=== PATIENT | male | born 1950 | race Caucasian/White ===

== ENCOUNTER → 2019-03-30 08:29 | Outpatient (POV) | payer OTHER, SELFPAY ==
[2019-03-30 08:39] VITALS: BP 145/84; PULSE 87; RESP 18; O2SAT 98
--- NOTE | 2019-03-30 08:57 | HMH.PMCON ---
Assessment and Plan (1) Degenerative disc disease Current visit: Yes Status: Chronic Qualifiers: Spinal region: lumbosacral Qualified Code(s): M51.37 - Other intervertebral disc degeneration, lumbosacral region Category: Medical (2) Back pain Current visit: Yes Status: Chronic Qualifiers: Back pain location: low back pain Chronicity: chronic Back pain laterality: midline Sciatica presence: without sciatica Qualified Code(s): M54.5 - Low back pain; G89.29 - Other chronic pain Category: Medical Code(s): M54.9 - Dorsalgia, unspecified - Assessment and plan all Dx Assessment and Plan for all problems:: We will schedule him for an L5-S1 lumbar epidural steroid injection I believe it would be beneficial given his symptomology and abnormal MRI. I will follow-up with the patient after his injection reassess his symptoms at that time. He is currently not on any anticoagulation therapy. Dr. Massey has reviewed this note and agrees with this plan of care. This note was dictated using voice recognition software and may contain errors or omissions HPI - Data of Consult Consult date: 03/30/19 Requesting Physician: Laila Agrawal APRN Primary Care Provider: Justin Marcum MD - Consult Narrative Reason for consult: Back pain, coccyx pain History of present illness: Mr. Granados is a 68 year old male patient is a pleasant 68-year-old white male who presents today for consultation in regards to low back pain. Patient states sitting for long periods of time increases pain while standing decreases his pain. He denies any numbness and tingling or radiation of pain. Patient was seen by a neurosurgeon several years ago and was deemed not a surgical candidate. He has had injections in the past with good relief. Patient currently on anti-inflammatories and continuing a home stretching program. He rates his pain a 3 out of 10. He is interested in pursuing more epidural injections. CC: Laila Agrawal APRN [facility] History I have reviewed the patient's past medical history: Yes Medical History: Reports:: Hypertension Other Surgeries: Yes: Appendectomy Amputation: No Fractures: No - *Social History Smoking Status: Never smoker Alcohol Intake: current Alcohol Intake Frequency:: a few times a week *Occupational Status:: other Housing: house *Travel in the last 8 weeks: None - Psychiatric History Expresses thoughts of harming self/others: None Suicide Plan Description: No Plan Family Hx:: Unable to obtain Review of Systems - Review of Systems ROS General: no recent weight change, no fever, no sleep disturbances Respiratory: no cough, no shortness of air, no recurring pulmonary infections Cardiovascular/Peripheral Vascular: No chest pain, No palpitations, no edema, no shortness of breath. Gastrointestinal: no incontinence, normal bowel movements reported Genitourinary: no incontinence Musculoskeletal: Back pain Psychiatric: normal mood/ affect Neurological: [denies weakness in extremities], [denies balance issues] Meds Allergies Allergy/AdvReac Type Severity Reaction Status Date / Time No Known Allergies Allergy Unverified 11/05/17 14:23 Objective Vital signs: Pulse Resp BP Pulse Ox 87 18 145/84 H 98 03/30/19 08:39 03/30/19 08:39 03/30/19 08:39 03/30/19 08:39 Narrative: Physical Exam General: Alert and oriented x3, no acute distress, pleasant and cooperative, [on room air] Lungs: Resps E/U, Symmetrical chest expansion, Eyes: PERRL Musculoskeletal: Flexion and extension of lumbar spine somewhat guarded secondary to pain, deep tendon reflexes normal, strength in upper and lower extremities [5/5], slightly antalgic gait noted Neurological: speech clear, disease and insect control boss equal, no gross sensory deficits Opioid Risk Tool - Opioid Risk Tool-Male Family hx alcohol abuse: N Family hx illegal drugs: N Family hx rx drug abuse: N Person
--- NOTE | 2019-03-30 09:00 | P.CONS_ITS ---
Assessment and Plan (1) Degenerative disc disease Current visit: Yes Status: Chronic Qualifiers: Spinal region: lumbosacral Qualified Code(s): M51.37 - Other intervertebral disc degeneration, lumbosacral region Category: Medical (2) Back pain Current visit: Yes Status: Chronic Qualifiers: Back pain location: low back pain Chronicity: chronic Back pain laterality: midline Sciatica presence: without sciatica Qualified Code(s): M54.5 - Low back pain; G89.29 - Other chronic pain Category: Medical Code(s): M54.9 - Dorsalgia, unspecified - Assessment and plan all Dx Assessment and Plan for all problems:: We will schedule him for an L5-S1 lumbar epidural steroid injection I believe it would be beneficial given his symptomology and abnormal MRI. I will follow-up with the patient after his injection reassess his symptoms at that time. He is currently not on any anticoagulation therapy. Dr. Massey has reviewed this note and agrees with this plan of care. This note was dictated using voice recognition software and may contain errors or omissions HPI - Data of Consult Consult date: 03/30/19 Requesting Physician: Laila Agrawal APRN Primary Care Provider: Justin Marcum MD - Consult Narrative Reason for consult: Back pain, coccyx pain History of present illness: Mr. Granados is a 68 year old male patient is a pleasant 68-year-old white male who presents today for consultation in regards to low back pain. Patient states sitting for long periods of time increases pain while standing decreases his pain. He denies any numbness and tingling or radiation of pain. Patient was seen by a neurosurgeon several years ago and was deemed not a surgical candidate. He has had injections in the past with good relief. Patient currently on anti-inflammatories and continuing a home stretching program. He rates his pain a 3 out of 10. He is interested in pursuing more epidural injections. CC: Laila Agrawal APRN [facility] History I have reviewed the patient's past medical history: Yes Medical History: Reports:: Hypertension Other Surgeries: Yes: Appendectomy Amputation: No Fractures: No - *Social History Smoking Status: Never smoker Alcohol Intake: current Alcohol Intake Frequency:: a few times a week *Occupational Status:: other Housing: house *Travel in the last 8 weeks: None - Psychiatric History Expresses thoughts of harming self/others: None Suicide Plan Description: No Plan Family Hx:: Unable to obtain Review of Systems - Review of Systems ROS General: no recent weight change, no fever, no sleep disturbances Respiratory: no cough, no shortness of air, no recurring pulmonary infections Cardiovascular/Peripheral Vascular: No chest pain, No palpitations, no edema, no shortness of breath. Gastrointestinal: no incontinence, normal bowel movements reported Genitourinary: no incontinence Musculoskeletal: Back pain Psychiatric: normal mood/ affect Neurological: [denies weakness in extremities], [denies balance issues] Meds Allergies Allergy/AdvReac Type Severity Reaction Status Date / Time No Known Allergies Allergy Unverified 11/05/17 14:23 Objective Vital signs: Pulse Resp BP Pulse Ox 87 18 145/84 H 98 03/30/19 08:39 03/30/19 08:39 03/30/19 08:39 03/30/19 08:39 Narrative:
== END ==
PROVIDERS: PCP Family Medicine; Visit Provider Clinical Nurse Specialist Family Health
DX: M51.37 Other intervertebral disc degeneration, lumbosacral region (principal); G89.29 Other chronic pain
CPT/HCPCS: 99202

== ENCOUNTER 2019-04-10 09:15 | Day surgery (SDC) | payer OTHER, SELFPAY ==
[2019-04-10 09:24] VITALS: BP 156/73; PULSE 78; RESP 18; O2SAT 92; BMI 40.4
[2019-04-10 09:56] VITALS: BP 155/89; PULSE 82; RESP 20
[2019-04-10 09:58] VITALS: BP 144/82; PULSE 80; RESP 20
--- NOTE | 2019-04-10 10:08 | HMH.PMPROC ---
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 He is failed all conservative treatment and he is not a surgical candidate. He has had epidural steroid injections in the past which have helped him tremendously. His pain is starting to return in his back and down his legs. We will do repeat lumbar pleural steroid injection today. Procedure Details:: Lumbar epidural steroid injection under fluoroscopy Informed consent was obtained and the risk and benefits of the procedure was explained to the patient. The patient was taken to the procedure room. The patient was placed prone on the procedure table. The patient was prepped and draped in sterile fashion. C-arm fluoroscopy was used to view the lumbar spine. Skin and subcutaneous tissues were anesthetized using lidocaine. I placed an 18-gauge epidural needle and advanced into the L4-L5 interspace using fluoroscopic guidance and [id number] to air. After confirmation of needle placement in the epidural space with dye I injected 2 mL of lidocaine 1.5% with Depo-Medrol 80 mg. Patient tolerated the procedure well with no complications. Plan and Disposition:: We will follow-up with him in 2 weeks. Will reevaluate symptoms at that time.
[2019-04-10 10:15] VITALS: BP 148/79; PULSE 70; RESP 18; O2SAT 94
== END 2019-04-10 10:15 | disposition home or self-care (01) ==
LOC: SC.PAINP 09:17
PROVIDERS: PCP Family Medicine; Visit Provider Anesthesiology
DX: M51.16 Intervertebral disc disorders with radiculopathy, lumbar region (principal)
CPT/HCPCS: 62323; J1040; Q9966

== ENCOUNTER → 2019-05-11 14:52 | Outpatient (POV) | payer OTHER, SELFPAY ==
[2019-05-11 15:02] VITALS: BP 145/81; PULSE 71; RESP 18; O2SAT 99; BMI 54.8
--- NOTE | 2019-05-11 15:46 | HMH.PAINSOAP ---
[facility] Pain Management SOAP Note Subjective:: Patient is a pleasant 68-year-old white male who follows up today after his L5-S1 lumbar epidural steroid injection. Patient overall doing well. Patient does have some SI joint pain today. Rating his pain a 5 out of 10. He is interested in potential injections to help alleviate this. ROS General: no recent weight change, no fever, no sleep disturbances Respiratory: no cough, no shortness of air, no recurring pulmonary infections Cardiovascular/Peripheral Vascular: No chest pain, No palpitations, no edema, no shortness of breath. Gastrointestinal: no incontinence, normal bowel movements reported Genitourinary: no incontinence Musculoskeletal: Back pain, SI joint pain Psychiatric: normal mood/ affect Neurological: [denies weakness in extremities], [denies balance issues] Objective:: Physical Exam General: Alert and oriented x3, no acute distress, pleasant and cooperative, [on room air] Lungs: Resps E/U, Symmetrical chest expansion, Eyes: PERRL Musculoskeletal: Flexion and extension of lumbar spine somewhat guarded secondary to pain, deep tendon reflexes normal, strength in upper and lower extremities [5/5], positive Swati test, positive SI joint compression test, positive Juanito's test bilaterally Neurological: speech clear, college or university business manager equal, no gross sensory deficits Assessment:: Sacroiliitis, degenerative disc disease lumbar spine Plan:: We will schedule the patient for bilateral SI joint injections. Patient otherwise doing well. Patient is not on any anticoagulation therapies continue his home stretching program. He is on anti-complain Dr. Massey has reviewed this note and agrees with this plan of care. This note was dictated using voice recognition software and may contain errors or omissions
--- NOTE | 2019-05-11 15:50 | P.CONS_ITS ---
[facility] Pain Management SOAP Note Subjective:: Patient is a pleasant 68-year-old white male who follows up today after his L5- S1 lumbar epidural steroid injection. Patient overall doing well. Patient does have some SI joint pain today. Rating his pain a 5 out of 10. He is interested in potential injections to help alleviate this. ROS General: no recent weight change, no fever, no sleep disturbances Respiratory: no cough, no shortness of air, no recurring pulmonary infections Cardiovascular/Peripheral Vascular: No chest pain, No palpitations, no edema, no shortness of breath. Gastrointestinal: no incontinence, normal bowel movements reported Genitourinary: no incontinence Musculoskeletal: Back pain, SI joint pain Psychiatric: normal mood/ affect Neurological: [denies weakness in extremities], [denies balance issues] Objective:: Physical Exam General: Alert and oriented x3, no acute distress, pleasant and cooperative, [on room air] Lungs: Resps E/U, Symmetrical chest expansion, Eyes: PERRL Musculoskeletal: Flexion and extension of lumbar spine somewhat guarded secondary to pain, deep tendon reflexes normal, strength in upper and lower extremities [5/5], positive Swati test, positive SI joint compression test, positive Juanito's test bilaterally Neurological: speech clear, body maker machine setter equal, no gross sensory deficits Assessment:: Sacroiliitis, degenerative disc disease lumbar spine Plan:: We will schedule the patient for bilateral SI joint injections. Patient otherwise doing well. Patient is not on any anticoagulation therapies continue his home stretching program. He is on anti-complain Dr. Massey has reviewed this note and agrees with this plan of care. This note was dictated using voice recognition software and may contain errors or omissions
== END ==
PROVIDERS: PCP Family Medicine; Visit Provider Clinical Nurse Specialist Family Health
DX: M46.1 Sacroiliitis, not elsewhere classified (principal); M51.36 Other intervertebral disc degeneration, lumbar region
CPT/HCPCS: 99212

== ENCOUNTER → 2019-06-29 14:57 | Outpatient (POV) | payer OTHER, SELFPAY ==
[2019-06-29 15:07] VITALS: BP 132/70; PULSE 78; RESP 18; O2SAT 98; BMI 39.7
--- NOTE | 2019-06-29 15:27 | HMH.PAINSOAP ---
[facility] Pain Management SOAP Note Subjective:: Patient is a pleasant 68-year-old white male who presents today for follow-up after SI joint injections. Patient found that this was not as beneficial as his L5-S1 epidural steroid injection. He rates his pain a 3 out of 10. He is quite a bit of pain in his low back radiating into his right leg. Patient's not currently not on any NSAIDs. Patient and I discussed adding an NSAID and also repeating his L5-S1 injection. He did get good relief after this. Patient still having some relief from it. Patient not on any anticoagulation therapy. He is continuing a home stretching program. He is continuing to work. ROS General: no recent weight change, no fever, no sleep disturbances Respiratory: no cough, no shortness of air, no recurring pulmonary infections Cardiovascular/Peripheral Vascular: No chest pain, No palpitations, no edema, no shortness of breath. Gastrointestinal: no incontinence, normal bowel movements reported Genitourinary: no incontinence Musculoskeletal: Back pain, right leg pain Psychiatric: normal mood/ affect Neurological: [denies weakness in extremities], [denies balance issues] Objective:: Physical Exam General: Alert and oriented x3, no acute distress, pleasant and cooperative, [on room air] Lungs: Resps E/U, Symmetrical chest expansion, Eyes: PERRL Musculoskeletal: Flexion and extension of lumbar spine somewhat guarded secondary to pain, deep tendon reflexes normal, strength in upper and lower extremities [5/5], slightly antalgic gait noted Neurological: speech clear, bulwark carpenter equal, no gross sensory deficits Assessment:: Degenerative disc disease lumbar spine with lumbar radiculopathy Plan:: We will schedule an L5-S1 epidural injection given the efficacy in the past. He is not on any anticoagulation therapy. He is continuing home stretching program we will also start him on diclofenac 75 mg 1 p.o. twice daily. Patient instructed to call the office if he has any issues prior to his next appointment. Dr. Massey has reviewed this note and agrees with this plan of care. This note was dictated using voice recognition software and may contain errors or omissions Pain Management Hx Components *Have you ever received a pneumonia vaccine?: Yes *Have you received a flu vaccine this season?: Yes - *Social History *Occupational Status:: other *Travel in the last 8 weeks: None
--- NOTE | 2019-06-29 15:30 | P.CONS_ITS ---
[facility] Pain Management SOAP Note Subjective:: Patient is a pleasant 68-year-old white male who presents today for follow-up after SI joint injections. Patient found that this was not as beneficial as his L5-S1 epidural steroid injection. He rates his pain a 3 out of 10. He is quite a bit of pain in his low back radiating into his right leg. Patient's not currently not on any NSAIDs. Patient and I discussed adding an NSAID and also repeating his L5-S1 injection. He did get good relief after this. Patient still having some relief from it. Patient not on any anticoagulation therapy. He is continuing a home stretching program. He is continuing to work. ROS General: no recent weight change, no fever, no sleep disturbances Respiratory: no cough, no shortness of air, no recurring pulmonary infections Cardiovascular/Peripheral Vascular: No chest pain, No palpitations, no edema, no shortness of breath. Gastrointestinal: no incontinence, normal bowel movements reported Genitourinary: no incontinence Musculoskeletal: Back pain, right leg pain Psychiatric: normal mood/ affect Neurological: [denies weakness in extremities], [denies balance issues] Objective:: Physical Exam General: Alert and oriented x3, no acute distress, pleasant and cooperative, [on room air] Lungs: Resps E/U, Symmetrical chest expansion, Eyes: PERRL Musculoskeletal: Flexion and extension of lumbar spine somewhat guarded secondary to pain, deep tendon reflexes normal, strength in upper and lower extremities [5/5], slightly antalgic gait noted Neurological: speech clear, director of outreach equal, no gross sensory deficits Assessment:: Degenerative disc disease lumbar spine with lumbar radiculopathy Plan:: We will schedule an L5-S1 epidural injection given the efficacy in the past. He is not on any anticoagulation therapy. He is continuing home stretching progra m we will also start him on diclofenac 75 mg 1 p.o. twice daily. Patient instructed to call the office if he has any issues prior to his next appointment. Dr. Massey has reviewed this note and agrees with this plan of care. This note was dictated using voice recognition software and may contain errors or omissions Pain Management Hx Components *Have you ever received a pneumonia vaccine?: Yes *Have you received a flu vaccine this season?: Yes - *Social History *Occupational Status:: other *Travel in the last 8 weeks: None
== END ==
PROVIDERS: PCP Family Medicine; Visit Provider Clinical Nurse Specialist Family Health
DX: M51.16 Intervertebral disc disorders with radiculopathy, lumbar region (principal)
CPT/HCPCS: 99212

== ENCOUNTER → 2019-11-12 08:43 | Outpatient (POV) | payer OTHER, SELFPAY ==
[2019-11-12 08:55] VITALS: BP 148/68; PULSE 84; RESP 18; O2SAT 99; BMI 41.1
--- NOTE | 2019-11-12 09:04 | HMH.PAINSOAP ---
[facility] Pain Management SOAP Note Subjective:: Is a pleasant 69-year-old white male who presents today for follow-up. Treated for low back pain with coccydynia. He recently underwent a lumbar epidural steroid injection at L5-S1. Patient says that he got approximately 60% relief with the second injection. He does say he got more relief from the first injection. He would like to undergo more epidural steroid injection to see if he gets relief. He is continue with anti-inflammatories and a home stretching program. Review of Systems General: No recent weight changes, no fever, no sleep disturbances Respiratory: No cough, no shortness of air, no recurring pulmonary infections Cardiovascular/peripheral vascular: No chest pain, no palpitations, no edema, no shortness of breath Gastrointestinal: No new onset incontinence, normal bowel movements reported Genitourinary: No new onset incontinence Musculoskeletal: Low back pain Psychiatric: Normal mood/affect Neurological: [Denies weakness in extremities], [denies balance issues] Objective:: Physical exam General: Alert and oriented x3, no acute distress, pleasant and cooperative, [on room air] Lungs: Respirations even and unlabored, symmetrical chest expansion Eyes: PERRL Musculoskeletal: Flexion and extension of bar spine somewhat guarded secondary to pain, deep tendon reflexes normal, strength in upper and lower extremities [5/5], [abnormal gait noted] Neurological: Speech clear, president financial institution equal, no gross sensory deficit Assessment:: Generative disc disease lumbar spine with lumbar radiculopathy symptoms coccydynia Plan:: We will plan for a another lumbar epidural steroid injection at L5-S1. Not on any anticoagulation therapy. He will continue with the inflammatories and a home stretching program. See him back following his injection to reassess his symptoms. He has been instructed to contact the clinic he has any concerns before his next appointment. Dr. Massey has reviewed this note and agrees with this plan of care. This note was dictated using voice recognition software and make contain errors or omissions. [facility] History I have reviewed the patient's past medical history: Yes Medical History: Reports:: Hypertension Denies:: Cancer, Diabetes Mellitus Type 1, Diabetes Mellitus Type 2, MRSA, Seizures *Have you ever received a pneumonia vaccine?: Yes *Have you received a flu vaccine this season?: Yes Other Medical History: Denies: Blood Transfusion Reaction Other Surgeries: Yes: Appendectomy Amputation: No Fractures: No - *Social History Smoking Status: Former smoker Alcohol Intake: current Alcohol Intake Frequency:: a few times a week *Occupational Status:: other Housing: house Household Members: spouse *Travel in the last 8 weeks: None Family Hx:: Unable to obtain
== END ==
PROVIDERS: PCP Family Medicine; Visit Provider Clinical Nurse Specialist Family Health
DX: M51.16 Intervertebral disc disorders with radiculopathy, lumbar region (principal); M53.3 Sacrococcygeal disorders, not elsewhere classified
CPT/HCPCS: 99212

== ENCOUNTER → 2020-09-19 10:29 | Outpatient (CLI) | payer OTHER, SELFPAY ==
[2020-09-19 11:54] LABS: Coronavirus 19 IgG Antibody Negative (Negative); Coronavirus 19 IgM Antibody Negative (Negative)
== END ==
PROVIDERS: Visit Provider Surgery
DX: Z01.818 Encounter for other preprocedural examination (principal); Z12.11 Encounter for screening for malignant neoplasm of colon
CPT/HCPCS: 36415; 86328

== ENCOUNTER 2020-09-20 09:19 | Day surgery (SDC) | payer OTHER, SELFPAY ==
[2020-09-14 12:36] VITALS: BMI 37.0
[2020-09-20 09:36] VITALS: BP 150/76; PULSE 87; RESP 18; TEMP 36.1; O2SAT 97
[2020-09-20 09:46] LABS: POC Glucose,Bedside 87 (70-110)
--- NOTE | 2020-09-20 10:13 | HMH.ANESCL ---
[facility] Anesthesia Checklist - Patient Identification Patient Identification: Arm Band, Verbal (Name & ) - Structural Data Planned Operative Procedure/s: colon Consent for Planned Operative Procedure(s) Verified: Yes Verified Documents: History and Physical - NPO Status Verified Time NPO: 00:00 - Chart Verification Results Verified: CBC, BMP - Additional verifications Patient : No Anesthesia Reactions: No Hx Blood Transfusions: No Blood Transfusion Reaction: No Cephalosporin Allergy: No Previous Colonoscopy: Yes - Cardiovascular Assessment Heart Sounds: S1 & S2 Pulse Strength: Baseline Pulse Rhythm: Regular Peripheral Edema: No - Airway Assessment C-Spine Mobility Assessed: Yes TMJ Mobility Assessed: Yes Dentition: Good Dentition - Neurological Assessment Level of Consciousness: Awake, Alert, Appropriate Hx Seizures: No Numbness or tingling in extremities: No - Anesthesia Plan Anesthesia Risk discussed: Yes Anesthesia Plan: Verified ASA Class: II Anesthesia Type: [facility] History I have reviewed the patient's past medical history: Yes Medical History: Reports:: Diabetes Mellitus Type 1, Diabetes Mellitus Type 2, Hyperlipidemia, Hypertension Denies:: Cancer, Internal Pacemaker, MRSA, Seizures *Have you ever received a pneumonia vaccine?: Yes *Have you received a flu vaccine this season?: Yes Other Medical History: Denies: Blood Transfusion Reaction Anesthesia experience/problems:: none Laterality Cases: Bilateral: Tonsillectomy Other Surgeries: Yes: Appendectomy. No: Pacemaker Amputation: No Fractures: No - *Social History Last grade of school completed: GED Smoking Status: Former smoker Alcohol Intake: current Alcohol Intake Frequency:: a few times a month Substance Use Type: other *Occupational Status:: employed Housing: house Household Members: spouse *Travel in the last 8 weeks: None Family Hx:: Unable to obtain
[2020-09-20 10:15] VITALS: O2SAT 97
[2020-09-20 11:30] VITALS: BP 89/50; PULSE 49; RESP 18; TEMP 36.3; O2SAT 92
--- NOTE | 2020-09-20 11:31 | HMH.SCOPE ---
- Procedure: Date: 09/20/20 Patient Date of :: 1950 Procedure Performed:: Total colonoscopy with multiple polypectomy Indications:: Patient is a 70-year-old male referred by Dr. Marcum for colonoscopy. He has a family history of colon cancer in his mother diagnosed at approximately age 70. Patient states that he has had several colonoscopies in the past. He underwent initial colonoscopy [address] Iverson and had polyp removed. He had colonoscopy by Dr. Martinez in 2008. I performed colonoscopy on him October 2016. He had several polyps removed. Two of these were tubular adenomas and two were sessile serrated adenomas. The largest of these was a sessile serrated adenoma in the proximal descending colon which was removed with hot snare. I recommended a 3-year follow-up colonoscopy. He admits he is late for his recommended followup colonoscopy. Performing Provider:: Kt Simons MD Referring Provider:: Justin Marcum MD Sedation:: MAC sedation Procedure:: Patient was taken to endoscopy procedure room. He was positioned in a lateral decubitus position. Adequate intravenous sedation was achieved with anesthesia titration of propofol. Variable stiffness Olympus colonoscope was inserted via the anus. It was advanced to the cecum with some minor difficulty due to some floppiness and redundancy of the sigmoid colon. Ileocecal valve and appendiceal orifice were identified. Colonic preparation was adequate although there was particulate liquid stool throughout the colon which was suctioned free. Several polyps were encountered and removed. Please see findings below for details. Retroflexion within the rectum revealed no evidence of any pathologic internal hemorrhoids. Colonoscope was withdrawn. Findings:: Ascending colon polyp x2 1 removed with biopsy forceps and 1 removed with cold cutting snare Proximal transverse colon polyp Descending colon polyp x2 removed with biopsy Diminutive sigmoid polyp removed with cold cutting snare Rectosigmoid polyp x3, diminutive, removed with biopsy Rectal polyp x3, diminutive, removed with biopsy He had a total of approximately 12 polyps. Most of these appeared hyperplastic except for more proximal polyps in the ascending and proximal transverse colon. Recommendations:: Repeat colonoscopy 2 or 3 years pending the pathology Complications:: None immediately apparent Estimated blood obtained (mL): 3
[2020-09-20 11:40] VITALS: BP 91/46; PULSE 51; RESP 18; O2SAT 93
[2020-09-20 11:50] VITALS: BP 101/54; PULSE 52; RESP 18; O2SAT 95
[2020-09-20 12:00] VITALS: BP 106/53; PULSE 53; RESP 18; O2SAT 95
== END 2020-09-20 12:00 | disposition home or self-care (01) ==
LOC: OUTP 09:21
PROVIDERS: PCP Family Medicine; Visit Provider Surgery
PROC: 0DJD8ZZ Inspection of Lower Intestinal Tract, Via Natural or Artificial Opening Endoscopic (ICD-10-PCS; CPT 45380; principal; 2020-09-20 10:30)
DX: Z12.11 Encounter for screening for malignant neoplasm of colon (principal); K62.1 Rectal polyp; Z80.0 Family history of malignant neoplasm of digestive organs; K63.5 Polyp of colon; Z86.010 Personal history of colon polyps; E10.9 Type 1 diabetes mellitus without complications; I10 Essential (primary) hypertension; E78.5 Hyperlipidemia, unspecified; Z90.49 Acquired absence of other specified parts of digestive tract; Z79.84 Long term (current) use of oral hypoglycemic drugs; Z79.899 Other long term (current) drug therapy
CPT/HCPCS: 45380; 45385; 82962

== ENCOUNTER → 2020-12-16 14:26 | Outpatient (CLI) | payer OTHER, SELFPAY ==
--- NOTE | 2020-12-16 14:45 | US_ITS ---
APPROVED REPORT Exam Type: Lower Extremity Segmental Pressures Staple Laster: Janey Jules RVT Indications Claudication: Bilaterally History of Smoking CLAUDICATION Risk Factors Hypertension Diabetes Pressures/Indices Right Indices Left Indices Brachial 143.00 mmHg Brachial 148.00 mmHg Low Thigh 147.00 mmHg 0.99 Low Thigh 158.00 mmHg 1.07 Calf 160.00 mmHg 1.08 Calf 159.00 mmHg 1.07 Ankle(PT) 148.00 mmHg 1.00 Ankle(PT) 170.00 mmHg 1.15 Ankle(DP) 177.00 mmHg 1.20 Ankle(DP) 165.00 mmHg 1.11 Digit 126.00 mmHg 0.85 Digit 147.00 mmHg 0.99 Findings RT FERNANDO:1.20 LT FERNANDO:1.15 RT TBI:0.85 LT TBI:0.99 NORMAL PULSES BILATERAL NORMAL WAVEFORMS BILATERAL Conclusion RT FERNANDO:1.20 LT FERNANDO:1.15 RT TBI:0.85 LT TBI:0.99 NORMAL PULSES BILATERAL NORMAL WAVEFORMS BILATERAL Normal appearing resting noninvasive lower extremity arterial study. Electronically signed by : Mat Cordova MD 12/16/2020 16:45:46
== END ==
PROVIDERS: PCP Family Medicine; Visit Provider Family Medicine
DX: I70.213 Atherosclerosis of native arteries of extremities with intermittent claudication, bilateral legs (principal)
CPT/HCPCS: 93923

== ENCOUNTER → 2020-12-29 13:52 | Outpatient (CLI) | payer OTHER, SELFPAY ==
--- NOTE | 2020-12-29 13:56 | MR_ITS ---
PROCEDURE: MR LUMBAR SPINE WO CON CLINICAL INDICATION: MIDLINE LOW BACK PAIN WITH RIGHT SIDED SCIATICA Midline low back pain. Right leg pain numbness and tingling COMPARISON: MR DIRECTOR SEMICONDUCTOR/O MRI-L-SPINE W/O from 09/28/2015 TECHNIQUE: Standard multiplanar multiecho sequences are performed without contrast. 3-D MIP and myelographic images are also rendered and reviewed FINDINGS: There is normal alignment. The spinal cord ends at the T12-L1 level. T12-L1: Mild degenerative disc disease with minimal bulging disc. L1-L2: Mild degenerative disc disease with minimal central disc protrusion and minimal bulging disc. L2-L3: Mild degenerative disc disease with minimal bulging disc along with facet and ligamentum hypertrophy. L3-L4: Facet and ligamentum hypertrophy with bilateral lateral recess and foraminal narrowing. The facet and ligamentum hypertrophy appears somewhat more prominent. L4-5: There is degenerative disc disease with bulging disc and moderate to severe facet and ligamentum hypertrophy. There is a right paracentral extruded herniated disc extruded inferiorly. The herniated disc along with the facet and ligamentum hypertrophy results in severe canal stenosis with severe bilateral lateral recess narrowing which is greater on the right due to the disc extrusion. The disc herniation has enlarged since the previous exam in the canal stenosis is worse on today's study. L5-S1: Degenerative disc disease with bulging disc with facet and ligamentum hypertrophy with severe bilateral foraminal narrowing which has progressed since the previous exam. IMPRESSION: 1. Multilevel lumbar spondylosis with bulging disc, facet and ligamentum hypertrophy along with lateral recess and foraminal narrowing. Please see above for detailed description at each level. 2. At L4-5, there is degenerative disc disease with bulging disc and moderate to severe facet and ligamentum hypertrophy. There is a right paracentral extruded herniated disc extruded inferiorly. The herniated disc along with the facet and ligamentum hypertrophy results in severe canal stenosis with severe bilateral lateral recess narrowing which is greater on the right due to the disc extrusion. The disc herniation has enlarged since the previous exam in the canal stenosis is worse on today's study. There is severe nerve root impingement centrally and on the right from the disc herniation. Dictated by: Mat Cordova MD 12/30/2020 11:07 Mat Cordova MD in [place] 12/30/2020 11:07
== END ==
PROVIDERS: PCP Family Medicine; Visit Provider Family Medicine
DX: M54.41 Lumbago with sciatica, right side (principal); M51.36 Other intervertebral disc degeneration, lumbar region; M51.26 Other intervertebral disc displacement, lumbar region
CPT/HCPCS: 72148; 76376

== ENCOUNTER → 2021-08-11 12:17 | Outpatient (CLI) | payer OTHER, SELFPAY ==
--- NOTE | 2021-08-11 12:38 | ECG_ITS ---
APPROVED REPORT Exam: Resting ECG HR:59 bpm ECG Measurements Heart Rate 59 AXES SC 188 P 54 QRSd 90 QRS -74 QT 402 T 17 QTc 397 Conclusion Sinus bradycardia Left axis deviation Low voltage QRS Inferior infarct, age undetermined Late r wave progression Abnormal ECG Electronically signed by : Bernardo Hammond MD 08/11/2021 17:33:43
[2021-08-11 12:49] LABS: Basophils # 0.1 K/mm3 (0-0.2); Basophils % 1.1 % (0.1-2.0); Eosinophils # 0.2 K/mm3 (0.0-0.4); Hematocrit 48.8 % (42.0-52.0); Hemoglobin 16.4 g/dL (14.1-18.0); Lymphocytes % 23.8 % (10-50); Mean Corpuscular HGB Conc 33.6 g/dL (31.8-35.4); Mean Corpuscular Volume 95.4 fl (80-94); Mean Platelet Volume 6.7 fl (7.4-10.4); Monocytes # 0.6 K/mm3 (0.1-1.0); Monocytes % 6.7 % (1.7-9.3); Neutrophils # 5.4 K/mm3 (1.8-7.8); Neutrophils % 65.5 % (37.0-80.0); Platelet Count 264 K/mm3 (142-424); Red Blood Count 5.11 M/mm3 (4.60-6.20); Red Cell Distribution Width 12.8 % (11.5-17.5); White Blood Count 8.3 K/mm3 (4.8-10.8)
[2021-08-11 13:43] LABS: Albumin Level 4.4 g/dl (3.5-5.0); Chloride 101 mmol/L (98-107); Potassium 4.2 mmoL/L (3.5-5.1); Sodium 139 mmol/L (136-145)
[2021-08-11 13:45] LABS: Blood Urea Nitrogen 19 mg/dl (9-20); Estimated Glomerular Filt Rate 84 ml/min (>60); GFR (African American) 102 ML/MIN (>60)
[2021-08-11 13:46] LABS: Anion Gap 13.2 mEq/L (5-15); Calcium 9.5 mg/dl (8.4-10.2); Carbon Dioxide 29 mmol/L (22.0-30.0); Glucose 89 mg/dl (74-100); Phosphorous 3.5 mg/dl (2.5-4.5)
== END ==
PROVIDERS: Visit Provider Neurological Surgery
DX: Z01.818 Encounter for other preprocedural examination (principal)
CPT/HCPCS: 36415; 80069; 85025; 93005

== ENCOUNTER → 2021-08-26 10:29 | Outpatient (CLI) | payer OTHER, SELFPAY | DX: Z01.818 Encounter for other preprocedural examination (principal) ==

== ENCOUNTER 2023-01-01 08:39 | Day surgery (SDC) | payer BC, SELFPAY ==
[2022-12-27 13:56] VITALS: BMI 39.0
--- NOTE | 2023-01-01 08:47 | P.PN_ITS ---
[facility] Disclaimer: The information contained in this section may have been updated after the patient was seen, as this information can be updated by other users. Medical History Allergies Diabetes HTN (hypertension) Surgical History History of appendectomy History of lumbar discectomy History of myringotomy History of tonsillectomy Family History Other Colon cancer Family history of cardiomyopathy Social History Smoking Status: Former smoker alcohol intake: never substance use type: other current occupational status: employed Travel in the last 8 weeks: None household members: spouse housing: house caffeine: No [facility] Anesthesia Checklist Patient Identification Patient Identification: Arm Band and Verbal (Name & ) Structural Data Admitted From: Home Planned Operative Procedure/s: Colonoscopy Consent for Planned Operative Procedure(s) Verified: Yes NPO Status Verified Time NPO: 00:00 Additional verifications Anesthesia Reactions: No Hx Blood Transfusions: No Blood Transfusion Reaction: No Airway Assessment C-Spine Mobility Assessed: Yes TMJ Mobility Assessed: Yes Dentition: Good Dentition Neurological Assessment Level of Consciousness: Awake Hx Seizures: No Numbness or tingling in extremities: No Anesthesia Plan Anesthesia Risk discussed: Yes Anesthesia Plan: Verified ASA Class: III Anesthesia Type: MAC
[2023-01-01 08:55] VITALS: BP 152/76; PULSE 79; RESP 18; TEMP 36.8; O2SAT 96
--- NOTE | 2023-01-01 09:07 | HMH.SCOPE ---
Procedure: Date: 01/01/23 Patient Date of :: 1950 Procedure Performed:: Colonoscopy Indications:: History of polyps Note: Multiple complex polyps noted on multiple occasions. Most recent colonoscopy September 2020. Performing Provider:: Javi Farris MD Referring Provider:: Dr. Marcum Sedation:: Monitored anesthesia care Procedure:: After informed consent was obtained the patient was taken to the endoscopy suite. Sedation ensued after the patient was transferred to the left lateral decubitus position. Pulse, blood pressure, and oxygen saturation were monitored throughout the procedure. Digital rectal exam revealed no significant abnormality. The colonoscope was placed in position. The entire colon was evaluated. The colonoscope was carefully removed and the patient was transferred to recovery in stable condition. Please see findings and specimens below for detail. Findings:: Bowel preparation relatively poor Scattered diverticulosis Hemorrhoidal cushions Lobulated complex polyp at 35 cm Specimens:: Lobulated complex polyp at 35 cm (cold snare) Recommendations:: Timing of repeat colonoscopy is pending pathology but likely be between 2-3 years with extended bowel preparation. Complications:: No immediate Estimated blood obtained (mL): 1
[2023-01-01 09:09] VITALS: O2SAT 96
[2023-01-01 09:10] LABS: POC Glucose,Bedside 103 (70-110)
[2023-01-01 09:48] VITALS: BP 104/53; PULSE 72; RESP 14; TEMP 36.8; O2SAT 91
[2023-01-01 09:58] VITALS: BP 110/61; PULSE 73; RESP 15; O2SAT 93
[2023-01-01 10:08] VITALS: BP 117/67; PULSE 73; RESP 16; O2SAT 92
[2023-01-01 10:28] VITALS: BP 117/72; PULSE 71; RESP 16; O2SAT 98
== END 2023-01-01 10:30 | disposition home or self-care (01) ==
PROVIDERS: PCP Family Medicine; Visit Provider Surgery
PROC: 0DJD8ZZ Inspection of Lower Intestinal Tract, Via Natural or Artificial Opening Endoscopic (ICD-10-PCS; CPT 45385; principal; 2023-01-01 09:30)
DX: Z12.11 Encounter for screening for malignant neoplasm of colon (principal); Z86.010 Personal history of colon polyps; K57.30 Diverticulosis of large intestine without perforation or abscess without bleeding; D12.5 Benign neoplasm of sigmoid colon; Z79.899 Other long term (current) drug therapy; E11.9 Type 2 diabetes mellitus without complications
CPT/HCPCS: 45385; 82962; 88305; J2704

== ENCOUNTER → 2023-07-01 13:59 | Outpatient (CLI) | payer BC, SELFPAY ==
--- NOTE | 2023-07-01 14:06 | XR_ITS ---
FINAL REPORT CLINICAL HISTORY: EXERBATION COMPARISON: None FINDINGS: Cardiomegaly is noted. No acute pulmonary abnormalities identified. There is no pneumothorax. The bony thorax is intact. IMPRESSION: No acute cardiopulmonary process. Cardiomegaly. Reviewed, Interpreted and Dictated by Kt Smith III, MD Transcribed by Nora Giron Authenticated and [facility]
== END ==
PROVIDERS: PCP Family Medicine; Visit Provider Family Medicine
DX: J45.21 Mild intermittent asthma with (acute) exacerbation (principal)
CPT/HCPCS: 71046

== ENCOUNTER → 2023-09-05 07:49 | Outpatient (CLI) | payer BC, SELFPAY | PROVIDERS: PCP Family Medicine; Visit Provider Family Medicine | DX: R05.3 Chronic cough (principal) | CPT/HCPCS: 94060 ==

== ENCOUNTER → 2023-09-23 10:25 | Outpatient (CLI) | payer BC, SELFPAY ==
[2023-09-23 10:30] LABS: Adenovirus,PCR Not Detected (NotDetected); Coronavirus 229E Not Detected (NotDetected); Coronavirus NL63 Not Detected (NotDetected); Coronavirus OC43 Not Detected (NotDetected); Coronovirus HKU1,PCR Not Detected (NotDetected); Human Metapneumovirus Not Detected (NotDetected); Influenza A, PCR Not Detected (NotDetected); Influenza AH1, 2009 Not Detected (NotDetected); Influenza AH1, PCR Not Detected (NotDetected); Influenza AH3,PCR Not Detected (NotDetected); Influenza B, PCR Not Detected (NotDetected); Parainfluenza 1, PCR Not Detected (NotDetected); Parainfluenza 2, PCR Not Detected (NotDetected); Parainfluenza 3, PCR Not Detected (NotDetected); Parainfluenza 4, PCR Not Detected (NotDetected); Respiratory Syncytial Virus Not Detected (NotDetected); Rhinovirus/Enterovirus Not Detected (NotDetected)
[2023-09-23 14:42] LABS: Coronavirus 19, PCR Detected (NotDetected)
== END ==
PROVIDERS: PCP Family Medicine; Visit Provider Family Medicine
DX: U07.1 COVID-19 (principal)
CPT/HCPCS: 87632; 87635

== ENCOUNTER → 2023-10-21 14:40 | Outpatient (CLI) | payer BC, SELFPAY ==
--- NOTE | 2023-10-21 14:43 | XR_ITS ---
FINAL REPORT CLINICAL HISTORY: Right foot pain COMPARISON: None FINDINGS: RIGHT FOOT: Three views of the right foot were obtained. There is no acute fracture or dislocation. There is mild degenerative change. Small calcaneal spurs are noted. There is no soft tissue abnormality. IMPRESSION: Mild degenerative change without acute bony abnormality. Reviewed, Interpreted and Dictated by Kt Smith III, MD Transcribed by Mariana Ovalles Authenticated and [facility]
--- NOTE | 2023-10-21 14:43 | XR_ITS ---
FINAL REPORT CLINICAL HISTORY: Left Foot Pain hammer toe COMPARISON: None FINDINGS: Three views of the left foot were obtained. There is no acute fracture or dislocation. There is mild degenerative change. Calcaneal spurs are noted. There is no soft tissue abnormality. IMPRESSION: Mild degenerative change without acute bony abnormality. Reviewed, Interpreted and Dictated by Kt Smith III, MD Transcribed by Mariana Ovalles Authenticated and [facility]
== END ==
PROVIDERS: PCP Family Medicine; Visit Provider Podiatrist
DX: M79.672 Pain in left foot (principal); M79.671 Pain in right foot; L57.0 Actinic keratosis
CPT/HCPCS: 73630; 87070; 87205; 87220

== ENCOUNTER → 2023-11-01 13:28 | Outpatient (CLI) | payer BC, SELFPAY ==
--- NOTE | 2023-11-01 13:36 | US_ITS ---
FINAL REPORT CLINICAL HISTORY: Decreased Pulses, previous FERNANDO 11/2020 (RT fernando=1.2, LT fernando=1.15), previous smoker, HTN, DM, bilateral claudication, obesity. COMPARISON: None FINDINGS: ANKLE-BRACHIAL PRESSURE INDICES Pressure indices are as follows: RIGHT LOWER EXTREMITY: Ankle-brachial pressure index: 1.1 Comments: Normal LEFT LOWER EXTREMITY: Ankle-brachial pressure index: 1.1 Comments: Normal IMPRESSION: No evidence of significant obstructive peripheral vascular disease of the lower extremities Reviewed, Interpreted and Dictated by Jensen Miller MD Transcribed by Mariana Ovalles Authenticated and [facility]
== END ==
PROVIDERS: PCP Family Medicine; Visit Provider Podiatrist
DX: R09.89 Other specified symptoms and signs involving the circulatory and respiratory systems (principal)
CPT/HCPCS: 93923

== ENCOUNTER 2024-08-05 15:56 | Outpatient (CLI) | payer BC, SELFPAY ==
--- NOTE | 2024-08-05 15:59 | XR_ITS ---
FINAL REPORT CLINICAL HISTORY: Foot Pain COMPARISON: None FINDINGS: LEFT FOOT Three views of the left foot demonstrate no acute fracture or dislocation. There is a small plantar spur. The visualized joint spaces are normally aligned. The soft tissues are unremarkable. IMPRESSION: No acute bony abnormality. Small plantar spur. Reviewed, Interpreted and Dictated by Jensen Miller MD Transcribed by Mariana Ovalles Authenticated and . [facility]
== END 2024-08-05 23:59 | disposition home or self-care (01) ==
LOC: RAD 15:57
PROVIDERS: PCP Family Medicine; Visit Provider Nurse Practitioner
DX: M79.672 Pain in left foot (principal)
CPT/HCPCS: 73630

== ENCOUNTER 2025-03-05 07:59 | Emergency (ER) | payer OTHER, MEDICARE, SELFPAY ==
[2025-03-05] VITALS (7 sets, daily range): BP systolic 102–152; BP diastolic 57–76; PULSE 83–127; RESP 20; TEMP 36.8; O2SAT 90–98; BMI 32.5
[2025-03-05 08:12] LABS: Coronavirus 19, PCR Not Detected (NotDetected); Influenza A, PCR Not Detected (NotDetected); Influenza B, PCR Not Detected (NotDetected)
--- OUTSIDE RECORDS SUMMARY | 2025-03-05 08:28 | XMS_ITS ---
Author Organization Unknown [facility] Start Date Provider Encounter for Check-up [phone] [facility]
--- NOTE | 2025-03-05 08:29 | XR_ITS ---
FINAL REPORT CLINICAL HISTORY: fever, nausea COMPARISON: 07/01/2023 FINDINGS: SINGLE VIEW CHEST The heart is normal in size. The mediastinum is unremarkable. There is atelectasis at the right base. There is no pneumothorax. IMPRESSION: Right base atelectasis. Reviewed, Interpreted and Dictated by Jensen Miller MD Transcribed by Gloria Mendoza Authenticated and . [facility]
--- NOTE | 2025-03-05 08:32 | HMH.EDGENADL ---
Discharge Plan Disposition Patient Disposition: Home, Self-Care Prescriptions Prescriptions: New atorvastatin 40 mg tablet 40 mg PO DAILY Qty: 30 0RF No Action Xhance 93 mcg/actuation aerosol breath activated 1 spray INTRANASAL BID Rx Instructions: into each nostril potassium chloride 10 mEq capsule, extended release 10 meq PO DAILY irbesartan-hydrochlorothiazide 300-12.5 mg tablet PO azelastine 137 mcg (0.1 %) aerosol,spray intranasal multivitamin Tablet 1 tab PO DAILY timolol maleate 0.5 % drops 1 drp ophthalmic (eye) BID Align (B.infantis) 4 mg capsule 4 mg PO DAILY diclofenac sodium 1 % gel topical PRN nystatin-triamcinolone 100,000-0.1 unit/g-% cream 1 applic topical BID 30 Days Qty: 60 2RF Rx Instructions: Apply to redness dry skin up to twice daily urea 47 % cream 1 applic topical BID 30 Days Qty: 142 0RF Rx Instructions: Apply up to twice daily to dry skin and thick calluses metformin 500 mg tablet 500 mg PO BID amlodipine 5 MG tablet 5 mg PO DAILY montelukast 10 MG tablet 10 mg PO DAILY Referrals Follow up/Referrals: Justin Marcum MD [Primary Care Provider] - See instructions Activity Restrictions/Add. Instructions Additional Instructions/Restrictions: Atorvastatin daily. Also be sure to take daily 81 mg aspirin. Follow-up with cardiology on Saturday, 03/08 at 1 PM and tell them that you were seen in the emergency department, Dr. De Jesus recommended you come to clinic on Saturday for evaluation for heart catheterization. Call your family doctor to establish care for this visit to the emergency department and schedule follow-up within 48 hours to ensure improvement. If you have any worsening of your condition or any other concerning signs or symptoms, return to the emergency department or your primary care doctor for further evaluation. Clinical Impressions Clinical Impression: Non-ST elevation MO (NSTEMI), Cystitis, Fever Print Language Print Language: Grenadian Discharge ED Provider: Arthur Ramires General Adult HPI General Chief complaint: Fever Stated complaint: Fever flu like symptoms Time Seen by Provider: 03/05/25 08:14 Mode of Arrival: Family Vehicle Source of Information: Patient, Spouse and Medical Record Description of Symptoms (Recalled from ER Triage Doc. by RN): Pt c/o fever 102, chills, dry heaving, cough, dysuria, and trouble voiding. States his urinary troubles began over the weekend. He noticed burning with urination and dysuria. He also had a TDAP on 03/02/25. Pt states Wed 03/03 he began to feel feverish, chills, and poor appetite and trouble voiding. He saw Dr Marcum yesterday 03/04 and was dx with a UTI and started on Cefuroxmine 500mg BID. Pt has had 2 doses and this morning had a fever of 102. He took Tylenol 1000mg at 0630. Pt is currently afebrile and diaphoretic. Denies any abd pain. History of Present Illness HPI narrative: Please note that above description of symptoms, in this electronic medical record under categorization of recalled from ER triage doctor by RN are reflective of an initial nursing assessment, however, is not reflective of my full history and physical exam that was personally taken and clarified. Consequentially, this preceding description of symptoms, which may include the patient's categorized chief complaint in the EMR, do not reflect my personal clinical impression, and the ultimate description of history of present illness and patient stated complaints should be deferred to this section of the note. Unless stated otherwise or congruent with this section of the note, additional signs, symptoms, or incongruence should be interpreted as inaccurate with my clinical impression. Related Data Home Medications ?Medication ?Instructions ?Recorded ?Confirmed amlodipine 5 mg tablet 5 mg PO DAILY High blood pressure 03/30/19 11/04/24 montelukast 10 mg tablet 10 mg PO DAILY Allergy symptoms 03/30/19 11/04/24 fluticasone propionate 93 1 spray intranasal BID allergies 08/29/20 11/04/24 mcg/actuation breath activated aerosol (Xhance) potassium chloride 10 mEq 10 meq PO DAILY supplemt 08/29/20 11/04/24 capsule,extended release Bifidobacterium infantis 4 mg 4 mg PO DAILY 10/21/23 11/04/24 capsule (Align (B.infantis)) azelastine 137 mcg (0.1 %) nasal intranasal 10/21/23 11/04/24 spray diclofenac sodium 1 % topical gel topical PRN 10/21/23 11/04/24 irbesartan 300 tab PO 10/21/23 11/04/24 mg-hydrochlorothiazide 12.5 mg tablet multivitamin 1 tab PO DAILY 10/21/23 11/04/24 timolol maleate 0.5 % eye drops 1 drp ophthalmic (eye) BID 10/21/23 11/04/24 metformin 500 mg tablet 500 mg PO BID 08/05/24 11/04/24 Previous Rx's ?Medication ?Instructions ?Recorded nystatin-triamcinolone 100,000 1 applic topical BID 30 days #60 10/21/23 unit/g-0.1 % topical cream grams urea 47 % topical cream 1 applic topical BID 30 days #142 10/21/23 grams atorvastatin 40 mg tablet 40 mg PO DAILY #30 tabs 03/05/25 Allergies Allergy/AdvReac Type Severity Reaction Status Date / Time latex Allergy Rash Verified 11/04/24 15:32 [facility] Disclaimer: The information contained in this section may have been updated after the patient was seen, as this information can be updated by other users. 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 Diabetes mellitus type 2, controlled Skin cancer, basal cell Rheumatic fever History of colon polyps Diabetes Allergies HTN (hypertension) Surgical History History of lumbar discectomy History of myringotomy History of appendectomy History of tonsillectomy Family History Other Colon cancer Family history of cardiomyopathy Social History Smoking Status: Former smoker alcohol intake: never substance use type: other current occupational status: employed Travel in the last 8 weeks: None household members: spouse housing: house caffeine: No Have you lived/traveled outside [place] in past 30 days?: No Contact w/someone who lives/traveled outside US past 30 days?: No Exposure to someone with infectious disease in past 14 days?: No Do you have a fever (greater than 100.4 F or 38 C)?: Yes Have you tested positive for COVID-19: No Exposed to someone with COVID-19 in past 14 days?: No Do you have a sore throat?: No Do you have a cough?: No Do you have any weakness?: No Do you have any diarrhea?: No Are you experiencing any unusual bleeding?: No Do you have any muscle aches/pain?: No Do you have any abdominal pain?: No Are you experiencing loss of taste or smell?: No Other Medical History Have you received the Flu Vaccine for this season: Yes Have you received the Pneumonia Vaccine: Yes ROS Obtained: Yes All systems reviewed & no additional complaints except as documented Physical Exam General General appearance: alert, in no apparent distress and other (Diaphoretic) Head Head exam: atraumatic and normocephalic Eye Eye exam: Present normal appearance, PERRL and EOMI Neck Neck exam: Present normal inspection, full ROM and trachea midline Respiratory Respiratory exam: Present normal lung sounds bilaterally; Absent respiratory distress, wheezes, stridor, accessory muscle use or prolonged expiratory phase Cardiovascular Cardiovascular exam: Present normal rhythm, tachycardia and other (Pulses equal symmetric in upper and lower extremities) Abdominal Exam Abdominal exam: Present soft; Absent distention, tenderness, guarding, rebound, rigidity or pulsatile mass Extremities Exam Extremities exam: Absent edema Neurological Exam Neurological exam: Present alert, oriented X3 and CN II-XII intact; Absent motor sensory deficit Skin Skin exam: Present warm and dry; Absent diaphoresis or erythema Medical Decision Making Medical Records Medical records reviewed: Yes I reviewed the patient's medical records. Screening: Per USPSTF and CDC recommendations, given the prevalence of disease in our region, it is our hospital?s policy to screen for HIV and viral Hepatitis for all patients aged 18 and over and those with ongoing risk factors. Kings Inquiry Pt receiving controlled substance: No Kings was queried for this patient: No Vital Signs: 03/05/25 08:02 03/05/25 08:33 03/05/25 09:00 Temperature 98.2 F Temperature Source Oral Pulse Rate 109 H 104 H Pulse Rate [Right] 127 H Respiratory Rate 20 Blood Pressure 152/69 H 138/69 Blood Pressure [Right Arm] 148/76 H Blood Pressure Mean 96 92 Blood Pressure Mean [Right Arm] 100 Blood Pressure Source [Right Arm] Automatic Cuff 02 Sat by Pulse Oximetry 98 94 L 90 L Oxygen Delivery Method Room Air 03/05/25 10:00 03/05/25 10:30 03/05/25 11:00 Temperature Temperature Source Pulse Rate 89 91 H 87 Pulse Rate [Right] Respiratory Rate Blood Pressure 112/57 L 115/59 L 102/59 L Blood Pressure [Right Arm] Blood Pressure Mean 80 75 71 Blood Pressure Mean [Right Arm] Blood Pressure Source [Right Arm] 02 Sat by Pulse Oximetry 91 L 93 L 94 L Oxygen Delivery Method 03/05/25 12:31 Temperature Temperature Source Oral Pulse Rate Pulse Rate [Right] Respiratory Rate Blood Pressure Blood Pressure [Right Arm] Blood Pressure Mean Blood Pressure Mean [Right Arm] Blood Pressure Source [Right Arm] 02 Sat by Pulse Oximetry Oxygen Delivery Method Lab Data Lab Results 03/05/25 08:08: SARS-CoV-2 (PCR) Not detected, Influenza A Untype (PCR) Not detected, Influenza Type B (PCR) Not detected 03/05/25 08:29: VBG pH 7.45 H, VBG pCO2 37.8, VBG pO2 55.3 H, VBG HCO3 25.5, VBG Total CO2 26.7, VBG O2 Saturation 90.8 H, VBG Base Excess 1.5, VBG Lactic Acid 2.2 H 03/05/25 08:30: WBC 9.2, RBC 4.89, Hgb 15.0, Hct 43.2, MCV 88.3, MCH 30.7, MCHC 34.7, RDW 12.3, Plt Count 162, MPV 8.2, Neut % (Auto) 92.2 H, Lymph % (Auto) 4.5 L, [place] % (Auto) 2.3, Eos % (Auto) 0.1, Baso % (Auto) 0.4, Neut # (Auto) 8.5 H, Lymph # (Auto) 0.4 L, [place] # (Auto) 0.2, Eos # (Auto) 0.0, Baso # (Auto) 0.0, Total Counted 100, Neutrophils % (Manual) 88 H, Lymphocytes % (Manual) 10, Monocytes % (Manual) 1 L, Eosinophils % (Manual) 1, Platelet Estimate Normal, RBC Morphology Normal, Sodium 137, Potassium 3.8, Chloride 100, Carbon Dioxide 26, Anion Gap 14.8, BUN 17, Creatinine 0.80, Estimated Creat Clear 103, Estimated GFR 95, Est GFR ( Amer) 115, Glucose 155 H, Calcium 9.1, Total Bilirubin 1.1, AST 29, ALT 34, Alkaline Phosphatase 109, Troponin I 0.04 H, Total Protein 7.3, Albumin 4.1, Globulin 3.2, Albumin/Globulin Ratio 1.3, HCV Ab REZA w/Rflx PCR Qn Negative, HIV Ag/Ab Combo Qual Negative 03/05/25 09:35: Urine Color Yellow, Urine Appearance Sl cloudy, Urine pH 7.0, Ur Specific [place] 1.010, Urine Protein 1+ A, Urine Glucose (UA) Negative, Urine Ketones Negative, Urine Blood Negative, Urine Nitrate Negative, Urine Bilirubin Negative, Urine Urobilinogen 1.0, Ur Leukocyte Esterase 1+ A, Urine RBC None, Urine WBC 20-50, Ur Squamous Epith Cells Occasional, Urine Bacteria 1+, Urine Mucus Trace 03/05/25 11:07: Troponin I 0.05 H 03/05/25 08:30 03/05/25 08:30 Orders (Tests/Meds): ED MEDICATIONS Discontinued Medications Generic Name Dose Route Start Last Admin Trade Name Freq PRN Reason Stop Dose Admin Aspirin 324 mg 03/05/25 12:33 03/05/25 12:44 Aspirin 81mg Chewable Tablet PO 03/05/25 12:34 324 mg ONCE ONE Administration Atorvastatin Calcium 40 mg 03/05/25 12:34 03/05/25 12:45 Atorvastatin 40mg Tablet PO 03/05/25 12:35 40 mg ONCE ONE Administration Lactated Ringer's 1,000 mls @ 999 mls/hr 03/05/25 08:27 03/05/25 09:01 Lactated Ringer's 1000 Ml Bag IV 03/05/25 09:27 999 mls/hr .Q1H1M ONE Administration Ceftriaxone Sodium 1 gm/ 50 mls @ 100 mls/hr 03/05/25 12:42 03/05/25 13:18 Sodium Chloride IV 03/05/25 13:11 100 mls/hr ONCE ONE Administration Ketorolac Tromethamine 15 mg 03/05/25 09:03 03/05/25 09:03 Ketorolac 30mg/Ml Vial IV 03/05/25 09:04 15 mg ONCE ONE Administration Ketorolac Tromethamine 15 mg 03/05/25 09:04 03/05/25 09:19 Ketorolac 30mg/Ml Vial IV 03/05/25 09:05 Not Given ONCE ONE Ondansetron HCl 4 mg 03/05/25 08:27 03/05/25 09:01 Ondansetron 4mg/2ml Vial IV 03/05/25 08:28 4 mg ONCE ONE Administration ORDERS Category Date Time Status CT abdomen pelvis wo con Stat Cat Scan 03/05/25 10:27 Completed CXR --portable [XR chest portable] Stat Exams 03/05/25 08:29 Completed CBC w/Auto Diff [Complete Blood Count Auto Diff] Stat Lab 03/05/25 08:30 Completed CMP [Comprehensive Metabolic Panel] Stat Lab 03/05/25 08:30 Completed HIV Combo Stat Lab 03/05/25 08:30 Completed Hepatitis C Ab Qual. W/ RFX Stat Lab 03/05/25 08:30 Completed Lactic Acid Follow Up (RFLX 1) Stat Lab 03/05/25 12:46 Ordered Rapid PCR Covid and Flu A/B Stat Lab 03/05/25 08:08 Completed Trop I [Troponin I] Stat Lab 03/05/25 08:30 Completed Troponin I Q3H Lab 03/05/25 11:07 Completed Troponin I Q3H Lab 03/05/25 14:30 Ordered UA [Urinalysis and Microscopic] Stat Lab 03/05/25 09:35 Completed Blood Culture Stat Micro 03/05/25 08:54 Received Urine Culture Stat Micro 03/05/25 09:35 Received VBG [Venous Blood Gas] Stat RT 03/05/25 08:29 Completed Medical Decision Narrative: This is a 74-year-old male history of hypertension, hyperlipidemia, diabetes presenting with multiple complaints. He states that he started having dysuria about 5 days prior to this visit. Worsened until about 2 days prior to this visit and he went to his family doctor. Family doctor sent urinalysis, patient went home with cephalosporin and has been taking it since. He states that yesterday, 03/04 he started having fevers and chills and 1 episode of nausea without vomiting. No chest pain, shortness of breath, cough, diarrhea, abdominal pain, rash, or any other symptoms. Came in for further evaluation today because had another fever. He did take Tylenol prior to arrival and states that it seemed like it helped. Appetite has been moderately decreased. Notes that he did have Tdap vaccination 3 days prior to this, unknown if this is related. History was obtained via conversation with patient and significant other. On arrival, patient hemodynamically stable, alert, oriented x4, appropriate, GCS 15, moving all extremities spontaneously, pupils equal and reactive to light. Full physical exam performed and significant for well-appearing male who is in no acute distress. He speaking in full sentences, pleasant. He is diaphoretic, but states that he is breaking a fever. Afebrile here for us at 98.2 ?F. Patient's lungs are clear anterior and posterior bilaterally. His cardiac exam without murmurs gallops or rubs. No evidence of lower extremity edema. Abdomen is soft, nontender, nondistended. Patient skin is pink, good capillary refill. Differential includes COVID, flu, pneumonia, urinary tract infection, sepsis, pericarditis, myocarditis, ACS, MO, among other. Patient placed on continuous cardiac monitoring and continuous pulse ox with initial blood pressure 148/76, heart rate 127, saturation 98% on room air. Independent interpretation of EKG shows sinus tachycardia 108 bpm with [place] interval 158, QRS 97, QTc 386. Leftward axis and no acute ischemic change. Patient was given fluids and Zofran for symptomatic management and correction of underlying abnormalities. Workup independently interpreted and significant for nonactionable CBC or chemistry normal kidney function. Patient's LFTs normal, VBG with mild alkalosis, but overall nonactionable. pH 7.45/CO2 37/bicarb 25. On independent interpretation of imaging, no acute cardiopulmonary space disease on chest x-ray. Patient's urinalysis with blood. Initial troponin elevated 0.04. Reevaluation, patient feeling much better after Toradol and Zofran. He states that he has had some right flank pain that woke him up from sleep last night, 03/04. This is why CT was added. Patient was placed in observation beginning at 9 a.m. in order to find evolving MO with delta troponin and determine need for admission versus home-going. The patient was provided fluids, CT, delta troponins, cardiac monitoring while awaiting results. Independent interpretation of results demonstrated delta troponin 0.01 up to 0.05. On reevaluation, patient still feeling very well, no acute complaints. I called the stonework tracer and had interactive discussion, he recommended starting patient on atorvastatin 40 mg as well as loading with aspirin here and baby aspirin for home-going until follow-up on Saturday, 03/08. I feel is appropriate. I called patient's primary care provider as well to discuss the case and both comfortable and he also states that patient has appropriate for home-going and outpatient follow-up. At this time this time, I feel patient is appropriate for discharge. Patient given Lipitor and full dose aspirin. Total observation time 4 hours. Given patient presentation, workup, history, this most likely represents NSTEMI, type II in the setting of tachycardia.. Close return precautions discussed. Because patient at baseline without signs or symptoms of clinical decompensation, deemed appropriate for discharge. Results were relayed to patient who voiced understanding and were agreeable to outpatient management and follow up. I discussed my clinical impression with patient and answered all questions. At this time, the evidence for any other entities in the differential is insufficient to warrant any further testing or ED observation. This was explained as well. Advisory was given that persistent or worsening symptoms require further evaluation. I confirmed the understanding of this discussion. Security Expert disclaimer Much of this encounter note is an electronic marketing intern spoken language to printed text. Electronic marketing intern of the spoken language may permit errors. Although I have reviewed the note, some errors may still exist. Critical Care Critical Care Time Critical Care Time: Yes (cardiac) Attestation: On 03/05/25, the high probability of a clinically significant, sudden or life threatening deterioration of the following system(s) required my full and direct attention, intervention and personal management. The time I documented below is in addition to time spent performing reported procedures but includes the following listed in this critical care notation. Total Time Total Critical Care Time: 35
--- NOTE | 2025-03-05 08:36 | ECG_ITS ---
APPROVED REPORT Exam: Resting ECG HR:108 bpm ECG Measurements Heart Rate 108 AXES IL 158 P 63 QRSd 97 QRS -70 QT 322 T 31 QTc 386 Conclusion SINUS TACHYCARDIA LOW QRS VOLTAGE IN PRECORDIAL LEADS [QRS DEFLECTION < 1.0 mV IN CHEST LEADS] LEFT ANTERIOR FASCICULAR BLOCK [QRS AXIS <= -45, QR IN I, RS IN II] POSSIBLE ANTERIOR MYOCARDIAL INFARCTION , PROBABLY OLD [30 ms Q WAVE IN V3/V4, OR R < 0.2 mV IN V4] ABNORMAL ECG Electronically signed by : AURORA ROSALES, 03/09/2025 22:27:13
[2025-03-05 08:44] LABS: Basophils % 0.4 % (0.1-2.0); Eosinophils % 0.1 % (0.1-12.0); Hematocrit 43.2 % (42.0-52.0); Lymphocytes # 0.4 K/mm3 (0.7-4.5); Lymphocytes % 4.5 % (10-50); Mean Corpuscular HGB Conc 34.7 g/dL (31.8-35.4); Mean Corpuscular Hemoglobin 30.7 pg (27.0-31.2); Mean Corpuscular Volume 88.3 fl (80-94); Mean Platelet Volume 8.2 fl (7.4-10.4); Monocytes # 0.2 K/mm3 (0.1-1.0); Monocytes % 2.3 % (1.7-9.3); Neutrophils # 8.5 K/mm3 (1.8-7.8); Neutrophils % 92.2 % (37.0-80.0); Nucleated Red Blood Cells # 0 10^3/uL; Nucleated Red Blood Cells % 0 %; Platelet Count 162 K/mm3 (142-424); Red Blood Count 4.89 M/mm3 (4.60-6.20); Red Cell Distribution Width 12.3 % (11.5-17.5); Red Cell Distribution Width-SD 39.8 fL; White Blood Count 9.2 K/mm3 (4.8-10.8)
[2025-03-05 08:44] LABS: VBG Base Excess 1.5 mmol/L (-2.4-2.3); VBG HCO3 25.5 mmol/L (23-30); VBG Oxygen Saturation 90.8 % (50-70); VBG PCO2 37.8 mmol/L (35-51); VBG PH 7.45 mmol/L (7.31-7.41); VBG PO2 55.3 mmol/L (28-40); VBG Total CO2 26.7 mmol/L (23-27)
[2025-03-05 08:46] LABS: Lactate Venous 2.2 mmol/L (0.4-2.0)
[2025-03-05 08:48] LABS: MANUAL DIFFERENTIAL MANUAL DIFFERENTIAL (MANUAL DIFF)
[2025-03-05 08:51] LABS: Chloride 100 mmol/L (98-107)
[2025-03-05 08:52] LABS: Albumin Level 4.1 g/dl (3.5-5.0); Potassium 3.8 mmoL/L (3.5-5.1); Sodium 137 mmol/L (136-145)
[2025-03-05 08:54] LABS: Blood Urea Nitrogen 17 mg/dl (9-20); Creatinine Clearance Estimated 103 mL/min (50-200); Estimated Glomerular Filt Rate 95 ml/min (>60); GFR (African American) 115 ML/MIN (>60)
[2025-03-05 08:55] LABS: Alanine Aminotransferase 34 U/L (12-78); Albumin/Globulin Ratio 1.3 (1.1-1.8); Alkaline Phosphatase 109 U/L (38-126); Anion Gap 14.8 mEq/L (5-15); Aspartate Amino Transferase 29 U/L (17-59); Bilirubin,Total 1.1 mg/dl (0.2-1.3); Calcium 9.1 mg/dl (8.4-10.2); Carbon Dioxide 26 mmol/L (22.0-30.0); Globulin 3.2 g/dL (1.3-3.2); Glucose 155 mg/dl (74-100); Total Protein,Serum 7.3 g/dl (6.3-8.2)
[2025-03-05] MEDS: LACTATED RINGERS 1000ML 1,000 ML 999 ML IV (09:01)
[2025-03-05] MEDS: ONDANSETRON 4MG/2ML VIAL 4 MG IV (09:01)
[2025-03-05] MEDS: KETOROLAC 30MG/ML VIAL 15 MG IV (09:03)
[2025-03-05 09:06] LABS: Troponin I 0.04 ng/ml (0.00-0.034)
[2025-03-05 09:26] LABS: Eosinophils % 1 % (0-3); Lymphocytes % 10 % (10-50); Monocytes % 1 % (2-9); Neutrophils % 88 % (42-76); Platelet Estimate Normal; RBC Morphology Normal; Total Cells Counted 100
[2025-03-05 09:38] LABS: Microscopic, Urine URINE MICROSCOPIC (MICROSCOPIC)
[2025-03-05 09:39] LABS: Appearance,Urine SL CLOUDY (Clear); Bilirubin,Urine Negative (Negative); Blood, Urine Negative (Negative); Color,Urine YELLOW (Yellow); Glucose,Urine (UA) Negative (Negative); Ketones,Urine Negative (Negative); Leukocyte Esterase,Urine 1+ (Negative); Nitrate,Urine Negative (Negative); Protein,Urine 1+ (Negative)
[2025-03-05 09:58] LABS: Bacteria,Urine 1+ /lpf; Mucus,Urine Trace /lpf; Squamous Epithelial Cell,Urine Occasional #/hpf (0-5); WBC,Urine 20-50 #/hpf (0-3)
[2025-03-05 10:05] LABS: HIV Combo NEGATIVE (Negative)
[2025-03-05 10:14] LABS: Hepatitis C Ab Qual. W/ RFX NEGATIVE (Negative)
--- NOTE | 2025-03-05 10:27 | CT_ITS ---
FINAL REPORT TECHNIQUE: Axial images through the abdomen and pelvis were performed without contrast. This study was performed with techniques to keep radiation doses as low as reasonably achievable, (ALARA). Individualized dose reduction techniques using automated exposure control or adjustment of mA and/or kV according to the patient's size were employed. CLINICAL HISTORY: R flank pain and hematuria FINDINGS: Abdomen: There is chronic scarring in the lung bases. The lungs are otherwise clear. There is moderate fatty infiltration of the liver. The gallbladder is present. The spleen, pancreas, and adrenal glands are unremarkable. There is no renal stone or hydronephrosis. Pelvis: The urinary bladder is incompletely distended. There is urinary bladder wall thickening. There is abnormal stranding surrounding the bladder. Findings are consistent with acute cystitis. The appendix is not visualized. There is no pelvic mass. There is no free fluid. IMPRESSION: No renal stone or hydronephrosis. Urinary bladder wall thickening with surrounding stranding it is likely related to acute cystitis. Reviewed, Interpreted and Dictated by Jensen Miller MD Transcribed by Prachi Stokes Authenticated and [facility]
[2025-03-05 11:38] LABS: Troponin I 0.05 ng/ml (0.00-0.034)
--- NOTE | 2025-03-05 12:30 | PC.NURSE ---
Dr Ramires is s/w Dr De Jesus
[2025-03-05] MEDS: ASPIRIN 81MG CHEWABLE TABLET 324 MG PO (12:44)
[2025-03-05] MEDS: ATORVASTATIN 40MG TABLET 40 MG PO (12:45)
[2025-03-05 12:46] LABS: Reflex Lactic Add Lactic Reflex
--- NOTE | 2025-03-05 12:48 | PC.NURSE ---
Patient dropped one of his aspirin on the floor. That pill was discarded and a new one was pulled from the omni.
[2025-03-05] MEDS: CEFTRIAXONE 1 GM 1 GM in 0.9 % SODIUM CHLORIDE 50 ML IV (13:18)
--- NOTE | 2025-03-05 13:23 | PC.NURSE ---
Dr Ramires at bedside
--- NOTE | 2025-03-05 23:08 | PC.NURSE ---
positive blood culture results called from MD sol aware and recommended to call patient. This RN made contact with patient and advised pateint to return to the ED for treatment. patient stated he would return to ED promptly
== END 2025-03-05 13:38 | disposition home or self-care (01) ==
PROVIDERS: Emergency Provider Emergency Medicine; PCP Family Medicine
DX: I21.4 Non-ST elevation (NSTEMI) myocardial infarction (principal); N30.00 Acute cystitis without hematuria; R50.9 Fever, unspecified; I10 Essential (primary) hypertension
CPT/HCPCS: 71045; 74176; 80053; 81001; 82803; 84484; 85007; 85025; 85027; 86803; 87040; 87077; 87086; 87088; 87186; 87389; 87636; 93005; 96361; 96365; 96375; 99291; J0696; J1885; J2405; J7120

== ENCOUNTER 2025-03-06 00:19 | Observation (INO) | payer OTHER, MEDICARE, SELFPAY ==
[2025-03-06] VITALS (7 sets, daily range): BP systolic 120–181; BP diastolic 53–76; PULSE 78–115; RESP 16–22; TEMP 36.5–36.8; O2SAT 94; BMI 39.0; BMI 39.5
[2025-03-06 00:50] LABS: Basophils # 0.1 K/mm3 (0-0.2); Basophils % 0.5 % (0.1-2.0); Eosinophils # 0.1 Kmm3 (0.0-0.4); Eosinophils % 0.9 % (0.1-12.0); Hematocrit 45.8 % (42.0-52.0); Hemoglobin 15.5 g/dL (14.1-18.0); Lymphocytes # 0.7 K/mm3 (0.7-4.5); Lymphocytes % 6.5 % (10-50); Mean Corpuscular HGB Conc 33.8 g/dL (31.8-35.4); Mean Corpuscular Hemoglobin 30.5 pg (27.0-31.2); Mean Corpuscular Volume 90.2 fl (80-94); Mean Platelet Volume 8.8 fl (7.4-10.4); Monocytes # 0.6 K/mm3 (0.1-1.0); Neutrophils # 9.1 K/mm3 (1.8-7.8); Neutrophils % 85.8 % (37.0-80.0); Nucleated Red Blood Cells # 0 10^3/uL; Nucleated Red Blood Cells % 0 %; Platelet Count 159 K/mm3 (142-424); Red Blood Count 5.08 M/mm3 (4.60-6.20); Red Cell Distribution Width 12.4 % (11.5-17.5); Red Cell Distribution Width-SD 41.1 fL; White Blood Count 10.6 K/mm3 (4.8-10.8)
[2025-03-06 00:52] LABS: VBG HCO3 27.4 mmol/L (23-30); VBG PCO2 49.2 mmol/L (35-51); VBG PH 7.36 mmol/L (7.31-7.41); VBG PO2 30.7 mmol/L (28-40); VBG Total CO2 28.9 mmol/L (23-27)
[2025-03-06] MEDS: PIPERACILLIN/TAZO 4.5 GM in 0.9 % SODIUM CHLORIDE 100 ML IV ×4 (00:55→20:35)
[2025-03-06] MEDS: LACTATED RINGERS 1000ML 2,400 ML 999 ML IV (00:55)
--- OUTSIDE RECORDS SUMMARY | 2025-03-06 00:55 | XMS_ITS | Data Portability ---
Author Organization [facility] [place] [facility] Address [address] [place] [address] Assessment Encounter Date Assessment Date Assessment LastModified by Organization Details LastModified Time 04/09/2023 04/09/2023 follow up in 6 months Not available 04/09/2023 14:38:27 10/29/2023 10/29/2023 follow up in 6 months Not available 10/29/2023 10:08:08 05/06/2024 05/06/2024 follow up in 4 months [email or web address] Not available 05/06/2024 16:01:08 08/27/2024 08/27/2024 f/u 4 months ; skin check [email or web address] Not available 08/27/2024 15:30:10 Plan of Treatment Reminders Order Date Submit Date Provider Last Modified By Organization Details Last Modified Time Details Appointments DERMATOLO GY VISIT 2024 03:30P Shanon CAMACHO DO Not available Not available Not available Lab surgical pathology study - ED&C today x 2 2023 024 [facility], [address] [place] [address], [phone], 05/11/2024 09:12:23 surgical pathology study 2022 023 [facility], [address] [place] [address], [phone], 10/30/2023 13:00:32 Referral None recorded. Procedures None recorded. Surgeries None recorded. Imaging None recorded. Medication Orders Dupixent 200 mg/1.14 mL subcutane ous pen injector 2023 024 [facility], [facility] ([place]), [address], [facility] [[email or web address] [address], [place], [address], 09/01/2024 11:42:19 valacyclo vir 1 gram tablet 2022 023 [email or web address] [facility] [id number], [address] [place] [address], [address], 10/29/2023 15:32:11 clobetaso l 0.05 % topical ointment 2022 023 [facility], [address] [place] [address], [facility] [[email or web address]] [address], [address], 08/27/2024 15:16:13 clobetaso l 0.05 % topical ointment 2022 023 [email or web address] [facility] [id number], [address] [place] [address], [address], 08/27/2024 15:04:10 Patient TargetsNo targets recorded. Patient Instructions Encounter Date Encounter Id Patient Instructions Last Modified By Organization Details Last Modified Time 04/09/2023 [id number] If any lesions change, or if any other new or symptomatic lesions occur, patient understands to return to the clinic for further evaluation Discussed sun precautions; SPF 30+ [email or web address] Not available 04/09/2023 14:38:27 10/29/2023 [id number] If any lesions change, or if any other new or symptomatic lesions occur, patient understands to return to the clinic for further evaluation Discussed sun precautions; SPF 30+ Not available 10/29/2023 10:40:23 11/12/2023 [id number] If any lesions change, or if any other new or symptomatic lesions occur, patient understands to return to the clinic for further evaluation Discussed sun precautions; SPF 30+ [email or web address] Not available 11/12/2023 07:14:32 05/06/2024 [id number] If any lesions change, or if any other new or symptomatic lesions occur, patient understands to return to the clinic for further evaluation Discussed sun precautions; SPF 30+ [email or web address] Not available 05/05/2024 17:12:35 08/27/2024 [id number] If any lesions change, or if any other new or symptomatic lesions occur, patient understands to return to the clinic for further evaluation Discussed sun precautions; SPF 30+ [email or web address] Not available 08/26/2024 16:51:10 Reason for Referral None Reported. Results Created Date Observation Date Name Description Value Unit Range Abnormal Flag Note LastModifiedBy Organization Detail LastModifiedTime 10/29/20 23 10/29/2023 SURGI SURAJ surgical SEE BELOW abnormal Depar tment of Patho logy Surgi suraj Patho logy Repor t NAME: JOVANI GAGAN CYRIL PARIKH PATH. :SC-[id number] Copy to: Diagn osis: A) Right upper back: Basal cell carci noma, super ficia l type; incom plete ly excis ed. B) Midli ne upper back: Basal cell carci noma, super ficia l type; incom plete ly excis ed. C) Mid back: Liche noid kerat osis. No malig alyssa ident ified . Note: Multi ple addit ional step level secti ons have been exami luis miguel. D) Lower back: Basal cell carci noma, super ficia l type; incom plete ly excis ed. SOURC E OF SPECI MEN: SKIN BIOPS Y, RIGHT UPPER BACK SKIN BIOPS Y, MID LINE UPPER BACK SKIN BIOPS Y, MID BACK SKIN BIOPS Y, LOWER BACK CLINI SURAJ INFOR MATIO N: D48.5 R/O BCC Gross Descr iptio n: A) Recei shanta in forma maria isabel label ed with the patie nt's name and desig nated rig t upper back is a shave biops y of skin (0.6 x 0.5 x 0.1 cm). The epide rmal surfa ce is white and unrem arkab le. The gracie n is inked blue. The speci men is bisec april and entir cristobal submi tted in one casse tte label ed A1. B) Recei shanta in forma maria isabel label ed with the patie nt's name and desig nated midl ine upper back is a shave biops y of skin (0.7 x 0.5 x 0.1 cm). The epide rmal surfa ce is white and unrem arkab le. The gracie n is inked blue. The speci men is bisec april and entir cristobal submi tted in one casse tte label ed B1. C) Recei shanta in forma maria isabel label ed with the patie nt's name and desig nated mid back is a shave biops y of skin (0.5 x 0.4 x 0.1 cm). The epide rmal surfa ce is white and unrem arkab le. The gracie n is inked blue. The speci men is bisec april and entir cristobal submi tted in one casse tte label ed C1. D) Recei shanta in forma maria isabel label ed with the patie nt's name and desig nated lowe r back is a shave biops y of skin (0.7 x 0.6 x 0.1 cm). The epide rmal surfa ce is white . The gracie n is inked blue. The speci men is bisec april. Also submi tted in the same conta iner is a shave biops y of skin measu ring 0.4 x 0.4 x 0.1 cm the gracie n is inked red and bisec april. Both speci mens are entir cristobal submi tted in one casse tte label ed D1. LP 10/29 08:28 PM Micro scopi c Descr iptio n: A micro scopi c exami natio n has been perfo rmed and the resul t(s) are as noted above . ELIUD MENEZES M.D. Melia [email or web address] Out Date: 10/30 13:00 Page 1 of 1 Not Available [facility] [address] [place] [address], [place], [address], 10/30/2023 13:00:32 05/06/20 24 05/06/2024 SURGI SURAJ surgical SEE BELOW abnormal Depar tment of Patho logy Surgi suraj Patho logy Repor t NAME: CYRIL BASSETT JR PATH. :SC-2 [id number] Copy to: Diagn osis: A) Right anter ior shoul darleen: Basal cell carci noma, super ficia l type; incom plete ly excis ed. B) Left lower lambert: Basal cell carci noma, nodul ar type; incom plete ly excis ed. SOURC E OF SPECI MEN: SKIN BIOPS Y, RIGHT ANTER IOR SHOUL DARLEEN SKIN BIOPS Y, LEFT LOWER LAMBERT CLINI SURAJ INFOR MATIO N: D48.5 R/O BCC ED&C today x 2 Gross Descr iptio n: A) Recei shanta in forma maria isabel label ed with the patie nt's name and desig nated righ t anter ior shoul darleen is a shave biops y of skin (0.7 x 0.5 x 0.1 cm). The epide rmal surfa ce is white -stevens and sligh tly varie gated . The gracie n is inked blue. The speci men is trise cted and entir cristobal submi tted in one casse tte label ed A1. B) Recei shanta in forma maria isabel label ed with the patie nt's name and desig nated left lower lambert is a shave biops y of skin (0.9 x 0.6 x 0.1 cm). The epide rmal surfa ce is white -stevens, bipin y and sligh tly varie gated . The gracie n is inked blue. The speci men is trise cted and entir cristobal submi tted in one casse tte label ed B1. MT 05/07 09:31 AM Micro scopi c Descr iptio n: A micro scopi c exami natio n has been perfo rmed and the resul t(s) are as noted above . ELIUD MENEZES M.D. Melia d Out Date: 05/11 09:12 Page 1 of 1 Not Available [facility] [address] [place] [address], [place], [address], 05/11/2024 09:12:23 Result Notes None recorded. 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 Please review this document and add these problems to the patient's chart manually as needed. Problem Notes None recorded. Procedures Surgical History Date Name Laterality Status Provider Name and Address Organization Details Recorded Time 08/27/20 24 Destruction Premalignant Lesion(s) completed [facility], [place] 08/27/2024 15:26:06 05/06/20 24 Destruction [place] Lesion; trunk, arm, leg [facility] 16:26:15 05/06/20 24 Destruction Premalignant Lesion(s) completed [facility] 05/06/2024 16:24:00 11/12/20 23 Destruction MN Lesion; trunk, arm, leg completed ALESSANDRO CAMACHO DO [address] [place], [address], [facility] 11/12/2023 12:04:25 10/29/20 23 Biopsy Skin Lesion; Tangential completed [facility] [place] 10/29/2023 15:25:32 04/09/20 23 Destruction BN Lesions completed [facility] 04/09/2023 15:06:44 10/09/20 22 Destruction MN Lesion; face, ear, eyelid, nose, lip completed ALESSANDRO CAMACHO DO [address] [place], [address], [facility] 10/09/2022 17:40:34 10/01/20 22 Biopsy Skin Lesion; Tangential completed ALESSANDRO CAMACHO, DO [address] [place], [address], [facility] 10/01/2022 13:07:26 10/01/20 22 Destruction Premalignant Lesion(s) completed [facility] 10/01/2022 09:51:03 10/01/20 22 Destruction BN Lesions completed [facility] 10/01/2022 09:51:16 03/27/20 22 Biopsy Skin Lesion; Tangential completed [facility] 03/27/2022 15:21:23 03/27/20 22 Destruction Premalignant Lesion(s) completed [facility] 03/27/2022 15:22:22 05/25/20 21 Destruction Premalignant Lesion(s) completed [facility] 05/25/2021 08:35:15 05/25/20 21 Destruction BN Lesions completed ALESSANDRO CAMACHO, DO [address] [place], [address], [facility] 05/25/2021 17:04:04 11/04/20 20 Destruction MN Lesion; trunk, arm, leg completed ALESSANDRO CAMACHO, DO [address] [place], [address], [facility] 11/04/2020 13:56:23 11/01/20 20 Biopsy Skin Lesion; Tangential completed [facility] 11/01/2020 14:14:05 11/01/20 20 Destruction Premalignant Lesion(s) completed [facility] 11/01/2020 14:17:04 11/01/20 20 Destruction BN Lesions completed [facility] 11/01/2020 14:23:30 04/19/20 20 Destruction Premalignant Lesion(s) completed Zelda Jimenez [facility] 04/19/2020 15:39:32 04/19/20 20 Destruction BN Lesions completed Zelda Jimenez [facility] 04/19/2020 15:41:16 11/03/20 19 Destruction Premalignant Lesion(s) completed [facility] 11/03/2019 15:14:27 05/12/20 19 Destruction Premalignant Lesion(s) completed [facility] 05/12/2019 15:55:50 11/21/19 19 Destruction MN Lesion; trunk, arm, leg completed ALESSANDRO CAMACHO DO [address] [place], [address], [facility] 11/21/2018 09:13:11 11/13/20 18 Biopsy Skin Lesion; Tangential completed [facility] 11/13/2018 15:52:59 11/13/20 18 Destruction Premalignant Lesion(s) completed [facility] 11/13/2018 15:56:29 11/13/20 18 Destruction BN Lesions completed [facility] 11/13/2018 15:53:52 06/09/20 18 Suture/Staple removal completed [facility] 06/09/2018 15:59:29 05/30/20 18 Wound Repair; Intermediate completed ALESSANDRO CAMACHO DO [address] [place], [address], [facility] 05/30/2018 12:30:36 05/30/20 18 Excision BN lesion; trunk, arms or legs completed [facility] 05/30/2018 08:04:58 05/08/20 18 Biopsy Skin Lesion; Tangential completed [facility] 05/08/2018 14:25:16 11/07/20 17 Destruction Premalignant Lesion(s) completed MECHE COTE, CORDUROY BRUSHER OPERATOR [address] [place], [address], [facility] 11/07/2017 09:41:15 11/07/20 17 Destruction BN Lesions completed MECHE COTE, CORDUROY BRUSHER OPERATOR [address] [place], [address], [facility] 11/07/2017 09:47:24 07/04/20 17 Biopsy Skin completed MECHE COTE, CORDUROY BRUSHER OPERATOR [address] [place], [address], [facility] 07/04/2017 15:31:44 12/05/19 17 Destruction Premalignant Lesion(s) completed MECHE COTE, CORDUROY BRUSHER OPERATOR [address] [place], [address], [facility] 12/05/2016 15:29:26 12/05/19 17 Destruction BN Lesions completed MECHE COTE, CORDUROY BRUSHER OPERATOR [address] [place], [address], [facility] 12/05/2016 15:30:31 Imaging Results None recorded. Procedure Notes None recorded. Medical Equipment None Reported. Allergies No known drug allergies Medications Name Sig Start Date Stop Date Status Note LastModified by Organization Details LastModified Time Prescript ion - Prior Authoriza tion Request active Not Available Not Available Not Available metformin 500 mg tablet Take 1 tablet twice a day by oral route. active Not Available Not Available No t Available azelastin e 0.05 % eye drops INSTILL 1 DROP INTO AFFECTED EYE(S) BY OPHTHALM IC ROUTE 2 TIMES PER DAY active Not Available Not Available No t Available enalapril maleate 10 mg tablet Daily active Frequenc y: daily;Me dication Descript ion: enalapri l; Dosage:1 ; Route:or al; refills: 0 Not Available Not Available Not Available triamtere ne 50 mg-hydroc hlorothia zide 25 mg capsule Daily active Frequenc y: daily;Me dication Descript ion: triamter josep-hydr ochlorot hiazide; Dosage:1 ; Route:or al; refills: 0 Not Available Not Available Not Available benzonata te 200 mg capsule Three times a day 11/13 completed Instruct ions: prn;Freq uency: tid;Medi cation Descript ion: benzonat ate; Route:or al; refills: 0; Quantity :3 capsule Not Available Not Available Not Available valacyclo vir 1 gram tablet Take 1 tablet 3 times a day for 7 days at first sign of shingles . 2022 active Not Available Not Available Not Avai lable betametha sone, augmented 0.05 % topical cream APPLY A THIN LAYER TO THE AFFECTED AREA OF ECZEMA ON THE FINGERS, DAILY AT NIGHTAS NEEDED 11/01 completed Not Available Not Available Not Available pimecroli mus 1 % topical cream active Not Available Not Available Not Available Zyrtec 10 mg tablet One to two times a day active Frequenc y: qd-bid;M edicatio n Descript ion: cetirizi ne; Dosage:1 ; Route:or al; refills: 0; Quantity :30 Not Available Not Available Not Available amlodipin e 5 mg tablet Take 1 tablet every day by oral route. active Not Available Not Available No t Available Protopic 0.1 % topical ointment apply to the hands nightly 04/09 completed Not Available Not Available Not Available irbesarta n 300 mg-hydroc hlorothia zide 12.5 mg tablet Take 1 tablet every day by oral route. active Not Available Not Available No t Available methscopo jose david 2.5 mg tablet active Instruct ions: prn;Medi cation Descript ion: methscop olamine; Route:or al; refills: 0 Not Available Not Available Not Available monteluka st 10 mg tablet Take 1 tablet every day by oral route. active Not Available Not Available No t Available aspirin 81 mg tablet Daily 05/30 completed Duration : 30 days;López quency: daily;Me dication Descript ion: aspirin; Dosage:1 ; Route:or al; refills: 0; Quantity :30 tablet Not Available Not Available Not Available clobetaso l 0.05 % topical ointment Apply a thin layer to the affected areas on the fingerti ps, every other night to every 3 rd night, as needed. 08/27 completed Not Available Not Available Not Available Imitrex 25 mg tablet As Directed active Duration : 1 day;Freq uency: as direct.; Alt Frequenc y: prn;Medi cation Descript ion: sumatrip stevens; Dosage:1 ; Route:or al; refills: 0; Quantity :9 tablet Not Available Not Available Not Available clobetaso l Every night at bedtime 11/03 completed Instruct ions: Apply to the affected area of eczema on the hands/fi ngers once daily at night for 2 week, you can occlude if needed. Then 2-3 times a week thereaft er, if needed.; Frequenc y: qhs;Alt Frequenc y: as direct.; Medicati on Descript ion: clobetas ol topical; Dosage:1 ; Route:to pical; refills: 2; Quantity :60 ointment Not Available Not Available Not Available Xyzal 5 mg tablet Take 1 tablet every day by oral route. active Not Available Not Available No t Available Dymista 137 mcg-50 mcg/spray nasal spray Two times a day active Instruct ions: in each nostril; Frequenc y: bid;Medi cation Descript ion: azelasti ne-fluti casone nasal; Dosage:1 -2 sprays; Route:na suzanne; refills: 0 Not Available Not Available Not Available Dupixent 200 mg/1.14 mL subcutane ous syringe active Not Available Not Available Not Available Dupixent 300 mg/2 mL subcutane ous pen injector Inject 1 pen every 2 weeks 2023 active Not Available Not Available Not Avai lable Dupixent 200 mg/1.14 mL subcutane ous pen injector inject two pens on day one, then one pen every two weeks 09/01 completed Not Available Not Available Not Available Opzelura 1.5 % topical cream active Not Available Not Available Not Available Vitals None Recorded Social History Question Answer Notes LastModified by Organizat ion Details LastModified Time Tobacco Smoking Status Former Smoker MECHE BARRERA ROCAEL, CORDUROY BRUSHER OPERATOR [address] [place], [address], [facility] 07/04/2017 14:59:49 What Was The Date Of Your Most Recent Tobacco Screening? 07/04/2017 Information n ot available 01/05/2020 Sex: Male Functional Status None recorded. Mental Status None recorded. Family History Nothing Reported. Medical History Condition Response Basal Cell Carcinoma Y Past Encounters Encounter ID Performer Location Encounter Start Date Encounter Closed Date Diagnosis/Indication Diagnosis SNOMED-CT Code Diagnosis ICD10 Code Diagnosis Note [id number] ALESSANDRO CAMACHO DO [facility] [address] [place] [address] 12/05/2016 14:43:53 12/05/2016 16:07:36 History of malignant basal cell neoplasm of skin 297260603 Z85.828 R upper chest, L mid back, R shoulder - scarsno recurrence Solar lentiginosis 53331 2006 L81.4 Benign Reassuranc e If any lesions change, or if any other new or symptomati c lesions occur, patient understand s to return to the clinic for further evaluation Discussed sun precaution s; SPF 30+ Senile hyperkeratosis 39 5115195 L82.1 Benign Reassuranc ex1 face, x1 back - treated with LN at patients request Multiple b enign melanocytic nevi 402620342 D22.9 Benign Reassuranc e Senile angioma 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 78.1 Benign Reassuranc e Skin tag 539657242 L91.8 Benign Reassuranc e Actinic keratosis 964327 [address] x1 left forearmwou nd care instructio n provided [id number] ALESSANDRO CAMACHO DO [facility] [address] [place] [address] 07/04/2017 14:35:47 07/05/2017 09:41:15 History of malignant basal cell neoplasm of skin 637821327 Z85.828 R upper chest, L mid back, R shoulder - scarsno recurrence Solar lentiginosis 00572 2006 L81.4 Benign Reassuranc e Senile hyperkeratosis 39 8750519 L82.1 Benign Reassuranc e Multiple b enign melanocytic nevi 609560395 D22.9 Benign Reassuranc e Senile angioma 8704201 I 78.1 Benign Reassuranc e Skin tag 362683202 L91.8 Benign Reassuranc e Dermatofibroma 745932282 D23.9 Benign Reassuranc e Epidermoid cyst of skin 908095908 L72.0 Benign Reassuranc eleft upper backnot bothersome to patientwil l monitor for changes Neoplasm o f uncertain behavior of skin 47962610 D48.5 left mid chest and right medial chestshave biopsy x2r/o bccf/u pending results Milial cyst 963812981 L7 2.0 I&D with 11 blade and comedone extractorx 1 right oral commisure f/u prn [id number] ALESSANDRO CAMACHO DO [facility] [address] [place] [address] 11/07/2017 08:46:12 11/08/2017 13:48:04 Solar lentiginosis 511868271 L81.4 Benign Reassuranc e Senile hyperkeratosis 39 2531682 L82.1 Benign Reassuranc e Senile angioma 7927048 I 78.1 Benign Reassuranc e On examina tion - skin tags 668757979 L91.8 Benign Reassuranc eEducation then treated with LN; x3 right neckper patient request Multiple b enign melanocytic nevi 906479780 D22.9 Benign Reassuranc e Actinic keratosis 931455 007 L57.0 Education then treated with LN;x1 right sideburn, x1 left jawline, x1 left dorsal handpatien t tolerated wellwound care instructio n provided Epidermoid cyst 19564146 6 L72.0 Benign Reassuranc e I&D with 11 blade and comedone extractor per patient requestx1 mid foreheadwo und care instructio n provided Inflamed s eborrheic keratosis 617951658 L82.0 x1 right upper chest, x1 left cheek, x1 left foreheadx1 right lateral neck Education then treated with LN; per patient request wound care instructio n provided f/u prn [id number] ALESSANDRO CAMACHO, DO [facility] [address] [place] [address] 05/08/2018 13:56:51 05/09/2018 09:06:49 Solar lentiginosis 555134120 L81.4 Benign Reassuranc e Senile hyperkeratosis 39 9145743 L82.1 Benign Reassuranc e asymptomat ic, but doesnt like they stick out and can see under shirt Treated with LN per patients request back x5 pt tolerated well advised pt what to expect with freezing Senile angioma 3337774 I 78.1 Benign Reassuranc e Multiple b enign melanocytic nevi 871185249 D22.9 Benign Reassuranc e Neoplasm o f uncertain behavior of skin 23584688 D48.5 A.) R medial cheek shave biopsy sent for path r/o BCC Wound care discussed with patient. Leave the bandage on for 24 hrs. Clean the area daily with warm soapy water, and apply polysporin ointment and a bandaid once daily until healed. Call the office if any increase in redness, drainage, or pain. B.) R forearm shave biopsy sent for path r/o neoplasm Wound care discussed with patient. Leave the bandage on for 24 hrs. Clean the area daily with warm soapy water, and apply polysporin ointment and a bandaid once daily until healed. Call the office if any increase in redness, drainage, or pain. Epidermoid cyst 55395737 6 L72.0 Benign Reassuranc eback - advised pt he could have this excised , pt will think about it and let us know if he wants to schedule it or notschedul ed 05/30 @ 751 [id number] ALESSANDRO CAMACHO DO [facility] [place] [address] [place] [address] 05/30/2018 07:25:21 05/30/2018 14:08:18 Epidermoid cyst of skin of back 291093537 L72.0 Discussed diagnosis of epidermoid cyst recommend treatment with excision r/a/b of procedure discussed with patient informed consent signed see procedure note f/u 2 weeks for wound check / suture removal Skin sensa tion disturbance 98684583 R20.9 cyst [id number] ALESSANDRO CAMACHO DO [facility] [place] [address] [place] [address] 06/09/2018 15:40:16 06/10/2018 09:06:25 Removal of suture 33198728 Z48.02 L upper back sutures removed with ease no signs of infection healing well good cosmesis f/u as scheduled [id number] DO ZOFIA SNIDER [facility] [place] [address] [place] [address] 11/13/2018 15:22:54 11/14/2018 08:16:14 Solar lentiginosis 545996554 L81.4 Benign Reassuranc e If any lesions change, or if any other new or symptomati c lesions occur, patient understand s to return to the clinic for further evaluation Discussed sun precaution s; SPF 30+; hats Senile hyperkeratosis 39 6532786 L82.1 Benign Reassuranc e Senile angioma 0032051 I 78.1 Benign Reassuranc e Multiple b enign melanocytic nevi 683963424 D22.9 Benign Reassuranc e Actinic keratosis 007 L57.0 Education, then cryo destructio n with liquid nitrogen (LN) x 4 Neoplasm o f uncertain behavior of skin 53427138 D48.5 A.) Left mid chest shave biopsy sent for path r/o BCC Wound care discussed with patient. Leave the bandage on for 24 hrs. Clean the area daily with warm soapy water, and apply polysporin ointment and a bandaid once daily until healed. Call the office if any increase in redness, drainage, or pain. Inflamed s eborrheic keratosis 842145729 L82.0 chin, upper chest x 5 Education then treated with LN; per patient requestwou nd care instructio n providedf/ u prn Skin sensa tion disturbance 06131511 R20.9 ISK History of malignant basal cell neoplasm of skin 184647128 Z85.828 R upper chest, L mid back, R shoulder - scarsno recurrence [id number] ALESSANDRO CAMACHO DO [facility] [address] [place] [address] 11/21/2018 08:20:50 11/21/2018 09:22:45 Basal cell carcinoma of truncal skin 901693620 C44.519 Discussed diagnosis of BCC recommend treatment with ED&C r/a/b of procedure discussed with patient informed consent signed see procedure note f/u as scheduled Wound care discussed with patient. Leave the bandage on for 24 hrs. Clean the area daily with warm soapy water, and apply polysporin ointment and a bandaid once daily until healed. Call the office if any increase in redness, drainage, or pain. 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 Benign Reassuranc e Multiple b enign melanocytic nevi 407480196 D22.9 Benign Reassuranc e Actinic keratosis 007 L57.0 Education, then cryo destructio n with liquid nitrogen (LN) x 4 History of malignant basal cell neoplasm of skin 212756616 Z85.828 R upper chest, L mid back, R shoulder - scarsno recurrence Fingertip eczema 3658938 08 L30.9 start betamethas one cream as directed call if not helpful in 2 weeks [id number] ALESSANDRO CAMACHO DO [facility] [address] [place] [address] 11/03/2019 14:25:51 11/04/2019 08:01:43 Solar lentiginosis 410368437 L81.4 Benign Reassuranc e Discussed sun precaution s; SPF 30+ Senile angioma 4640029 I 78.1 Benign Reassuranc e History of malignant basal cell neoplasm of skin 099129400 Z85.828 R upper chest, L mid back, R shoulder - scarsno recurrence Fingertip eczema 1862883 08 L30.9 start Eucrisa each morning, samples given start clobetasol ointment each night recommend gluing fissures to promote healing- dermabond or superglue if continues to be bothersome , could consider systemic tx call in 2 weeks if not significan tly improved Raised terry orrheic keratosis 8152208528 53911 L82.1 Benign Appearance Education, then cryodestru ction with liquid nitrogen (LN) x 8 on his back at pt request Actinic keratosis 007 L57.0 Education, then cryo destructio n with liquid nitrogen (LN) left sideburn x1, left preauricul ar cheek x1, Dermatofibroma 130275692 D23.9 Benign Reassuranc e right knee [id number] ALESSANDRO CAMACHO DO [facility] [address] [place] [address] 04/19/2020 14:35:27 04/19/2020 15:53:10 Solar lentiginosis 928235634 L81.4 Benign Reassuranc e Discussed sun precaution s; SPF 30+ Raised terry orrheic keratosis 6582893716 43050 L82.1 Benign Appearance Senile angioma 0954056 I 78.1 Benign Reassuranc e History of malignant basal cell neoplasm of skin 899635231 Z85.828 R upper chest, L mid back, R shoulder - scarsno recurrence Fingertip eczema 7251767 08 L30.9 controlled stable not flaring Actinic keratosis 007 L57.0 Education, then cryo destructio n with liquid nitrogen (LN) R jawline x2, R cheek x1, L preauricul ar cheek x1, L neck x1 Dermatofibroma 333320584 D23.9 Benign Reassuranc e right knee Inflamed s eborrheic keratosis 038706755 L82.0 Education, then cryo destructio n with liquid nitrogen (LN) L upper back x1, R chest x1 Skin tag 096826159 L91.8 Scissored off x1 at pt request pt tolerated well Skin sensa tion disturbance 36792508 R20.9 ISK, skin tag [id number] ALESSANDRO CAMACHO, DO [facility] [address] [place] [address] 11/01/2020 13:51:04 11/01/2020 14:25:00 Solar lentiginosis 928261036 L81.4 Benign Reassuranc e Discussed sun precaution s; SPF 30+ Raised terry orrheic keratosis 8437108512 63054 L82.1 Benign Appearance Senile angioma 1175917 I 78.1 Benign Reassuranc e History of malignant basal cell neoplasm of skin 041356807 Z85.828 R upper chest, L mid back, R shoulder - scarsno recurrence Fingertip eczema 5731152 08 L30.9 mild flaring betamethas one cream is not as helpful pt would like to try clobetasol , had used in past discussed if flares more, could also do Kenalog IM or even dupixent oysterman Actinic keratosis 007 L57.0 Education, then cryo destructio n with liquid nitrogen (LN) x 3 Dermatofibroma 624008013 D23.9 Benign Reassuranc e right knee Inflamed s eborrheic keratosis 333328355 L82.0 Education, then cryo destructio n with liquid nitrogen (LN) x 1 Skin sensa tion disturbance 43318162 R20.9 ISK Neoplasm o f uncertain behavior of skin 66305110 D48.5 right lower back r/o atypia left shoulder r/o BCC left lower chest r/o BCC shave biopsy see procedure note wound care instructio ns provided patient consents for procedure and photo monitoring Plantar wa rt of left foot [id number] 9993939 B07.0 left ball of the foot discussed treatment options pare and cryo x3 freeze thaw cycles treat any residual with OTC Compound W or return for further LN Pain of skin 360487871 R 52 plantar wart [id number] ALESSANDRO CAMACHO DO [facility] [address] [place] [address] 11/04/2020 11:05:24 11/04/2020 12:19:09 Basal cell carcinoma of truncal skin 615657729 C44.519 L lower chest Discussed diagnosis BCC recommend treatment with ED&C r/a/b of procedure discussed with patient informed consent signed see procedure note f/u -6 months for FSE Wound care discussed with patient. Leave the bandage on for 24 hrs. Clean the area daily with warm soapy water, and apply polysporin ointment and a bandaid once daily until healed. Call the office if any increase in redness, drainage, or pain. Basal cell carcinoma of upper extremity 445977576 C44.619 L shoulder Discussed diagnosis BCC recommend treatment with ED&C r/a/b of procedure discussed with patient informed consent signed see procedure note f/u -6 months for FSE Wound care discussed with patient. Leave the bandage on for 24 hrs. Clean the area daily with warm soapy water, and apply polysporin ointment and a bandaid once daily until healed. Call the office if any increase in redness, drainage, or pain. [id number] ALESSANDRO CAMACHO DO [facility] [address] [place] [address] 05/25/2021 07:32:56 05/25/2021 09:02:02 Solar lentiginosis 668371692 L81.4 Benign Reassuranc e Raised terry orrheic keratosis 0178710894 02227 L82.1 Benign Reassuranc e Senile angioma 7387490 I 78.1 Benign Reassuranc e History of malignant basal cell neoplasm of skin 107416465 Z85.828 R upper chest, L mid back, R shoulder - scarsno recurrence Fingertip eczema 5862997 08 L30.9 stablecont inue clobetasol ointment as needed for flare ups Actinic keratosis 007 L57.0 Education then treated with LN; L vertex scalp x1, R cheek x1pt tolerated welladvise d pt what to expect with freezing Dermatofibroma 968545672 D23.9 Benign Reassuranc e Plantar wa rt of left foot 9637872498 4300535 B07.0 left ball of the footresidu alcontinue OTC Compound W Inflamed s eborrheic keratosis 493975683 L82.[address] per patients request: R upper chest x1, L upper back x1pt tolerated welladvise d pt what to expect with freezing Skin sensa tion disturbance 64251124 R20.9 ISK [id number] DO [facility] [address] [place] [address] 03/27/2022 14:52:09 03/27/2022 15:43:41 Solar lentiginosis 912838775 L81.4 Benign Reassuranc e Raised terry orrheic keratosis 2171608838 89774 L82.1 Benign Reassuranc e Senile angioma 7677846 I 78.1 Benign Reassuranc e History of malignant basal cell neoplasm of skin 812138280 Z85.828 R upper chest, L mid back, R shoulder - scarsno recurrence Fingertip eczema 1653779 08 L30.9 stablechro nicclear today continue clobetasol ointment as needed for flare ups Actinic keratosis 007 L57.0 Education then treated with LN; right helix x1, right lower forehead x1, right hand x1pt tolerated welladvise d pt what to expect with freezing Dermatofibroma 251054905 D23.9 Benign Reassuranc e Neoplasm o f uncertain behavior of skin 73166263 D48.5 left lateral mid backr/o bcc left chest r/o BCC left lambert r/o BCC shave biopsy see procedure note wound care instructio ns provided patient consents for procedure and photo monitoring [id number] ALESSANDRO CAMACHO DO [facility] [address] [place] [address] 10/01/2022 09:15:48 10/01/2022 10:24:54 Solar lentiginosis 242617598 L81.4 Benign Reassuranc e Raised terry orrheic keratosis 0149986400 80720 L82.1 Benign Reassuranc e Senile angioma 2710630 I 78.1 Benign Reassuranc e History of malignant basal cell neoplasm of skin 342684276 Z85.828 R upper chest, L mid back, R shoulder - scarsno recurrence Fingertip eczema 8043857 08 L30.9 palms and fingersmod erate flare todayd/c clobetasol ointment - pt doesnt feel like its as effective start protopic ointment as directedIf this is not helpful could consider opzelura or dupixentf/ u in 6m Actinic keratosis 700519 007 L57.0 Education then treated with LN; R forehead x1 , L forehead x1 , mid upper back x1, R lower cheek x1pt tolerated welladvise d pt what to expect with freezing Dermatofibroma 392061977 D23.9 Benign Reassuranc e Neoplasm o f uncertain behavior of skin 29109676 D48.5 R cheekshave biopsysent for pathr/o SCCWound care discussed with patient. Leave the bandage on for 24 hrs. Clean the area daily with warm soapy water, and apply polysporin ointment and a bandaid once daily until healed. Call the office if any increase in redness, drainage, or pain. 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 Leave the bandage on for 24 hrs. Clean the area daily with warm soapy water, and apply polysporin ointment and a bandaid once daily until healed. Call the office if any increase in redness, drainage, or pain. Herpes zoster 3821113 B0 2.9 left midline abdomen extending around to backwill have him start valtrex 1 gm tid, 7 days- as directedca ll if not resolved [id number] ALESSANDRO CAMACHO DO [facility] [address] [place] [address] 04/09/2023 14:35:13 04/09/2023 15:15:20 History of malignant basal cell neoplasm of skin 511671657 Z85.828 R upper chest, L mid back, R shoulder - scarsno recurrence Solar lentiginosis 40314 2006 L81.4 Benign Reassuranc e Raised terry orrheic keratosis 9580562169 30129 L82.1 Benign Reassuranc eLN x2 right forehead per pt request Senile angioma 9602254 I 78.1 Benign Reassuranc e Multiple b enign melanocytic nevi 442443988 D22.9 Benign Reassuranc e Fingertip eczema 5997105 08 L30.9 palms todayminim al continue clobetasol ointment nightly for up to 2 weeks, for flare ups f/u in 6m Dermatofibroma 586475938 D23.9 Benign Reassuranc e History of squamous cell carcinoma of skin 282190175 Z85.828 right cheek - no recurrence Inflamed s eborrheic keratosis 500521590 L82.[address] per patients request: right cheek x2, left upper back x1, left upper chest x2, right upper chest x1pt tolerated welladvise d pt what to expect with freezing Skin tenderness 57081508 0 R20.8 ISks, itch, scratched/ traumatize d today Porokeratosis 384262398 Q82.8 monitormea sured [id number] ALESSANDRO CAMACHO DO [facility] [address] [place] [address] 10/29/2023 14:13:37 10/29/2023 15:43:51 History of malignant basal cell neoplasm of skin 364380614 Z85.828 R upper chest, L mid back, R shoulder - scarsno recurrence Solar lentiginosis 67951 2006 L81.4 Benign Reassuranc erecommend ed sun protective clothing and a mineral based sunscreen 30 SPF or higher lotion OTC daily Senile angioma 8886107 I 78.1 Benign Reassuranc e Multiple b enign melanocytic nevi 087756137 D22.9 Benign Reassuranc e Fingertip eczema 1868789 08 L30.9 palms today- mildfinger tips skin splitting- exacerbati on, probably due to cold weather continue clobetasol ointment as directedI gave him samples of Eucrisa to use dailypt requested refill todayIf continues to be an issue, consider dupixent f/u in 6m Porokeratosis 549317561 Q82.8 monitormea suredno change Dermatofibroma 580108110 D23.9 Benign Reassuranc e History of squamous cell carcinoma of skin 883536963 Z85.828 right cheek - no recurrence Neoplasm o f uncertain behavior of skin 00691861 D48.5 a) right upper backr/o bcc shave biopsy performed sent for path see procedure note wound care instructio ns provided patient consents for procedure and photo monitoring b)midline upper backr/o bcc shave biopsy performed sent for path see procedure note wound care instructio ns provided patient consents for procedure and photo monitoring c) mid backr/o bcc shave biopsy performed sent for path see procedure note wound care instructio ns provided patient consents for procedure and photo monitoring d) lower backr/o bcc shave biopsy performed sent for path see procedure note wound care instructio ns provided patient consents for procedure and photo monitoring Wound care discussed with patient. Leave the bandage on for 24 hrs. Clean the area daily with warm soapy water, and apply polysporin ointment and a bandaid once daily until healed. Call the office if any increase in redness, drainage, or pain. Herpes zoster 0437119 B0 2.9 reviewed patient photosL facecould have been zoster?If recurs again, could try Valtrex again.sent rx to take only if flares up again. [id number] ALESSANDRO CAMACHO DO [facility] [address] [place] [address] 11/12/2023 07:41:12 11/12/2023 08:26:24 Basal cell carcinoma of back 141508492 C44.519 1) bcc on right upper back2) bcc on midline upper back3) bcc on lower backDiscus sed diagnosisr ecommend treatment with ED&Cr/a/b of procedure discussed with patientinf ormed consent signedsee procedure notef/u 4-6 months for FSEWound care discussed with patient. Leave the bandage on for 24 hrs. Clean the area daily with warm soapy water, and apply polysporin ointment and a bandaid once daily until healed. Call the office if any increase in redness, drainage, or pain. [id number] DO [facility] [address] [place] [address] 05/06/2024 14:40:03 05/06/2024 16:25:22 History of malignant basal cell neoplasm of skin 475100972 Z85.828 R upper chest, L mid back, R shoulder, right upper back, midline upper back, lower back -no recurrence History of squamous cell carcinoma of skin 385812754 Z85.828 right cheek - no recurrence Solar lentiginosis 51474 2006 L81.4 Benign Reassuranc erecommend ed sun protective clothing and a mineral based sunscreen 30 SPF or higher lotion OTC daily Senile angioma 1591013 I 78.1 Benign Reassuranc e Multiple b enign melanocytic nevi 556244484 D22.9 Benign Reassuranc e Fingertip eczema 9252731 08 L30.9 chronicsom e exacerbati on todayeucri sa was note helpfulclo betasol helps some, but sullivan not clearbetam ethasone cream in past, helped a littleprot opic in past, not very helpful I gave him samples of Opzelura to use twice a dayWill send a script if it works for the patientIf continues to be an issue, consider dupixent Patient has tried and failed Clobetasol , Triamcinol one, Eucrisa f/u in 6m Porokeratosis 015846793 Q82.8 monitormea suredno change Actinic keratosis 032268 007 L57.0 Education then treated with LN; right forehead x 2, left jawline x 1, left forehead x 1pt tolerated welladvise d pt what to expect with freezing Neoplasm o f uncertain behavior of skin 73715529 D48.5 a. right anterior shoulderr/ o BCCb. left lower shinr/o BCC shave biopsy performed x 2ED&C performed today x2 sent for path see procedure note wound care instructio ns provided patient consents for procedure and photo monitoring Basal cell carcinoma of upper extremity 409641777 C44619 R anterior shoulder Discussed diagnosis BCCshave biopsyreco mmend treatment with ED&Cno further treatment should be needed r/a/b of procedure discussed with patient informed consent signed see procedure note f/u -4 months for FSE Wound care discussed with patient. Leave the bandage on for 24 hrs. Clean the area daily with warm soapy water, and apply polysporin ointment and a bandaid once daily until healed. Call the office if any increase in redness, drainage, or pain. Basal cell carcinoma of lower extremity 941204948 C44.028 Discussed diagnosis BCCL shinclinic al BCCshave biopsyreco mmend treatment with ED&Cno further treatment should be needed r/a/b of procedure discussed with patient informed consent signed see procedure note f/u -4 months for FSE [id number] ALESSANDRO CAMACHO DO [facility] [address] [place] [address] 08/27/2024 14:37:12 08/27/2024 15:48:19 History of malignant basal cell neoplasm of skin 488881198 Z85.828 R upper chest, L mid back, R shoulder, right upper back, midline upper back, lower back -no recurrence History of squamous cell carcinoma of skin 306100875 Z85.828 right cheek - no recurrence Solar lentiginosis 61719 2006 L81.4 Benign Reassuranc erecommend ed sun protective clothing and a mineral based sunscreen 30 SPF or higher lotion OTC daily Senile angioma 8819109 I 78.1 Benign Reassuranc e Multiple b enign melanocytic nevi 941349974 D22.9 Benign Reassuranc e Fingertip eczema 5534539 08 L30.9 chronicexa cerbation topicals have not been very helpfulpal ms, fingers, handsaffec ting patient dialy livingPati ent has tried and failed Clobetasol , Triamcinol one, Eucrisa, opzelura, betamethas oneprovide d patient with samples of vtama for now to try (off label) discussed trying dupixent injectionw ill need PAwill send in script for dupixent 200mg sub pen injectorse nt to [facility] for PAinject two pens on day one, then one pen every two weekspatie nt would like to self injectpati ent was educated on pen injections Porokeratosis 324828653 Q82.8 monitormea suredrevie wed - no change Actinic keratosis 910284 007 L57.0 Education then treated with LN; right postauricu lar X1, right anterior scalp X1pt tolerated welladvise d pt what to expect with freezing Health Concerns Section Related Observation LastModified by Organization Detai ls LastModified Time None Recorded Concern Status LastModified by Organization Details LastModified Time None Recorded Advance Directives Directive None Recorded Payers Encounter Date Sequence Insurance Name Policy Number Policy Marques Covered Member ID Marques Member ID Guarantor Name 04/09/2023 1 [place] [id number] Q Arun Granados [id number] Raun Granados 10/29/2023 1 [place] [id number] Q Arun Granados [id number] Arun Granados 11/12/2023 1 [place] [id number] Q Arun Granados [id number] Arun Granados 05/06/2024 1 [place] [id number] Q Arun Granados [id number] 07 [id number] Arun Granados 08/27/2024 1 [place] [id number] Q Arun Granados [id number] Arun Granados Notes Date Note Type Note Provider Name and Address Organization Details Recorded Time 04/09/2023 text/html Established Patient Presents for a 6m full skin exam. lesion on right cheek and forehead check spots/moles over body using clobetasol ointment for fingertip eczema h/o BCC, SCC Denies any other new or changing lesions. Feels well today. Denies family history of malignant melanoma. ALESSANDRO CAMACHO DO [address] [place], [address], [facility] 04/09/2023 17:15:18 10/29/2023 text/html Established Patient Presents for a 6m full skin exam. pt has multiple lesions of concern today. patent has pictures on phone. check spots/moles over body using clobetasol ointment for fingertip eczema h/o BCC, SCC Had rash on face, tender and broke out in sores, L face, healed, then happened again weeks later. nothing present today. Denies any other new or changing lesions. Feels well today. Denies family history of malignant melanoma. ALESSANDRO CAMACHO DO [address] [place], [address], [facility] 10/29/2023 17:33:49 11/12/2023 text/html Established Patient Patient presents today for an ed&c of a bcc on right upper back, midline upper back, and lower back no new, changing, bleeding, or symptomatic lesions to report ALESSANDRO CAMACHO DO [address] [place], [address], [facility] 11/12/2023 12:04:49 05/06/2024 text/html Established Patient Waist up check Presents for a 6m full skin exam. Patient states that he has a lesion on his left cheek and forehead that he would like to have evaluated today. Patient states that the clobetasol hasn't really kept the eczema from coming back, although he is still using the medication. check spots/moles over body using clobetasol ointment for fingertip eczema h/o BCC, SCC Denies any other new or changing lesions. Feels well today. Denies family history of malignant melanoma. ALESSANDRO CAMACHO DO [address] [place], [address], [facility] 05/11/2024 19:36:36 08/27/2024 text/html Established Patient Waist up check Presents for a 6m full skin exam. place on forehead, +1 month check spots/moles over body h/o BCC, SCC Denies any other new or changing lesions. Feels well today. Denies family history of malignant melanoma. ALESSANDRO CAMACHO, [address] [place], [address], [facility] 08/27/2024 17:14:20
[2025-03-06 00:57] LABS: Alanine Aminotransferase 34 U/L (12-78); Albumin Level 4.3 g/dl (3.5-5.0); Albumin/Globulin Ratio 1.2 (1.1-1.8); Alkaline Phosphatase 104 U/L (38-126); Anion Gap 12.7 mEq/L (5-15); Aspartate Amino Transferase 34 U/L (17-59); Blood Urea Nitrogen 25 mg/dl (9-20); Calcium 9.3 mg/dl (8.4-10.2); Carbon Dioxide 30 mmol/L (22.0-30.0); Chloride 96 mmol/L (98-107); Creatinine Clearance Estimated 120 mL/min (50-200); Estimated Glomerular Filt Rate 83 ml/min (>60); GFR (African American) 100 ML/MIN (>60); Globulin 3.5 g/dL (1.3-3.2); Glucose 157 mg/dl (74-100); Potassium 3.7 mmoL/L (3.5-5.1); Sodium 135 mmol/L (136-145); Total Protein,Serum 7.8 g/dl (6.3-8.2)
[2025-03-06 00:59] LABS: Lactic Acid 1.4 mmol/L (0.7-2.1)
--- NOTE | 2025-03-06 01:12 | ED_ITS ---
Discharge Plan Disposition Patient Disposition: Admitted Condition: Fair Chief Complaint: Recheck/Abnormal Lab/Rx Clinical Impressions Clinical Impression: Bacteremia, Bacteremia due to Escherichia coli, Sepsis Discharge ED Provider: Kenny Swanson Adult HPI General Chief complaint: Recheck/Abnormal Lab/Rx Stated complaint: test results Time Seen by Provider: 03/06/25 00:22 Mode of Arrival: Ambulatory Source of Information: Patient Description of Symptoms (Recalled from ER Triage Doc. by RN): pt was called back to the ER following blood culture results. pt reports he is still feeling generally unwell, he is expierencing fevers, increased heart, and dysuria. History of Present Illness HPI narrative: 74-year-old male with history of diabetes, sleep apnea, degenerative disc disease presents to the ER after positive blood culture results. Patient reports he was seen by his PCP and started on medication for UTI. Review of records demonstrates he is on cefuroxime. He was then seen in the ER earlier on 03/05/25 with persistent symptoms of fevers, chills, generally feeling unwell. No significant changes were made to his management at that time. Blood cultures were ordered and resulted. We had been called by lab regarding these blood cultures which are positive for E. coli and gram-negative rods. Patient had been called back by charge nurse and immediately came back to the ER for further management. He states he still feels poorly. He states a few hours ago he had a temperature of 102.4 and took Tylenol. He is afebrile on arrival. He states he still has discomfort with urination. CT abdomen pelvis from earlier today reviewed did not demonstrate acute intra-abdominal pathology besides evidence of cystitis. Related Data Home Medications ?Medication ?Instructions ?Recorded ?Confirmed amlodipine 5 mg tablet 5 mg PO DAILY High blood pressure 03/30/19 11/04/24 montelukast 10 mg tablet 10 mg PO DAILY Allergy symptoms 03/30/19 11/04/24 fluticasone propionate 93 1 spray intranasal BID allergies 08/29/20 11/04/24 mcg/actuation breath activated aerosol (Xhance) potassium chloride 10 mEq 10 meq PO DAILY supplemt 08/29/20 11/04/24 capsule,extended release Bifidobacterium infantis 4 mg 4 mg PO DAILY 10/21/23 11/04/24 capsule (Align (B.infantis)) azelastine 137 mcg (0.1 %) nasal intranasal 10/21/23 11/04/24 spray diclofenac sodium 1 % topical gel topical PRN 10/21/23 11/04/24 irbesartan 300 tab PO 10/21/23 11/04/24 mg-hydrochlorothiazide 12.5 mg tablet multivitamin 1 tab PO DAILY 10/21/23 11/04/24 timolol maleate 0.5 % eye drops 1 drp ophthalmic (eye) BID 10/21/23 11/04/24 metformin 500 mg tablet 500 mg PO BID 08/05/24 11/04/24 Previous Rx's ?Medication ?Instructions ?Recorded nystatin-triamcinolone 100,000 1 applic topical BID 30 days #60 10/21/23 unit/g-0.1 % topical cream grams urea 47 % topical cream 1 applic topical BID 30 days #142 10/21/23 grams atorvastatin 40 mg tablet 40 mg PO DAILY #30 tabs 03/05/25 Allergies Allergy/AdvReac Type Severity Reaction Status Date / Time latex Allergy Rash Verified 11/04/24 15:32 [facility] Disclaimer: The information contained in this section may have been updated after the patient was seen, as this information can be updated by other users. 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 Diabetes mellitus type 2, controlled Skin cancer, basal cell Rheumatic fever History of colon polyps Diabetes Allergies HTN (hypertension) Surgical History History of lumbar discectomy History of myringotomy History of appendectomy History of tonsillectomy Family History Other Colon cancer Family history of cardiomyopathy Social History Smoking Status: Never smoker alcohol intake: never substance use type: other current occupational status: employed Travel in the last 8 weeks: None household members: spouse housing: house caffeine: No Have you lived/traveled outside US in past 30 days?: No Contact w/someone who lives/traveled outside US past 30 days?: No Exposure to someone with infectious disease in past 14 days?: No Do you have a fever (greater than 100.4 F or 38 C)?: No Have you tested positive for COVID-19: No Exposed to someone with COVID-19 in past 14 days?: No Do you have a sore throat?: No Do you have a cough?: No Do you have any weakness?: No Do you have any diarrhea?: No Are you experiencing any unusual bleeding?: No Do you have any muscle aches/pain?: No Do you have any abdominal pain?: No Are you experiencing loss of taste or smell?: No Other Medical History Have you received the Flu Vaccine for this season: Yes Have you received the Pneumonia Vaccine: Yes ROS Obtained: Yes Systems reviewed as appropriate & no additional complaints except as documented Per HPI Physical Exam General General appearance: alert and in no apparent distress Comment: Ill-appearing but nontoxic Head Head exam: atraumatic and normocephalic Eye Eye exam: Present PERRL and EOMI ENT ENT exam: Present mucous membranes moist Neck Neck exam: Present normal inspection and full ROM Chest Chest inspection: Present symmetric chest wall rise Respiratory Respiratory exam: Absent respiratory distress or stridor Cardiovascular Cardiovascular exam: Present regular rate and normal rhythm Abdominal Exam Abdominal exam: Present soft; Absent distention, tenderness, guarding or rebound Extremities Exam Extremities exam: Present full ROM; Absent edema Back Exam Back exam: Absent CVA tenderness (R) or CVA tenderness (L) Neurological Exam Neurological exam: Present alert and oriented X3; Absent motor sensory deficit Psychiatric Psychiatric exam: Present normal affect and normal mood Skin Skin exam: Present warm and dry Medical Decision Making Medical Records Medical records reviewed: Yes I reviewed the patient's medical records. Screening: Per USPSTF and CDC recommendations, given the prevalence of disease in our region, it is our hospital?s policy to screen for HIV and viral Hepatitis for all patients aged 18 and over and those with ongoing risk factors. MR Comment: No leukocytosis earlier today, micro with gram-negative rods, E. coli in anaerobic bottle. See HPI for additional details [facility] Inquiry Pt receiving controlled substance: No Vital Signs: 03/06/25 00:30 03/06/25 00:43 Temperature 98.1 F Temperature Source Oral Pulse Rate 114 H Pulse Rate [Right] 115 H Respiratory Rate 22 Blood Pressure 181/76 H Blood Pressure [Right Arm] 181/76 H Blood Pressure Mean [Right Arm] 111 02 Sat by Pulse Oximetry 94 L 94 L Oxygen Delivery Method Room Air Lab Data Lab Results 03/06/25 00:39: WBC 10.6, RBC 5.08, Hgb 15.5, Hct 45.8, MCV 90.2, MCH 30.5, MCHC 33.8, RDW 12.4, Plt Count 159, MPV 8.8, Neut % (Auto) 85.8 H, Lymph % (Auto) 6.5 L, [place] % (Auto) 6.0, Eos % (Auto) 0.9, Baso % (Auto) 0.5, Neut # (Auto) 9.1 H, Lymph # (Auto) 0.7, [place] # (Auto) 0.6, Eos # (Auto) 0.1, Baso # (Auto) 0.1, S odium 135 L, Potassium 3.7, Chloride 96 L, Carbon Dioxide 30, Anion Gap 12.7, B UN 25 H D, Creatinine 0.90, Estimated Creat Clear 120, Estimated GFR 83, Est GFR ( Amer) 100, Glucose 157 H, Lactate 1.4, Calcium 9.3, Total Bilirubin 1.0, AST 34, ALT 34, Alkaline Phosphatase 104, Total Protein 7.8, Albumin 4.3, G lobulin 3.5 H, Albumin/Globulin Ratio 1.2, Procalcitonin 7.94 H 03/06/25 00:43: VBG pH 7.36, VBG pCO2 49.2, VBG pO2 30.7, VBG HCO3 27.4, VBG Total CO2 28.9 H, VBG O2 Saturation 62.0, VBG Base Excess 2.0, VBG Lactic Acid 2.0 03/06/25 00:39 03/06/25 00:39 Orders (Tests/Meds): ED MEDICATIONS Generic Name Dose Route Start Last Admin Trade Name Freq PRN Reason Stop Dose Admin Acetaminophen 650 mg 03/06/25 01:50 Acetaminophen 325mg Tab PO 04/05/25 01:31 ONCE PRN Fever > 100.4 Lactated Ringer's 2,400 mls @ 999 mls/hr 03/06/25 00:27 03/06/25 00:55 Lactated Ringer's 1000 Ml Bag IV 03/06/25 02:51 999 mls/hr .Q2H25M ONE Administration Ondansetron HCl 4 mg 04/19/25 01:50 Ondansetron 4mg/2ml Vial IV 04/05/25 01:31 ONCE PRN Nausea Discontinued Medications Generic Name Dose Route Start Last Admin Trade Name Toni PRN Reason Stop Dose Admin Acetaminophen 650 mg 03/06/25 01:32 Acetaminophen 325mg Tab PO 04/05/25 01:31 ONCE PRN Fever > 100.4 Piperacillin Sod/Tazobactam 100 mls @ 200 mls/hr 03/06/25 00:23 03/06/25 00:55 Sod 4.5 gm/ Sodium Chloride IV 03/06/25 00:52 200 mls/hr ONCE ONE Administration Ondansetron HCl 4 mg 03/06/25 01:32 Ondansetron 4mg/2ml Vial IV 04/05/25 01:31 ONCE PRN Nausea ORDERS Category Date Time Status CBC w/Auto Diff [Complete Blood Count Auto Diff] Stat Lab 03/06/25 00:39 Completed CMP [Comprehensive Metabolic Panel] Stat Lab 03/06/25 00:39 Completed Lactic Acid Stat Lab 03/06/25 00:39 Completed Procalcitonin Stat Lab 03/06/25 00:39 Completed Blood Culture Stat Micro 03/06/25 00:48 Received VBG [Venous Blood Gas] Stat RT 03/06/25 00:43 Completed Medical Decision Narrative: In summary, this 74-year-old male with comorbidities described in the HPI which may not be at goal therapy presents to the emergency department today after being called back to the ER for positive blood cultures. On initial evaluation patient is tachycardic but otherwise hemodynamically stable, currently afebrile, ill-appearing but nontoxic and not in extremis, aside from tachycardia physical exam is otherwise reassuring at this time. Differential diagnosis includes but is not limited to bacteremia, lactic acidosis, patient meets sepsis criteria with documented fever prior to arrival, tachycardia, and known infectious source.. Patient already had CT abdomen pelvis earlier today and I do not believe additional imaging is warranted at this time. Basic labs, lactic, repeat blood cultures have been ordered. Urine cultures are pending from earlier today. I discussed this case with lab and they report we will not have sensitivities for at least 72 hours. Given this, I administered IV Zosyn for broader spectrum coverage since it is unclear what bacterial sensitivities the patient may or may not have. Patient is receiving IV fluid bolus. He is overweight, I am administering 30 mL/kg at a weight of 80 kg which is between his ideal and adjusted body weight since he does have evidence of prerenal azotemia and meets sepsis criteria with tachycardia. He does have increasing WBC but does not have leukocytosis, WBC 10.6. Neutrophil predominance consistent with bacterial infection. VBG with normal pH, normal VBG lactic, new prerenal azotemia compared to prior, lactic on chemistry 1.4. Procalcitonin elevated at 7.94 consistent with significant systemic infection. After initial labs, I discussed this case with Dr. Marcum. He agrees the patient requires admission and requested that the patient have a dose of Tylenol and Zofran available to him if needed for fever or nausea. I have ordered these. He also requested a diabetic diet which has been ordered for the patient. He agrees with the IV fluid bolus but does not think he needs continued IV fluids after the bolus. I believe this is reasonable. Patient was admitted under Dr. Marcum. Critical Care Critical Care Time Critical Care Time: Yes Attestation: On 03/06/25, the high probability of a clinically significant, sudden or life threatening deterioration of the following system(s) required my full and direct attention, intervention and personal management. The time I documented below is in addition to time spent performing reported procedures but includes the following listed in this critical care notation. Total Time Total Critical Care Time: 35
[2025-03-06 01:13] LABS: Procalcitonin 7.94 ng/mL (0.0-2.0)
--- NOTE | 2025-03-06 01:48 | PC.NURSE ---
Report called to Latasha for transfer to the floor.
[2025-03-06] MEDS: ACETAMINOPHEN 325MG TAB 650 MG PO (02:19)
[2025-03-06 05:31] LABS: POC Glucose,Bedside 138 (70-110)
[2025-03-06 05:31] LABS: POC Glucose,Bedside 160 (70-110)
--- NOTE | 2025-03-06 06:01 | PC.NURSE ---
Pt has rested well since admission. Pt did c/o of a mild QUINN and was treated per MAR. Pt has had no other acute changes to note this shift
--- NOTE | 2025-03-06 08:20 | PC.NURSE ---
Student nurseTarsha will be providing care under my supervision.
--- NOTE | 2025-03-06 08:21 | EXP.HP ---
History of Present Illness *Admission Date: 03/06/25 *Reason for visit:: UTI *History of present illness: Mr. Granados is a 74 year old patient of [facility], who was seen in the office 2 days ago with a 5 day history of dysuria. He was diagnosed with a UTI and prescribed Ceftin for treatment. Yesterday morning he began to feel more ill. He had a fever, his heart was racing and he felt weak. He cam to the ER at [facility] for evaluation. He was given IV fluids, Tylenol and a dose of Rocephin and discharge home. Last night his blood cultures were reported as abnormal and the ER called patient to retuen to [facility] to arrange admission for further treatment of bacteremia. [facility] Disclaimer: The information contained in this section may have been updated after the patient was seen, as this information can be updated by other users. Medical History (Updated 03/06/25 @ 08:38 by Justin Marcum MD) Morbid obesity with body mass index (BMI) of 40.0 to 49.9 Allergic rhinitis Lumbar herniated disc Migraine headache Sleep apnea Arthritis of coccyx Arthritis of right knee Diabetes mellitus type 2, controlled Skin cancer, basal cell Rheumatic fever History of colon polyps HTN (hypertension) Surgical History (Updated 03/06/25 @ 08:36 by Justin Marcum MD) History of colonoscopy History of lumbar discectomy History of myringotomy History of appendectomy History of tonsillectomy Family History Other Colon cancer Family history of cardiomyopathy Social History (Updated 03/06/25 @ 02:46 by Gwen Espinoza RN) Smoking Status: Never smoker alcohol intake: never substance use type: other current occupational status: employed Travel in the last 8 weeks: None household members: spouse housing: house caffeine: No Have you lived/traveled outside US in past 30 days?: No Contact w/someone who lives/traveled outside US past 30 days?: No Exposure to someone with infectious disease in past 14 days?: No Do you have a fever (greater than 100.4 F or 38 C)?: No Have you tested positive for COVID-19: No Exposed to someone with COVID-19 in past 14 days?: No Do you have a sore throat?: No Do you have a cough?: No Do you have any weakness?: No Do you have any diarrhea?: No Are you experiencing any unusual bleeding?: No Do you have any muscle aches/pain?: No Do you have any abdominal pain?: No Are you experiencing loss of taste or smell?: No Other Medical History Have you received the Flu Vaccine for this season: No Have you received the Pneumonia Vaccine: No Review of Systems Constitutional Constitutional: Reports chills and Reports fever(s) ENT Ears, Nose, Mouth, and Throat: Denies dizziness *Cardiovascular Cardiovascular: Denies chest pain and Denies dyspnea *Respiratory Respiratory: Denies cough and Denies dyspnea *Gastrointestinal Gastrointestinal: Denies change in stool character *Genitourinary Genitourinary: Reports as per HPI, Reports difficulty urinating and Reports dysuria *Musculoskeletal Musculoskeletal: Denies arthralgias *Neurologic Neurologic: Denies dizziness Meds Home Medications and Allergies Home Medications ?Medication ?Instructions ?Recorded ?Confirmed ?Type amlodipine 5 mg tablet 5 mg PO DAILY High blood pressure 03/30/19 03/06/25 History potassium chloride 10 mEq 10 meq PO DAILY supplemt 08/29/20 03/06/25 History capsule,extended release diclofenac sodium 1 % topical gel 1 ea topical NEEDED PRN right 10/21/23 03/06/25 History nee pain irbesartan 300 1 tab PO DAILY 10/21/23 03/06/25 History mg-hydrochlorothiazide 12.5 mg tablet multivitamin 1 tab PO DAILY 10/21/23 03/06/25 History timolol maleate 0.5 % eye drops 1 drp ophthalmic (eye) BID 10/21/23 03/06/25 History metformin 500 mg tablet 500 mg PO BID 08/05/24 03/06/25 History atorvastatin 40 mg tablet 40 mg PO DAILY #30 tabs 03/05/25 03/06/25 Rx New Prescriptions to Start Prescriptions: Allergies Allergy/AdvReac Type Severity Reaction Status Date / Time latex Allergy Rash Verified 11/04/24 15:32 Exam Data for Last 24 hours Vital signs and Labs for Last 24 Hours: Temp Pulse Resp BP Pulse Ox O2 Del Method 98.2 F 89 17 120/63 94 L Room Air 03/06/25 04:00 03/06/25 04:00 03/06/25 04:00 03/06/25 04:00 03/06/25 04:00 03/06/25 06:56 Laboratory Results - last 24 hr 03/06/25 00:39: WBC 10.6, RBC 5.08, Hgb 15.5, Hct 45.8, MCV 90.2, MCH 30.5, MCHC 33.8, RDW 12.4, Plt Count 159, MPV 8.8, Neut % (Auto) 85.8 H, Lymph % (Auto) 6.5 L, [place] % (Auto) 6.0, Eos % (Auto) 0.9, Baso % (Auto) 0.5, Neut # (Auto) 9.1 H, Lymph # (Auto) 0.7, [place] # (Auto) 0.6, Eos # (Auto) 0.1, Baso # (Auto) 0.1, Sodium 135 L, Potassium 3.7, Chloride 96 L, Carbon Dioxide 30, Anion Gap 12.7, BUN 25 H D, Creatinine 0.90, Estimated Creat Clear 120, Estimated GFR 83, Est GFR ( Amer) 100, Glucose 157 H, Lactate 1.4, Calcium 9.3, Total Bilirubin 1.0, AST 34, ALT 34, Alkaline Phosphatase 104, Total Protein 7.8, Albumin 4.3, Globulin 3.5 H, Albumin/Globulin Ratio 1.2, Procalcitonin 7.94 H 03/06/25 00:43: VBG pH 7.36, VBG pCO2 49.2, VBG pO2 30.7, VBG HCO3 27.4, VBG Total CO2 28.9 H, VBG O2 Saturation 62.0, VBG Base Excess 2.0, VBG Lactic Acid 2.0 03/06/25 02:25: POC Glucose 160 H 03/06/25 04:49: POC Glucose 138 H I & O for Last 24 hours: Intake & Output 03/03/25 03/04/25 03/05/25 03/06/25 23:59 23:59 23:59 23:59 Output Total 0 / 0 Balance 0 / 0 Weight 282 lb 11.2 oz Microbiology Reports for the Last 24 Hours: Blood and Urine cultures have growth of gram negative rods/E. coli Constitutional Constitutional: no acute distress *Routine HEENT Exam Head: Present normocephalic Eye: Present EOMI and PERRL ENT: Present mucous membranes moist *Routine Neck Exam Neck: Present supple; Absent lymphadenopathy *Routine Respiratory Exam Respiratory: Present CTA bilaterally *Routine Cardiovascular Exam Cardiovascular: Present RRR *Routine Abdominal Exam Abdominal: Present soft and normoactive bowel sounds; Absent tenderness *Routine Rectal Exam Rectal:: deferred *Routine Genitalia Exam Genitalia:: deferred *Routine Extremities Exam Extremities: Absent cyanosis, clubbing or edema *Routine Skin Exam Skin: Present warm; Absent rash *Routine Neurological Exam Neurological: Present alert and oriented X3 Assessment and Plan *Assessment and plan (1) Sepsis: Status: Acute Category: Medical Code(s): A41.9 - Sepsis, unspecified organism (2) Bacteremia due to Escherichia coli: Status: Acute Category: Medical Code(s): R78.81 - Bacteremia; B96.20 - Unspecified Escherichia coli [E. coli] as the cause of diseases classified elsewhere (3) Fever: Status: Acute Category: Medical Code(s): R50.9 - Fever, unspecified (4) Elevated troponin: Status: Acute Category: Medical Code(s): R79.89 - Other specified abnormal findings of blood chemistry (5) Sleep apnea: Status: Acute Category: Medical Code(s): G47.30 - Sleep apnea, unspecified (6) Diabetes mellitus type 2, controlled: Status: Acute Category: Medical Code(s): E11.9 - Type 2 diabetes mellitus without complications (7) UTI (urinary tract infection): Status: Acute Category: Medical Code(s): N39.0 - Urinary tract infection, site not specified (8) Non morbid obesity: Status: Acute Category: Medical Code(s): E66.9 - Obesity, unspecified Plan Patient admitted to [facility] for further evaluation and management. Plan to continue Zosyn, await culture results, will have cardiology see patient on Saturday.
[2025-03-06] MEDS: AMLODIPINE 5MG TABLET 5 MG PO (09:54)
[2025-03-06] MEDS: FAMOTIDINE 20MG TABLET 20 MG PO ×2 (09:54→20:35)
[2025-03-06] MEDS: ENOXAPARIN 40MG/0.4ML SYRINGE 40 MG SUBCUT (09:56)
[2025-03-06] MEDS: TIMOLOL 0.5% OPTH SOLN 5ML OP ×2 (09:56→20:35)
[2025-03-06] MEDS: METFORMIN 500MG TABLET 500 MG PO (16:49)
[2025-03-06] MEDS: BISACODYL 5MG TABLET 5 MG PO (18:41)
[2025-03-06] MEDS: ATORVASTATIN 40MG TABLET 40 MG PO (20:35)
[2025-03-07] VITALS: BP 118/50; PULSE 73; RESP 18; TEMP 37.1; O2SAT 96
[2025-03-07] MEDS: PIPERACILLIN/TAZO 4.5 GM in 0.9 % SODIUM CHLORIDE 100 ML IV (03:50)
[2025-03-07 04:00] VITALS: BP 113/62; PULSE 76; RESP 16; TEMP 36.9; O2SAT 95; BMI 39.5
[2025-03-07] MEDS: METFORMIN 500MG TABLET 500 MG PO ×2 (06:32→16:41)
[2025-03-07 08:00] VITALS: BP 141/62; PULSE 94; RESP 20; TEMP 36.8; O2SAT 95
[2025-03-07 08:09] LABS: Basophils # 0.1 K/mm3 (0-0.2); Basophils % 0.6 % (0.1-2.0); Eosinophils # 0.3 Kmm3 (0.0-0.4); Hematocrit 38.9 % (42.0-52.0); Lymphocytes # 1.3 K/mm3 (0.7-4.5); Lymphocytes % 15.7 % (10-50); Mean Corpuscular HGB Conc 33.4 g/dL (31.8-35.4); Mean Corpuscular Hemoglobin 30.2 pg (27.0-31.2); Mean Corpuscular Volume 90.3 fl (80-94); Mean Platelet Volume 8.9 fl (7.4-10.4); Monocytes # 1.2 K/mm3 (0.1-1.0); Monocytes % 13.7 % (1.7-9.3); Neutrophils # 5.6 K/mm3 (1.8-7.8); Neutrophils % 66.5 % (37.0-80.0); Nucleated Red Blood Cells # 0 10^3/uL; Nucleated Red Blood Cells % 0 %; Platelet Count 161 K/mm3 (142-424); Red Blood Count 4.31 M/mm3 (4.60-6.20); Red Cell Distribution Width 12.1 % (11.5-17.5); White Blood Count 8.4 K/mm3 (4.8-10.8)
[2025-03-07 08:23] LABS: Chloride 104 mmol/L (98-107); Sodium 139 mmol/L (136-145)
[2025-03-07 08:24] LABS: Potassium 3.7 mmoL/L (3.5-5.1)
[2025-03-07 08:26] LABS: Alanine Aminotransferase 28 U/L (12-78); Alkaline Phosphatase 80 U/L (38-126); Anion Gap 10.7 mEq/L (5-15); Aspartate Amino Transferase 31 U/L (17-59); Bilirubin,Total 0.5 mg/dl (0.2-1.3); Blood Urea Nitrogen 13 mg/dl (9-20); Carbon Dioxide 28 mmol/L (22.0-30.0); Creatinine Clearance Estimated 121 mL/min (50-200); Estimated Glomerular Filt Rate 95 ml/min (>60); GFR (African American) 115 ML/MIN (>60); Total Protein,Serum 6.3 g/dl (6.3-8.2)
[2025-03-07 08:27] LABS: Calcium 8.6 mg/dl (8.4-10.2); Glucose 130 mg/dl (74-100)
--- NOTE | 2025-03-07 08:50 | EXP.ACUTE.PN ---
Subjective *Date: 03/07/25 *Time: 08:50 Interval history: Patient feels some better today, has a slight headache, still has some dysuria. Medical Exam Vital signs and Labs for Last 24 Hours: Vital Signs Temp Pulse Resp BP Pulse Ox O2 Del Method 03/07/25 08:00 98.2 F 94 H 20 141/62 H 95 Room Air 03/07/25 07:00 Room Air 03/07/25 04:36 CPAP 03/07/25 04:00 98.5 F 76 16 113/62 95 CPAP 03/07/25 03:00 CPAP 03/07/25 00:59 CPAP 03/07/25 00:00 98.8 F 73 18 118/50 L 96 Room Air 03/06/25 23:00 CPAP 03/06/25 21:00 Room Air 03/06/25 20:00 Room Air 03/06/25 20:00 98.1 F 78 16 124/57 L 94 L Room Air 03/06/25 18:39 Room Air 03/06/25 17:00 Room Air 03/06/25 16:00 98.1 F 82 16 122/65 94 L Room Air 03/06/25 15:00 Room Air 03/06/25 13:00 Room Air 03/06/25 10:58 Room Air 03/06/25 09:00 Room Air Intake and Output 03/06/25 03/07/25 03/07/25 23:59 07:59 15:59 Intake Total 2019 340 / 340 Output Total 0 / 0 0 / 0 Balance 2019 340 / 340 Intake: Intake, Oral Amount 560 / 1720 240 / 240 Intake, Total IV Amount 200 / 300 100 / 100 Piperacillin/Tazo 4.5 gm In 0.9 200 / 300 100 / 100 % Sodium Chloride 100 ml @ 200 mls/hr IV Q6H [facility] Rx#:[id number] Output: Output, Urine Amount 0 / 0 0 / 0 Other: Number of Voids 1 Number of Unmeasured Voids 1 1 Number of Bowel Movements 1 Weight 282 lb 9.6 oz Patient Weight 03/07/25 23:59 Weight 282 lb 9.6 oz Laboratory Results - last 24 hr 03/07/25 07:25: WBC 8.4, RBC 4.31 L, Hgb 13.0 L, Hct 38.9 L, MCV 90.3, MCH 30.2, MCHC 33.4, RDW 12.1, Plt Count 161, MPV 8.9, Neut % (Auto) 66.5, Lymph % (Auto) 15.7, [place] % (Auto) 13.7 H, Eos % (Auto) 3.0, Baso % (Auto) 0.6, Neut # (Auto) 5.6, Lymph # (Auto) 1.3, [place] # (Auto) 1.2 H, Eos # (Auto) 0.3, Baso # (Auto) 0.1, Sodium 139, Potassium 3.7, Chloride 104, Carbon Dioxide 28, Anion Gap 10.7, BUN 13 D, Creatinine 0.80, Estimated Creat Clear 121, Estimated GFR 95, Est GFR ( Amer) 115, Glucose 130 H, Calcium 8.6, Total Bilirubin 0.5, AST 31, ALT 28, Alkaline Phosphatase 80, Total Protein 6.3, Albumin 3.4 L D I & O for Labs for Last 24 Hours: Intake & Output 03/04/25 03/05/25 03/06/25 03/07/25 23:59 23:59 23:59 23:59 Intake Total 1679 340 / 340 Output Total 0 / 0 0 / 0 Balance 1679 340 / 340 Weight 282 lb 11.2 oz 282 lb 9.6 oz Microbiology Reports for the Last 24 Hours: Microbiology 03/06/25 00:48 Blood Blood Culture - Preliminary NO GROWTH AFTER 24 HOURS 03/06/25 00:39 Blood Blood Culture - Preliminary NO GROWTH AFTER 24 HOURS Constitutional: Present no acute distress Respiratory: Present normal respiratory effort Cardiac: Present Reg Rate and Rhythm GI: Present normal bowel sounds; Absent tenderness Extremities: Present normal inspection and full ROM Skin: Present intact; Absent erythema Neuro: Present Grossly Intact and moves all extremities Assessment and Plan *Assessment and plan (1) Sepsis: Status: Acute Category: Medical Code(s): A41.9 - Sepsis, unspecified organism (2) Bacteremia due to Escherichia coli: Status: Acute Category: Medical Code(s): R78.81 - Bacteremia; B96.20 - Unspecified Escherichia coli [E. coli] as the cause of diseases classified elsewhere (3) Fever: Status: Acute Category: Medical Code(s): R50.9 - Fever, unspecified (4) Elevated troponin: Status: Acute Category: Medical Code(s): R79.89 - Other specified abnormal findings of blood chemistry (5) Sleep apnea: Status: Acute Category: Medical Code(s): G47.30 - Sleep apnea, unspecified (6) Diabetes mellitus type 2, controlled: Status: Acute Category: Medical Code(s): E11.9 - Type 2 diabetes mellitus without complications (7) UTI (urinary tract infection): Status: Acute Category: Medical Code(s): N39.0 - Urinary tract infection, site not specified (8) Non morbid obesity: Status: Acute Category: Medical Code(s): E66.9 - Obesity, unspecified Plan Plan to deescalate antibiotics today to Rocephin monotherapy, add pyridium, stop FSBS.
[2025-03-07 09:00] LABS: Albumin Level 3.4 g/dl (3.5-5.0); Albumin/Globulin Ratio 1.2 (1.1-1.8); Globulin 2.9 g/dL (1.3-3.2)
[2025-03-07] MEDS: AMLODIPINE 5MG TABLET 5 MG PO (09:31)
[2025-03-07] MEDS: FAMOTIDINE 20MG TABLET 20 MG PO ×2 (09:32→20:59)
[2025-03-07] MEDS: CEFTRIAXONE 1 GM 1 GM in 0.9 % SODIUM CHLORIDE 50 ML IV (09:32)
[2025-03-07] MEDS: PHENAZOPYRIDINE 200MG TABLET 200 MG PO ×3 (09:36→20:59)
[2025-03-07] MEDS: ENOXAPARIN 40MG/0.4ML SYRINGE 40 MG SUBCUT (09:37)
[2025-03-07] MEDS: TIMOLOL 0.5% OPTH SOLN 5ML OP ×2 (09:45→21:00)
[2025-03-07 12:00] VITALS: BP 120/60; PULSE 78; RESP 18; TEMP 36.5; O2SAT 96
[2025-03-07 16:00] VITALS: BP 128/53; PULSE 74; RESP 18; TEMP 36.9; O2SAT 95
--- NOTE | 2025-03-07 17:29 | PC.NURSE ---
aox4, no o2 requirement. ambulates in room independently. tolerating diet well.
[2025-03-07 20:00] VITALS: BP 121/64; PULSE 104; RESP 16; TEMP 36.7; O2SAT 94
[2025-03-07] MEDS: ATORVASTATIN 40MG TABLET 40 MG PO (20:59)
[2025-03-08] VITALS: BP 133/80; PULSE 85; RESP 16; TEMP 36.7; O2SAT 97
[2025-03-08 04:00] VITALS: BP 129/69; PULSE 72; RESP 16; TEMP 36.4; O2SAT 95; BMI 39.2
--- NOTE | 2025-03-08 06:35 | PC.NURSE ---
Pt has rested well this shift, and has tolerated his CPAP well this shift. Pt did c/o burning when he urinates and has been treated per scheduled meds.
--- NOTE | 2025-03-08 07:00 | CA_ITS ---
APPROVED REPORT EXAM: Comprehensive 2D, Doppler, and color-flow Echocardiogram [employer] Dispatcher: Janey Jules RVT Ht: 5 ft 10 in Wt: 282lbs BSA: 2.42 BP: 120/63 mmHg Indications: elevated troponin, bacteremia, HTN, DM, fever, MARTHA 2D Dimensions LA Volume 48.50 mL LA Volume Index 20.04 mL/m2 (M/F) 16-34 M-Mode Dimensions RVDd 3.28 cm (0.9-2.6) LA Diam 4.34 cm (1.9-4.0) LVDd 5.43 cm (3.5-5.7) LVDs 3.04 cm (3.5-5.7) IVSd 1.26 cm (0.6-1.1) PWd 0.89 cm (0.6-1.1) EF (Teich) 74.70% FS 44.00% EDV (Teich) 143.10 mL TAPSE 2.73 (<1.7) ESV (Teich) 36.20 mL LV Diastology E Decel Time 173 (160-240 msec) E/A Ratio 1.2 Aortic Valve EDGARD Index 1.76 cm2/m2 AoV Peak Ulysses. 129.0 (50-130 cm/s) AO Peak GR. 6.70 mmHg AO Mean GR. 3.60 (<5 mmHg) AO VTI 22.7 (18-25 cm) EDGARD (VTI) 4.34 (2.5-4.5 cm2) Mitral Valve MV E Max Ulysses. 108.0 (40-130 cm/s) MV A Velocity 88.0 (40-130 cm/s) E/A Ratio 1.24 MV PHT 51.0 ms Pulmonary Valve PV Peak Velocity 94.0 (50-150 cm/s) Tricuspid Valve TR P. Velocity 352.00 cm/s RAP Estimate 10.00 mmHg RVSP 59.60 mmHg Left Ventricle The left ventricle is normal size. The left ventricular systolic function is normal. The left ventricular ejection fraction is within the normal range. There is increased LV wall thickness. There is normal LV segmental wall motion. Diastolic function is indeterminate. LVEF is 55%. Right Ventricle Right ventricle is mildly dilated. The right ventricular systolic function is normal. Atria Left atrium is mildly dilated. The right atrium size is normal. Color Doppler is indeterminate for evaluation of interatrial shunt. Aortic Valve The aortic valve is mildly thickened. There is no aortic valvular stenosis. No aortic regurgitation is present. Mitral Valve The mitral valve is normal in structure. No evidence of mitral valve stenosis. Trace mitral regurgitation. Tricuspid Valve Tricuspid valve is grossly normal in structure and function. Trace tricuspid regurgitation. There is insufficient TR jet to estimate RVSP. Pulmonic Valve The pulmonary valve leaflets are not well-visualized. Trace pulmonic regurgitation. Great Vessels The aortic root is normal in size. IVC is normal in size and collapses >50% with inspiration. Pericardium There is no pericardial effusion. Other Information Study Quality: Technically Difficult Conclusion Technically difficult study due to poor acoustic windows. Normal biventricular systolic function. Mild RV dilation. Mild LA dilation. No significant valvular stenosis or regurgitation. No clear or obvious evidence of mobile echodensities or vegetations on this TTE Electronically signed by : Cindy Gauthier MD 03/08/2025 12:15:40
--- NOTE | 2025-03-08 07:32 | P.PN_ITS ---
Subjective *Date: 03/08/25 *Time: 08:48 Interval history: Patient has had dysuria since started on females on phenazopyridine. He voided many times after taking the pill last evening. He voided 3 additional times during the night. His bowels have been moving. He is eating without problems. He reports drinking numerous fluids yesterday. He ambulates without difficulty. He denies chest pain and shortness of breath. He has been told his heart rate is up and down. Exam Data for Last 24 hours Vital signs and Labs for Last 24 Hours: Temp Pulse Resp BP Pulse Ox O2 Del Method 97.5 F L 72 16 129/69 95 Room Air 03/08/25 04:00 03/08/25 04:00 03/08/25 04:00 03/08/25 04:00 03/08/25 04:00 03/08/25 06:37 Laboratory Results - last 24 hr 03/07/25 07:25: WBC 8.4, RBC 4.31 L, Hgb 13.0 L, Hct 38.9 L, MCV 90.3, MCH 30.2, MCHC 33.4, RDW 12.1, Plt Count 161, MPV 8.9, Neut % (Auto) 66.5, Lymph % (Auto) 15.7, [place] % (Auto) 13.7 H, Eos % (Auto) 3.0, Baso % (Auto) 0.6, Neut # (Auto) 5.6, Lymph # (Auto) 1.3, [place] # (Auto) 1.2 H, Eos # (Auto) 0.3, Baso # (Auto) 0.1, Sodium 139, Potassium 3.7, Chloride 104, Carbon Dioxide 28, Anion Gap 10.7, BUN 13 D, Creatinine 0.80, Estimated Creat Clear 121, Estimated GFR 95, Est GFR ( Amer) 115, Glucose 130 H, Calcium 8.6, Total Bilirubin 0.5, AST 31, ALT 28, Alkaline Phosphatase 80, Total Protein 6.3, Albumin 3.4 L D, Globulin 2.9, Albumin/Globulin Ratio 1.2 I & O for Last 24 hours: Intake & Output 03/05/25 03/06/25 03/07/25 03/08/25 11:59 11:59 11:59 11:59 Intake Total 400 / 400 1979 1060 / 1060 Output Total 0 / 0 0 / 0 0 / 0 Balance 400 / 400 1979 1060 / 1060 Weight 282 lb 11.2 oz 282 lb 9.6 oz 280 lb 6.142 oz Microbiology Reports for the Last 24 Hours: Microbiology 03/06/25 00:48 Blood Blood Culture - Preliminary NO GROWTH AFTER 48 HOURS 03/06/25 00:39 Blood Blood Culture - Preliminary NO GROWTH AFTER 48 HOURS Constitutional Constitutional: no acute distress Comments: Sitting in chair at bedside eating his breakfast. Appears comfortable. *Routine Respiratory Exam Respiratory: Present CTA bilaterally (Anteriorly and posteriorly) *Routine Cardiovascular Exam Cardiovascular: Present RRR (70s ) *Routine Abdominal Exam Abdominal: Present soft and normoactive bowel sounds; Absent tenderness or distended *Routine Extremities Exam Extremities: Absent edema *Routine Neurological Exam Neurological: Present alert and oriented X3 Assessment and Plan *Assessment and plan (1) Sepsis: Status: Acute Category: Medical Code(s): A41.9 - Sepsis, unspecified organism (2) Bacteremia due to Escherichia coli: Status: Acute Category: Medical Code(s): R78.81 - Bacteremia; B96.20 - Unspecified Escherichia coli [E. coli] as the cause of diseases classified elsewhere (3) Fever: Status: Acute Category: Medical Code(s): R50.9 - Fever, unspecified (4) Elevated troponin: Status: Acute Category: Medical Code(s): R79.89 - Other specified abnormal findings of blood chemistry (5) Sleep apnea: Status: Acute Category: Medical Code(s): G47.30 - Sleep apnea, unspecified (6) Diabetes mellitus type 2, controlled: Status: Acute Category: Medical Code(s): E11.9 - Type 2 diabetes mellitus without complications (7) UTI (urinary tract infection): Status: Acute Category: Medical Code(s): N39.0 - Urinary tract infection, site not specified (8) Non morbid obesity: Status: Acute Category: Medical Code(s): E66.9 - Obesity, unspecified (9) Dysuria: Status: Acute Category: Medical Code(s): R30.0 - Dysuria Plan Will discontinue Pyridium. Water encouraged. Patient to be seen by cardiology today. Patient remains on Rocephin for sepsis and UTI Dr. Marcum entry - Saw patient, Echo is pending, will ask cardiology to see patient if indicated by Echo results.
--- NOTE | 2025-03-08 07:44 | EXP.PN ---
Subjective *Date: 03/08/25 *Time: 07:44 Interval history: Patient did not sleep very well last night. She denies any pain. She is breathing without difficulty. She denies chest pain. She is eating well. is present. He states he has been unable to assist with her transfers on an ongoing basis. He has developed a back problem due 2 assisting activities. She was at [facility] 3 weeks after her surgery. She states she was able to perform transfers. This went well at home initially after discharge on 03/04/2025 but progressively became more difficult and her has been unable to assist her. She had bowel and bladder control. She has a pure wick in place at present Exam Data for Last 24 hours Vital signs and Labs for Last 24 Hours: Temp Pulse Resp BP Pulse Ox O2 Del Method 97.5 F L 72 16 129/69 95 Room Air 03/08/25 04:00 03/08/25 04:00 03/08/25 04:00 03/08/25 04:00 03/08/25 04:00 03/08/25 06:37 Laboratory Results - last 24 hr 03/07/25 07:25: WBC 8.4, RBC 4.31 L, Hgb 13.0 L, Hct 38.9 L, MCV 90.3, MCH 30.2, MCHC 33.4, RDW 12.1, Plt Count 161, MPV 8.9, Neut % (Auto) 66.5, Lymph % (Auto) 15.7, [place] % (Auto) 13.7 H, Eos % (Auto) 3.0, Baso % (Auto) 0.6, Neut # (Auto) 5.6, Lymph # (Auto) 1.3, [place] # (Auto) 1.2 H, Eos # (Auto) 0.3, Baso # (Auto) 0.1, Sodium 139, Potassium 3.7, Chloride 104, Carbon Dioxide 28, Anion Gap 10.7, BUN 13 D, Creatinine 0.80, Estimated Creat Clear 121, Estimated GFR 95, Est GFR ( Amer) 115, Glucose 130 H, Calcium 8.6, Total Bilirubin 0.5, AST 31, ALT 28, Alkaline Phosphatase 80, Total Protein 6.3, Albumin 3.4 L D, Globulin 2.9, Albumin/Globulin Ratio 1.2 I & O for Last 24 hours: Intake & Output 04/18/25 04/19/25 04/20/25 04/21/25 11:59 11:59 11:59 11:59 Intake Total 400 / 400 1979 1060 / 1060 Output Total 0 / 0 0 / 0 0 / 0 Balance 400 / 400 1979 1060 / 1060 Weight 282 lb 11.2 oz 282 lb 9.6 oz 280 lb 6.142 oz Microbiology Reports for the Last 24 Hours: Microbiology 03/06/25 00:48 Blood Blood Culture - Preliminary NO GROWTH AFTER 48 HOURS 03/06/25 00:39 Blood Blood Culture - Preliminary NO GROWTH AFTER 48 HOURS Constitutional Constitutional: no acute distress Comments: Sitting up in the bed eating her breakfast. Tremor of the right hand noted. She appears comfortable. *Routine Respiratory Exam Respiratory: Present CTA bilaterally *Routine Cardiovascular Exam Cardiovascular: Present RRR *Routine Abdominal Exam Abdominal: Present soft, normoactive bowel sounds and obese; Absent tenderness *Routine Extremities Exam Extremities: Absent edema Comments: Right leg with wraps and boot on. Left leg without edema. Good pedal pulses. Skin is intact on the foot. *Routine Neurological Exam Neurological: Present alert and oriented X3
[2025-03-08 08:00] VITALS: BP 152/73; PULSE 85; RESP 16; TEMP 36.3; O2SAT 96
[2025-03-08] MEDS: CEFTRIAXONE 1 GM 1 GM in 0.9 % SODIUM CHLORIDE 50 ML IV (08:38)
[2025-03-08] MEDS: AMLODIPINE 5MG TABLET 5 MG PO (08:38)
[2025-03-08] MEDS: FAMOTIDINE 20MG TABLET 20 MG PO (08:38)
[2025-03-08] MEDS: ENOXAPARIN 40MG/0.4ML SYRINGE 40 MG SUBCUT (08:38)
[2025-03-08] MEDS: TIMOLOL 0.5% OPTH SOLN 5ML OP (08:39)
[2025-03-08] MEDS: METFORMIN 500MG TABLET 500 MG PO (08:43)
[2025-03-08] MEDS: OXYBUTYNIN 5MG TAB 2.5 MG PO ×2 (09:34→12:02)
--- NOTE | 2025-03-08 10:00 | SW/DCPLANNER ---
Addendum entered by Molly Chatman RN 03/08/25 11:05: [facility] health unable to accept due to insurance. Spoke with [facility] and they will have nurse teach patient/. Dressing changes/labs will need to be completed here. Will send an order to infusion and speak with patient. Original Note: Christina spoke with patient about once medically stable and ready for discharge if he is interested in home health services and patient stated that he is and that he has no preference. Sent patient's info to [facility] and also sent his info to [facility] for his antibiotic. [facility] stated that they can not take patients insurance. Will fax patients info to [facility]. Kaylee Landa
--- NOTE | 2025-03-09 10:42 | SW/DCPLANNER ---
Spoke with patient on the phone. Patient stated that he is feeling great and had a good night. Patient stated that he is aware of his upcoming appointments. Patient stated that his is going in a few to cigar packer and picker his new medicine. Patient stated that he has no concerns or questions at this time. Kaylee Landa
--- NOTE | 2025-03-11 16:08 | EXP.DC.SUM ---
General Admission date:: 03/06/25 Discharge date: 03/08/25 HPI HPI HPI: Mr. Granados is a 74 year old patient of [facility], who was seen in the office 2 days ago with a 5 day history of dysuria. He was diagnosed with a UTI and prescribed Ceftin for treatment. Yesterday morning he began to feel more ill. He had a fever, his heart was racing and he felt weak. He cam to the ER at [facility] for evaluation. He was given IV fluids, Tylenol and a dose of Rocephin and discharge home. Last night his blood cultures were reported as abnormal and the ER called patient to retuen to [facility] to arrange admission for further treatment of bacteremia. Hospital Course Hospital Course Hospital Course: The patient was admitted for further evaluation and treatment. He was continued on Zosyn while awaiting cultures. He continued with some dysuria. By 03/07/2025, his antibiotics were de-escalated to Rocephin monotherapy. Pyridium was added as well. He did begin feeling better and was stable to be discharged home on continued antibiotics. His urine culture was positive for E. coli but his blood cultures were negative. Exam Data for Last 24 hours Vital signs and Labs for Last 24 Hours: Temp Pulse Resp BP Pulse Ox O2 Del Method 97.4 F L 85 16 152/73 H 96 Room Air 03/08/25 08:00 03/08/25 08:00 03/08/25 08:00 03/08/25 08:00 03/08/25 08:00 03/08/25 13:00 Microbiology Reports for the Last 24 Hours: Microbiology 03/06/25 00:48 Blood Blood Culture - Final NO GROWTH AFTER 5 DAYS 03/06/25 00:39 Blood Blood Culture - Final NO GROWTH AFTER 5 DAYS Narrative: Constitutional Constitutional: no acute distress *Routine HEENT Exam Head: Present normocephalic Eye: Present EOMI and PERRL ENT: Present mucous membranes moist *Routine Neck Exam Neck: Present supple; Absent lymphadenopathy *Routine Respiratory Exam Respiratory: Present CTA bilaterally *Routine Cardiovascular Exam Cardiovascular: Present RRR *Routine Abdominal Exam Abdominal: Present soft and normoactive bowel sounds; Absent tenderness *Routine Rectal Exam Rectal:: deferred *Routine Genitalia Exam Genitalia:: deferred *Routine Extremities Exam Extremities: Absent cyanosis, clubbing or edema *Routine Skin Exam Skin: Present warm; Absent rash *Routine Neurological Exam Neurological: Present alert and oriented X3 DS: Diagnosis Discharge Diagnosis (1) Sepsis: Status: Acute Code(s): A41.9 - Sepsis, unspecified organism (2) Bacteremia due to Escherichia coli: Status: Acute Code(s): R78.81 - Bacteremia; B96.20 - Unspecified Escherichia coli [E. coli] as the cause of diseases classified elsewhere (3) Fever: Status: Acute Code(s): R50.9 - Fever, unspecified (4) Elevated troponin: Status: Acute Code(s): R79.89 - Other specified abnormal findings of blood chemistry (5) Sleep apnea: Status: Acute Code(s): G47.30 - Sleep apnea, unspecified (6) Diabetes mellitus type 2, controlled: Status: Acute Code(s): E11.9 - Type 2 diabetes mellitus without complications (7) UTI (urinary tract infection): Status: Acute Code(s): N39.0 - Urinary tract infection, site not specified (8) Non morbid obesity: Status: Acute Code(s): E66.9 - Obesity, unspecified (9) Dysuria: Status: Acute Code(s): R30.0 - Dysuria Meds Home Medications and Allergies Home Medications ?Medication ?Instructions ?Recorded ?Confirmed ?Type amlodipine 5 mg tablet 5 mg PO DAILY High blood pressure 03/30/19 03/06/25 History potassium chloride 10 mEq 10 meq PO DAILY supplemt 08/29/20 03/06/25 History capsule,extended release diclofenac sodium 1 % topical gel 1 ea topical NEEDED PRN right 10/21/23 03/06/25 History nee pain irbesartan 300 1 tab PO DAILY 10/21/23 03/06/25 History mg-hydrochlorothiazide 12.5 mg tablet multivitamin 1 tab PO DAILY 10/21/23 03/06/25 History timolol maleate 0.5 % eye drops 1 drp ophthalmic (eye) BID 10/21/23 03/06/25 History atorvastatin 40 mg tablet 40 mg PO DAILY #30 tabs 03/05/25 03/06/25 Rx dupilumab 300 mg/2 mL subcutaneous 300 mg SQ WEEKLY 03/06/25 03/06/25 History pen injector (Dupixent) metformin 500 mg tablet,extended 500 mg PO BID 03/06/25 03/06/25 History release 24 hr ceftriaxone 1 gram intravenous 1 g IV Q24H #10 ea 03/08/25 Rx solution oxybutynin chloride 5 mg tablet 5 mg PO BID #30 tabs 03/08/25 Rx New Prescriptions to Start Prescriptions: ceftriaxone Justin Marcum oxybutynin chloride Justin Marcum Allergies Allergy/AdvReac Type Severity Reaction Status Date / Time latex Allergy Rash Verified 11/04/24 15:32 Discharge Plan Disposition Patient Disposition: Home, Self-Care Condition: Fair Discharge Order Discharge Orders: Discharge Order (Routine); Ordered 03/08/25 Ordered By: Justin Marcum Follow up Plan Follow up with: Justin Marcum MD [Primary Care Provider] - 03/19/25 Prescriptions/Medication Reconciliation: New ceftriaxone 1 gram Recon Soln 1 g IV Q24H Qty: 10 0RF oxybutynin chloride 5 mg tablet 5 mg PO BID Qty: 30 0RF Continued potassium chloride 10 mEq capsule, extended release 10 meq PO DAILY irbesartan-hydrochlorothiazide 300-12.5 mg tablet 1 tab PO DAILY multivitamin Tablet 1 tab PO DAILY timolol maleate 0.5 % drops 1 drp ophthalmic (eye) BID diclofenac sodium 1 % gel 1 ea topical NEEDED PRN (Reason: right nee pain) amlodipine 5 MG tablet 5 mg PO DAILY atorvastatin 40 mg tablet 40 mg PO DAILY Qty: 30 0RF metformin 500 mg tablet extended release 24 hr 500 mg PO BID Dupixent Pen 300 mg/2 mL pen injector 300 mg SQ WEEKLY Discontinued cefuroxime axetil 500 mg tablet 500 mg PO BID Patient Comments: TAKE 1 TABLET BY MOUTH EVERY TWELVE HOURS FOR 7 DAYS Problem Reconciliation Problems Reviewed?: Yes Patient Discharge Instructions ACTIVITY: Limited activity DIET: continue same diet Additional Instructions: Mid line dressing changes at [facility] Patient Instructions: Urinary Tract Infection, DI for Urinary Tract Infection (UTI) Print Language: Turkmen Providers Primary Care Provider: Justin Marcum Admit Provider: Justin Marcum Attending Provider: Justin Marcum
== END 2025-03-08 14:42 | disposition home or self-care (01) | DRG 690 ==
LOC: ER 00:54 → 2ND 01:46
PROVIDERS: Admitting Provider Family Medicine; Emergency Provider Emergency Medicine; PCP Family Medicine; Visit Provider Family Medicine
DX: N39.0 Urinary tract infection, site not specified (principal); R50.9 Fever, unspecified; R00.0 Tachycardia, unspecified; R30.0 Dysuria; E66.9 Obesity, unspecified; B96.20 Unspecified Escherichia coli [E. coli] as the cause of diseases classified elsewhere; E11.9 Type 2 diabetes mellitus without complications; Z68.39 Body mass index [BMI] 39.0-39.9, adult; Z80.0 Family history of malignant neoplasm of digestive organs; Z82.49 Family history of ischemic heart disease and other diseases of the circulatory system; Z85.828 Personal history of other malignant neoplasm of skin; Z79.84 Long term (current) use of oral hypoglycemic drugs; Z79.899 Other long term (current) drug therapy; Z91.040 Latex allergy status
CPT/HCPCS: 36410; 36415; 80053; 82803; 82962; 83605; 84145; 85025; 87040; 93306; 99291; G0378; J0696; J1650; J2543; J7120

== ENCOUNTER 2025-03-15 10:50 | Outpatient (CLI) | payer OTHER, MEDICARE, SELFPAY | END 2025-03-15 11:19 | disposition home or self-care (01) | LOC: INF 10:51 | PROVIDERS: PCP Family Medicine; Visit Provider Family Medicine | DX: C44.90 Unspecified malignant neoplasm of skin, unspecified (principal) | CPT/HCPCS: 96523 ==

== ENCOUNTER 2025-03-19 11:47 | Outpatient (CLI) | payer OTHER, MEDICARE, SELFPAY ==
--- OUTSIDE RECORDS SUMMARY | 2025-03-19 11:50 | XMS_ITS | Data Portability ---
Author Organization [facility] Address [address] [place] [address] Assessment Encounter Date Assessment Date Assessment LastModified by Organization Details LastModified Time 10/29/2023 10/29/2023 follow up in 6 months [email or web address] Not available 10/29/2023 10:08:08 05/06/2024 05/06/2024 follow up in 4 months [email or web address] Not available 05/06/2024 16:01:08 08/27/2024 08/27/2024 f/u 4 months ; skin check [email or web address] Not available 08/27/2024 15:30:10 03/18/2025 03/18/2025 f/u 4 months ; skin check [email or web address] Not available 03/17/2025 16:26:32 Plan of Treatment Reminders Order Date Submit Date Provider Last Modified By Organization Details Last Modified Time Details Appointments D[facility] G[facility] VISIT 2024 03:15P Shanon CAMACHO DO Not available Not available Not available Lab surgical pathology study - A. right anterior scalp r/o BCCB. left mid lambert r/o BCC 2024 025 [email or web address] [facility], [address] [place] [address], [phone], 03/18/2025 12:26:13 surgical pathology study - ED&C today x 2 2023 024 DAVION [facility], [address] [place] [address], [phone], 05/11/2024 09:12:23 surgical pathology study 2022 023 [facility], [address] [place] [address], [id number], 10/30/2023 13:00:32 Referral None recorded. Procedures None recorded. Surgeries None recorded. Imaging None recorded. Medication Orders Dupixent 300 mg/2 mL subcutane ous pen injector 2024 025 [place] [address] [email or web address], [facility] ([place]), [address] [place] [address], [facility] [address], [place], [id number], 03/18/2025 13:43:03 Dupixent 200 mg/1.14 mL subcutane ous pen injector 2023 024 [place] [facility], [facility] ([place]), [address], [facility] [address], [place], [address], 09/01/2024 11:42:19 valacyclo vir 1 gram tablet [address] [facility] [id number], [address] [place], [address], 10/29/2023 15:32:11 clobetaso l 0.05 % topical ointment 2022 023 [place] [facility], [address] [place] [address] [address], [place], [id number], 08/27/2024 15:16:13 Patient TargetsNo targets recorded. Patient Instructions Encounter Date Encounter Id Patient Instructions Last Modified By Organization Details Last Modified Time 10/29/2023 [id number] If any lesions change, or if any other new or symptomatic lesions occur, patient understands to return to the clinic for further evaluation Discussed sun precautions; SPF 30+ Not available 10/29/2023 10:40:23 11/12/2023 [id number] If any lesions change, or if any other new or symptomatic lesions occur, patient understands to return to the clinic for further evaluation Discussed sun precautions; SPF 30+ [email or web address] Not available 11/12/2023 07:14:32 05/06/2024 [id number] If any lesions change, or if any other new or symptomatic lesions occur, patient understands to return to the clinic for further evaluation Discussed sun precautions; SPF 30+ [email or web address] Not available 05/05/2024 17:12:35 08/27/2024 [id number] If any lesions change, or if any other new or symptomatic lesions occur, patient understands to return to the clinic for further evaluation Discussed sun precautions; SPF 30+ [email or web address] Not available 08/26/2024 16:51:10 03/18/2025 [id number] If any lesions change, or if any other new or symptomatic lesions occur, patient understands to return to the clinic for further evaluation Discussed sun precautions; SPF 30+ Not available 03/17/2025 16:26:32 Reason for Referral None Reported. Results Created Date Observation Date Name Description Value Unit Range Abnormal Flag Note LastModifiedBy Organization Detail LastModifiedTime 10/29/20 23 10/29/2023 SURGI SURAJ surgical SEE BELOW abnormal Depar tment of Patho logy Surgi suraj Patho logy Repor t NAME: CYRIL BASSETT JR PATH. :SC-[id number] Copy to: Diagn osis: A) Right [...] nt's name and desig nated righ t upper back is a shave biops y of skin (0.6 x 0.5 x 0.1 cm). The epide rmal surfa ce is white and unrem arkab le. The gracie n is inked blue. The speci men is bisec april and entir cristobal submi tted in one casse tte label ed A1. B) Recei shanta in [facility] ed with the patie nt's name and [...] label ed B1. C) Recei shanta in [facility] ed with the patie nt's name and desig nated mid back is a shave biops y of skin (0.5 x 0.4 x 0.1 cm). The epide rmal surfa ce is white and unrem arkab le. The gracie n is inked blue. The speci men is bisec april and entir cristobal submi tted in one casse tte label ed C1. D) Recei shanta in [facility] ed with the patie nt's name and [...] ELIUD MENEZES M.D. Melia d Out Date: 10/30 13:00 Page 1 of 1 Not Available [facility] [address] [place] [address], [place], [address], 10/30/2023 13:00:32 05/06/20 24 05/06/2024 SURGI SURAJ surgical SEE BELOW abnormal Depar tment of Patho logy Surgi suraj Patho logy Repor t NAME: CYRIL BASSETT JR Nam PATH. :SC-[id number] Copy to: Diagn osis: A) Right anter [...] noted above . ELIUD MENEZES M.D. Melia to Out Date: 05/11 09:12 Page 1 of 1 Not Available [facility] [address] [place], [address], 05/11/2024 09:12:23 Result Notes None recorded. Problems Name Problem SNOMED Code Status Onset Date Resolution Date Notes Provider Name and Address Organization Details Recorded Time Actinic keratosis Active 2014 From Automated Load;Provi darleen: Tricia, Alessandro;S tatus: Active Not Available [facility] 09:17:13 Senile hyperkera tosis 764319239 Active 2014 From Automated Load;Provi darleen: Tricia, Alessandro;S tatus: Active Not Available [facility] 09:17:13 Lentigo Active 2014 From Automated Load;Provi darleen: Tricia, Alessandro;S tatus: Active Not Available [facility] 09:17:13 Notes:Some problems listed i n Document: #[id number] could not be added to this patient's chart. Please review this document and add these problems to the patient's chart manually as needed. Problem Notes None recorded. Procedures Surgical History Date Name Laterality Status Provider Name and Address Organization Details Recorded Time 03/18/20 25 Biopsy Skin Lesion; Tangential [facility] 03/18/2025 12:29:23 03/18/20 25 Destruction Premalignant Lesion(s) completed [facility] 03/18/2025 12:29:44 08/27/20 24 Destruction Premalignant Lesion(s) completed Anyi Hobson [facility] 08/27/2024 15:26:06 05/06/20 24 Destruction MN Lesion; trunk, arm, leg [facility] 16:26:15 05/06/20 24 Destruction Premalignant Lesion(s) completed [facility] 05/06/2024 16:24:00 11/12/20 23 Destruction MN Lesion; trunk, arm, leg completed ALESSANDRO CAMACHO, DO [address] [place], [address], [facility] 11/12/2023 12:04:25 10/29/20 23 Biopsy Skin Lesion; Tangential completed [facility] 10/29/2023 15:25:32 04/09/20 23 Destruction BN Lesions completed [facility] 04/09/2023 15:06:44 10/09/20 22 Destruction MN Lesion; face, ear, eyelid, nose, lip completed ALESSANDRO CAMACHO, DO [address] [place], [address], [facility] 10/09/2022 17:40:34 10/01/20 22 Biopsy Skin Lesion; Tangential completed ALESSANDRO CAMACHO, DO [address] [place], [address], [facility] 10/01/2022 13:07:26 10/01/20 22 Destruction Premalignant Lesion(s) [facility] 09:51:03 10/01/20 22 Destruction BN Lesions [facility]2022 09:51:16 03/27/20 22 Biopsy Skin Lesion; Tangential completed [facility] 03/27/2022 15:21:23 03/27/20 22 Destruction Premalignant Lesion(s) completed [facility] 03/27/2022 15:22:22 05/25/20 21 Destruction Premalignant Lesion(s) completed [facility] 05/25/2021 08:35:15 05/25/20 21 Destruction BN Lesions completed ALESSANDRO CAMACHO, DO [address] [place], [address], [facility] 05/25/2021 17:04:04 11/04/20 20 Destruction MN Lesion; trunk, arm, leg completed ALSESANDRO CAMACHO, DO [address] [place], [address], [facility] 11/04/2020 13:56:23 11/01/20 20 Biopsy Skin Lesion; Tangential completed [facility] 11/01/2020 14:14:05 11/01/20 20 Destruction Premalignant Lesion(s) completed [facility] 11/01/2020 14:17:04 11/01/20 20 Destruction BN Lesions completed [facility] 11/01/2020 14:23:30 04/19/20 20 Destruction Premalignant Lesion(s) completed [facility] 04/19/2020 15:39:32 04/19/20 20 Destruction BN Lesions completed [facility] 04/19/2020 15:41:16 11/03/20 19 Destruction Premalignant Lesion(s) completed [facility] 11/03/2019 15:14:27 05/12/20 19 Destruction Premalignant Lesion(s) completed [facility] 05/12/2019 15:55:50 11/21/19 19 Destruction MN Lesion; trunk, arm, leg completed ALESSANDRO CAMACHO DO [address] [place], [address], [facility] 11/21/2018 09:13:11 11/13/20 18 Biopsy Skin Lesion; Tangential completed [facility] 11/13/2018 15:52:59 11/13/20 18 Destruction Premalignant Lesion(s) completed [facility] 11/13/2018 15:56:29 11/13/20 18 Destruction BN Lesions completed [facility] 11/13/2018 15:53:52 06/09/20 18 Suture/Staple removal completed Juanita Gilbert [facility] 06/09/2018 15:59:29 05/30/20 18 Wound Repair; Intermediate completed ALESSANDRO CAMACHO DO [address] [place], [address], [facility] 05/30/2018 12:30:36 05/30/20 18 Excision BN lesion; trunk, arms or legs completed [facility] 05/30/2018 08:04:58 05/08/20 18 Biopsy Skin Lesion; Tangential completed Juanita Gilbert [facility] 05/08/2018 14:25:16 11/07/20 17 Destruction Premalignant Lesion(s) completed MECHE HOLLY COTE, REPLACER [address] [place], [address], [facility] 11/07/2017 09:41:15 11/07/20 17 Destruction BN Lesions completed MECHE HOLLY COTE, REPLACER [address] [place], [address], [facility] 11/07/2017 09:47:24 07/04/20 17 Biopsy Skin completed MECHE HOLLY COTE, REPLACER [address] [place], [address], [facility] 07/04/2017 15:31:44 12/05/19 17 Destruction Premalignant Lesion(s) completed MECHE COTE, REPLACER [address] [place], [address], [facility] 12/05/2016 15:29:26 12/05/19 17 Destruction BN Lesions completed MECHE HOLLY COTE, REPLACER [address] [place], [address], [facility] 12/05/2016 15:30:31 Imaging Results None recorded. Procedure [...] injector Inject 1 pen every 2 weeks 2024 active Not Available Not Available Not Avai [...] Time Tobacco Smoking Status Former Smoker MECHE COTE, REPLACER [address] [facility] [place], [address], [facility] 07/04/2017 14:59:49 What Was The Date Of Your Most Recent Tobacco Screening? 07/04/2017 Information n ot available 01/05/2020 Sex: Male Functional Status None recorded. Mental Status None recorded. Family History Nothing Reported. Medical History Condition Response Basal Cell Carcinoma Y Past Encounters Encounter ID Performer Location Encounter Start Date Encounter Closed Date Diagnosis/Indication Diagnosis SNOMED-CT Code Diagnosis ICD10 Code Diagnosis Note [id number] ALESSANDRO CAMACHO DO [facility] [address] [place] [address] 12/05/2016 14:43:53 12/05/2016 16:07:36 History of malignant basal cell neoplasm of skin 105407625 Z85.828 R upper chest, L mid back, R shoulder - scarsno recurrence Solar lentiginosis 378432006 L81.4 Benign Reassuranc e If any lesions change, or if any other new or symptomati c lesions occur, patient understand s to return to the clinic for further evaluation Discussed sun precaution s; SPF 30+ Senile hyperkeratosis 39 1877076 L82.1 Benign Reassuranc ex1 face, x1 back - treated with LN at patients request Multiple b enign melanocytic nevi 017510464 D22.9 Benign Reassuranc e Senile angioma 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 78.1 Benign Reassuranc e Skin tag 911204529 L91.8 Benign Reassuranc e Actinic keratosis 253950 [address] x1 left forearmwou nd care instructio n provided [id number] ALESSANDRO CAMACHO DO [facility] [address] [place] [address] 07/04/2017 14:35:47 07/05/2017 09:41:15 History of malignant basal cell neoplasm of skin 211650536 Z85.828 R upper chest, L mid back, R shoulder - scarsno recurrence Solar lentiginosis 08435 2006 L81.4 Benign Reassuranc e Senile hyperkeratosis 39 3239231 L82.1 Benign Reassuranc e Multiple b enign melanocytic nevi 229962666 D22.9 Benign Reassuranc e Senile angioma 8224034 I 78.1 Benign Reassuranc e Skin tag 012581483 L91.8 Benign Reassuranc e Dermatofibroma 482968055 D23.9 Benign Reassuranc e Epidermoid cyst of skin 165598245 L72.0 Benign Reassuranc eleft upper backnot bothersome to patientwil l monitor for changes Neoplasm o f uncertain behavior of skin 98419089 D48.5 left mid chest and right medial chestshave biopsy x2r/o bccf/u pending results Milial cyst 481907732 L7 2.0 I&D with 11 blade and comedone extractorx 1 right oral commisure f/u prn [id number] ALESSANDRO CAMACHO DO [facility] [address] [place] [address] 11/07/2017 08:46:12 11/08/2017 13:48:04 Solar lentiginosis 548441283 L81.4 Benign Reassuranc e Senile hyperkeratosis 39 7245241 L82.1 Benign Reassuranc e Senile angioma 6530754 I 78.1 Benign Reassuranc e On examina tion - skin tags 034160981 L91.8 Benign Reassuranc eEducation then treated with LN; x3 right neckper patient request Multiple b enign melanocytic nevi 997204517 D22.9 Benign Reassuranc e Actinic keratosis 675473 007 L57.0 Education then treated with LN;x1 right sideburn, x1 left jawline, x1 left dorsal handpatien t tolerated wellwound care instructio n provided Epidermoid cyst 20596694 6 L72.0 Benign Reassuranc e I&D with 11 blade and comedone extractor per patient requestx1 mid foreheadwo und care instructio n provided Inflamed s eborrheic keratosis 389770181 L82.0 x1 right upper chest, x1 left cheek, x1 left foreheadx1 right lateral neck Education then treated with LN; per patient request wound care instructio n provided f/u prn [id number] ALESSANDRO CAMACHO DO [facility] [address] [place] [address] 05/08/2018 13:56:51 05/09/2018 09:06:49 Solar lentiginosis 282743103 L81.4 Benign Reassuranc e Senile hyperkeratosis 39 8245021 L82.1 Benign Reassuranc e asymptomat ic, but doesnt like they stick out and can see under shirt Treated with LN per patients request back x5 pt tolerated well advised pt what to expect with freezing Senile angioma 8185589 I 78.1 Benign Reassuranc e Multiple b enign melanocytic nevi 879400287 D22.9 Benign Reassuranc e Neoplasm o f uncertain behavior of skin 51587912 D48.5 A.) R medial cheek shave biopsy [...] in redness, drainage, or pain. Epidermoid cyst 61520238 6 L72.0 Benign Reassuranc eback - advised pt he could have this excised , pt will think about it and let us know if he wants to schedule it or notcaromont healthedul 05/30 @ 367 [id number] DO [facility] [address] [place] [address] 05/30/2018 07:25:21 05/30/2018 14:08:18 Epidermoid cyst of skin of back 566187236 L72.0 Discussed diagnosis of epidermoid cyst recommend treatment with excision r/a/b of procedure discussed with patient informed consent signed see procedure note f/u 2 weeks for wound check / suture removal Skin sensa tion disturbance 63272808 R20.9 cyst [id number] ALESSANDRO CAMACHO DO [facility] [address] [place] [address] 06/09/2018 15:40:16 06/10/2018 09:06:25 Removal of suture 21703943 Z48.02 L upper back sutures removed with ease no signs of infection healing well good cosmesis f/u as scheduled [id number] ALESSANDRO CAMACHO DO [facility] [address] [place] [address] 11/13/2018 15:22:54 11/14/2018 08:16:14 Solar lentiginosis 086700623 L81.4 Benign Reassuranc e If any lesions change, or if any other new or symptomati c lesions occur, patient understand s to return to the clinic for further evaluation Discussed sun precaution s; SPF 30+; hats Senile hyperkeratosis 39 5225695 L82.1 Benign Reassuranc e Senile angioma 9717996 I 78.1 Benign Reassuranc e Multiple b enign melanocytic nevi 265509895 D22.9 Benign Reassuranc e Actinic keratosis 585331 007 L57.0 Education, then cryo destructio n with liquid nitrogen (LN) x 4 Neoplasm o f uncertain behavior of skin 84182440 D48.5 A.) Left mid chest shave biopsy sent for path r/o BCC Wound care discussed with patient. Leave the bandage on for 24 hrs. Clean the area daily with warm soapy water, and apply polysporin ointment and a bandaid once daily until healed. Call the office if any increase in redness, drainage, or pain. Inflamed s eborrheic keratosis 110457072 L82.0 chin, upper chest x 5 Education then treated with LN; per patient requestwou nd care instructio n providedf/ u prn Skin sensa tion disturbance 18071579 R20.9 ISK History of malignant basal cell neoplasm of skin 087006833 Z85.828 R upper chest, L mid back, R shoulder - scarsno recurrence [id number] ALESSANDRO CAMACHO DO [facility] [address] [place] [address] 11/21/2018 08:20:50 11/21/2018 09:22:45 Basal cell carcinoma of truncal skin 302798369 C44.519 Discussed diagnosis of BCC recommend treatment [...] any increase in redness, drainage, or pain. [id number] DO ZOFIA [facility] [place] [address] [place] [address] 05/12/2019 15:09:48 05/13/2019 09:09:17 Solar lentiginosis 777606818 L81.4 Benign Reassuranc e Discussed sun precaution s; SPF 30+; hats Senile hyperkeratosis 39 4787794 L82[address] to lesion left chest at pt request Senile angioma 7546127 I 78.1 Benign Reassuranc e Multiple b enign melanocytic nevi 427371445 D22.9 Benign Reassuranc e Actinic keratosis 776168 007 L57.0 Education, then cryo destructio n with liquid nitrogen (LN) x 4 History of malignant basal cell neoplasm of skin 189995005 Z85.828 R upper chest, L mid back, R shoulder - scarsno recurrence Fingertip eczema 1721847 08 L30.9 start betamethas one cream as directed call if not helpful in 2 weeks [id number] DO ZOFIA SN[facility] [place] [address] [place] [address] 11/03/2019 14:25:51 11/04/2019 08:01:43 Solar lentiginosis 325488271 L81.4 Benign Reassuranc e Discussed sun precaution s; SPF 30+ Senile angioma 6268554 I 78.1 Benign Reassuranc e History of malignant basal cell neoplasm of skin 323475274 Z85.828 R upper chest, L mid back, R shoulder - scarsno recurrence Fingertip eczema 0464343 08 L30.9 start Eucrisa each morning, samples given start clobetasol ointment each night recommend gluing fissures to promote healing- dermabond or superglue if continues to be bothersome , could consider systemic tx call in 2 weeks if not significan tly improved Raised terry orrheic keratosis 4381604076 47830 L82.1 Benign Appearance Education, then cryodestru ction with liquid nitrogen (LN) x 8 on his back at pt request Actinic keratosis 007 L57.0 Education, then cryo destructio n with liquid nitrogen (LN) left sideburn x1, left preauricul ar cheek x1, Dermatofibroma 860560863 D23.9 Benign Reassuranc e right knee [id number] ALESSANDRO CAMACHO DO [facility] [address] [place] [address] 04/19/2020 14:35:27 04/19/2020 15:53:10 Solar lentiginosis 754415251 L81.4 Benign Reassuranc e Discussed sun precaution s; SPF 30+ Raised terry orrheic keratosis 3577430437 06448 L82.1 Benign Appearance Senile angioma 5621689 I 78.1 Benign Reassuranc e History of malignant basal cell neoplasm of skin 905430383 Z85.828 R upper chest, L mid back, R shoulder - scarsno recurrence Fingertip eczema 5427539 08 L30.9 controlled stable not flaring Actinic keratosis 007 L57.0 Education, then cryo destructio n with liquid nitrogen (LN) R jawline x2, R cheek x1, L preauricul ar cheek x1, L neck x1 Dermatofibroma 261495914 D23.9 Benign Reassuranc e right knee Inflamed s eborrheic keratosis 465822383 L82.0 Education, then cryo destructio n with liquid nitrogen (LN) L upper back x1, R chest x1 Skin tag 912453165 L91.8 Scissored off x1 at pt request pt tolerated well Skin sensa tion disturbance 72758306 R20.9 ISK, skin tag [id number] ALESSANDRO CAMACHO DO [facility] [address] [place] [address] 11/01/2020 13:51:04 11/01/2020 14:25:00 Solar lentiginosis 560769759 L81.4 Benign Reassuranc e Discussed sun precaution s; SPF 30+ Raised terry orrheic keratosis 2484216204 70759 L82.1 Benign Appearance Senile angioma 0411281 I 78.1 Benign Reassuranc e History of malignant basal cell neoplasm of skin 496093922 Z85.828 R upper chest, L mid back, R shoulder - scarsno recurrence Fingertip eczema 1563473 08 L30.9 mild flaring betamethas one cream is not as helpful pt would like to try clobetasol , had used in past discussed if flares more, could also do Kenalog IM or even dupixent snf Actinic keratosis 754268 007 L57.0 Education, then cryo destructio n with liquid nitrogen (LN) x 3 Dermatofibroma 852467193 D23.9 Benign Reassuranc e right knee Inflamed s eborrheic keratosis 744008026 L82.0 Education, then cryo destructio n with liquid nitrogen (LN) x 1 Skin sensa tion disturbance 38437397 R20.9 ISK Neoplasm o f uncertain behavior of skin 26358374 D48.5 right lower back r/o atypia left shoulder r/o BCC left lower chest r/o BCC shave biopsy see procedure note wound care instructio ns provided patient consents for procedure and photo monitoring Plantar wa rt of left foot [id number] 9298784 B07.0 left ball of the foot discussed treatment options pare and cryo x3 freeze thaw cycles treat any residual with OTC Compound W or return for further LN Pain of skin 850207906 R 52 plantar wart [id number] ALESSANDRO CAMACHO, [facility] [address] [place] [address] 11/04/2020 11:05:24 11/04/2020 12:19:09 Basal cell carcinoma of truncal skin 937432219 C44.519 L lower chest Discussed diagnosis BCC [...] pain. Basal cell carcinoma of upper extremity 467407198 C44.619 L shoulder Discussed diagnosis BCC recommend [...] any increase in redness, drainage, or pain. [id number] DO ZOFIA SN[facility] [place] [address] [place] [address] 05/25/2021 07:32:56 05/25/2021 09:02:02 Solar lentiginosis 494755986 L81.4 Benign Reassuranc e Raised terry orrheic keratosis 1250452922 38529 L82.1 Benign Reassuranc e Senile angioma 4055091 I 78.1 Benign Reassuranc e History of malignant basal cell neoplasm of skin 349485818 Z85.828 R upper chest, L mid back, R shoulder - scarsno recurrence Fingertip eczema 0517171 08 L30.9 stablecont inue clobetasol ointment as needed for flare ups Actinic keratosis 574114 007 L57.0 Education then treated with LN; L vertex scalp x1, R cheek x1pt tolerated welladvise d pt what to expect with freezing Dermatofibroma 717560670 D23.9 Benign Reassuranc e Plantar wa rt of left foot 1472317472 1951542 B07.0 left ball of the footresidu alcontinue OTC Compound W Inflamed s eborrheic keratosis 711321467 L82.[address] per patients request: R upper chest x1, L upper back x1pt tolerated welladvise d pt what to expect with freezing Skin sensa tion disturbance 94166917 R20.9 ISK [id number] DO ZOFIA SN[facility] [place] [address] [place] [address] 03/27/2022 14:52:09 03/27/2022 15:43:41 Solar lentiginosis 225166439 L81.4 Benign Reassuranc e Raised terry orrheic keratosis 3473294089 [address] L82.1 Benign Reassuranc e Senile angioma 9017370 I 78.1 Benign Reassuranc e History of malignant basal cell neoplasm of skin 708070215 Z85.828 R upper chest, L mid back, R shoulder - scarsno recurrence Fingertip eczema 1571374 08 L30.9 stablechro nicclear today continue clobetasol ointment as needed for flare ups Actinic keratosis 007 L57.0 Education then treated with LN; right helix x1, right lower forehead x1, right hand x1pt tolerated welladvise d pt what to expect with freezing Dermatofibroma 412983797 D23.9 Benign Reassuranc e Neoplasm o f uncertain behavior of skin 65733198 D48.5 left lateral mid backr/o bcc left chest r/o BCC left lambert r/o BCC shave biopsy see procedure note wound care instructio ns provided patient consents for procedure and photo monitoring [id number] ALESSANDRO CAMACHO, DO [facility] [address] [place] [address] 10/01/2022 09:15:48 10/01/2022 10:24:54 Solar lentiginosis 321729261 L81.4 Benign Reassuranc e Raised terry orrheic keratosis 6266619038 44213 L82.1 Benign Reassuranc e Senile angioma 9433270 I 78.1 Benign Reassuranc e History of malignant basal cell neoplasm of skin 646309646 Z85.828 R upper chest, L mid back, R shoulder - scarsno recurrence Fingertip eczema 2356432 08 L30.9 palms and fingersmod erate flare todayd/c clobetasol ointment - pt doesnt feel like its as effective start protopic ointment as directedIf this is not helpful could consider opzelura or dupixentf/ u in 6m Actinic keratosis 007 L57.0 Education then treated with LN; R forehead x1 , L forehead x1 , mid upper back x1, R lower cheek x1pt tolerated welladvise d pt what to expect with freezing Dermatofibroma 633613857 D23.9 Benign Reassuranc e Neoplasm o f uncertain behavior of skin 04236515 D48.5 R cheekshave biopsysent for pathr/o SCCWound care discussed with patient. Leave the bandage on for 24 hrs. Clean the area daily with warm soapy water, and apply polysporin ointment and a bandaid once daily until healed. Call the office if any increase in redness, drainage, or pain. 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 Herpes zoster 3728019 B0 2.9 left midline abdomen extending around to backwill have him start valtrex 1 gm tid, 7 days- as directedca ll if not resolved [id number] DO [facility] [address] [place] [address] 04/09/2023 14:35:13 04/09/2023 15:15:20 History of malignant basal cell neoplasm of skin 709401199 Z85.828 R upper chest, L mid back, R shoulder - scarsno recurrence Solar lentiginosis 00270 2006 L81.4 Benign Reassuranc e Raised terry orrheic keratosis 9553972640 17463 L82.1 Benign Reassuranc eLN x2 right forehead per pt request Senile angioma 3892378 I 78.1 Benign Reassuranc e Multiple b enign melanocytic nevi 803785258 D22.9 Benign Reassuranc e Fingertip eczema 5216217 08 L30.9 palms todayminim al continue clobetasol ointment nightly for up to 2 weeks, for flare ups f/u in 6m Dermatofibroma 536772436 D23.9 Benign Reassuranc e History of squamous cell carcinoma of skin 924472742 Z85.828 right cheek - no recurrence Inflamed s eborrheic keratosis 165792400 L82.[address] per patients request: right cheek x2, left upper back x1, left upper chest x2, right upper chest x1pt tolerated welladvise d pt what to expect with freezing Tenderness of skin 20920 9000 R20.8 ISks, itch, scratched/ traumatize d today Porokeratosis 228892636 Q82.8 monitormea sured [id number] ALESSANDRO CAMACHO, DO [facility] [address] [place] [address] 10/29/2023 14:13:37 10/29/2023 15:43:51 History of malignant basal cell neoplasm of skin 131448700 Z85.828 R upper chest, L mid back, R shoulder - scarsno recurrence Solar lentiginosis 91318 2006 L81.4 Benign Reassuranc erecommend ed sun protective clothing and a mineral based sunscreen 30 SPF or higher lotion OTC daily Senile angioma 6061854 I 78.1 Benign Reassuranc e Multiple b enign melanocytic nevi 979326926 D22.9 Benign Reassuranc e Fingertip eczema 2513130 08 L30.9 palms today- mildfinger tips skin splitting- exacerbati on, probably due to cold weather continue clobetasol ointment as directedI gave him samples of Eucrisa to use dailypt requested refill todayIf continues to be an issue, consider dupixent f/u in 6m Porokeratosis 699367508 Q82.8 monitormea suredno change Dermatofibroma 079692829 D23.9 Benign Reassuranc e History of squamous cell carcinoma of skin 342581343 Z85.828 right cheek - no recurrence Neoplasm o f uncertain behavior of skin 56497129 D48.5 a) right upper backr/o bcc shave [...] in redness, drainage, or pain. Herpes zoster 1500728 B0 2.9 reviewed patient photosL facecould have been zoster?If recurs again, could try Valtrex again.sent rx to take only if flares up again. [id number] DO [facility] [address] [place] [address] 11/12/2023 07:41:12 11/12/2023 08:26:24 Basal cell carcinoma of back 854322897 C44.519 1) bcc on right upper back2) [...] any increase in redness, drainage, or pain. [id number] DO [facility] [address] [place] [address] 05/06/2024 14:40:03 05/06/2024 16:25:22 History of malignant basal cell neoplasm of skin 397758689 Z85.828 R upper chest, L mid back, R shoulder, right upper back, midline upper back, lower back -no recurrence History of squamous cell carcinoma of skin 892688260 Z85.828 right cheek - no recurrence Solar lentiginosis 77876 2006 L81.4 Benign Reassuranc erecommend ed sun protective clothing and a mineral based sunscreen 30 SPF or higher lotion OTC daily Senile angioma 5319302 I 78.1 Benign Reassuranc e Multiple b enign melanocytic nevi 105894346 D22.9 Benign Reassuranc e Fingertip eczema 8009829 08 L30.9 chronicsom e exacerbati on todayeucri [...] Triamcinol one, Eucrisa f/u in 6m Porokeratosis 948141116 Q82.8 monitormea suredno change Actinic keratosis 594237 007 L57.0 Education then treated with LN; right forehead x 2, left jawline x 1, left forehead x 1pt tolerated welladvise d pt what to expect with freezing Neoplasm o f uncertain behavior of skin 86448444 D48.5 a. right anterior shoulderr/ o BCCb. left lower shinr/o BCC shave biopsy performed x 2ED&C performed today x2 sent for path see procedure note wound care instructio ns provided patient consents for procedure and photo monitoring Basal cell carcinoma of upper extremity 963360710 C44.619 R anterior shoulder Discussed diagnosis BCCshave biopsyreco [...] pain. Basal cell carcinoma of lower extremity 616913362 C42.045 Discussed diagnosis BCCL shinclinic al BCCshave biopsyreco mmend treatment with ED&Cno further treatment should be needed r/a/b of procedure discussed with patient informed consent signed see procedure note f/u -4 months for FSE [id number] ALESSANDRO CAMACHO DO [facility] [address] [place] [address] 08/27/2024 14:37:12 08/27/2024 15:48:19 History of malignant basal cell neoplasm of skin 820011009 Z85.828 R upper chest, L mid back, R shoulder, right upper back, midline upper back, lower back -no recurrence History of squamous cell carcinoma of skin 189099851 Z85.828 right cheek - no recurrence Solar lentiginosis 09861 2006 L81.4 Benign Reassuranc erecommend ed sun protective clothing and a mineral based sunscreen 30 SPF or higher lotion OTC daily Senile angioma 8465437 I 78.1 Benign Reassuranc e Multiple b enign melanocytic nevi 099800123 D22.9 Benign Reassuranc e Fingertip eczema 4754665 08 L30.9 chronicexa cerbation topicals have not been very helpfulpal ms, fingers, handsaffec ting patient dialy [facility] ent has tried and failed Clobetasol , [...] ent was educated on pen injections Porokeratosis 731507719 Q82.8 monitormea suredrevie wed - no change Actinic keratosis 482428 007 L57.0 Education then treated with LN; right postauricu lar X1, right anterior scalp X1pt tolerated welladvise d pt what to expect with freezing [id number] ALESSANDRO CAMACHO, DO [facility] [address] [place] [address] 03/18/2025 11:13:02 03/18/2025 12:35:04 History of malignant basal cell neoplasm of skin 556071440 Z85.828 R upper chest, L mid back, R shoulder, right upper back, midline upper back, lower back -no recurrence History of squamous cell carcinoma of skin 682225001 Z85.828 right cheek - no recurrence Solar lentiginosis 047572006 L81.4 Benign Reassuranc erecommend ed sun protective clothing and a mineral based sunscreen 30 SPF or higher lotion OTC daily Senile angioma 2912798 I 78.1 Benign Reassuranc e Multiple b enign melanocytic nevi 752531548 D22.9 Benign Reassuranc e Fingertip eczema 5943520 08 L30.9 chronicimp rovingmild today on palms, fingersPat ient happy with treatmentC ontinue dupixent injectionw ill need PAwill send in script for dupixent 300mg sub pen injectorse nt to [employer] for PAinject one pen every two weekspatie nt would like to self inject Porokeratosis 900232021 Q82.8 monitormea suredrevie wed - no change Actinic keratosis 430989 007 L57.0 Education then treated with LN; right helix x1, left upper lateral forehead x1, left dorsal hand x1pt tolerated welladvise d pt what to expect with freezing Neoplasm o f uncertain behavior of skin 60547682 D48.5 A. right anterior scalp r/o BCCB. left mid lambert r/o BCCshave biopsysee procedure notewound care instructio daria providedpa tient consents for procedure and photo monitoring Wound care discussed with patient. Leave the bandage on for 24 hrs. Clean the area daily with warm soapy water, and apply polysporin ointment and a bandaid once daily until healed. Call the office if any increase in redness, drainage, or pain. Health Concerns Section Related Observation LastModified by Organization Detai ls LastModified Time None Recorded Concern Status LastModified by Organization Details LastModified Time None Recorded Advance Directives Directive None Recorded Payers Encounter Date Sequence Insurance Name Policy Number Policy Marques Covered Member ID Marques Member ID Guarantor Name 10/29/2023 1 [place] [id number] M[place] Arun Granados [id number] Arun Granados 11/12/2023 1 [place] [id number] MQ Arun Granados [id number] Arun Granados 05/06/2024 1 [place] [id number] MQ Arun Granados [id number] Arun Granados 08/27/2024 1 [place] [id number] M[place] Arun Granados [id number] Arun Granados 03/18/2025 1 [facility] [id number] Arun Granados [id number] Arun Granados Notes Date Note Type Note Provider Name and Address Organization Details Recorded Time 10/29/2023 text/html Established Patient Presents for a [...] malignant melanoma. ALESSANDRO CAMACHO DO [address] [place], [address], [facility] 10/29/2023 17:33:49 11/12/2023 text/html Established Patient Patient presents today for an ed&c of a bcc on right upper back, midline upper back, and lower back no new, changing, bleeding, or symptomatic lesions to report ALESSANDRO CAMACHO DO [address] [place], [address], [facility] 11/12/2023 12:04:49 05/06/2024 text/html Established Patient Waist [...] malignant melanoma. ALESSANDRO CAMACHO DO [address] [place], [address], [facility] 05/11/2024 19:36:36 08/27/2024 text/html Established Patient Waist up check Presents for a 6m full skin exam. place on forehead, +1 month check spots/moles over body h/o BCC, SCC Denies any other new or changing lesions. Feels well today. Denies family history of malignant melanoma. ALESSANDRO CAMACHO DO [address] [place], [address], [facility] 08/27/2024 17:14:20 03/18/2025 text/html Established Patient presents for Waist up check. Patient notes scaly/crusty skin lesions on scalp, wants benign reassurance. recheck right anterior shoulder, left lower lambert (BCCs treated SATYA) - healed well per patient. check spots/moles over body h/o BCC, SCC Denies any other new or changing lesions. Feels well today. Denies family history of malignant melanoma. ALESSANDRO CAMACHO DO [address] [place], [address], [facility] 03/18/2025 16:55:26
--- OUTSIDE RECORDS SUMMARY | 2025-03-19 11:50 | XMS_ITS | Continuity of Care Document ---
Author Organization [facility] Address [address] [place] [address] Assessment Encounter Date Assessment Date Assessment LastModified by Organization Details LastModified Time 03/18/2025 03/18/2025 f/u 4 months ; skin check [email or web address] Not available 03/17/2025 16:26:32 Plan of Treatment Reminders Order Date Submit Date Provider Last Modified By Organization Details Last Modified Time Details Appointments [facility] 2024 03:15P Shanon CAMACHO DO Not available Not available Not available Lab surgical pathology study - A. right anterior scalp r/o BCCB. left mid lambert r/o BCC 2024 025 [email or web address] [facility], [address] [place] [address], [address], 03/18/2025 12:26:13 Referral None recorded. Procedures None recorded. Surgeries None recorded. Imaging None recorded. Medication Orders Dupixent 300 mg/2 mL subcutane ous pen injector 2024 025 [email or web address] [facility], [facility] ([place] [address] [place] [address], [id number], 03/18/2025 13:43:03 Patient TargetsNo targets recorded. Patient Instructions Encounter Date Encounter Id Patient Instructions Last Modified By Organization Details Last Modified Time 03/18/2025 [id number] If any lesions change, or if any other new or symptomatic lesions occur, patient understands to return to the clinic for further evaluation Discussed sun precautions; SPF 30+ [email or web address] Not available 03/17/2025 16:26:32 Reason for Referral None Reported. Problems Name Problem SNOMED Code Status Onset Date Resolution Date Notes Provider Name and Address Organization Details Recorded Time Actinic keratosis 616800528 Active 2014 From Automated Load;Provi darleen: Alessandro Camacho;S tatus: Active Not Available [facility] 09:17:13 Senile hyperkera tosis 911403117 Active 2014 From Automated Load;Provi darleen: Tricia, Alessandro;S tatus: Active Not Available [facility] 6 09:17:13 Lentigo Active 2014 From Automated Load;Provi darleen: Alessandro Camacho;S tatus: Active Not Available [facility] 09:17:13 Notes:Some problems listed i n Document: #[id number] could not be added to this patient's chart. Please review this document and add these problems to the patient's chart manually as needed. Problem Notes None recorded. Procedures Surgical History Date Name Laterality Status Provider Name and Address Organization Details Recorded Time 03/18/20 25 Biopsy Skin Lesion; [facility]/18/2025 12:29:23 03/18/20 25 Destruction Premalignant Lesion(s) completed Gianna [facility] 03/18/2025 12:29:44 08/27/20 24 Destruction Premalignant Lesion(s) completed Anyi Hobson [facility] 08/27/2024 15:26:06 05/06/20 24 Destruction MN Lesion; trunk, arm, leg completed Suzanne Sandoval [facility] 05/06/2024 16:26:15 05/06/20 24 Destruction Premalignant Lesion(s) completed Suzanne Sandoval [facility] 05/06/2024 16:24:00 11/12/20 23 Destruction MN Lesion; trunk, arm, leg completed ALESSANDRO CAMACHO DO [address] [place], [address], [facility] 11/12/2023 12:04:25 10/29/20 23 Biopsy Skin Lesion; Tangential completed [facility] 10/29/2023 15:25:32 04/09/20 23 Destruction BN Lesions completed [facility] 04/09/2023 15:06:44 10/09/20 22 Destruction MN Lesion; face, ear, eyelid, nose, lip completed ALESSANDRO CAMACHO, DO [address] [place], [address], [facility] 10/09/2022 17:40:34 10/01/20 22 Biopsy Skin Lesion; Tangential completed ALESSANDRO CAMACHO, DO [address] [place], [address], [facility] 10/01/2022 13:07:26 10/01/20 Destruction Premalignant Lesion(s) completed [facility] 10/01/2022 09:51:03 10/01/20 22 Destruction BN Lesions completed Juanita [facility] 10/01/2022 09:51:16 03/27/20 22 Biopsy Skin Lesion; Tangential completed [facility] 03/27/2022 15:21:23 03/27/20 22 Destruction Premalignant Lesion(s) completed [facility] 03/27/2022 15:22:22 05/25/20 21 Destruction Premalignant Lesion(s) completed [facility] 05/25/2021 08:35:15 05/25/20 21 Destruction BN Lesions completed ALESSANDRO CAMACHO, DO [address] [place], [address], [facility] 05/25/2021 17:04:04 11/04/20 20 Destruction MN Lesion; trunk, arm, leg completed ALESSANDRO CAMACHO, DO [address] [place], [address], [facility] 11/04/2020 13:56:23 11/01/20 20 Biopsy Skin Lesion; Tangential completed [facility] 11/01/2020 14:14:05 11/01/20 Destruction Premalignant Lesion(s) completed [facility] 11/01/2020 14:17:04 11/01/20 20 Destruction BN Lesions completed [facility] 11/01/2020 14:23:30 04/19/20 20 Destruction Premalignant Lesion(s) completed [facility] 04/19/2020 15:39:32 04/19/20 20 Destruction BN Lesions completed [facility] 04/19/2020 15:41:16 11/03/20 19 Destruction Premalignant Lesion(s) completed [facility] 11/03/2019 15:14:27 05/12/20 19 Destruction Premalignant Lesion(s) completed [facility] 05/12/2019 15:55:50 11/21/19 19 Destruction MN Lesion; trunk, arm, leg completed ALESSANDRO CAMACHO DO [address] [place], [address], [facility] 11/21/2018 09:13:11 11/13/20 18 Biopsy Skin Lesion; Tangential completed [facility] 11/13/2018 15:52:59 11/13/20 18 Destruction Premalignant Lesion(s) completed [facility] 11/13/2018 15:56:29 11/13/20 18 Destruction BN Lesions completed [facility] 11/13/2018 15:53:52 06/09/20 18 Suture/Staple removal completed [facility] 06/09/2018 15:59:29 05/30/20 18 Wound Repair; Intermediate completed ALESSANDRO CAMACHO DO [address] [place], [address], [facility] 05/30/2018 12:30:36 05/30/20 18 Excision BN lesion; trunk, arms or legs completed [facility] 05/30/2018 08:04:58 05/08/20 18 Biopsy Skin Lesion; Tangential [facility] 14:25:16 11/07/20 17 Destruction Premalignant Lesion(s) completed MECHE COTE, THERAPEUTIC RECREATION ASSISTANT [address] [place], [address], [facility] 11/07/2017 09:41:15 11/07/20 17 Destruction BN Lesions completed MECHE COTE, THERAPEUTIC RECREATION ASSISTANT [address] [place], [address], [facility] hospital 11/07/2017 09:47:24 07/04/20 17 Biopsy Skin completed MECHE COTE THERAPEUTIC RECREATION ASSISTANT [address] [place], [address], [facility] 07/04/2017 15:31:44 12/05/19 17 Destruction Premalignant Lesion(s) completed MECHE BARRERA ROCAEL, THERAPEUTIC RECREATION ASSISTANT [address] [place], [address], [facility] hospital 12/05/2016 15:29:26 12/05/19 17 Destruction BN Lesions completed MECHE BARRERA ROCAEL, THERAPEUTIC RECREATION ASSISTANT [address] [place], [address], [facility] 12/05/2016 15:30:31 Imaging Results None recorded. Procedure [...] Tobacco Smoking Status Former Smoker MECHE COTE, THERAPEUTIC RECREATION ASSISTANT [address] [place], [address], [facility] 07/04/2017 14:59:49 What Was The Date Of Your Most Recent Tobacco Screening? 07/04/2017 Information n ot available 01/05/2020 Sex: Male Functional Status None recorded. Mental Status None recorded. Family History Nothing Reported. Medical History Condition Response Basal Cell Carcinoma Y Past Encounters Encounter ID Performer Location Encounter Start Date Encounter Closed Date Diagnosis/Indication Diagnosis SNOMED-CT Code Diagnosis ICD10 Code Diagnosis Note [id number] ALESSANDRO CAMACHO DO [facility] [address] [place] [address] 03/18/2025 11:13:02 03/18/2025 12:35:04 History of malignant basal cell neoplasm of skin 392060775 Z85.828 R upper chest, L mid back, R shoulder, right upper back, midline upper back, lower back -no recurrence History of squamous cell carcinoma of skin 713147637 Z85.828 right cheek - no recurrence Solar lentiginosis 52089 2006 L81.4 Benign Reassuranc erecommend ed sun protective clothing and a mineral based sunscreen 30 SPF or higher lotion OTC daily Senile angioma 6859128 I 78.1 Benign Reassuranc e Multiple b enign melanocytic nevi 234778856 D22.9 Benign Reassuranc e Fingertip eczema 3425992 08 L30.9 chronicimp rovingmild today on palms, fingersPat ient happy with treatmentC ontinue dupixent injectionw ill need PAwill send in script for dupixent 300mg sub pen injectorse nt to [employer] for PAinject one pen every two weekspatie nt would like to self inject Porokeratosis 152816368 Q82.8 monitormea suredrevie wed - no change Actinic keratosis 810892 007 L57.0 Education then treated with LN; right helix x1, left upper lateral forehead x1, left dorsal hand x1pt tolerated welladvise d pt what to expect with freezing Neoplasm o f uncertain behavior of skin 41648760 D48.5 A. right anterior scalp r/o BCCB. [...] by Organization Details LastModified Time None Recorded Payers Encounter Date Sequence Insurance Name Policy Number Policy Marques Covered Member ID Marques Member ID Guarantor Name 03/18/2025 1 [facility] [id number] Arun Granados [id number] Arun Granados Notes Date Note Type Note Provider Name and Address Organization Details Recorded Time 03/18/2025 text/html Established Patient presents for Waist up check. Patient notes scaly/crusty skin lesions on scalp, wants benign reassurance. recheck right anterior shoulder, left lower lambert (BCCs treated SATYA) - healed well per patient. check spots/moles over body h/o BCC, SCC Denies any other new or changing lesions. Feels well today. Denies family history of malignant melanoma. ALESSANDRO CAMACHO, DO [facility] [place], [address], [facility] 03/18/2025 16:55:26
[2025-03-19 11:55] LABS: Microscopic, Urine URINE MICROSCOPIC (MICROSCOPIC)
[2025-03-19 12:29] LABS: Basophils # 0.1 K/mm3 (0-0.2); Basophils % 1.1 % (0.1-2.0); Eosinophils # 0.2 Kmm3 (0.0-0.4); Eosinophils % 1.9 % (0.1-12.0); Hematocrit 43.8 % (42.0-52.0); Hemoglobin 15.2 g/dL (14.1-18.0); Lymphocytes # 2.5 K/mm3 (0.7-4.5); Lymphocytes % 28.1 % (10-50); Mean Corpuscular HGB Conc 34.7 g/dL (31.8-35.4); Mean Corpuscular Hemoglobin 30.4 pg (27.0-31.2); Mean Corpuscular Volume 87.6 fl (80-94); Mean Platelet Volume 8.3 fl (7.4-10.4); Monocytes # 0.6 K/mm3 (0.1-1.0); Monocytes % 6.7 % (1.7-9.3); Neutrophils # 5.4 K/mm3 (1.8-7.8); Nucleated Red Blood Cells # 0 10^3/uL; Nucleated Red Blood Cells % 0 %; Platelet Count 268 K/mm3 (142-424); Red Cell Distribution Width 12.2 % (11.5-17.5); Red Cell Distribution Width-SD 39.2 fL; White Blood Count 8.8 K/mm3 (4.8-10.8)
[2025-03-19 13:13] LABS: Appearance,Urine CLEAR (Clear); Bilirubin,Urine Negative (Negative); Blood, Urine Negative (Negative); Color,Urine YELLOW (Yellow); Glucose,Urine (UA) Negative (Negative); Ketones,Urine Negative (Negative); Leukocyte Esterase,Urine Negative (Negative); Nitrate,Urine Negative (Negative); Protein,Urine Negative (Negative); Urobilinogen,Urine 0.2 EU/dl (0.2)
[2025-03-19 13:16] LABS: Chloride 103 mmol/L (98-107)
[2025-03-19 13:17] LABS: Albumin Level 4.4 g/dl (3.5-5.0); Potassium 4.2 mmoL/L (3.5-5.1); Sodium 137 mmol/L (136-145)
[2025-03-19 13:27] LABS: Alanine Aminotransferase 54 U/L (12-78); Albumin/Globulin Ratio 1.7 (1.1-1.8); Alkaline Phosphatase 88 U/L (38-126); Anion Gap 12.2 mEq/L (5-15); Aspartate Amino Transferase 46 U/L (17-59); Bilirubin,Total 0.8 mg/dl (0.2-1.3); Blood Urea Nitrogen 21 mg/dl (9-20); Calcium 9.5 mg/dl (8.4-10.2); Carbon Dioxide 26 mmol/L (22.0-30.0); Estimated Glomerular Filt Rate 111 ml/min (>60); GFR (African American) 134 ML/MIN (>60); Globulin 2.6 g/dL (1.3-3.2); Glucose 118 mg/dl (74-100)
[2025-03-19 13:49] LABS: Bacteria,Urine Trace /lpf; WBC,Urine Occasional #/hpf (0-3)
== END 2025-03-19 23:59 | disposition home or self-care (01) ==
LOC: LAB 11:49
PROVIDERS: PCP Family Medicine; Visit Provider Family Medicine
DX: N39.0 Urinary tract infection, site not specified (principal); R78.81 Bacteremia; I10 Essential (primary) hypertension; E11.9 Type 2 diabetes mellitus without complications; Z79.84 Long term (current) use of oral hypoglycemic drugs
CPT/HCPCS: 36415; 80053; 81001; 85025; 87040; 87086

== ENCOUNTER 2025-04-01 07:01 | Outpatient (CLI) | payer OTHER, SELFPAY ==
--- NOTE | 2025-04-01 | CA_ITS ---
APPROVED REPORT Exam: Pharmacologic Technologist: Kelly Bar Ht: 5 ft 11 in Wt: 280 lbs BSA: 2.43 m2 Medical History Medications: amlodipine, atorvastatin, diclofenac sodium, dupilumab, irbesartan-hctz, metformin er, multivitamin, pitassium chloride er, timolol maleate. Stress Test Details Test: Faisal Reason for pharmacologic stress test: physical limitation. HR Resting HR: 69 bpm Max Heart Rate (APMHR): 148.223092 bpm Max HR Achieved: 99 bpm Target HR (85% APMHR): 125.384988 bpm % of APMHR: 66.89 Recovery HR: 85 bpm BP Resting BP: 146.0/72.0 mmHg Max BP: 171.0/73.0 mmHg Recovery BP: 153.0/77.0 mmHg ECG Resting ECG: SR - Old NC - Ant. lat. Inf. Stress ECG Conclusion Symptoms: None. Arrhythmias/Ectopy: Lexiscan. Electronically signed by : Cindy Gauthier MD 04/01/2025 14:13:42
--- OUTSIDE RECORDS SUMMARY | 2025-04-01 07:05 | XMS_ITS | Continuity of Care Document ---
Author Organization [facility] Address [address] [place] [address] Assessment Encounter Date Assessment Date Assessment LastModified by Organization Details LastModified Time 03/18/2025 03/18/2025 f/u 4 months ; skin check [email or web address] Not available 03/17/2025 16:26:32 Plan of Treatment Reminders Order Date Submit Date Provider Last Modified By Organization Details Last Modified Time Details Appointments [facility] 2024 03:15P Shanon CAMACHO DO Not available Not available Not available Lab surgical pathology study - A. right anterior scalp r/o BCCB. left mid lambert r/o BCC 2024 025 [facility], [address] [place] [address], [phone], 03/19/2025 12:18:46 Referral None recorded. Procedures None recorded. Surgeries None recorded. Imaging None recorded. Medication Orders Dupixent 300 mg/2 mL subcutane ous pen injector 2024 025 [email or web address] [facility], [facility] [address] [place] [address], [phone], 03/18/2025 13:43:03 Patient TargetsNo targets recorded. Patient Instructions Encounter Date Encounter Id Patient Instructions Last Modified By Organization Details Last Modified Time 03/18/2025 [id number] If any lesions change, or if any other new or symptomatic lesions occur, patient understands to return to the clinic for further evaluation Discussed sun precautions; SPF 30+ [email or web address] Not available 03/17/2025 16:26:32 Reason for Referral None Reported. Problems Name Problem SNOMED Code Status Onset Date Resolution Date Notes Provider Name and Address Organization Details Recorded Time Actinic keratosis Active 2014 From Automated Load;Provi darleen: Alessandro Camacho;S tatus: Active Not Available [facility] 09:17:13 Senile hyperkera tosis 604008842 Active 2014 From Automated Load;Provi darleen: Alessandro Camacho;S tatus: Active Not Available [facility] 6 09:17:13 Lentigo Active 2014 From Automated Load;Provi darleen: Alessandro Camacho;S tatus: Active Not Available [facility] 09:17:13 Notes:Some problems listed i n Document: #[id number] could not be added to this patient's chart. Please review this document and add these problems to the patient's chart manually as needed. Problem Notes None recorded. Procedures Surgical History Date Name Laterality Status Provider Name and Address Organization Details Recorded Time 03/22/20 25 Destruction MN Lesion; trunk, arm, leg completed ALESSANDRO CAMACHO, [address] [place], [address], [facility] 03/22/2025 17:45:39 03/22/20 25 Destruction MN Lesion; scalp, neck, hand, foot, genitalia completed [facility] [place], operated by [facility] 03/22/2025 14:03:59 03/18/20 25 Biopsy Skin Lesion; Tangential [facility] 03/18/2025 12:29:23 03/18/20 25 Destruction Premalignant Lesion(s) completed Gianna Roger [facility] 03/18/2025 12:29:44 08/27/20 24 Destruction Premalignant Lesion(s) completed [facility], [place], operated by [facility] 08/27/2024 15:26:06 05/06/20 24 Destruction MN Lesion; trunk, arm, leg completed Suzanne Sandoval [facility] 05/06/2024 16:26:15 05/06/20 24 Destruction Premalignant Lesion(s) completed Suzanne Sandoval [facility] 05/06/2024 16:24:00 11/12/20 23 Destruction MN Lesion; trunk, arm, leg completed ALESSANDRO CAMACHO, DO [address] [place], [address], [facility] 11/12/2023 12:04:25 10/29/20 23 Biopsy Skin Lesion; Tangential completed Anyi Hobson [facility] 10/29/2023 15:25:32 04/09/20 23 Destruction [place] Lesions completed [facility] 04/09/2023 15:06:44 10/09/20 22 Destruction MN Lesion; face, ear, eyelid, nose, lip completed ALESSANDRO CAMACHO, DO [address] [place], [address], [facility] 10/09/2022 17:40:34 10/01/20 22 Biopsy Skin Lesion; Tangential completed ALESSANDRO CAMACHO, DO [address] [place], [address], [facility] 10/01/2022 13:07:26 10/01/20 22 Destruction Premalignant Lesion(s) completed Juanita Careyain [facility] 10/01/2022 09:51:03 10/01/20 22 Destruction BN Lesions completed Juanita McQuain [facility] 10/01/2022 09:51:16 03/27/20 22 [facility]opsy [facility]ion[facility] 03/27/2022 15:21:23 03/27/20 22 Destruction Premalignant Lesion(s) completed [facility] 03/27/2022 15:22:22 05/25/20 21 Destruction Premalignant Lesion(s) completed Juanita EdwardQuain [facility] 05/25/2021 08:35:15 05/25/20 21 Destruction BN Lesions completed ALESSANDRO CAMACHO, DO [address] [place], [address], [facility] 05/25/2021 17:04:04 11/04/20 20 Destruction MN Lesion; trunk, arm, leg completed ALESSANDRO CAMACHO DO [address] [place], [address], [facility] 11/04/2020 13:56:23 11/01/20 20 Biopsy Skin Lesion; Tangential completed [facility] 11/01/2020 14:14:05 11/01/20 20 Destruction Premalignant Lesion(s) completed [facility] 11/01/2020 14:17:04 11/01/20 20 Destruction BN Lesions completed [facility] 11/01/2020 14:23:30 04/19/20 20 Destruction Premalignant Lesion(s) completed [facility] 04/19/2020 15:39:32 04/19/20 20 Destruction BN Lesions completed [facility] 04/19/2020 15:41:16 11/03/20 19 Destruction Premalignant Lesion(s) completed [facility] 11/03/2019 15:14:27 05/12/20 19 Destruction Premalignant Lesion(s) completed [facility] 05/12/2019 15:55:50 11/21/19 19 Destruction MN Lesion; trunk, arm, leg completed ALESSANDRO CAMACHO DO [address] [place], [address], [facility] 11/21/2018 09:13:11 11/13/20 18 Biopsy Skin Lesion; Tangential completed [facility] 11/13/2018 15:52:59 11/13/20 18 Destruction Premalignant Lesion(s) completed [facility] 11/13/2018 15:56:29 11/13/20 18 Destruction BN Lesions completed [facility] 11/13/2018 15:53:52 06/09/20 18 Suture/Staple removal completed Juanita Gilbert [facility] 06/09/2018 15:59:29 05/30/20 18 Wound Repair; Intermediate completed ALESSANDRO CAMACHO DO [address] [place], [address], [facility] 05/30/2018 12:30:36 05/30/20 18 Excision BN lesion; trunk, arms or legs completed Kuldip Mosquera [facility] 05/30/2018 08:04:58 05/08/20 18 Biopsy Skin Lesion; Tangential completed Juanita Careysimone [facility] 05/08/2018 14:25:16 11/07/20 17 Destruction Premalignant Lesion(s) completed 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 COTE, 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 MACHINE REPAIRER [address] [place], [address], [facility] 11/07/2017 09:41:15 11/07/20 17 Destruction BN Lesions completed 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 COTE, SCREW MACHINE REPAIRER [address] [place], [address], [facility] 11/07/2017 09:47:24 07/04/20 17 Biopsy Skin completed 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 COTE, SCREW MACHINE REPAIRER [address] [place], [address], [facility] 07/04/2017 15:31:44 12/05/19 17 Destruction Premalignant Lesion(s) completed 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 COTE, SCREW MACHINE REPAIRER [address] [place], [address], [facility] 12/05/2016 15:29:26 12/05/19 17 Destruction BN Lesions completed 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 COTE, SCREW MACHINE REPAIRER [address] [place], [address], [facility] 12/05/2016 15:30:31 Imaging Results None [...] 300 mg/2 mL subcutane ous pen injector active Not Available Not Available Not Available Dupixent 200 mg/1.14 mL subcutane ous pen injector inject two pens on day one, then one pen every two weeks 09/01 completed Not Available Not Available Not Available Opzelura 1.5 % topical cream active Not Available Not Available Not Available Vitals None Recorded Social History Question Answer Notes LastModified by Organizat ion Details LastModified Time Tobacco Smoking Status Former Smoker 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, [address], [place] [facility] 07/04/2017 14:59:49 What Was The Date Of Your Most Recent Tobacco Screening? 07/04/2017 Information n ot available 01/05/2020 Sex: Male Functional Status None recorded. Mental Status None recorded. Family History Nothing Reported. Medical History Condition Response Basal Cell Carcinoma Y Past Encounters Encounter ID Performer Location Encounter Start Date Encounter Closed Date Diagnosis/Indication Diagnosis SNOMED-CT Code Diagnosis ICD10 Code Diagnosis Note [id number] ALESSANDRO CAMACHO, DO [facility] [address] [place] [address] 03/18/2025 11:13:02 03/18/2025 12:35:04 History of malignant basal cell neoplasm of skin 351469610 Z85.828 R upper chest, L mid back, R shoulder, right upper back, midline upper back, lower back -no recurrence History of squamous cell carcinoma of skin 055835404 Z85.828 right cheek - no recurrence Solar lentiginosis 05010 2006 L81.4 Benign Reassuranc erecommend ed sun protective clothing and a mineral based sunscreen 30 SPF or higher lotion OTC daily Senile angioma 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 I 78.1 Benign Reassuranc e Multiple b enign melanocytic nevi 409171727 D22.9 Benign Reassuranc e Fingertip eczema 5517973 08 L30.9 chronicimp rovingmild today on palms, fingersPat ient happy with treatmentC ontinue dupixent injectionw ill need PAwill send in script for dupixent 300mg sub pen injectorse nt to [facility] for PAinject one pen every two weekspatie nt would like to self inject Porokeratosis 851984772 Q82.8 monitormea suredrevie wed - no change Actinic keratosis 658165 007 L57.0 Education then treated with LN; right helix x1, left upper lateral forehead x1, left dorsal hand x1pt tolerated welladvise d pt what to expect with freezing Neoplasm o f uncertain behavior of skin 89102292 D48.5 A. right anterior scalp r/o BCCB. left mid lambert r/o BCCshave biopsysee procedure notewound care instructio ns providedpa tient consents for procedure and photo [...] Marques Member ID Guarantor Name 03/18/[address] [facility] [id number] Arun Granados [id number] Arun Granados Notes Date Note Type Note [...] history of malignant melanoma. ALESSANDRO CAMACHO, DO [address] [place], [address], [place] [facility] 03/18/2025 16:55:26
--- OUTSIDE RECORDS SUMMARY | 2025-04-01 07:05 | XMS_ITS | Data Portability ---
Author Organization HAYDEN Brooks [place] [facility] Address [address] [facility] [address] [place] [address] Assessment Encounter Date Assessment Date Assessment LastModified by Organization Details LastModified Time 05/06/2024 05/06/2024 follow up in 4 months [email or web address] Not available 05/06/2024 16:01:08 08/27/2024 08/27/2024 f/u 4 months ; skin check [email or web address] Not available 08/27/2024 15:30:10 03/18/2025 03/18/2025 f/u 4 months ; skin check Not available 03/17/2025 16:26:32 Plan of Treatment Reminders Order Date Submit Date Provider Last Modified By Organization Details Last Modified Time Details Appointments DERMATOLO GY VISIT 2024 03:15P Shanon CLARKE DO Not available Not available Not available Lab surgical pathology study - A. right anterior scalp r/o BCCB. left mid lambert r/o BCC 2024 025 [facility], [address] [place] [address], [phone], 03/19/2025 12:18:46 surgical pathology study - ED&C today x 2 2023 024 [facility], [address] [place] [address], [phone], 05/11/2024 09:12:23 Referral None recorded. Procedures None recorded. Surgeries None recorded. Imaging None recorded. Medication Orders Dupixent 300 mg/2 mL subcutane ous pen injector 2024 025 [email or web address] [facility] ([place]), [address], [address], [place], [place], [phone], 03/18/2025 13:43:03 Dupixent 200 mg/1.14 mL subcutane ous pen injector 2023 024 DAVION [facility] ([place]), [address], [address], [place], [address], 09/01/2024 11:42:19 Patient TargetsNo targets recorded. Patient Instructions Encounter Date Encounter Id Patient Instructions Last Modified By Organization Details Last Modified Time 11/12/2023 [id number] If any lesions change, or if any other new or symptomatic lesions occur, patient understands to return to the clinic for further evaluation Discussed sun precautions; SPF 30+ [email or web address] Not available 11/12/2023 07:14:32 05/06/2024 [id number] If any lesions change, or if any other new or symptomatic lesions occur, patient understands to return to the clinic for further evaluation Discussed sun precautions; SPF 30+ Not available 05/05/2024 17:12:35 08/27/2024 [id number] If any lesions change, or if any other new or symptomatic lesions occur, patient understands to return to the clinic for further evaluation Discussed sun precautions; SPF 30+ [email or web address] Not available 08/26/2024 16:51:10 03/18/2025 [id number] If any lesions change, or if any other new or symptomatic lesions occur, patient understands to return to the clinic for further evaluation Discussed sun precautions; SPF 30+ Not available 03/17/2025 16:26:32 03/22/2025 [id number] If any lesions change, or if any other new or symptomatic lesions occur, patient understands to return to the clinic for further evaluation Discussed sun precautions; SPF 30+ [email or web address] Not available 03/22/2025 11:49:39 Reason for Referral None Reported. Results Created Date Observation Date Name Description Value Unit Range Abnormal Flag Note LastModifiedBy Organization Detail LastModifiedTime 10/29/20 23 10/29/2023 SURGI SURAJ surgical SEE BELOW abnormal Depar tment of Patho logy Surgi suraj Patho logy Repor t NAME: CYRIL BASSETT JR PATH. :[id number] Copy to: Diagn [...] 13:00 Page 1 of 1 Not Available [facility] [address] [place] [address], [place], [address], 10/30/2023 13:00:32 05/06/20 24 05/06/2024 SURGI SURAJ surgical SEE BELOW abnormal Depar tment of Patho logy Surgi suraj Patho logy Repor t NAME: CYRIL BASSETT JR PATH. 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 B) Left mid lambert: Basal cell carci noma, super ficia l type; incom plete ly excis ed. SOURC E OF SPECI MEN: SKIN BIOPS Y, RIGHT ANTER IOR SCALP SKIN BIOPS Y, LEFT MID LAMBERT CLINI SURAJ INFOR MATIO N: D48.5 SPECI MEN COLLE CTION NOTES : R/O BCC Gross Descr iptio n: A) Kaylah nt's name and date of verif ied. Recei shanta in forma maria isabel label ed with the patie nt's name and desig nated righ t anter ior scalp is a shave biops y of skin (0.8 x 0.7 x 0.1 cm). The epide rmal surfa ce is pale- stevens/w manjula and stevens-r ed, varie gated , rough ened, and faint ly nodul ar. The gracie n is inked blue. The speci men is trise cted and entir cristobal submi tted in one casse tte label ed A1. B) Kaylah nt's name and date of verif ied. Recei shanta in forma maria isabel label ed with the patie nt's name and desig nated left mid lambert is a shave biops y of skin (0.8 x 0.6 x 0.1 cm). The epide rmal surfa ce is pale stevens-y ellow , focal ly eryth emato us, rough ened, and faint ly nodul ar. The gracie n is inked blue. The speci men is trise cted and entir cristobal submi tted in one casse tte label ed B1. SB 03/18 07:37 PM Micro scopi c Descr iptio n: A micro scopi c exami natio n has been perfo rmed and the resul t(s) are as noted above . ELIUD MENEZES MD Melia d Out Date: 03/19 12:18 Page 1 of 1 Not Available [facility] [address] [place] [address], [place], [address], 03/19/2025 12:18:46 Result Notes None recorded. Problems Name Problem SNOMED Code Status Onset Date Resolution Date Notes Provider Name and Address Organization Details Recorded Time Actinic keratosis Active 2014 From Automated Load;Provi darleen: Tricia, Alessandro;S tatus: Active Not Available [facility] 6 09:17:13 Senile hyperkera tosis 450394076 Active 2014 From Automated Load;Provi darleen: Alessandro Clarke;S tatus: Active Not Available [facility] 6 09:17:13 Lentigo Active 2014 From Automated Load;Provi darleen: Florence Clarkenathan;S tatus: Active Not Available [facility] 6 09:17:13 Notes:Some problems listed i n Document: #[id number] could not be added to this patient's chart. Please review this document and add these problems to the patient's chart manually as needed. Problem Notes None recorded. Procedures Surgical History Date Name Laterality Status Provider Name and Address Organization Details Recorded Time 03/22/20 25 Destruction MN Lesion; trunk, arm, leg completed ALESSANDRO CLARKE DO [address] [place] [place], [address] 03/22/2025 17:45:39 03/22/20 25 Destruction MN Lesion; scalp, neck, hand, foot, genitalia completed [facility] 03/22/2025 14:03:59 03/18/20 25 Biopsy Skin Lesion; Tangential completed [facility] 03/18/2025 12:29:23 03/18/20 25 Destruction Premalignant Lesion(s) completed [facility] 03/18/2025 12:29:44 08/27/20 24 Destruction Premalignant Lesion(s) completed [facility] 08/27/2024 15:26:06 05/06/20 24 Destruction MN Lesion; trunk, arm, leg completed Suzanne Sandoval [facility] 05/06/2024 16:26:15 05/06/20 24 Destruction Premalignant Lesion(s) completed Suzannejosé antonio Sandoval [facility] 05/06/2024 16:24:00 11/12/20 23 Destruction MN Lesion; trunk, arm, leg completed ALESSANDRO CLARKE DO [address] [place], [address], [facility] 11/12/2023 12:04:25 10/29/20 23 Biopsy Skin Lesion; Tangential completed Anyi [facility] 10/29/2023 15:25:32 04/09/20 23 Destruction BN Lesions completed [facility] 04/09/2023 15:06:44 10/09/20 22 Destruction MN Lesion; face, ear, eyelid, nose, lip completed ALESSANDRO CLARKE, DO [address] [place], [address], [facility] 10/09/2022 17:40:34 10/01/20 22 Biopsy Skin Lesion; Tangential completed ALESSANDRO CLARKE, DO [address] [place], [address], [facility] 10/01/2022 13:07:26 10/01/20 22 Destruction Premalignant Lesion(s) completed Juanita Quain [facility] 10/01/2022 09:51:03 10/01/20 22 Destruction BN Lesions completed Juanita McQuain [facility] 10/01/2022 09:51:16 03/27/20 22 Biopsy Skin Lesion; Tangential completed [facility] 03/27/2022 15:21:23 03/27/20 22 Destruction Premalignant Lesion(s) completed [facility] 03/27/2022 15:22:22 05/25/20 21 Destruction Premalignant Lesion(s) [facility] 05/25/2021 08:35:15 05/25/20 21 Destruction BN Lesions completed ALESSANDRO CLARKE, DO [address] [place], [address], [facility] 05/25/2021 17:04:04 11/04/20 20 Destruction MN Lesion; trunk, arm, leg completed ALESSANDRO CLARKE, DO [address] [place], [address], [facility] 11/04/2020 13:56:23 11/01/20 20 Biopsy Skin Lesion; Tangential completed [facility] 11/01/2020 14:14:05 11/01/20 20 Destruction Premalignant Lesion(s) completed [facility] 11/01/2020 14:17:04 11/01/20 20 Destruction BN Lesions completed [facility] 11/01/2020 14:23:30 04/19/20 20 Destruction Premalignant Lesion(s) completed [facility] 04/19/2020 15:39:32 04/19/20 20 Destruction BN Lesions completed [facility] 04/19/2020 15:41:16 11/03/20 19 Destruction Premalignant Lesion(s) completed [facility] 11/03/2019 15:14:27 05/12/20 19 Destruction Premalignant Lesion(s) completed [facility] 05/12/2019 15:55:50 11/21/19 19 Destruction MN Lesion; trunk, arm, leg completed ALESSANDRO CLARKE DO [address] [place], [address], [facility] 11/21/2018 09:13:11 11/13/20 18 Biopsy Skin Lesion; Tangential completed [facility] 11/13/2018 15:52:59 11/13/20 18 Destruction Premalignant Lesion(s) completed [facility] 11/13/2018 15:56:29 11/13/20 18 Destruction BN Lesions completed [facility] 11/13/2018 15:53:52 06/09/20 18 Suture/Staple removal completed [facility] 06/09/2018 15:59:29 05/30/20 18 Wound Repair; Intermediate completed ALESSANDRO CLARKE DO [address] [place], [address], [facility] 05/30/2018 12:30:36 05/30/20 18 Excision BN lesion; trunk, arms or legs completed [facility] 05/30/2018 08:04:58 05/08/20 18 Biopsy Skin Lesion; Tangential [facility] 05/08/2018 14:25:16 11/07/20 17 Destruction Premalignant Lesion(s) completed MECHE COTE, FINISHED GARMENT INSPECTOR [address] [place], [address], [facility] 11/07/2017 09:41:15 11/07/20 17 Destruction BN Lesions completed MECHE COTE, FINISHED GARMENT INSPECTOR [address] [place], [address], [facility] 11/07/2017 09:47:24 07/04/20 17 Biopsy Skin completed MECHE COTE, FINISHED GARMENT INSPECTOR [address] [place], [address], [facility] 07/04/2017 15:31:44 12/05/19 17 Destruction Premalignant Lesion(s) completed MECHE COTE, FINISHED GARMENT INSPECTOR [address] [place], [address], [facility] 12/05/2016 15:29:26 12/05/19 17 Destruction BN Lesions completed MECHE COTE, FINISHED GARMENT INSPECTOR [address] [place], [address], [facility] 12/05/2016 15:30:31 Imaging Results None [...] Tobacco Smoking Status Former Smoker MECHE COTE, FINISHED GARMENT INSPECTOR [address] [place], [address], [facility] 07/04/2017 14:59:49 What Was The Date Of Your Most Recent Tobacco Screening? 07/04/2017 Information n ot available 01/05/2020 Sex: Male Functional Status None recorded. Mental Status None recorded. Family History Nothing Reported. Medical History Condition Response Basal Cell Carcinoma Y Past Encounters Encounter ID Performer Location Encounter Start Date Encounter Closed Date Diagnosis/Indication Diagnosis SNOMED-CT Code Diagnosis ICD10 Code Diagnosis Note [id number] ALESSANDRO CLARKE DO [facility] [address] [place] [address] 12/05/2016 14:43:53 12/05/2016 16:07:36 History of malignant basal cell neoplasm of skin 992446997 Z85.828 R upper chest, L mid back, R shoulder - scarsno recurrence Solar lentiginosis 2006 L81.4 Benign Reassuranc e If any lesions change, or if any other new or symptomati c lesions occur, patient understand s to return to the clinic for further evaluation Discussed sun precaution s; SPF 30+ Senile hyperkeratosis 39 0893421 L82.1 Benign Reassuranc ex1 face, x1 back - treated with LN at patients request Multiple b enign melanocytic nevi 405872779 D22.9 Benign Reassuranc e Senile angioma 5941774 I 78.1 Benign Reassuranc e Skin tag 947158813 L91.8 Benign Reassuranc e Actinic keratosis 744873 [address] x1 left forearmwou nd care instructio n provided [id number] ALESSANDRO CLARKE DO [facility] [address] [place] [address] 07/04/2017 14:35:47 07/05/2017 09:41:15 History of malignant basal cell neoplasm of skin 442615699 Z85.828 R upper chest, L mid back, R shoulder - scarsno recurrence Solar lentiginosis 2006 L81.4 Benign Reassuranc e Senile hyperkeratosis 39 5285569 L82.1 Benign Reassuranc e Multiple b enign melanocytic nevi 428993721 D22.9 Benign Reassuranc e Senile angioma 6066746 I 78.1 Benign Reassuranc e Skin tag 466673086 L91.8 Benign Reassuranc e Dermatofibroma 972315820 D23.9 Benign Reassuranc e Epidermoid cyst of skin 818628853 L72.0 Benign Reassuranc eleft upper backnot bothersome to patientwil l monitor for changes Neoplasm o f uncertain behavior of skin 14432982 D48.5 left mid chest and right medial chestshave biopsy x2r/o bccf/u pending results Milial cyst 282835430 L7 2.0 I&D with 11 blade and comedone extractorx 1 right oral commisure f/u prn [id number] ALESSANDRO CLARKE DO [facility] [address] [place] [address] 11/07/2017 08:46:12 11/08/2017 13:48:04 Solar lentiginosis 519866707 L81.4 Benign Reassuranc e Senile hyperkeratosis 39 9481518 L82.1 Benign Reassuranc e Senile angioma 0210600 I 78.1 Benign Reassuranc e On examina tion - skin tags 402930053 L91.8 Benign Reassuranc eEducation then treated with LN; x3 right neckper patient request Multiple b enign melanocytic nevi 503564731 D22.9 Benign Reassuranc e Actinic keratosis 463681 007 L57.0 Education then treated with LN;x1 right sideburn, x1 left jawline, x1 left dorsal handpatien t tolerated wellwound care instructio n provided Epidermoid cyst 25613153 6 L72.0 Benign Reassuranc e I&D with 11 blade and comedone extractor per patient requestx1 mid foreheadwo und care instructio n provided Inflamed s eborrheic keratosis 026463662 L82.0 x1 right upper chest, x1 left cheek, x1 left foreheadx1 right lateral neck Education then treated with LN; per patient request wound care instructio n provided f/u prn [id number] ALESSANDRO CLARKE DO [facility] [address] [place] [address] 05/08/2018 13:56:51 05/09/2018 09:06:49 Solar lentiginosis 380001329 L81.4 Benign Reassuranc e Senile hyperkeratosis 39 3325163 L82.1 Benign Reassuranc e asymptomat ic, but doesnt like they stick out and can see under shirt Treated with LN per patients request back x5 pt tolerated well advised pt what to expect with freezing Senile angioma 1083866 I 78.1 Benign Reassuranc e Multiple b enign melanocytic nevi 201198262 D22.9 Benign Reassuranc e Neoplasm o f uncertain behavior of skin 11815160 D48.5 A.) R medial cheek shave biopsy [...] in redness, drainage, or pain. Epidermoid cyst 18119182 6 L72.0 Benign Reassuranc eback - advised pt he could have this excised , pt will think about it and let us know if he wants to schedule it or notschedul ed 05/30 @ 383 [id number] DO ZOFIA [facility] [address] [place] [address] 05/30/2018 07:25:21 05/30/2018 14:08:18 Epidermoid cyst of skin of back 464829947 L72.0 Discussed diagnosis of epidermoid cyst recommend treatment with excision r/a/b of procedure discussed with patient informed consent signed see procedure note f/u 2 weeks for wound check / suture removal Skin sensa tion disturbance 53683854 R20.9 cyst [id number] DO [facility] [address] [place] [address] 06/09/2018 15:40:16 06/10/2018 09:06:25 Removal of suture 24718126 Z48.02 L upper back sutures removed with ease no signs of infection healing well good cosmesis f/u as scheduled [id number] DO ZOFIA [facility] [address] [place] [address] 11/13/2018 15:22:54 11/14/2018 08:16:14 Solar lentiginosis 256707485 L81.4 Benign Reassuranc e If any lesions change, or if any other new or symptomati c lesions occur, patient understand s to return to the clinic for further evaluation Discussed sun precaution s; SPF 30+; hats Senile hyperkeratosis 39 6517738 L82.1 Benign Reassuranc e Senile angioma 0248682 I 78.1 Benign Reassuranc e Multiple b enign melanocytic nevi 558279274 D22.9 Benign Reassuranc e Actinic keratosis 007 L57.0 Education, then cryo destructio n with liquid nitrogen (LN) x 4 Neoplasm o f uncertain behavior of skin 80110974 D48.5 A.) Left mid chest shave biopsy sent for path r/o BCC Wound care discussed with patient. Leave the bandage on for 24 hrs. Clean the area daily with warm soapy water, and apply polysporin ointment and a bandaid once daily until healed. Call the office if any increase in redness, drainage, or pain. Inflamed s eborrheic keratosis 174438987 L82.0 chin, upper chest x 5 Education then treated with LN; per patient requestwou nd care instructio n providedf/ u prn Skin sensa tion disturbance 78441496 R20.9 ISK History of malignant basal cell neoplasm of skin 131669853 Z85.828 R upper chest, L mid back, R shoulder - scarsno recurrence [id number] DO ZOFIA [facility] [address] [place] [address] 11/21/2018 08:20:50 11/21/2018 09:22:45 Basal cell carcinoma of truncal skin 542276383 C44.519 Discussed diagnosis of BCC recommend treatment [...] any increase in redness, drainage, or pain. [id number] DO ZOFIA [facility] [address] [place] [address] 05/12/2019 15:09:48 05/13/2019 09:09:17 Solar lentiginosis 574135904 L81.4 Benign Reassuranc e Discussed sun precaution s; SPF 30+; hats Senile hyperkeratosis 39 8210306 L82.[address] to lesion left chest at pt request Senile angioma 7616169 I 78.1 Benign Reassuranc e Multiple b enign melanocytic nevi 586705262 D22.9 Benign Reassuranc e Actinic keratosis 007 L57.0 Education, then cryo destructio n with liquid nitrogen (LN) x 4 History of malignant basal cell neoplasm of skin 699192097 Z85.828 R upper chest, L mid back, R shoulder - scarsno recurrence Fingertip eczema 7049190 08 L30.9 start betamethas one cream as directed call if not helpful in 2 weeks [id number] ALESSANDRO CLARKE, DO [facility] [address] [place] [address] 11/03/2019 14:25:51 11/04/2019 08:01:43 Solar lentiginosis 337748972 L81.4 Benign Reassuranc e Discussed sun precaution s; SPF 30+ Senile angioma 5765869 I 78.1 Benign Reassuranc e History of malignant basal cell neoplasm of skin 943084489 Z85.828 R upper chest, L mid back, R shoulder - scarsno recurrence Fingertip eczema 6585124 08 L30.9 start Eucrisa each morning, samples given start clobetasol ointment each night recommend gluing fissures to promote healing- dermabond or superglue if continues to be bothersome , could consider systemic tx call in 2 weeks if not significan tly improved Raised terry orrheic keratosis 6254355611 72442 L82.1 Benign Appearance Education, then cryodestru ction with liquid nitrogen (LN) x 8 on his back at pt request Actinic keratosis 007 L57.0 Education, then cryo destructio n with liquid nitrogen (LN) left sideburn x1, left preauricul ar cheek x1, Dermatofibroma 865229039 D23.9 Benign Reassuranc e right knee [id number] ALESSANDRO CLARKE DO [facility] [address] [place] [address] 04/19/2020 14:35:27 04/19/2020 15:53:10 Solar lentiginosis 032368231 L81.4 Benign Reassuranc e Discussed sun precaution s; SPF 30+ Raised terry orrheic keratosis 0227789258 60071 L82.1 Benign Appearance Senile angioma 1227239 I 78.1 Benign Reassuranc e History of malignant basal cell neoplasm of skin 153094516 Z85.828 R upper chest, L mid back, R shoulder - scarsno recurrence Fingertip eczema 5590679 08 L30.9 controlled stable not flaring Actinic keratosis 613216 007 L57.0 Education, then cryo destructio n with liquid nitrogen (LN) R jawline x2, R cheek x1, L preauricul ar cheek x1, L neck x1 Dermatofibroma 541169406 D23.9 Benign Reassuranc e right knee Inflamed s eborrheic keratosis 255392646 L82.0 Education, then cryo destructio n with liquid nitrogen (LN) L upper back x1, R chest x1 Skin tag 916138233 L91.8 Scissored off x1 at pt request pt tolerated well Skin sensa tion disturbance 11502744 R20.9 ISK, skin tag [id number] ALESSANDRO CLARKE DO [facility] [address] [place] [address] 11/01/2020 13:51:04 11/01/2020 14:25:00 Solar lentiginosis 003624742 L81.4 Benign Reassuranc e Discussed sun precaution s; SPF 30+ Raised terry orrheic keratosis 9317566954 50673 L82.1 Benign Appearance Senile angioma 0980461 I 78.1 Benign Reassuranc e History of malignant basal cell neoplasm of skin 215465179 Z85.828 R upper chest, L mid back, R shoulder - scarsno recurrence Fingertip eczema 4610869 08 L30.9 mild flaring betamethas one cream is not as helpful pt would like to try clobetasol , had used in past discussed if flares more, could also do Kenalog IM or even dupixent terminal make up operator Actinic keratosis L57.0 Education, then cryo destructio n with liquid nitrogen (LN) x 3 Dermatofibroma 834771315 D23.9 Benign Reassuranc e right knee Inflamed s eborrheic keratosis 617116590 L82.0 Education, then cryo destructio n with liquid nitrogen (LN) x 1 Skin sensa tion disturbance 43056544 R20.9 ISK Neoplasm o f uncertain behavior of skin 05220331 D48.5 right lower back r/o atypia left shoulder r/o BCC left lower chest r/o BCC shave biopsy see procedure note wound care instructio ns provided patient consents for procedure and photo monitoring Plantar wa rt of left foot [id number] 8225816 B07.0 left ball of the foot discussed treatment options pare and cryo x3 freeze thaw cycles treat any residual with OTC Compound W or return for further LN Pain of skin 329604814 R 52 plantar wart [id number] DO [facility]IA [facility] [address] [place] [address] 11/04/2020 11:05:24 11/04/2020 12:19:09 Basal cell carcinoma of truncal skin 382650164 C44.519 L lower chest Discussed diagnosis BCC [...] pain. Basal cell carcinoma of upper extremity 960963841 C44.619 L shoulder Discussed diagnosis BCC recommend [...] any increase in redness, drainage, or pain. [id number] DO [facility] [address] [place] [address] 05/25/2021 07:32:56 05/25/2021 09:02:02 Solar lentiginosis 691712329 L81.4 Benign Reassuranc e Raised terry orrheic keratosis 8560215062 32577 L82.1 Benign Reassuranc e Senile angioma 9484915 I 78.1 Benign Reassuranc e History of malignant basal cell neoplasm of skin 065944444 Z85.828 R upper chest, L mid back, R shoulder - scarsno recurrence Fingertip eczema 0613783 08 L30.9 stablecont inue clobetasol ointment as needed for flare ups Actinic keratosis 652914 007 L57.0 Education then treated with LN; L vertex scalp x1, R cheek x1pt tolerated welladvise d pt what to expect with freezing Dermatofibroma 815780200 D23.9 Benign Reassuranc e Plantar wa rt of left foot 0128082772 3520342 B07.0 left ball of the footresidu alcontinue OTC Compound W Inflamed s eborrheic keratosis 045012727 L82.[address] per patients request: R upper chest x1, L upper back x1pt tolerated welladvise d pt what to expect with freezing Skin sensa tion disturbance 71933660 R20.9 ISK [id number] ALESSANDRO CLARKE, DO [facility] [address] [place] [address] 03/27/2022 14:52:09 03/27/2022 15:43:41 Solar lentiginosis 416668778 L81.4 Benign Reassuranc e Raised terry orrheic keratosis 5500783853 98435 L82.1 Benign Reassuranc e Senile angioma 0950745 I 78.1 Benign Reassuranc e History of malignant basal cell neoplasm of skin 649915807 Z85.828 R upper chest, L mid back, R shoulder - scarsno recurrence Fingertip eczema 8578417 08 L30.9 stablechro nicclear today continue clobetasol ointment as needed for flare ups Actinic keratosis 623379 007 L57.0 Education then treated with LN; right helix x1, right lower forehead x1, right hand x1pt tolerated welladvise d pt what to expect with freezing Dermatofibroma 403698053 D23.9 Benign Reassuranc e Neoplasm o f uncertain behavior of skin 38337986 D48.5 left lateral mid backr/o bcc left chest r/o BCC left lambert r/o BCC shave biopsy see procedure note wound care instructio daria provided patient consents for procedure and photo monitoring [id number] ALESSANDRO CLARKE DO [facility] [address] [place] [address] 10/01/2022 09:15:48 10/01/2022 10:24:54 Solar lentiginosis 058648612 L81.4 Benign Reassuranc e Raised terry orrheic keratosis 7878844515 81438 L82.1 Benign Reassuranc e Senile angioma 5676934 I 78.1 Benign Reassuranc e History of malignant basal cell neoplasm of skin 480943405 Z85.828 R upper chest, L mid back, R shoulder - scarsno recurrence Fingertip eczema 6524893 08 L30.9 palms and fingersmod erate flare todayd/c clobetasol ointment - pt doesnt feel like its as effective start protopic ointment as directedIf this is not helpful could consider opzelura or dupixentf/ u in 6m Actinic keratosis 166065 007 L57.0 Education then treated with LN; R forehead x1 , L forehead x1 , mid upper back x1, R lower cheek x1pt tolerated welladvise d pt what to expect with freezing Dermatofibroma 465659376 D23.9 Benign Reassuranc e Neoplasm o f uncertain behavior of skin 75434040 D48.5 R cheekshave biopsysent for pathr/o SCCWound care discussed with patient. Leave the bandage on for 24 hrs. Clean the area daily with warm soapy water, and apply polysporin ointment and a bandaid once daily until healed. Call the office if any increase in redness, drainage, or pain. 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 Herpes zoster 7393261 B0 2.9 left midline abdomen extending around to backwill have him start valtrex 1 gm tid, 7 days- as directedca ll if not resolved [id number] ALESSANDRO CLARKE DO [facility] [address] [place] [address] 04/09/2023 14:35:13 04/09/2023 15:15:20 History of malignant basal cell neoplasm of skin 053149794 Z85.828 R upper chest, L mid back, R shoulder - scarsno recurrence Solar lentiginosis 43796 2006 L81.4 Benign Reassuranc e Raised terry orrheic keratosis 5137517698 70544 L82.1 Benign Reassuranc eLN x2 right forehead per pt request Senile angioma 7326851 I 78.1 Benign Reassuranc e Multiple b enign melanocytic nevi 649983798 D22.9 Benign Reassuranc e Fingertip eczema 6526769 08 L30.9 palms todayminim al continue clobetasol ointment nightly for up to 2 weeks, for flare ups f/u in 6m Dermatofibroma 367512375 D23.9 Benign Reassuranc e History of squamous cell carcinoma of skin 436071341 Z85.828 right cheek - no recurrence Inflamed s eborrheic keratosis 006939866 L82.[address] per patients request: right cheek x2, left upper back x1, left upper chest x2, right upper chest x1pt tolerated welladvise d pt what to expect with freezing Tenderness of skin 19779 9000 R20.8 ISks, itch, scratched/ traumatize d today Porokeratosis 443654350 Q82.8 monitormea sured [id number] ALESSANDRO CLARKE, DO [facility] [address] [place] [address] 10/29/2023 14:13:37 10/29/2023 15:43:51 History of malignant basal cell neoplasm of skin 195125585 Z85.828 R upper chest, L mid back, R shoulder - scarsno recurrence Solar lentiginosis 31879 2006 L81.4 Benign Reassuranc erecommend ed sun protective clothing and a mineral based sunscreen 30 SPF or higher lotion OTC daily Senile angioma 5841029 I 78.1 Benign Reassuranc e Multiple b enign melanocytic nevi 544997557 D22.9 Benign Reassuranc e Fingertip eczema 7210263 08 L30.9 palms today- mildfinger tips skin splitting- exacerbati on, probably due to cold weather continue clobetasol ointment as directedI gave him samples of Eucrisa to use dailypt requested refill todayIf continues to be an issue, consider dupixent f/u in 6m Porokeratosis 707611620 Q82.8 monitormea suredno change Dermatofibroma 396914863 D23.9 Benign Reassuranc e History of squamous cell carcinoma of skin 738216583 Z85.828 right cheek - no recurrence Neoplasm o f uncertain behavior of skin 00795853 D48.5 a) right upper backr/o bcc shave [...] in redness, drainage, or pain. Herpes zoster 2739300 B0 2.9 reviewed patient photosL facecould have been zoster?If recurs again, could try Valtrex again.sent rx to take only if flares up again. [id number] DO ZOFIA SNIDER [facility] [address] [place] [address] 11/12/2023 07:41:12 11/12/2023 08:26:24 Basal cell carcinoma of back 465113179 C44.519 1) bcc on right upper back2) [...] any increase in redness, drainage, or pain. [id number] DO ZOFIA SNIDER [facility] [address] [place] [address] 05/06/2024 14:40:03 05/06/2024 16:25:22 History of malignant basal cell neoplasm of skin 659734829 Z85.828 R upper chest, L mid back, R shoulder, right upper back, midline upper back, lower back -no recurrence History of squamous cell carcinoma of skin 246052540 Z85.828 right cheek - no recurrence Solar lentiginosis 67914 2006 L81.4 Benign Reassuranc erecommend ed sun protective clothing and a mineral based sunscreen 30 SPF or higher lotion OTC daily Senile angioma 8350013 I 78.1 Benign Reassuranc e Multiple b enign melanocytic nevi 004021738 D22.9 Benign Reassuranc e Fingertip eczema 3999569 08 L30.9 chronicsom e exacerbati on todayeucri [...] Triamcinol one, Eucrisa f/u in 6m Porokeratosis 067833102 Q82.8 monitormea suredno change Actinic keratosis 257540 007 L57.0 Education then treated with LN; right forehead x 2, left jawline x 1, left forehead x 1pt tolerated welladvise d pt what to expect with freezing Neoplasm o f uncertain behavior of skin 90543051 D48.5 a. right anterior shoulderr/ o BCCb. left lower shinr/o BCC shave biopsy performed x 2ED&C performed today x2 sent for path see procedure note wound care instructio ns provided patient consents for procedure and photo monitoring Basal cell carcinoma of upper extremity 807570079 C44.619 R anterior shoulder Discussed diagnosis BCCshave [...] pain. Basal cell carcinoma of lower extremity 538276496 C44.802 Discussed diagnosis BCCL shinclinic al BCCshave biopsyreco mmend treatment with ED&Cno further treatment should be needed r/a/b of procedure discussed with patient informed consent signed see procedure note f/u -4 months for FSE [id number] ALESSANDRO CLARKE DO [facility] [address] [place] [address] 08/27/2024 14:37:12 08/27/2024 15:48:19 History of malignant basal cell neoplasm of skin 183688136 Z85.828 R upper chest, L mid back, R shoulder, right upper back, midline upper back, lower back -no recurrence History of squamous cell carcinoma of skin 897201601 Z85.828 right cheek - no recurrence Solar lentiginosis 93949 2006 L81.4 Benign Reassuranc erecommend ed sun protective clothing and a mineral based sunscreen 30 SPF or higher lotion OTC daily Senile angioma 8179259 I 78.1 Benign Reassuranc e Multiple b enign melanocytic nevi 715902495 D22.9 Benign Reassuranc e Fingertip eczema 0169695 08 L30.9 chronicexa cerbation topicals have not been very helpfulpal ms, fingers, handsaffec ting patient dialcharity Bower ent has tried and failed Clobetasol , [...] ent was educated on pen injections Porokeratosis 399235178 Q82.8 monitormea suredrevie wed - no change Actinic keratosis 519623 007 L57.0 Education then treated with LN; right postauricu lar X1, right anterior scalp X1pt tolerated welladvise d pt what to expect with freezing [id number] ALESSANDRO CLARKE, DO [facility] [address] [place] [address] 03/18/2025 11:13:02 03/18/2025 12:35:04 History of malignant basal cell neoplasm of skin 468288851 Z85.828 R upper chest, L mid back, R shoulder, right upper back, midline upper back, lower back -no recurrence History of squamous cell carcinoma of skin 206906626 Z85.828 right cheek - no recurrence Solar lentiginosis 68466 2006 L81.4 Benign Reassuranc erecommend ed sun protective clothing and a mineral based sunscreen 30 SPF or higher lotion OTC daily Senile angioma 4668060 I 78.1 Benign Reassuranc e Multiple b enign melanocytic nevi 582923996 D22.9 Benign Reassuranc e Fingertip eczema 3359318 08 L30.9 chronicimp rovingmild today on palms, fingersPat ient happy with treatmentC ontinue dupixent injectionw ill need PAwill send in script for dupixent 300mg sub pen injectorse nt to [employer] for PAinject one pen every two weekspatie nt would like to self inject Porokeratosis 422593105 Q82.8 monitormea suredrevie wed - no change Actinic keratosis 007 L57.0 Education then treated with LN; right helix x1, left upper lateral forehead x1, left dorsal hand x1pt tolerated welladvise d pt what to expect with freezing Neoplasm o f uncertain behavior of skin 96353953 D48.5 A. right anterior scalp r/o BCCB. [...] any increase in redness, drainage, or pain. [id number] ALESSANDRO CLARKE, DO [facility] [address] [place] [address] 03/22/2025 13:00:35 03/22/2025 14:41:56 Intraepidermal squamous carcinoma of scalp 688634631 D04.4 right anterior scalpDiscu ssed diagnosis SCC in situ recommend treatment with ED&Cr/a/b of procedure discussed with patientinf ormed consent signedsee procedure notef/u as scheduledW ound care discussed with patient. Leave the bandage on for 24 hrs. Clean the area daily with warm soapy water, and apply polysporin ointment and a bandaid once daily until healed. Call the office if any increase in redness, drainage, or pain. Basal cell carcinoma of lower extremity 721370681 C44.719 left mid shinDiscus sed diagnosis superficia l BCC recommend treatment with ED&Cr/a/b of procedure discussed with patientinf ormed consent signedsee procedure notef/u as scheduledW ound care discussed with patient. [...] Recorded Advance Directives Directive None Recorded Payers Insurance Date Sequence Insurance Name Policy Number Policy Marques Covered Member ID Marques Member ID Guarantor Name 03/25/2025 1 [facility] [id number] Arun Granados [id number] Arun Granados 03/15/2025 1 [place] [id number] Arun Granados [id number] Arun Granados 10/28/2019 1 [facility] [id number] Arun Granados [id number] Arun Granados Notes Date Note Type Note Provider Name and Address Organization Details Recorded Time 11/12/2023 text/html Established [facility] Patient presents today for an ed&c of a bcc on right upper back, midline upper back, and lower back no new, changing, bleeding, or symptomatic lesions to report ALESSANDRO CLARKE DO [address] [place], [address], [facility] 11/12/2023 12:04:49 05/06/2024 text/html Established [facility] Waist up check Presents for a 6m [...] Denies family history of malignant melanoma. ALESSANDRO CLARKE DO [address] [place], [address], [facility] 05/11/2024 19:36:36 08/27/2024 text/html Established [facility] Waist up check Presents for a 6m full skin exam. place on forehead, +1 month check spots/moles over body h/o BCC, SCC Denies any other new or changing lesions. Feels well today. Denies family history of malignant melanoma. ALESSANDRO CLARKE DO [address] [place], [address], [facility] 08/27/2024 17:14:20 03/18/2025 text/html Established Ewa ent presents for Waist up check. Patient notes scaly/crusty skin lesions on scalp, wants benign reassurance. recheck right anterior shoulder, left lower lambert (BCCs treated SATYA) - healed well per patient. check spots/moles over body h/o BCC, SCC Denies any other new or changing lesions. Feels well today. Denies family history of malignant melanoma. ALESSANDRO CLARKE DO [address] [place], [address], [facility] 03/18/2025 16:55:26 03/22/2025 text/html Established PatientPatient presents today for an ed&c of a SCCis on right anterior scalp and an ED&C of a BCC on left mid lambert.no new, changing, bleeding, or symptomatic lesions to report ALESSANDRO CLARKE DO [address] [place], [address], [facility] 03/22/2025 17:46:24
--- OUTSIDE RECORDS SUMMARY | 2025-04-01 07:05 | XMS_ITS | Continuity of Care Document ---
Author Organization [facility] Address [address] [place] [address] Assessment No assessment recorded. Plan of Treatment Reminders Order Date Submit Date Provider Last Modified By Organization Details Last Modified Time Details Appointments [facility] 2024 03:15P M ALESSANDRO CAMACHO DO Not available Not available Not available Lab None recorded. Referral None recorded. Procedures None recorded. Surgeries None recorded. Imaging None recorded. Medication Orders None recorded. Patient TargetsNo targets recorded. Patient Instructions Encounter Date Encounter Id Patient Instructions Last Modified By Organization Details Last Modified Time 03/22/2025 [id number] If any lesions change, or if any other new or symptomatic lesions occur, patient understands to return to the clinic for further evaluation Discussed sun precautions; SPF 30+ [email or web address] Not available 03/22/2025 11:49:39 Reason for Referral None Reported. Problems Name Problem SNOMED Code Status Onset Date Resolution Date Notes Provider Name and Address Organization Details Recorded Time Actinic keratosis 408061779 Active 2014 From Automated Load;Provi darleen: Nick Camacho tatus: Active Not Available [facility] 6 09:17:13 Senile hyperkera tosis 751549092 Active 2014 From Automated Load;Provi darleen: Alessandro Camacho;Joon tatus: Active Not Available [facility] 6 09:17:13 Lentigo Active 2014 From Automated Load;Provi darleen: Alessandro Camacho;Joon tatus: Active Not Available [facility] 6 09:17:13 Notes:Some problems listed i n Document: #[id number] could not be added to this patient's chart. Please review this document and add these problems to the patient's chart manually as needed. Problem Notes None recorded. Procedures Surgical History Date Name Laterality Status Provider Name and Address Organization Details Recorded Time 03/22/20 25 Destruction MN Lesion; trunk, arm, leg completed ALESSANDRO CAMACHO DO [address] [place], [address], [facility] 03/22/2025 17:45:39 03/22/20 25 Destruction MN Lesion; scalp, neck, hand, foot, genitalia completed [facility] 03/22/2025 14:03:59 03/18/20 25 Biopsy Skin Lesion; Tangential [facility] 03/18/2025 12:29:23 03/18/20 25 Destruction Premalignant Lesion(s) completed Gianna [facility] 03/18/2025 12:29:44 08/27/20 24 Destruction Premalignant Lesion(s) completed [facility] 08/27/2024 15:26:06 05/06/20 24 Destruction MN Lesion; [facility], arm, [facility] 16:26:15 05/06/20 24 Destruction Premalignant Lesion(s) completed [facility] 05/06/2024 16:24:00 11/12/20 23 Destruction MN Lesion; trunk, arm, leg completed ALESSANDRO CAMACHO DO [address] [place], [address], [facility] 11/12/2023 12:04:25 10/29/20 23 Biopsy Skin Lesion; Tangential completed Anyi Hobson [facility] 10/29/2023 15:25:32 04/09/20 23 Destruction BN Lesions [facility] 04/09/[facility]23 15:06:44 10/09/20 22 Destruction MN Lesion; face, ear, eyelid, nose, lip completed ALESSANDRO CAMACHO, DO [address] [place], [address], [facility] 10/09/2022 17:40:34 10/01/20 22 Biopsy Skin Lesion; Tangential completed ALESSANDRO CAMACHO, DO [address] [place], [address], [facility] 10/01/2022 13:07:26 10/01/20 22 Destruction Premalignant Lesion(s) completed [facility] 10/01/2022 09:51:03 10/01/20 22 Destruction BN Lesions [facility] 10/01/2022 09:51:16 03/27/20 22 Biopsy Skin Lesion; Tangential completed [facility] 03/27/2022 15:21:23 03/27/20 22 Destruction Premalignant Lesion(s) completed [facility] 03/27/2022 15:22:22 05/25/20 21 Destruction Premalignant Lesion(s) completed Juantia [facility] 05/25/2021 08:35:15 05/25/20 21 Destruction BN Lesions completed ALESSANDRO CAMACHO, DO [address] [place], [address], [facility] 05/25/2021 17:04:04 11/04/20 20 Destruction MN Lesion; trunk, arm, leg completed ALESSANDRO CAMACHO, DO [address] [place], [address], [facility] 11/04/2020 13:56:23 11/01/20 20 Biopsy Skin Lesion; Tangential completed [facility] 11/01/2020 14:14:05 11/01/20 20 Destruction Premalignant Lesion(s) completed [facility] 11/01/2020 14:17:04 11/01/20 20 Destruction BN Lesions completed [facility] 11/01/2020 14:23:30 04/19/20 20 Destruction Premalignant Lesion(s) completed Zelda Jimenez [facility] 04/19/2020 15:39:32 04/19/20 20 Destruction BN Lesions completed Zelda Jimenez [facility] 04/19/2020 15:41:16 11/03/20 19 Destruction Premalignant Lesion(s) completed [facility] 11/03/2019 15:14:27 05/12/20 19 Destruction Premalignant Lesion(s) completed [facility] 05/12/2019 15:55:50 11/21/19 19 Destruction MN Lesion; trunk, arm, leg completed ALESSANDRO CAMACHO DO [address] [place], [address], [facility] 11/21/2018 09:13:11 11/13/20 18 Biopsy Skin Lesion; Tangential completed [facility] 11/13/2018 15:52:59 11/13/20 18 Destruction Premalignant Lesion(s) completed [facility] 11/13/2018 15:56:29 11/13/20 18 Destruction BN Lesions completed [facility] 11/13/2018 15:53:52 06/09/20 18 Suture/Staple removal completed [facility] 06/09/2018 15:59:29 05/30/20 18 Wound Repair; Intermediate completed ALESSANDRO CAMACHO DO [address] [place], [address], [facility] 05/30/2018 12:30:36 05/30/20 18 Excision BN lesion; trunk, arms or legs completed [facility] 05/30/2018 08:04:58 05/08/20 18 Biopsy Skin Lesion; Tangential completed [facility] 05/08/2018 14:25:16 11/07/20 17 Destruction Premalignant Lesion(s) completed MECHE COTE [employer] ANALYSIS MANAGER [address] [place], [address], [facility] 11/07/2017 09:41:15 11/07/20 17 Destruction BN Lesions completed MECHE [employer]OTE [employer] ANALYSIS MANAGER [address] [place], [address], [facility] 11/07/2017 09:47:24 07/04/20 17 Biopsy Skin completed MECHE COTE [employer] ANALYSIS MANAGER [address] [place], [address], [facility] 07/04/2017 15:31:44 12/05/19 17 Destruction Premalignant Lesion(s) completed MECHE COTE, REPORTS ANALYSIS MANAGER [address] [place], [address], [facility] 12/05/2016 15:29:26 12/05/19 17 Destruction BN Lesions completed MECHE COTE, REPORTS ANALYSIS MANAGER [address] [place], [address], [facility] 12/05/2016 15:30:31 Imaging Results None [...] Smoking Status Former Smoker MECHE BARRERA ROCAEL, REPORTS ANALYSIS MANAGER [address] [place], [address], [facility] 07/04/2017 14:59:49 What Was The Date Of Your Most Recent Tobacco Screening? 07/04/2017 Information n ot available 01/05/2020 Sex: Male Functional Status None recorded. Mental Status None recorded. Family History Nothing Reported. Medical History Condition Response Basal Cell Carcinoma Y Past Encounters Encounter ID Performer Location Encounter Start Date Encounter Closed Date Diagnosis/Indication Diagnosis SNOMED-CT Code Diagnosis ICD10 Code Diagnosis Note [id number] ALESSANDRO CAMACHO DO [facility] [address] [place] [address] 03/18/2025 11:13:02 03/18/2025 12:35:04 History of malignant basal cell neoplasm of skin 784529728 Z85.828 R upper chest, L mid back, R shoulder, right upper back, midline upper back, lower back -no recurrence History of squamous cell carcinoma of skin 557653985 Z85.828 right cheek - no recurrence Solar lentiginosis 13998 2006 L81.4 Benign Reassuranc erecommend ed sun protective clothing and a mineral based sunscreen 30 SPF or higher lotion OTC daily Senile angioma 4679634 I 78.1 Benign Reassuranc e Multiple b enign melanocytic nevi 944593614 D22.9 Benign Reassuranc e Fingertip eczema 5560129 08 L30.9 chronicimp rovingmild today on palms, fingersPat ient happy with treatmentC ontinue dupixent injectionw ill need PAwill send in script for dupixent 300mg sub pen injectorse nt to [employer] for PAinject one pen every two weekspatie nt would like to self inject Porokeratosis 740355370 Q82.8 monitormea suredrevie wed - no change Actinic keratosis 507381 007 L57.0 Education then treated with LN; right helix x1, left upper lateral forehead x1, left dorsal hand x1pt tolerated welladvise d pt what to expect with freezing Neoplasm o f uncertain behavior of skin 46491847 D48.5 A. right anterior scalp r/o BCCB. [...] any increase in redness, drainage, or pain. [id number] ALESSANDRO CAMACHO DO [facility] [address] [place] [address] 03/22/2025 13:00:35 03/22/2025 14:41:56 Intraepidermal squamous carcinoma of scalp 688136797 D04.4 right anterior scalpDiscu ssed diagnosis SCC [...] pain. Basal cell carcinoma of lower extremity 796399615 C44.719 left mid shinDiscus sed diagnosis superficia [...] Member ID Marques Member ID Guarantor Name 03/22/2025 1 [facility] [id number] Arun Granados [id number] Arun Granados Notes Date Note Type Note Provider Name and Address Organization Details Recorded Time 03/22/2025 text/html Established PatientPatient presents today for an ed&c of a SCCis on right anterior scalp and an ED&C of a BCC on left mid lambert.no new, changing, bleeding, or symptomatic lesions to report ALESSANDRO CAMACHO DO [address] [place], [address], [facility] 03/22/2025 17:46:24
--- NOTE | 2025-04-01 07:30 | NM_ITS ---
APPROVED REPORT Exam: Nuclear Stress Test Indication: fatigue Patient Location: Outpatient Stress Tech: Kelly Rodriguez [place] Tech:CODIE Jimenez RT(R)(N) Ht: 5 ft 11 in Wt: 280 lbs HR: 65 bpm BP: 146/72 mmHg BSA: 2.43 m2 TID: 1.23 BMI: 39.0 History: fatigue Procedure: Patient received 0.4 mg of intravenous Lexiscan, resting heart rate 65 bpm, resting blood pressure 146/72 mmHg, with Lexiscan maximum heart rate achieved was 101 bpm which is 85 % of the maximum predicted heart rate and blood pressure was 166/75 mmHg. With Lexiscan, patient denied any complaint of chest pain. Cardiac Stress and Resting SPECT Images: Cardiac Stress and Resting SPECT images were obtained using technetium 99m Myoview 31.2 mCi stress and 10.57 mCi at rest. Raw images demonstrate significant soft tissue overlap with the cardiac borders. This may affect the diagnostic interpretation of the study findings. Resting and stress imaging in supine and prone positions demonstrate a medium sized, moderate, predominantly fixed perfusion defect in the basal to mid inferior and lateral LV rothman. Findings may be suggestive of soft tissue attenuation, but true perfusion defect cannot be entirely ruled out. There is also increase in transient ischemic dilatation ratio (TID 1.23), suggestive of possible multivessel disease or balanced ischemia. Gated imaging demonstrates normal global and regional LV systolic function. LVEF is calculated at 64%. Conclusion: Medium sized, moderate, predominantly fixed perfusion defect in the basal to mid inferior and lateral LV rothman. Findings may be suggestive of soft tissue attenuation, but true perfusion defect cannot be entirely ruled out. There is also increase in transient ischemic dilatation ratio (TID 1.23), suggestive of possible multivessel disease or balanced ischemia. Gated imaging demonstrates normal global and regional LV systolic function. LVEF is calculated at 64%. Electronically signed by : Cindy Gauthier MD 04/01/2025 14:13:24
[2025-04-01] MEDS: SODIUM CHLORIDE 0.9% 10ML SYR (RAD ONLY) 10 ML IV ×2 (10:06)
[2025-04-01] MEDS: ISOTOPE MYOVIEW (PER STUDY) 1 DOSE IV (10:06)
[2025-04-01] MEDS: REGADENOSON 0.4MG/5ML SYRINGE 0.4 MG IV (10:06)
== END 2025-04-01 23:59 | disposition home or self-care (01) ==
LOC: RAD 07:03
PROVIDERS: PCP Family Medicine; Visit Provider Internal Medicine
DX: R94.31 Abnormal electrocardiogram [ECG] [EKG] (principal); R79.89 Other specified abnormal findings of blood chemistry; I21.4 Non-ST elevation (NSTEMI) myocardial infarction
CPT/HCPCS: 78452; 93017; 93018; A9502; J2785

== ENCOUNTER 2025-04-27 07:32 | Outpatient (CLI) | payer OTHER, SELFPAY ==
--- OUTSIDE RECORDS SUMMARY | 2024-03-27 12:00 | XMS_ITS ---
Author Organization [facility] Address [address] [place] [address] Care Team Providers Care Cardiology Nurse Practitioner Name Role Phone Unknown, PCP Primary Care Provider Unavailabl e Provider, [id number] Unavailable REASON FOR VISIT Shingles Encounters Encounter Location Date Provider Diagnosis [id number] [address] 03/27/2024 [id number] Provider Plan Of Treatment No Information Progress Notes * Arun MARTINEZ Jr.:[birth year] (74 yo M)Acc No.[id number]:03/27/2024 Progress Note Patient: Marissa Arun WALTON Jr. Provider: [id number] Provider :1950 A ge:73 Y S ex:Male Date:03/27/2024 External Visit ID:[id number] Address:[address] [facility] [id number] Pcp:PCP Unknown Subjective: * Chief Complaints: * 1 . Shingles. * Medical History: Objective: * Vitals: Assessment: Plan: * Treatment: * Billing Information: * Visit Code: * Procedure Codes: Care Plan Details* * Electronic signature of [id number] Provider on 04/27/2025 at 06:34 AM CDT Sign off status: Pending * Provider: 1 [id number] Provider Date: 03/27/2024 Generated for Roberta ng/Fabangg/eTransmitting on: 0 04/27/2025 06:34 AM CDT
--- OUTSIDE RECORDS SUMMARY | 2025-03-22 11:09 | XMS_ITS ---
[facility] Organization [facility] [place] Address [address] [facility] [address] [facility] [address] [place], [place] [id number] Care Team Providers Care Document Image Technician Name Role Phone Justin Marcum Primary Care Provider Reason For Referral Diagnosis 1 Elevated troponin le silvia (R79.89) Referral Organization Suha Referring Provider First Name Justin Referring Provider Last Name Jossue Referring Provider Speciality Family Pra ctice Referred Provider Horacio De Jesus Referred Provider Specialty Cardiovascul ar Disease General Notes Jessica Parikh 2024 07:45:48 AM > faxed to Dr. De Jesus's office Referral Priority Routine Encounters Encounter Location Date Provider Diagnosis [facility] [address] [place] [id number] 03/22/2025 Justin Marcum Elevated troponin level R79.89 Assessments Encounter Date Diagnosis (ICD Code) Assessment Notes Treatment Notes Treatment Clinical Notes Section Notes 03/22/2025 Elevated troponin level (ICD-10 - R79.89) Plan Of Treatment Referrals Referral Date Details 03/22/2025 03/22/2025Horacio Next Appt Details Provider Name:Justin king, 10/22/2025 04:15:00 PM, [facility] [facility] [address] [facility], [place], [place], [phone], Progress Notes * Lester MARTINEZOB:[birth year] (74 yo M)Acc No.[id number]:03/22/2025 Patient: Arun Sanders :1950 A ge:74 Y S ex:Male Address:[address], [place], [address] Subjective: * Chief Complaints: * * Medical History: * Surgical History: * Hospitalization/Major Diagno stic Procedure: * Medications: Objective: Assessment: * Assessment: 1. E levated troponin level - R79.89 (Primary) Plan: * Treatment: * Procedure Codes: * true * Date: Generated for Roberta carter/Luke/eTransmitting on: 0 04/27/2025 07:35 AM EDT Consultation Request Notes Referral Date Referring Provider Referred Provider Not es 03/22/2025 Justin Marcum Matthew
--- OUTSIDE RECORDS SUMMARY | 2025-03-24 12:00 | XMS_ITS ---
Author Organization Suha Address [address] [facility] [address] [id number] Care Team Providers Care Mergers And Acquisitions Consultant Name Role Phone Justin Marcum Primary Care Provider Allergies Allergen (clinical drug ingredient) Drug/Non Drug Allergy documented on EMR Reaction Allergy Type Onset Date Status CL+ME- ISOTHIAZOLINO NE (uncoded) Unknown Allergy Active Medicinal quinolone and acting as antibacterial agent (FN) QUINOLINE MIX (uncoded) Unknown Allergy Acti ve Dristan hives Drug Allergy Active mercaptopurine Mercaptopurine Unknown Drug Allergy Active Latex Latex Unknown Allergy Active REASON FOR VISIT 6 months Encounters Encounter Location Date Provider Diagnosis Suha [address] [id number] 03/24/2025 Justin Marcum Plan Of Treatment Next Appt Details Provider Name:Justin Bobo ry, 10/22/2025 04:15:00 PM, [address] [facility] 36 [facility], [address], [place], [place], [phone], Progress Notes * Lester MARTINEZOB:[birth year] (74 yo M)Acc No.[id number]:03/24/2025 Progress Notes Patient: Marissa Arun WALTON Provider: Marissa Marcum M.D. :1950 A ge:74 Y S ex:Male Date:03/24/2025 Address:[address] [facility] Subjective: * Chief Complaints: * 1 . 6 months. * ROS: D ERMATOLOGY: no R trinidad. n o H dwain. G ASTROENTEROLOGY: no N ausea. n o V omiting. U ROLOGY: no D ifficulty urinating. n o B lood in urine. * Medical History: T ype 2 Diabetes, Hypertension, Sleep Apnea, Basal Cell Carinoma, Migraine Headache, Lumbar Herniated Disc 1995, 2014, Epidural Injections, Colon Polyps, 2003, Allergic Rhinitis, Rheumatic Fever. * Surgical History: T onsillectomy 1959, Appendectomy 1979, LT Cataract Removal 02/11/2017, RT Cataract Removal 02/2017, LT Ear Tube 03/2017, 2019, Colonoscopy: 2016 . * Hospitalization/Major Diagno stic Procedure: R heumatic fever- [facility] 1961, Appendectomy- [facility] 1979, Allergies- [facility] 2009. * Family History: F ather: , heart disease, Stroke. M other: , colon cancer. 1 son(s) , 1 daughter(s) - healthy. . * Social History: C URRENT TOBACCO USE S moking Status: Patient does NOT smoke. C affeine: yes, frequency: 6-7 cups a day. Exercise: yes, walk. Marital Status: . Alcohol: Yes, occasional. Sexually active: yes. * Allergies: D ristan: hives, Latex, CL+ME- ISOTHIAZOLINONE, QUINOLINE MIX, Mercaptopurine. Objective: * Vitals: Assessment: Plan: * Treatment: * Billing Information: * Visit Code: * Procedure Codes: * Electronic signature of Veronica Marcum MD on 04/27/2025 at 07:35 AM EDT Sign off status: Pending * Provider: Marissa Marcum M.D. Date: 0 03/24/2025 Generated for Roberta carter/Luke/Virgil on: 04/27/2025 07:35 AM EDT
--- OUTSIDE RECORDS SUMMARY | 2025-04-16 16:15 | XMS_ITS | Encounter Summary ---
Author Organization [facility] Address [address] [place] [address] Care Team Providers Care Panel Lay Up Worker Name Role Phone Caio Farah MD Unavailable [phone] Reason for Visit * Reason Comments Follow-up Encounter Details Date Type Department Care Team (Latest Contact Info) Description 04/16/2025 4:15 PM EDT Office Visit [facility] [address] [place] [address] Sean Horton PA-C [address] [place] [address] Primary osteoarthritis of right knee (Primary Dx) Social History Tobacco Use Types Packs/Day Years Used Date Smoking Tobacco: Never Smokeless Tobacco: Never Alcohol Use Standard Drinks/Week Comments Never 0 (1 standard drink = 0.6 oz pur e alcohol) Sex and Gender Information Value Date Recorded Sex Assigned at Not on file Legal Sex Male 9:21 PM EDT Gender Identity Not on file Sexual Orientation Not on file documented as of this encounter Ordered Prescriptions Prescription Sig Dispense Quantity Refills Last Filled Start Date End Date lidocaine (LIDODERM) 5 % Top Adhesive Patch, MedicatedIndications :Primary osteoarthritis of right knee Apply 1 patch to dry skin for 12 hours, then off for 12 hours 30 Patch 04/16/2025 documented in this encounter Plan of Treatment Upcoming Encounters Date Type Department Care Team (Late st Contact Info) Description 06/01/2025 4:45 PM EDT Office Visit [facility] [place] [address] [place] [address] Michael Adames MD [address] [place] [address] Scheduled Orders Name Type Priority Associated Diagnoses Orde r Schedule Large Joint Injection/Arthroce ntesis: R knee Procedures Routine Primary osteoarthritis of right knee Ordered: 04/16/2025 documented as of this encounter Visit Diagnoses Diagnosis Primary osteoarthritis of right knee- Primary Primary localized osteoarthrosis, lower leg documented in this encounter Care Teams Panel Lay Up Worker Relationship Specialty Start Date End Date Caio Farah MD [address] [place] [address] Physician Otolaryngology 02/26/24 documented as of this encounter
--- OUTSIDE RECORDS SUMMARY | 2025-04-21 11:30 | XMS_ITS ---
[facility] [address] [id number] Care Team Providers Care Hat Blocking Machine Operator Name Role Phone Justin Marcum Primary Care Provider [phone] Allergies Allergen (clinical drug ingredient) Drug/Non Drug Allergy documented on EMR Reaction Allergy Type Onset Date Status CL+ME- ISOTHIAZOLINO NE (uncoded) Unknown Allergy Active Medicinal quinolone and acting as antibacterial agent (FN) QUINOLINE MIX (uncoded) Unknown Allergy Acti ve Igor muñoz Drug Allergy Active mercaptopurine Mercaptopurine Unknown Drug Allergy Active Latex Latex Unknown Allergy Active REASON FOR VISIT 1 Month Check Up Medications Medication SIG (Take, Route, Frequency, Duration) Notes Start Date End Date Status Potassium Chloride ER 10 MEQ 2 cap(s) orally once a day for 90 days Active metFORMIN HCl ER 500 MG TAKE 2 TABLETS B Y MOUTH ONCE DAILY for 90 days Active Irbesartan-hydroCHLOROthi azide 300-12.5 MG 1 tab(s) orally once a day Active CPAP SUPPLIES use as directed 10/24/2021 Active amLODIPine Besylate 5 MG 1 tab(s) orally once a day Active Sildenafil Citrate 20 MG 1 or 5 tab(s) o rally once daily as needed 06/26/2021 Active Align 4 MG 1 cap(s) orally once a day 01/10/2023 Active ALLERGY INJECTIONS DIRECTED ONCE A WEEK Active Centrum Silver - 1 tab(s) orally once a day for 30 day(s) Active Diclofenac Active Timolol Maleate 0.5 % 1 drop into affect ed eye Ophthalmic Once a day Active Dupixent 300 MG/2ML as directed Subcutaneous Active Vital Signs Blood pressure systolic 150 mm Hg 04/21/20 25 Blood pressure diastolic 82 mm Hg 025 Heart Rate 81 /min 04/21/2025 Height 71.50 in 04/21/2025 Weight 280.2 lbs 04/21/2025 BMI 38.53 kg/m2 04/21/2025 Encounters Encounter Location Date Provider Diagnosis [facility] [facility] [address] [facility] [address] [place] [id number] 04/21/2025 Justin Marcum Essential hypertensi on I10 and Obstructive sleep apnea syndrome G47.33 Assessments Encounter Date Diagnosis (ICD Code) Assessment Notes Treatment Notes Treatment Clinical Notes Section Notes 04/21/2025 Essential hypertension (ICD-10 - I10) 04/21/2025 Obstructive sleep apnea syndrome (ICD-10 - G47.33) Plan Of Treatment Medication Medication Name Sig Start Date Stop Date Notes Irbesartan-hydroCHLOROthiazi de 300-12.5 MG 1 tab(s) orally once a day CPAP SUPPLIES use as directed 10/24/2021 amLODIPine Besylate 5 MG 1 tab(s) orally once a day Next Appt Details Follow Up: 6 Months, Reason: Provider Name:Justin Bobo , 10/22/2025 04:15:00 PM, [address] [facility] [address] [facility], [address], [place], [id number], Progress Notes * MARTINEZ, LesterOB:[birth year] (74 yo M)Acc No.[id number]:04/21/2025 Progress Notes Patient: Arun GONZALEZ Provider: Marissa Marcum M.D. :1950 A ge:74 Y S ex:Male Date:04/21/2025 Address:[address], [id number] Subjective: * Chief Complaints: * 1 . 1 Month Check Up. * HPI: H PI: 74 year old male presents with c/o Here for follow up on: e .coli and sepsis [facility] admission. Pt states he is doing well and does not have any concerns today.? * ROS: D ERMATOLOGY: no R [place]. [...] 02/2017, LT Ear Tube 03/2017, 2019, Colonoscopy: 2017 , Discectomy, Lumbar . * Hospitalization/Major Diagno stic Procedure: R heumatic fever- [facility] 1961, Appendectomy- [facility] 1979, Allergies- [facility] 2009. * Family History: F ather: , heart disease, Stroke. M other: , colon cancer. 1 son(s) , 1 daughter(s) - healthy. . * Social History: C URRENT TOBACCO USE S moking Status: Patient does NOT smoke. C affeine: yes, frequency: 6-7 cups a day. Exercise: yes, walk. Marital Status: . Alcohol: Yes, occasional. Sexually active: yes. * Medications: T aking Timolol Maleate 0.5 % Solution 1 drop into affected eye Ophthalmic Once a day , Taking Dupixent 300 MG/2ML Solution Prefilled Syringe as directed Subcutaneous , Taking Diclofenac , Taking ALLERGY INJECTIONS DIRECTED ONCE A WEEK , Taking Centrum Silver - Tablet 1 tab(s) orally once a day , Taking Sildenafil Citrate 20 MG Tablet 1 or 5 tab(s) orally once daily as needed , Taking Align 4 MG Capsule 1 cap(s) orally once a day , Taking CPAP SUPPLIES DIRECTED , Taking metFORMIN HCl ER 500 MG Tablet Extended Release 24 Hour TAKE 2 TABLETS BY MOUTH ONCE DAILY , Taking Potassium Chloride ER 10 MEQ Capsule Extended Release 2 cap(s) orally once a day , Taking amLODIPine Besylate 5 MG Tablet 1 tab(s) orally once a day , Taking Irbesartan-hydroCHLOROthiazide 300-12.5 MG Tablet 1 tab(s) orally once a day , Medication List reviewed and reconciled with the patient * Allergies: D ristan: hives, Latex, CL+ME- ISOTHIAZOLINONE, QUINOLINE MIX, Mercaptopurine. Objective: * Vitals: W t: 280.2, Temp: 97.8, BP: 150/82, HR: 81, O2 Sat: 98% on RA, Nurse: meenu, Ht: 71.50, Repeat BP: 132/72, BMI:38.53. * Examination: G eneral Examination: General Appearance: N AD. Heart: R SR. Lungs: c lear to auscultation. Assessment: * Assessment: 1. E ssential hypertension - I10 (Primary) 2 . O bstructive sleep apnea syndrome - G47.33 Plan: * Treatment: 2. O bstructive sleep apnea syndrome Refill CPAP SUPPLIES, use as directed, 1, Refills 0. * Follow Up: 6 Months * Billing Information: * Visit Code: 63748 Office Visit, Est Pt., Level 3. * Procedure Codes: * Electronic signature of Veronica Marcum MD on 04/27/2025 at 07:36 AM EDT Sign off status: Pending * Provider: Marissa Marcum M.D. Date: 0 04/21/2025 Generated for Roberta carter/Luke/eTransmitting on: 0 04/27/2025 07:36 AM EDT History and Physical Notes * HPI (History of Present Illness) Category Sub-Category Detail Notes Category Not es HPI Here for follow up on: e.coli an d sepsis [facility] admission. Pt states he is doing well and does not have any concerns today Examination Category Sub-Category Detail Notes Category Not es General Examination Heart: RSR Lungs: clear to auscultatio n General Appearance: NAD
--- OUTSIDE RECORDS SUMMARY | 2025-04-27 07:34 | XMS_ITS | Clinical Summary ---
Author Organization [facility] Address [address] [place] [address] Care Team Providers Care Clinical Transplant Coordinator Name Role Phone Justin Marcum MD Primary Care Provider + [phone] Source Comments This information has been disclosed to you from confidential records protectedfrom disclosure by state law. You shall make no further disclosure of thisinformation without the specific, written, and informed release of theindividual to whom it pertains, or as otherwise permitted by law. A generalauthorization for the release of medical or other information is not sufficientfor the purposes of therelease of HIV test results or diagnoses. [id number] Allergies Active Allergy Reactions Criticality Noted Date Comments Latex Other (See Comments) 04/07/2012 rash Medications fluticasone propionate (FLONASE) 50 mcg/actuation nasal spray Use 2 sprays into each nostril daily. Active montelukast (SINGULAIR) 10 mg tablet Take 1 tablet (10 mg total) by mouth at bedtime. Active irbesartan-hydr ochlorothiazide (AVALIDE) 300-12.5 mg per tablet Take 1 tablet by mouth daily. Active AMLODIPINE BESYLATE, BULK, MISC Use 5 mg as directed daily. Active potassium chloride (KLOR-CON M10) 10 MEQ tablet Take 1 tablet (10 mEq total) by mouth 2 times a day. Active metFORMIN (FORTAMET) 500 MG (OSM) 24 hr tablet Take 1 tablet (500 mg total) by mouth 2 times a day with meals. Active multivitamin tablet Take 1 tablet by mouth daily. Active timolol (TIMOPTIC) 0.5 % ophthalmic solution Place 1 drop into both eyes 2 times a day. Active diclofenac (CATAFLAM) 50 MG tablet Take 1 tablet (50 mg total) by mouth if needed (as needed). Active Bifidobacterium infantis (ALIGN ORAL) Take 1 tablet by mouth daily. 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 Overview (04/16/2024): From Automated Load;Provider: Fausto Clarke;Status: Active From Automated Load;Provider: Fausto Clarke;Status: Active Family History Medical History Relation Comments Cancer Mother Colon Relation Status Comments Mother Social History Tobacco Use Types Packs/Day Years Used Date Smoking Tobacco: Former Cigarettes 1.5 25 Q uit: 05/21/1989 Smokeless Tobacco: Never Tobacco Cessation:Counseling Given: Not Answered Alcohol Use Standard Drinks/Week Comments Not Currently 0 (1 standard drink = 0.6 oz pur e alcohol) Maybe once a month Sex and Gender Information Value Date Recorded Sex Assigned at Not on file Legal Sex Male 10:19 PM EST Gender Identity Not on file Sexual Orientation Not on file Last Filed Vital Signs Vital Sign Reading Time Taken Comments Blood Pressure - - Pulse 80 04/16/2024 3:49 PM EDT Temperature - - Respiratory Rate - - Oxygen Saturation 96% 04/16/2024 3:49 PM EDT Inhaled Oxygen Concentration 96% 04/16/2024 3 :49 PM EDT Weight 123.4 kg (272 lb) 04/16/2024 3:49 PM EDT Height 180.3 cm (5' 11 ) 04/16/2024 3:49 PM EDT Body Mass Index 37.94 04/16/2024 3:49 PM EDT Plan of Treatment Health Maintenance Due Date Last Done Comments Abnormal Colonoscopy Follow Up 1950 Diabetes Screening 1950 Alcohol Misuse Screening 1970 Depression Screening 1970 Immunization: DTaP/Tdap/Td (1 - Tdap) 1971 Cologuard (FIT-DNA) 1997 Colonoscopy 1997 Colorectal Cancer Screening (MyChart) 1997 Stool Testing (gFOBT) 1997 Immunization: Pneumococcal (1 of 1 - PCV) 2002 Abdominal Aortic Aneurysm (AAA) Screening 2017 Immunization: Zoster (2 of 2) 05/22/2024 03/27/2024 Immunization: COVID-19 ( - 2023- season) 2024 Immunization: Influenza (MyChart) (Season Ended) 07/19 Immunization: RSV (Adult) (1 - 1-dose 75+ series) 07/[address] Care Teams Clinical Transplant Coordinator Relationship Specialty Start Date End Date Justin Marcum MD [address] [place] [address] PCP - General Family Medicine 04/15/24
--- OUTSIDE RECORDS SUMMARY | 2025-04-27 07:34 | XMS_ITS | Patient Health Record ---
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 Role Phone Justin Marcum Primary Care Provider Allergies Allergen (clinical drug ingredient) Drug/Non Drug Allergy documented on EMR Reaction Allergy Type Onset Date Status CL+ME- ISOTHIAZOLINO NE (uncoded) Unknown Allergy Active Medicinal quinolone and acting as antibacterial agent (FN) QUINOLINE MIX (uncoded) Unknown Allergy Acti ve Drluann muñoz Drug Allergy Active mercaptopurine Mercaptopurine Unknown Drug Allergy Active Latex Latex Unknown Allergy Active Results Component Value Reference Range Notes Glucose (In-House) Reviewed date:05/05/2024 09:31:29 AM Interpretation:103 Performing Lab: Notes/Report: 103 blood glucose 103 74 - 106 mg/dL CBC Venipuncture (in house) Reviewed date:05/05/2024 09:16:35 AM Interpretation: Performing Lab: Notes/Report: wbc 7.5 3.5 - 10 lymph 29.9 15 - 50 mid 7.8 2 - 15 gran 62.3 35 - 80 rbc 5.15 3.5 - 5.5 hgb 15.3 11.5 - 16.5 hct 47.0 35 - 55 mcv 91.1 75 - 100 mch 29.7 25 - 35 mchc 32.5 31 - 38 platlet 227 100 - 400 Glycohemoglobin A1c (in hous e) Reviewed date:05/05/2024 09:31:29 AM Interpretation:5.5% Performing Lab: Notes/Report: 5.5% glycohemoglobin 5.5% 5 - 6.5 % P-Comprehensive Metabolic Pa bennie (CMP) Reviewed date:05/05/2024 09:31:29 AM Interpretation:a/g 2.6 Performing Lab: Notes/Report: Test performed by [facility] [address] [place] [address] , [address], [place] [address] Natalio Xiao MD, [employer] CLIA: [id number] Sodium 139 135-145 mEq/L Potassium 3.9 3.5-5.3 mEq/L Chloride 101 97-108 mEq/L CO2 26 22-32 mEq/L Glucose 93 65-99 mg/dL BUN 22 8-23 mg/dL Creatinine 0.90 0.70-1.30 mg/dL Calcium 9.7 8.6-10.4 mg/dL eGFR by Creatinine 91 >59 mL/min/1.73m2 Protein 6.4 6.0-8.3 g/dL Albumin 4.6 3.5-5.3 g/dL Alkaline Phosphatase 73 40-129 IU/L ALT (SGPT) 28 <5-55 IU/L AST (SGOT) 28 <5-46 IU/L Bilirubin, Total 0.4 <0.2-1.2 mg/dL A/G Ratio 2.6 1.1-2.5 mg/dL P-Lipid Panel Reviewed date:05/05/2024 09:31:29 AM Interpretation:trigs 162 Performing Lab: Notes/Report: Test performed by [facility] [address] [place] [address] [address], [place] [address] Natalio Xiao MD, [employer] CLIA: [id number] Cholesterol 139 <200 mg/dL Triglycerides 162 <150 mg/dL HDL Cholesterol 45 >39 mg/dL Cholesterol / HDL Ratio 3.09 0.00-4.99 Ratio Non-HDL Cholesterol 94 <130 mg/dL LDL Cholesterol (Calculation) 62 <130 mg/dL LDL Cholesterol Levels* Less than 100 mg/dL Optimal 100 to 129 mg/dL Near Optimal/ Above Optimal 130 to 159 mg/dL Borderline High 160 to 189 mg/dL High 190 mg/dL and above Very High * Categories as recommended by the 2004 ATPIII guidelines LDL/HDL Ratio 1.4 <3.3 Ratio ____ LDL Cholesterol Patient History ____ Test Date: 05/13/2023 LDL Results: 66 Units: mg/dL % Change: - ---- Test Date: 11/01/2023 LDL Results: 70 Units: mg/dL % Change: +6% ---- Test Date: 05/04/2024 LDL Results: 62 Units: mg/dL % Change: -11% ____ P-PT/PTT Panel Reviewed date:05/05/2024 09:31:29 AM Interpretation:Normal Performing Lab: Notes/Report: Test performed by [facility], [address] , [address], [place] [address] Natalio Xiao MD, [employer] CLIA: [id number] PT 10.7 9.5-12.2 sec INR 1.0 0.9-1.2 INR Reference Ranges for patients on anticoagulant therapy: RANGES: 2.0 - 3.0: Indications: Treatment of venous thrombosis or pulmonary embolism. Prevention of systemic embolism. Tissue heart valves. Acute myocardial infarction. Atrial fibrillation. 2.5 - 3.5: Indications: Recurrent embolism. Mechanical heart valves. Antiphospholipid antibodies. INR IS FOR USE IN STABILIZED ANTICOAGULATED PATIENTS. Elevated coagulation studies may be seen in patients with hematocrit of greater than 55%. Reference: Practical Diagnosis of Hematological Disorders. 3rd Edition. 2000. p 853. Partial Thromboplastin Time (PTT) 31.5 23.9-33.0 sec Heparin therapeutic range has not been validated for this assay. P-TSH reflex to FT4 Reviewed date:05/05/2024 09:31:29 AM Interpretation:Normal Performing Lab: Notes/Report: Test performed by [facility] [address] [place] [address] , [address], [place] [address] Natalio Xiao MD, [employer] CLIA: [id number] TSH reflex to FT4 2.37 0.43-5.25 mU/L P-Microalbumin/Creatinine, R andom Urine Sample Reviewed date:05/05/2024 09:31:29 AM Interpretation:satisfactory Performing Lab: Notes/Report: Test performed by [facility] [address] [place] [address] , [address], [place] [id number] Natalio Xiao MD, [employer] CLIA: [id number] Albumin/Creatinine Ratio, Urine See Comment 0-30 ug/mg Unable to calculate Urine Albumin/Creatinine Ratio when urine creatinine or urine albumin fall outside established reportable range. Microalbumin, Urine, Random <0.3 Creatinine, Urine 48.1 H-Culture, Blood Reviewed date:03/25/2025 09:11:42 AM Interpretation:No Growth After 5 Days Performing Lab: Notes/Report: CUBLD NO GROWTH AFTER 5 DAYS CUBLD NO GROWTH AFTER 5 DAYS H-Urine Culture and Sensitiv ity Reviewed date:03/25/2025 09:11:42 AM Interpretation:No Growth after 2 Days Performing Lab: Notes/Report: CUU NO GROWTH AFTER 2 DAYS H-Culture, Blood Reviewed date:03/25/2025 09:11:42 AM Interpretation:Now Growth After 5 Days Performing Lab: Notes/Report: CUBLD NO GROWTH AFTER 5 DAYS CUBLD NO GROWTH AFTER 5 DAYS H-CMP Reviewed date:03/25/2025 08:02:28 AM Interpretation:BUN 21, Glu 118 Performing Lab: Notes/Report: NA 137 136-145 mmol/L K 4.2 3.5-5.1 mmoL/L CL 103 98-107 mmol/L CO2 26 22.0-30.0 mmol/L GAP 12.2 5-15 mEq/L BUN 21 9-20 mg/dl CREATT 0.70 0.66-1.25 mg/dl GFRAA 134 >60 ML/MIN EGFR 111 >60 ml/min GLU 118 74-100 mg/dl CA 9.5 8.4-10.2 mg/dl BILIT 0.8 0.2-1.3 mg/dl AST 46 17-59 U/L ALT 54 12-78 U/L TP 7.0 6.3-8.2 g/dl ALB 4.4 3.5-5.0 g/dl GLOB 2.6 1.3-3.2 g/dL AGRATIO 1.7 1.1-1.8 ALP 88 38-126 U/L H-CBC Reviewed date:03/25/2025 08:02:28 AM Interpretation:Normal Performing Lab: Notes/Report: WBC 8.8 4.8-10.8 K/mm3 RBC 5.00 4.60-6.20 M/mm3 HGB 15.2 14.1-18.0 g/dL HCT 43.8 42.0-52.0 % MCV 87.6 80-94 fl MCH 30.4 27.0-31.2 pg MCHC 34.7 31.8-35.4 g/dL RDW-SD 39.2 RDW 12.2 11.5-17.5 % PLT 268 142-424 K/mm3 MPV 8.3 7.4-10.4 fl NE% 62.0 37.0-80.0 % LY% 28.1 10-50 % MO% 6.7 1.7-9.3 % EO% 1.9 0.1-12.0 % BA% 1.1 0.1-2.0 % NRBC% 0 NE# 5.4 1.8-7.8 K/mm3 LY# 2.5 0.7-4.5 K/mm3 MO# 0.6 0.1-1.0 K/mm3 EO# 0.2 0.0-0.4 Kmm3 BA# 0.1 0-0.2 K/mm3 NRBC# 0 TEN-UTI panel Reviewed date:03/10/2025 11:59:19 AM Interpretation:E. Coli Performing Lab: Notes/Report: E. Coli TEN-UTI panel Reviewed date:03/10/2025 11:59:19 AM Interpretation:E. Coli Performing Lab: Notes/Report: E. Coli H-UA Reviewed date:03/25/2025 08:02:28 AM Interpretation: Performing Lab: Notes/Report: UCOL YELLOW Yellow UAPP CLEAR Clear UPH 7.0 5.0-8.5 USG 1.010 1.005-1.030 UPRO Negative Negative UGLU Negative Negative UKET Negative Negative UBLD Negative Negative UNIT Negative Negative UBIL Negative Negative UURO 0.2 0.2 EU/dl ULEU Negative Negative UMICU URINE MICROSCOPIC MICROSCOPIC URBC None 0-3 #/hpf UWBC Occasional 0-3 #/hpf USQEPI 3-5 0-5 #/hpf UBACT Trace NONE /lpf Urinalysis - Inhouse Reviewed date:03/10/2025 11:53:04 AM Interpretation: Performing Lab: Notes/Report: Color/Clarity yellow/clear Leuk 2+ Nitrite Neg Urobili 3.2 Protein 1+ pH 7.0 Blood Trace-Lysed Sp. Gr. 1.020 Ketone Neg Bili Neg Gluc Neg Urinalysis - Inhouse Reviewed date:05/28/2024 01:08:25 PM Interpretation: Performing Lab: Notes/Report: Color/Clarity yellow/clear Leuk neg Nitrite neg Urobili 3.2 Protein neg pH 6.5 Blood neg Sp. Gr. 1.010 Ketone neg Bili neg Gluc neg Glucose (In-House) Reviewed date:09/24/2024 10:52:54 AM Interpretation:125 Performing Lab: Notes/Report: 125 blood glucose 125 74 - 106 mg/dL Glycohemoglobin A1c (in hous e) Reviewed date:09/24/2024 10:52:54 AM Interpretation:5.8 Performing Lab: Notes/Report: 5.8 glycohemoglobin 5.8% 5 - 6.5 % P-Basic Metabolic Panel (BMP ) Reviewed date:09/24/2024 10:52:54 AM Interpretation:Satisfactory Performing Lab: Notes/Report: Test performed by [facility], [facility] [address] [place] [address] , [address], [place] [address] Natalio Xiao MD, Engineer [employer] CLIA: [id number] Sodium 138 135-145 mmol/L Potassium 3.8 3.5-5.3 mmol/L Chloride 99 97-108 mmol/L CO2 29 22-32 mmol/L Glucose 102 65-99 mg/dL BUN 20 8-23 mg/dL Creatinine 0.92 0.70-1.30 mg/dL Calcium 9.8 8.6-10.4 mg/dL eGFR by Creatinine 88 >59 mL/min/1.73m2 Influenza Screen (in house) Reviewed date:09/29/2024 12:08:35 PM Interpretation:Negative Performing Lab: Notes/Report: Negative results Neg CBC Fingerstick (in house) Reviewed date:09/29/2024 12:08:45 PM Interpretation: Performing Lab: Notes/Report: wbc 9.7 3.5 - 10 lym 30.1% 15 - 50 mid 7.3% 2 - 15 gran 62.6% 35 - 80 rbc 5.53 3.5 - 5.5 hgb 16.3 11.5 - 16.5 hct 49.8 35 - 55 mcv 89.9 75 - 100 mch 29.4 25 - 35 mchc 32.7 31 - 38 plat 146 100 - 400 Covid test (in house) Reviewed date:09/29/2024 12:08:22 PM Interpretation:Negative Performing Lab: Notes/Report: Negative Result: Neg H-CBC Reviewed date:03/09/2025 05:05:57 PM Interpretation: Performing Lab: Notes/Report: WBC 8.4 4.8-10.8 K/mm3 RBC 4.31 4.60-6.20 M/mm3 HGB 13.0 14.1-18.0 g/dL HCT 38.9 42.0-52.0 % MCV 90.3 80-94 fl MCH 30.2 27.0-31.2 pg MCHC 33.4 31.8-35.4 g/dL RDW-SD 40.0 RDW 12.1 11.5-17.5 % PLT 161 142-424 K/mm3 MPV 8.9 7.4-10.4 fl NE% 66.5 37.0-80.0 % LY% 15.7 10-50 % MO% 13.7 1.7-9.3 % EO% 3.0 0.1-12.0 % BA% 0.6 0.1-2.0 % NRBC% 0 NE# 5.6 1.8-7.8 K/mm3 LY# 1.3 0.7-4.5 K/mm3 MO# 1.2 0.1-1.0 K/mm3 EO# 0.3 0.0-0.4 Kmm3 BA# 0.1 0-0.2 K/mm3 NRBC# 0 H-CMP Reviewed date:03/09/2025 05:05:57 PM Interpretation: Performing Lab: Notes/Report: NA 139 136-145 mmol/L K 3.7 3.5-5.1 mmoL/L CL 104 98-107 mmol/L CO2 28 22.0-30.0 mmol/L GAP 10.7 5-15 mEq/L BUN 13 9-20 mg/dl Delta: 25 on 03/06/25 Delta: 25 on 03/06/25 CREATT 0.80 0.66-1.25 mg/dl CRCLE 121 50-200 mL/min GFRAA 115 >60 ML/MIN EGFR 95 >60 ml/min GLU 130 74-100 mg/dl CA 8.6 8.4-10.2 mg/dl BILIT 0.5 0.2-1.3 mg/dl AST 31 17-59 U/L ALT 28 12-78 U/L TP 6.3 6.3-8.2 g/dl ALB 3.4 3.5-5.0 g/dl Delta: 4.3 on 03/06/25 Delta: 4.3 on 03/06/25 ALP 80 38-126 U/L NA 139 136-145 mmol/L K 3.7 3.5-5.1 mmoL/L CL 104 98-107 mmol/L CO2 28 22.0-30.0 mmol/L GAP 10.7 5-15 mEq/L BUN 13 9-20 mg/dl Delta: 25 on 03/06/25 Delta: 25 on 03/06/25 CREATT 0.80 0.66-1.25 mg/dl CRCLE 121 50-200 mL/min GFRAA 115 >60 ML/MIN EGFR 95 >60 ml/min GLU 130 74-100 mg/dl CA 8.6 8.4-10.2 mg/dl BILIT 0.5 0.2-1.3 mg/dl AST 31 17-59 U/L ALT 28 12-78 U/L TP 6.3 6.3-8.2 g/dl ALB 3.4 3.5-5.0 g/dl Delta: 4.3 on 03/06/25 Delta: 4.3 on 03/06/25 GLOB 2.9 1.3-3.2 g/dL AGRATIO 1.2 1.1-1.8 ALP 80 38-126 U/L Medications Medication SIG (Take, Route, Frequency, Duration) Notes Start Date End Date Status Timolol Maleate 0.5 % 1 drop into affect ed eye Ophthalmic Once a day Active Potassium Chloride ER 10 MEQ 2 cap(s) orally once a day for 90 days Active metFORMIN HCl ER 500 MG TAKE 2 TABLETS B Y MOUTH ONCE DAILY for 90 days Active Sildenafil Citrate 20 MG 1 or 5 tab(s) o rally once daily as needed 06/26/2021 Active Align 4 MG 1 cap(s) orally once a day 01/10/2023 Active ALLERGY INJECTIONS DIRECTED ONCE A WEEK Active Centrum Silver - 1 tab(s) orally once a day for 30 day(s) Active Irbesartan-hydroCHLOROthi azide 300-12.5 MG 1 tab(s) orally once a day Active Dupixent 300 MG/2ML as directed Subcutaneous Active Diclofenac Active CPAP SUPPLIES use as directed 10/24/2021 Active amLODIPine Besylate 5 MG 1 tab(s) orally once a day Active Immunizations Vaccine Route Administration Date Status Comme nts xFluzone Intradermal (18-64yrs)-trivalent ID Intradermal 07/31/2013 Administered Tetanus Tdap-Adacel (over 7yrs) IM Intramuscular 07/10/2018 Administered Prevnar (PCV20) IM Intramuscular 09/10/2022 Administered Prevnar (PCV13) IM Intramuscular 01/13/2018 Administered PNEUMOVAX 23 VACCINE IM Intramuscular 05/30/2018 Administe red Fluzone Quad (6months&older) IM Intramuscular 07/22/2015 Administered Fluzone Quad (6months&older) IM Intramuscular 07/30/2017 Administered Fluzone Intradermal Quad private(18-64yrs) ID Intradermal 08/31/2016 Administered Fluzone High Dose (65yr and older) IM Intramuscular 08/19/2018 Administered Fluzone High Dose (65yr and older) IM Intramuscular 08/19/2020 Administered Fluzone High Dose (65yr and older) Unknown 09/08/2021 Administered Fluzone High Dose (65yr and older) IM Intramuscular 09/10/2022 Administered Fluzone High Dose (65yr and older) IM Intramuscular 08/29/2023 Administered COVID 19 Moderna Unknown 02/10/2021 Administered COVID 19 Moderna Unknown 09/08/2021 Administered COVID 19 Moderna Unknown 03/07/2022 Administered Problems Problem Type SNOMED Code ICD Code Onset Dates Problem Status W/U Status Risk Notes Problem 94940534 Essential hypert ension (I10) Active confirmed Problem 122494275 Morbid obesity (E66.01) Active confirmed Problem 485391051 Hypertriglycerid emia (E78.1) Active confirmed Problem 535158596 Lumbar herniated disc (M51.26) Active confirmed Problem 427285918 Lumbar facet arthropathy (M47.816) Active confirmed Problem 089942241 Lumbago with sci atica, right side (M54.41) Active confirmed Problem 48096186 Other chronic pa in (G89.29) Active confirmed Problem 44210026651873969 Other hammer t oe(s) (acquired), right foot (M20.41) Active confirmed Problem 54175453 Other hammer toe (s) (acquired), left foot (M20.42) Active confirmed Problem 97383668 Lumbar degenerat kristan disc disease (M51.36) Active confirmed Problem 734236437 History of colon polyps (Z86.010) Active confirmed Problem 05571253 Constipation, unspecified constipation type (K59.00) Active confirmed Problem 128262771 Bulging lumbar d isc (M51.26) Active confirmed Problem 44613984 Obstructive slee p apnea syndrome (G47.33) Active confirmed Problem 35972231 Migraine without status migrainosus, not intractable, unspecified migraine type (G43.909) Active confirmed Problem 356054339 Erectile dysfunc tion, unspecified erectile dysfunction type (N52.9) Active confirmed Problem 65593055 Claudication (I73.9) Active confirmed Problem 947658059 Type 2 diabetes mellitus without complication, without long-term current use of insulin (E11.9) Active confirmed Problem 016770763 Non morbid obesi ty (E66.9) Active confirmed Problem 087501243 Midline low back pain with right-sided sciatica, unspecified chronicity (M54.41) Active confirmed Problem 89253429 Unspecified sinu sitis (chronic) (J32.9) Active confirmed Problem 637469624 Exacerbation of intermittent asthma, unspecified asthma severity (J45.21) Active confirmed Problem 506145412 Simple obesity (E66.9) Active confirm ed Vital Signs Heart Rate 81 /min 04/21/2025 Blood pressure diastolic 82 mm Hg 04/21/2025 Height 71.50 in 04/21/2025 Blood pressure systolic 150 mm Hg 04/21/2025 Weight 280.2 lbs 04/21/2025 BMI 38.53 kg/m2 04/21/2025 Encounters Encounter Location Date Provider Diagnosis [facility] [address] [facility] [address] [id number] 05/04/2024 Justin Talmage Type 2 diabetes cl itus without complication, without long-term current use of insulin E11.9 ; Essential hypertension I10 ; Hypertriglyceridemia E78.1 ; Easy bruising R23.3 ; Non morbid obesity E66.9 ; Hypokalemia E87.6 and Obstructive sleep apnea syndrome G47.33 [facility] [address] [facility] [address] [place] [id number] 05/27/2024 Justin Talmage Acute right-sided th oracic back pain M54.6 and Chronic cough R05.3 [facility] [address] [facility] [address] [place], [place] [id number] 09/23/2024 Justin Talmage Essential hypertensi on I10 ; Hypokalemia E87.6 and Type 2 diabetes mellitus without complication, without long-term current use of insulin E11.9 [facility] [address] [place], [place] [id number] 09/29/2024 Justin Talmage Acute URI J06.9 [facility] [address] [place], [place] [id number] 03/04/2025 Justin Talmage Acute UTI N39.0 [facility] [address] [place], [place] [id number] 03/19/2025 Justin Talmage Bacteremia R78.81 ; Unspecified Escherichia coli [E. coli] as the cause of diseases classified elsewhere B96.20 ; Acute UTI N39.0 ; Essential hypertension I10 ; Type 2 diabetes mellitus without complication, without long-term current use of insulin E11.9 and Hypokalemia E87.6 [facility] [address] [place], [place] [id number] 04/21/2025 Justin Talmage Essential hypertensi on I10 and Obstructive sleep apnea syndrome G47.33 [facility] [address] [place], [place] [id number] 05/05/2024 Justin Talmage [facility] [address] [place] [id number] 06/01/2024 Justin Talmage [facility] [address] [place] [id number] 10/07/2024 Justin Talmage [facility] [address] [place], [place] [id number] 03/08/2025 Justin Talmage [facility] [address] [place], [place] [id number] 03/19/2025 Justin Talmage [facility] [address] [place], [place] [id number] 03/22/2025 Justin Talmage Elevated troponin le silvia R79.89 Assessments Encounter Date Diagnosis (ICD Code) Assessment Notes Treatment Notes Treatment Clinical Notes Section Notes 05/04/2024 Essential hypertensi on (ICD-10 - I10) 05/04/2024 Type 2 diabetes mellitus without complication, without long-term current use of insulin (ICD-10 - E11.9) 05/27/2024 Acute right-sided thoracic back pain (ICD-10 - M54.6) Home exercise program provided to patient, TENS unit OTC recommended 05/27/2024 Chronic cough (ICD-1 0 - R05.3) 09/23/2024 Hypokalemia (ICD-10 - E87.6) 09/23/2024 Essential hypertensi on (ICD-10 - I10) 09/29/2024 Acute URI (ICD-10 - J06.9) 03/04/2025 Acute UTI (ICD-10 - N39.0) 03/19/2025 Unspecified Escheric hia coli [E. coli] as the cause of diseases classified elsewhere (ICD-10 - B96.20) 03/19/2025 Bacteremia (ICD-10 - R78.81) 03/22/2025 Elevated troponin le silvia (ICD-10 - R79.89) 04/21/2025 Essential hypertensi on (ICD-10 - I10) 04/21/2025 Obstructive sleep ap jacki syndrome (ICD-10 - G47.33) 03/19/2025 Acute UTI (ICD-10 - N39.0) 09/23/2024 Type 2 diabetes mellitus without complication, without long-term current use of insulin (ICD-10 - E11.9) 05/04/2024 Hypertriglyceridemia (ICD-10 - E78.1) 05/04/2024 Easy bruising (ICD-1 0 - R23.3) 03/19/2025 Essential hypertensi on (ICD-10 - I10) 03/19/2025 Type 2 diabetes mellitus without complication, without long-term current use of insulin (ICD-10 - E11.9) 05/04/2024 Non morbid obesity (ICD-10 - E66.9) 05/04/2024 Hypokalemia (ICD-10 - E87.6) 03/19/2025 Hypokalemia (ICD-10 - E87.6) 05/04/2024 Obstructive sleep ap jacki syndrome (ICD-10 - G47.33) Plan Of Treatment Next Appt Details Provider Name:Justin king, 10/22/2025 04:15:00 PM, [address], [address], [place], [id number], Insurance Providers Payer Name Payer Address Payer Phone Subscriber Number Group Number Insured Name Patient Relationship to Insured Coverage Start Date Coverage End Date [facility] [id number] [place] [phone] [id number] Arun Granados Self - patient is the insured Medical (General) History Medical History History ICD Code Type 2 Diabetes Hypertension Sleep Apnea Basal Cell Carinoma Migraine Headache Lumbar Herniated Disc 1995, 2014, Epidur al Injections Colon Polyps, 2004 Allergic Rhinitis Rheumatic Fever Surgical History Surgery Date(Month/Year) Tonsillectomy 1960 Appendectomy 1979 LT Cataract Removal 02/11/2017 RT Cataract Removal 02/2017 LT Ear Tube 03/2017, 2019 Colonoscopy: 2017 Discectomy, Lumbar Hospitalization History Reason Date(Month/Year) Allergies- [facility] 2009 Appendectomy- [facility] 1979 Rheumatic fever- [facility] 1961
--- OUTSIDE RECORDS SUMMARY | 2025-04-27 07:35 | XMS_ITS | Continuity of Care Document ---
Author Organization [facility] Address [address] [place] [address] Assessment No assessment recorded. Plan of Treatment [...] By Organization Details Last Modified Time 03/22/2025 [id number] If any lesions change, or if any other new or symptomatic lesions occur, patient understands to return to the clinic for further evaluation Discussed sun precautions; SPF 30+ [email or web address] Not available 03/22/2025 11:49:39 Reason for Referral None Reported. 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 Please review this document and add these problems to the patient's chart manually as needed. Problem Notes None recorded. Procedures Surgical History Date Name Laterality Status Provider Name and Address Organization Details Recorded Time 03/22/20 25 Destruction [place] Lesion; trunk, arm, leg completed ALESSANRDO CAMACHO DO [address] [place], [address], [facility] 03/22/2025 17:45:39 03/22/20 25 Destruction MN Lesion; scalp, neck, hand, foot, genitalia completed [facility] 03/22/2025 14:03:59 03/18/20 25 Biopsy Skin Lesion; Tangential [facility] 03/18/2025 12:29:23 03/18/20 25 Destruction Premalignant Lesion(s) completed Gianna [facility] 03/18/2025 12:29:44 08/27/20 24 Destruction Premalignant Lesion(s) completed [facility] 08/27/2024 15:26:06 05/06/20 24 Destruction MN Lesion; trunk, arm, [facility] 16:26:15 05/06/20 24 Destruction Premalignant Lesion(s) completed [facility] 05/06/2024 16:24:00 11/12/20 23 Destruction MN Lesion; trunk, arm, leg completed ALESSANDRO CAMACHO DO [address] [place], [address], [facility] 11/12/2023 12:04:25 10/29/20 23 Biopsy Skin Lesion; Tangential completed Anyi Hobson [facility] 10/29/2023 15:25:32 04/09/20 23 Destruction BN Lesions completed [facility] 04/09/2023 15:06:44 10/09/20 22 Destruction MN Lesion; face, ear, eyelid, nose, lip completed ALESSANDRO CAMACHO, DO [address] [place], [address], [facility] 10/09/2022 17:40:34 10/01/20 22 Biopsy Skin Lesion; Tangential completed ALESSANDRO CAMACHO, DO [address] [place], [address], [facility] 10/01/2022 13:07:26 10/01/20 22 Destruction Premalignant Lesion(s) completed [facility] 10/01/2022 09:51:03 10/01/20 22 Destruction BN Lesions [facility] 10/01/2022 09:51:16 03/27/20 22 Biopsy Skin Lesion; Tangential completed [facility] 03/27/2022 15:21:23 03/27/20 22 Destruction Premalignant Lesion(s) completed [facility] 03/27/2022 15:22:22 05/25/20 21 Destruction Premalignant Lesion(s) completed Juanita [facility] 05/25/2021 08:35:15 05/25/20 21 Destruction BN Lesions completed ALESSANDRO CAMACHO, DO [address] [place], [address], [facility] 05/25/2021 17:04:04 11/04/20 20 Destruction MN Lesion; trunk, arm, leg completed ALESSANDRO CAMACHO, DO [address] [place], [address], [facility] 11/04/2020 13:56:23 11/01/20 20 Biopsy Skin Lesion; Tangential completed [facility] 11/01/2020 14:14:05 11/01/20 20 Destruction Premalignant Lesion(s) completed [facility] 11/01/2020 14:17:04 11/01/20 20 Destruction BN Lesions completed [facility] 11/01/2020 14:23:30 04/19/20 20 Destruction Premalignant Lesion(s) completed Zelda Jimenez [facility] 04/19/2020 15:39:32 04/19/20 20 Destruction BN Lesions completed Zelda Jimenez [facility] 04/19/2020 15:41:16 11/03/20 19 Destruction Premalignant Lesion(s) completed [facility] 11/03/2019 15:14:27 05/12/20 19 Destruction Premalignant Lesion(s) completed [facility] 05/12/2019 15:55:50 11/21/19 19 Destruction MN Lesion; trunk, arm, leg completed ALESSANDRO CAMACHO DO [address] [place], [address], [facility] 11/21/2018 09:13:11 11/13/20 18 Biopsy Skin Lesion; Tangential completed [facility] 11/13/2018 15:52:59 11/13/20 18 Destruction Premalignant Lesion(s) completed [facility] 11/13/2018 15:56:29 11/13/20 18 Destruction BN Lesions completed [facility] 11/13/2018 15:53:52 06/09/20 18 Suture/Staple removal completed [facility] 06/09/2018 15:59:29 05/30/20 18 Wound Repair; Intermediate completed ALESSANDRO CAMACHO DO [address] [place], [address], [facility] 05/30/2018 12:30:36 05/30/20 18 Excision BN lesion; trunk, arms or legs completed [facility] 05/30/2018 08:04:58 05/08/20 18 Biopsy Skin Lesion; Tangential completed [facility] 05/08/2018 14:25:16 11/07/20 17 Destruction Premalignant Lesion(s) completed MECHE COTE 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 [address] [place], [address], [facility] 11/07/2017 09:41:15 11/07/20 17 Destruction BN Lesions completed MECHE COTE 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 [address] [place], [address], [facility] 11/07/2017 09:47:24 07/04/20 17 Biopsy Skin completed MECHE COTE 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 [address] [place], [address], [facility] 07/04/2017 15:31:44 12/05/19 17 Destruction Premalignant Lesion(s) completed 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, 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 [address] [place], [address], [facility] 12/05/2016 15:29:26 12/05/19 17 Destruction BN Lesions completed 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, [employer]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 [address] [place], [address], [facility] 12/05/2016 15:30:31 Imaging Results [...] Smoking Status Former Smoker MECHE BARRERA ROCAEL, [employer]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 [address] [place], [address], [facility] 07/04/2017 14:59:49 What Was [...] SNOMED-CT Code Diagnosis ICD10 Code Diagnosis Note [id number] ALESSANDRO CAMACHO DO [facility] [address] [place] [address] 03/18/2025 11:13:02 03/18/2025 12:35:04 History of malignant basal cell neoplasm of skin 127033898 Z85.828 R upper chest, L mid back, R shoulder, right upper back, midline upper back, lower back -no recurrence History of squamous cell carcinoma of skin 829476828 Z85.828 right cheek - no recurrence Solar lentiginosis 41225 2006 L81.4 Benign Reassuranc erecommend ed sun protective clothing and a mineral based sunscreen 30 SPF or higher lotion OTC daily Senile angioma 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 I 78.1 Benign Reassuranc e Multiple b enign melanocytic nevi 634280416 D22.9 Benign Reassuranc e Fingertip eczema 3541735 08 L30.9 chronicimp rovingmild today on palms, fingersPat ient happy with treatmentC ontinue dupixent injectionw ill need PAwill send in script for dupixent 300mg sub pen injectorse nt to [facility] for PAinject one pen every two weekspatie nt would like to self inject Porokeratosis 586242059 Q82.8 monitormea suredrevie wed - no change Actinic keratosis 626398 007 L57.0 Education then treated with LN; right helix x1, left upper lateral forehead x1, left dorsal hand x1pt tolerated welladvise d pt what to expect with freezing Neoplasm o f uncertain behavior of skin 28891900 D48.5 A. right anterior scalp r/o BCCB. [...] any increase in redness, drainage, or pain. [id number] ALESSANDRO CAMACHO, DO [facility] [address] [place] [address] 03/22/2025 13:00:35 03/22/2025 14:41:56 Intraepidermal squamous carcinoma of scalp 103561271 D04.4 right anterior scalpDiscu ssed diagnosis SCC [...] pain. Basal cell carcinoma of lower extremity 266330742 C44.719 left mid shinDiscus sed diagnosis superficia [...] Marques Member ID Guarantor Name 03/22/2025 1 [facility] [id number] Arun Granados [id number] Arun Granados Notes Date Note Type Note Provider Name and Address Organization Details Recorded Time 03/22/2025 text/html Established PatientPatient presents today for an ed&c of a SCCis on right anterior scalp and an ED&C of a BCC on left mid lambert.no new, changing, bleeding, or symptomatic lesions to report ALESSANDRO CAMACHO DO [address], [place], [address], [facility] 03/22/2025 17:46:24
--- OUTSIDE RECORDS SUMMARY | 2025-04-27 07:35 | XMS_ITS | Clinical Summary ---
Author Organization [facility] Address [address] [place] [address] Phone Care Team Providers Care Professor Of Oceanography Name Role Phone Caio Farah MD Unavailable [phone] Allergies Active Allergy Reactions Criticality Noted Date Comments Latex Other (See Comments) 05/26/2021 rash Medications potassium chloride (MICRO-K) 10 mEq Oral Capsule, Sustained Release 12/13/19 21 Active amLODIPine (NORVASC) 5 mg Oral Tablet 11/25/19 21 Active metFORMIN XR (GLUCOPHAGE-XR) 500 mg Oral Tablet Sustained Release 24 hr 11/18/19 21 Active clobetasoL (TEMOVATE) 0.05 % Top Ointment clobetasol 0.05 % topical ointment Apply a thin layer to the affected areas on the fingertips, every night for 2 weeks, then 2-3 times a week, if needed. Active losartan-hydrochlo rothiazide (HYZAAR) 100-25 mg Oral Tablet 05/02/20 21 Active montelukast (SINGULAIR) 10 mg Oral Tablet 04/06/20 21 Active triamterene-hydroc hlorothiazide (DYAZIDE) 50-25 mg Oral Capsule Active azelastine (ASTELIN) 137 mcg (0.1 %) Nasl Aerosol, SprayIndications:A llergic rhinitis, unspecified seasonality, unspecified trigger 2 Sprays in each nostril 2 times daily. 30 mL 5 09/18/20 21 Active methylPREDNISolone (MEDROL, DANIEL,) 4 mg Oral Tablets, Dose PackIndications:Se asonal allergic rhinitis, unspecified trigger See package instructions 1 Tablet 03/26/20 22 Active sildenafiL, pulm.hypertension, (REVATIO) 20 mg Oral Tablet 03/27/20 22 Active ofloxacin (OCUFLOX) 0.3 % Opht DropsIndications:O ther specified disorders of eustachian tube, left ear,S/P myringotomy with insertion of tube 5 drops in the left ear 2 times a day for 5 days 10 mL 1 04/02/20 22 Active irbesartan-hydroch lorothiazide (AVALIDE) 300-12.5 mg Oral Tablet 06/25/20 22 Active ciprofloxacin-dexa methasone (CIPRODEX) Otic Drops, Suspension Ciprodex 0.3 %-0.1 % ear drops,suspension Active timolol (TIMOPTIC) 0.5 % Opht Drops Place into both eyes 2 times daily. Active latanoprost (XALATAN) 0.005 % Opht Drops nightly. Active IPRATROPIUM BROMIDE NASL by Nasal route. A ctive levocetirizine (XYZAL) 5 mg Oral TabletIndications: Allergic rhinitis, unspecified seasonality, unspecified trigger TAKE 1 TABLET BY MOUTH DAILY 90 Tablet 11 10/16/20 23 Active azelastine (ASTELIN) 137 mcg (0.1 %) Nasl Aerosol, SprayIndications:C hronic rhinitis USE 2 SPRAYS IN BOTH NOSTRILS TWICE DAILY 120 mL 3 10/16/20 23 Active EPINEPHrine (EPIPEN 2-DANIEL) 0.3 mg/0.3 mL Inj Auto-InjectorIndic ations:Allergic rhinitis, unspecified seasonality, unspecified trigger Inject 0.3 mL into the muscle as needed for Anaphylaxis. 1 Each 11/22/19 24 Active diclofenac (VOLTAREN) 1 % Top GelIndications:Luna jennifer osteoarthritis of right knee Apply 2 grams topically twice daily as needed 3 Each 3 01/27/20 24 Active azithromycin (ZITHROMAX) 250 mg Oral Tablet 02/12/20 24 Active fluticasone propionate (FLONASE) 50 mcg/actuation Nasl Morganza, Suspension 2 Sprays by Nasal route daily. 1 Each 5 02/17/20 24 Active fluticasone (FLONASE SENSIMIST) 27.5 mcg/actuation Nasl Morganza, SuspensionIndicati ons:Allergic rhinitis, unspecified seasonality, unspecified trigger USE 2 SPRAYS NASALLY DAILY 5.9 g 3 03/12/20 24 Active lidocaine (LIDODERM) 5 % Top Adhesive Patch, MedicatedIndicatio ns:Primary osteoarthritis of right knee Apply 1 patch to dry skin for 12 hours, then off for 12 hours 30 Patch 04/16/20 25 Active Active Problems Patient Care Coordination No te Formatting of this note migh t be different from the original. [facility] Controlled report completed 07/19/2021 Informed consent signed 07/14/2021 [facility] - Fausto Marte MD Interventional Pain Protocol: [facility] report completed (EVERY 3 MONTHS) ( 02/05/22 ) [facility] [address] [place] [id number] [address] [place] [address] Problem Noted Date Diagnosed Date Sensorineural hearing loss ( SNHL) of right ear with restricted hearing of left ear 03/18/2023 Dizziness 03/18/2023 Abnormal auditory perception 03/18/2023 Mixed conductive and sensori neural hearing loss of left ear with restricted hearing of right ear 03/18/2023 Insufficiency fracture of tibia 09/25/2022 Primary osteoarthritis of right knee 09/25/2022 Encounters Date Type Department Care Team Description 04/16/2025 4:15 PM EDT Office Visit [facility] [address] [place] [address] Sean Horton PA-C Primary osteoarthritis of right knee (Primary Dx) 02/01/2025 8:40 AM EDT Office Visit [facility] [address] [place] [address] Julia Mcdaniels PA-C Abnormal auditory perception of both ears (Primary Dx); S/P tympanostomy tube placement; Sensorineural hearing loss (SNHL), bilateral from Last 3 Months Surgical History Surgery Date Site/Laterality Comments IR GUIDED INJECT TRANSFORAM EPIDUR LUMB OR SACRAL SINGLE LVL 05/09/2021 IR GUIDED INJECT TRANSFORAMINAL EPIDUR LUMB OR SACRAL SINGLE LVL 05/09/2021 [facility] IMAGING OTHER SURGICAL HISTORY 07/20/2021 Rhinaer [post nasal nerve ablation/Dr Angelina Farah TYMPANOSTOMY TUBE PLACEMENT 07/20/[address] Angelina Farah BACK SURGERY TYMPANOSTOMY TUBE PLACEMENT 12/31/[address] Caio Farah Family History Medical History Relation Name Comments Heart Disease Father Cancer Mother Relation Name Status Comments Father Mother Social History Tobacco Use Types Packs/Day Years Used Date Smoking Tobacco: Never Smokeless Tobacco: Never Tobacco Cessation:Counseling Given: Not Answered Alcohol Use Standard Drinks/Week Comments Never 0 (1 standard drink = 0.6 oz pur e alcohol) Sex and Gender Information Value Date Recorded Sex Assigned at Not on file Legal Sex Male 9:21 PM EDT Gender Identity Not on file Sexual Orientation Not on file Obstetrics History Last Filed Vital Signs Vital Sign Reading Time Taken Comments Blood Pressure 142/68 02/06/2022 3:18 PM EDT Pulse 74 02/06/2022 3:18 PM EDT Temperature 36.1 C (97 F) 02/01/2025 8:57 AM EDT Respiratory Rate - - Oxygen Saturation 97% 02/06/2022 3:18 PM EDT Inhaled Oxygen Concentration - - Weight 129 kg (284 lb 6.4 oz) 02/01/2025 8:57 AM EDT Height 180.3 cm (5' 11 ) 11/30/2024 2:41 PM EST Body Mass Index 39.67 11/30/2024 2:41 PM EST Plan of Treatment Upcoming Encounters Date Type Department Care Team (Late st Contact Info) Description 06/01/2025 4:45 PM EDT [facility] [address] [place] [address] Michael Adames MD [address] [place] [address] Health Maintenance Due Date Last Done Comments Annual Wellness Exam 1955 Hepatitis C Screening 1970 Cologuard 1997 Colon Cancer Screening 1997 Colonoscopy 1997 FIT 1997 Sigmoidoscopy 1997 Virtual Colonography 1997 Zoster (2 of 2) 05/22/2024 03/27/2024 COVID-19 Vaccine ( season) 2024 08/22/2022, 03/07/2022, 09/08/2021, Additional history exists Influenza Vaccine (Season Ended) 2025 09/10/2022, 09/08/2021, 08/19/2020, Additional history exists DTaP/TDaP/Td (3 - Td or Tdap) 03/02/2035 03/02/2025, 07/10/2018 Pneumococcal Vaccine 50+ Completed 022, 05/30/2018, 01/13/2018 Hepatitis B Vaccine Aged Out No longe r eligible based on patient's age to complete this topic Meningococcal B Vaccine Aged Out No l onger eligible based on patient's age to complete this topic Insurance Care Teams Professor Of Oceanography Relationship Specialty Start Date End Date Caio Farah MD [address] [place] [address] Physician Otolaryngology 02/26/24
--- OUTSIDE RECORDS SUMMARY | 2025-04-27 07:35 | XMS_ITS | Patient Health Record ---
Author Organization [facility] Address [address] [place] [address] Care Team Providers Care Chief Environmental Commitment Officer Name Role Phone Unknown, PCP Primary Care Provider Unavailabl e Reason For Referral No Information Plan Of Treatment No Information Insurance Providers Payer Name Payer Address Payer Phone Subscriber Number Group Number Insured Name Patient Relationship to Insured Coverage Start Date Coverage End Date [facility] [address] [place] [address] [phone] [id number] Arun Granados Jr. Self - patient is the insured
--- OUTSIDE RECORDS SUMMARY | 2025-04-27 07:35 | XMS_ITS | Data Portability ---
Author Organization [facility] Address [address] [place] [address] Assessment Encounter Date Assessment Date Assessment LastModified by Organization Details LastModified Time 05/06/2024 05/06/2024 follow up in 4 months [email or web address] Not available 05/06/2024 16:01:08 08/27/2024 08/27/2024 f/u 4 months ; skin check Not available 08/27/2024 15:30:10 03/18/2025 03/18/2025 f/u 4 months ; skin check [email or web address] Not available 03/17/2025 16:26:32 Plan of Treatment Reminders Order Date Submit Date Provider Last Modified By Organization Details Last Modified Time Details Appointments [facility] VISIT 2024 03:15P Shanon CLARKE DO Not available Not available Not available Lab surgical pathology study - A. right anterior scalp r/o BCCB. left mid lambert r/o BCC 2024 025 [facility], [address] [place] [address], [phone], 03/19/2025 12:18:46 surgical pathology study - ED&C today x 2 2023 024 [facility], [address] [place] [address], [phone], 05/11/2024 09:12:23 Referral None recorded. Procedures None recorded. Surgeries None recorded. Imaging None recorded. Medication Orders Dupixent 300 mg/2 mL subcutane ous pen injector 2024 025 [email or web address] [facility] ([place]), [address], [address], [place], [place], [phone], 03/18/2025 13:43:03 Dupixent 200 mg/1.14 mL subcutane ous pen injector 2023 024 DAVION [facility] ([place]), [address], [address], [place], [address], 09/01/2024 11:42:19 Patient TargetsNo targets recorded. Patient Instructions Encounter Date Encounter Id Patient Instructions Last Modified By Organization Details Last Modified Time 11/12/2023 [id number] If any lesions change, or if any other new or symptomatic lesions occur, patient understands to return to the clinic for further evaluation Discussed sun precautions; SPF 30+ [email or web address] Not available 11/12/2023 07:14:32 05/06/2024 [id number] If any lesions change, or if any other new or symptomatic lesions occur, patient understands to return to the clinic for further evaluation Discussed sun precautions; SPF 30+ Not available 05/05/2024 17:12:35 08/27/2024 [id number] If any lesions change, or if any other new or symptomatic lesions occur, patient understands to return to the clinic for further evaluation Discussed sun precautions; SPF 30+ [email or web address] Not available 08/26/2024 16:51:10 03/18/2025 [id number] If any lesions change, or if any other new or symptomatic lesions occur, patient understands to return to the clinic for further evaluation Discussed sun precautions; SPF 30+ [email or web address] Not available 03/17/2025 16:26:32 03/22/2025 [id number] If any lesions change, or if any [...] 13:00 Page 1 of 1 Not Available [facility] [address] [place] [address], [place], [address], 10/30/2023 13:00:32 05/06/20 24 05/06/2024 SURGI SURAJ [...] 09:12 Page 1 of 1 Not Available [facility] [address] [place] [address], [place], [address], 05/11/2024 09:12:23 03/18/20 25 03/18/2025 SURGI SURAJ [...] 12:18 Page 1 of 1 Not Available [facility] [address] [place] [address], [place], [address], 03/19/2025 12:18:46 Result Notes None recorded. Problems Name Problem SNOMED Code Status Onset Date Resolution Date Notes Provider Name and Address Organization Details Recorded Time Actinic keratosis Active 2014 From Automated Load;Provi darleen: Tricia, Alessandro;S tatus: Active Not Available [facility] 6 09:17:13 Senile hyperkera tosis 525120877 Active 2014 From Automated Load;Provi darleen: Alessandro Clarke;S tatus: Active Not Available [facility] 6 09:17:13 Lentigo Active 2014 From Automated Load;Provi darleen: Florence Clarkenathan;S tatus: Active Not Available [facility] 6 09:17:13 Notes:Some problems listed i n Document: #[id number] could not be added to this patient's chart. Please review this document and add these problems to the patient's chart manually as needed. Problem Notes None recorded. Procedures Surgical History Date Name Laterality Status Provider Name and Address Organization Details Recorded Time 03/22/20 25 Destruction [place] Lesion; trunk, arm, leg completed ALESSANDRO CLARKE DO [address] [place], [address] 03/22/2025 17:45:39 03/22/20 25 Destruction MN Lesion; scalp, neck, hand, foot, genitalia completed [facility] 03/22/2025 14:03:59 03/18/20 25 Biopsy Skin Lesion; Tangential completed [facility] 03/18/2025 12:29:23 03/18/20 25 Destruction Premalignant Lesion(s) completed [facility] 03/18/2025 12:29:44 08/27/20 24 Destruction Premalignant Lesion(s) completed [facility] 08/27/2024 15:26:06 05/06/20 24 Destruction MN Lesion; trunk, arm, leg completed Suzanne Sandoval [facility] 05/06/2024 16:26:15 05/06/20 24 Destruction Premalignant Lesion(s) completed Suzannejosé antonio Sandoval [facility] 05/06/2024 16:24:00 11/12/20 23 Destruction MN Lesion; trunk, arm, leg completed ALESSANDRO CLARKE DO [address] [place], [address], [facility] 11/12/2023 12:04:25 10/29/20 23 Biopsy Skin Lesion; Tangential completed Anyi [facility] 10/29/2023 15:25:32 04/09/20 23 Destruction BN Lesions completed [facility] 04/09/2023 15:06:44 10/09/20 22 Destruction MN Lesion; face, ear, eyelid, nose, lip completed ALESSANDRO CLARKE, DO [address] [place], [address], [facility] 10/09/2022 17:40:34 10/01/20 22 Biopsy Skin Lesion; Tangential completed ALESSANDRO CLARKE, DO [address] [place], [address], [facility] 10/01/2022 13:07:26 10/01/20 22 Destruction Premalignant Lesion(s) completed Juanita Quain [facility] 10/01/2022 09:51:03 10/01/20 22 Destruction BN Lesions completed Juanita McQuain [facility] 10/01/2022 09:51:16 03/27/20 22 Biopsy Skin Lesion; Tangential completed [facility] 03/27/2022 15:21:23 03/27/20 22 Destruction Premalignant Lesion(s) completed [facility] 03/27/2022 15:22:22 05/25/20 21 Destruction Premalignant Lesion(s) [facility] 05/25/2021 08:35:15 05/25/20 21 Destruction BN Lesions completed ALESSANDRO CLARKE, DO [address] [place], [address], [facility] 05/25/2021 17:04:04 11/04/20 20 Destruction MN Lesion; trunk, arm, leg completed ALESSANDRO CLARKE, DO [address] [place], [address], [facility] 11/04/2020 13:56:23 11/01/20 20 Biopsy Skin Lesion; Tangential completed [facility] 11/01/2020 14:14:05 11/01/20 20 Destruction Premalignant Lesion(s) completed [facility] 11/01/2020 14:17:04 11/01/20 20 Destruction BN Lesions completed [facility] 11/01/2020 14:23:30 04/19/20 20 Destruction Premalignant Lesion(s) completed [facility] 04/19/2020 15:39:32 04/19/20 20 Destruction BN Lesions completed [facility] 04/19/2020 15:41:16 11/03/20 19 Destruction Premalignant Lesion(s) completed [facility] 11/03/2019 15:14:27 05/12/20 19 Destruction Premalignant Lesion(s) completed [facility] 05/12/2019 15:55:50 11/21/19 19 Destruction MN Lesion; trunk, arm, leg completed ALESSANDRO CLARKE DO [address] [place], [address], [facility] 11/21/2018 09:13:11 11/13/20 18 Biopsy Skin Lesion; Tangential completed [facility] 11/13/2018 15:52:59 11/13/20 18 Destruction Premalignant Lesion(s) completed [facility] 11/13/2018 15:56:29 11/13/20 18 Destruction BN Lesions completed [facility] 11/13/2018 15:53:52 06/09/20 18 Suture/Staple removal completed [facility] 06/09/2018 15:59:29 05/30/20 18 Wound Repair; Intermediate completed ALESSANRDO CLARKE DO [address] [place], [address], [facility] 05/30/2018 12:30:36 05/30/20 18 Excision BN lesion; trunk, arms or legs completed [facility] 05/30/2018 08:04:58 05/08/20 18 Biopsy Skin Lesion; Tangential [facility] 05/08/2018 14:25:16 11/07/20 17 Destruction Premalignant Lesion(s) completed MECHE COTE, [employer] [address] [place], [address], [facility] 11/07/2017 09:41:15 11/07/20 17 Destruction BN Lesions completed MECHE COTE, [employer] [address] [place], [address], [facility] 11/07/2017 09:47:24 07/04/20 17 Biopsy Skin completed MECHE COTE, [employer] [address] [place], [address], [facility] 07/04/2017 15:31:44 12/05/19 17 Destruction Premalignant Lesion(s) completed MECHE COTE, [employer] [address] [place], [address], [facility] 12/05/2016 15:29:26 12/05/19 17 Destruction BN Lesions completed MECHE COTE, [employer] [address] [place], [address], [facility] 12/05/2016 15:30:31 Imaging Results None recorded. Procedure [...] Tobacco Smoking Status Former Smoker MECHE COTE, [employer] [address] [place], [address], [facility] 07/04/2017 14:59:49 What Was The Date Of Your Most Recent Tobacco Screening? 07/04/2017 Information n ot available 01/05/2020 Sex: Male Functional Status None recorded. Mental Status None recorded. Family History Nothing Reported. Medical History Condition Response Basal Cell Carcinoma Y Past Encounters Encounter ID Performer Location Encounter Start Date Encounter Closed Date Diagnosis/Indication Diagnosis SNOMED-CT Code Diagnosis ICD10 Code Diagnosis Note [id number] ALESSANDRO CLARKE DO [facility] [address] [place] [address] 12/05/2016 14:43:53 12/05/2016 16:07:36 History of malignant basal cell neoplasm of skin 527339772 Z85.828 R upper chest, L mid back, R shoulder - scarsno recurrence Solar lentiginosis 66771 2006 L81.4 Benign Reassuranc e If any lesions change, or if any other new or symptomati c lesions occur, patient understand s to return to the clinic for further evaluation Discussed sun precaution s; SPF 30+ Senile hyperkeratosis 39 4564510 L82.1 Benign Reassuranc ex1 face, x1 back - treated with LN at patients request Multiple b enign melanocytic nevi 167240969 D22.9 Benign Reassuranc e Senile angioma 5802722 I 78.1 Benign Reassuranc e Skin tag 312911423 L91.8 Benign Reassuranc e Actinic keratosis 360063 [address] x1 left forearmwou nd care instructio n provided [id number] ALESSANDRO CLARKE DO [facility] [address] [place] [address] 07/04/2017 14:35:47 07/05/2017 09:41:15 History of malignant basal cell neoplasm of skin 735061147 Z85.828 R upper chest, L mid back, R shoulder - scarsno recurrence Solar lentiginosis 37396 2006 L81.4 Benign Reassuranc e Senile hyperkeratosis 39 9570817 L82.1 Benign Reassuranc e Multiple b enign melanocytic nevi 075260730 D22.9 Benign Reassuranc e Senile angioma 4013835 I 78.1 Benign Reassuranc e Skin tag 016798085 L91.8 Benign Reassuranc e Dermatofibroma 244478536 D23.9 Benign Reassuranc e Epidermoid cyst of skin 019312171 L72.0 Benign Reassuranc eleft upper backnot bothersome to patientwil l monitor for changes Neoplasm o f uncertain behavior of skin 66378477 D48.5 left mid chest and right medial chestshave biopsy x2r/o bccf/u pending results Milial cyst 728267542 L7 2.0 I&D with 11 blade and comedone extractorx 1 right oral commisure f/u prn [id number] ALESSANDRO CLARKE DO [facility] [address] [place] [address] 11/07/2017 08:46:12 11/08/2017 13:48:04 Solar lentiginosis 632807450 L81.4 Benign Reassuranc e Senile hyperkeratosis 39 4325732 L82.1 Benign Reassuranc e Senile angioma 1430977 I 78.1 Benign Reassuranc e On examina tion - skin tags 415175989 L91.8 Benign Reassuranc eEducation then treated with LN; x3 right neckper patient request Multiple b enign melanocytic nevi 886900188 D22.9 Benign Reassuranc e Actinic keratosis 821154 007 L57.0 Education then treated with LN;x1 right sideburn, x1 left jawline, x1 left dorsal handpatien t tolerated wellwound care instructio n provided Epidermoid cyst 50675609 6 L72.0 Benign Reassuranc e I&D with 11 blade and comedone extractor per patient requestx1 mid foreheadwo und care instructio n provided Inflamed s eborrheic keratosis 545620664 L82.0 x1 right upper chest, x1 left cheek, x1 left foreheadx1 right lateral neck Education then treated with LN; per patient request wound care instructio n provided f/u prn [id number] ALESSANDRO CLARKE DO [facility] [address] [place] [address] 05/08/2018 13:56:51 05/09/2018 09:06:49 Solar lentiginosis 856774167 L81.4 Benign Reassuranc e Senile hyperkeratosis 39 2447562 L82.1 Benign Reassuranc e asymptomat ic, but doesnt like they stick out and can see under shirt Treated with LN per patients request back x5 pt tolerated well advised pt what to expect with freezing Senile angioma 5749878 I 78.1 Benign Reassuranc e Multiple b enign melanocytic nevi 201997592 D22.9 Benign Reassuranc e Neoplasm o f uncertain behavior of skin 22858483 D48.5 A.) R medial cheek shave biopsy [...] in redness, drainage, or pain. Epidermoid cyst 54741075 6 L72.0 Benign Reassuranc eback - advised pt he could have this excised , pt will think about it and let us know if he wants to schedule it or notschedul ed 05/30 @ 308 [id number] DO ZOFIA SNIDER [facility] [address] [place] [address] 05/30/2018 07:25:21 05/30/2018 14:08:18 Epidermoid cyst of skin of back 596617480 L72.0 Discussed diagnosis of epidermoid cyst recommend treatment with excision r/a/b of procedure discussed with patient informed consent signed see procedure note f/u 2 weeks for wound check / suture removal Skin sensa tion disturbance 01524653 R20.9 cyst [id number] DO ZOFIA SNIDER [facility] [address] [place] [address] 06/09/2018 15:40:16 06/10/2018 09:06:25 Removal of suture 37666094 Z48.02 L upper back sutures removed with ease no signs of infection healing well good cosmesis f/u as scheduled [id number] DO ZOFIA SNIDER [facility] [address] [place] [address] 11/13/2018 15:22:54 11/14/2018 08:16:14 Solar lentiginosis 656029476 L81.4 Benign Reassuranc e If any lesions change, or if any other new or symptomati c lesions occur, patient understand s to return to the clinic for further evaluation Discussed sun precaution s; SPF 30+; hats Senile hyperkeratosis 39 6831103 L82.1 Benign Reassuranc e Senile angioma 9707351 I 78.1 Benign Reassuranc e Multiple b enign melanocytic nevi 368446811 D22.9 Benign Reassuranc e Actinic keratosis 311368 007 L57.0 Education, then cryo destructio n with liquid nitrogen (LN) x 4 Neoplasm o f uncertain behavior of skin 82905364 D48.5 A.) Left mid chest shave biopsy sent for path r/o BCC Wound care discussed with patient. Leave the bandage on for 24 hrs. Clean the area daily with warm soapy water, and apply polysporin ointment and a bandaid once daily until healed. Call the office if any increase in redness, drainage, or pain. Inflamed s eborrheic keratosis 462759968 L82.0 chin, upper chest x 5 Education then treated with LN; per patient requestwou nd care instructio n providedf/ u prn Skin sensa tion disturbance 57581692 R20.9 ISK History of malignant basal cell neoplasm of skin 955574940 Z85.828 R upper chest, L mid back, R shoulder - scarsno recurrence [id number] ALESSANDRO CLARKE DO [facility] [address] [place] [address] 11/21/2018 08:20:50 11/21/2018 09:22:45 Basal cell carcinoma of truncal skin 776500541 C44.519 Discussed diagnosis of BCC recommend treatment [...] any increase in redness, drainage, or pain. [id number] ALESSANDRO CLARKE DO [facility] [address] [place] [address] 05/12/2019 15:09:48 05/13/2019 09:09:17 Solar lentiginosis 681027391 L81.4 Benign Reassuranc e Discussed sun precaution s; SPF 30+; hats Senile hyperkeratosis 39 6041182 L82.[address] to lesion left chest at pt request Senile angioma 4201870 I 78.1 Benign Reassuranc e Multiple b enign melanocytic nevi 084110691 D22.9 Benign Reassuranc e Actinic keratosis 007 L57.0 Education, then cryo destructio n with liquid nitrogen (LN) x 4 History of malignant basal cell neoplasm of skin 164557798 Z85.828 R upper chest, L mid back, R shoulder - scarsno recurrence Fingertip eczema 1598003 08 L30.9 start betamethas one cream as directed call if not helpful in 2 weeks [id number] ALESSANDRO CLARKE DO [facility] [address] [place] [address] 11/03/2019 14:25:51 11/04/2019 08:01:43 Solar lentiginosis 839425011 L81.4 Benign Reassuranc e Discussed sun precaution s; SPF 30+ Senile angioma 4544549 I 78.1 Benign Reassuranc e History of malignant basal cell neoplasm of skin 754014751 Z85.828 R upper chest, L mid back, R shoulder - scarsno recurrence Fingertip eczema 5733937 08 L30.9 start Eucrisa each morning, samples given start clobetasol ointment each night recommend gluing fissures to promote healing- dermabond or superglue if continues to be bothersome , could consider systemic tx call in 2 weeks if not significan tly improved Raised terry orrheic keratosis 6936501926 80161 L82.1 Benign Appearance Education, then cryodestru ction with liquid nitrogen (LN) x 8 on his back at pt request Actinic keratosis 007 L57.0 Education, then cryo destructio n with liquid nitrogen (LN) left sideburn x1, left preauricul ar cheek x1, Dermatofibroma 991597619 D23.9 Benign Reassuranc e right knee [id number] ALESSANDRO CLARKE DO [facility] [address] [place] [address] 04/19/2020 14:35:27 04/19/2020 15:53:10 Solar lentiginosis 494025185 L81.4 Benign Reassuranc e Discussed sun precaution s; SPF 30+ Raised terry orrheic keratosis 6988193617 73902 L82.1 Benign Appearance Senile angioma 4393654 I 78.1 Benign Reassuranc e History of malignant basal cell neoplasm of skin 089890156 Z85.828 R upper chest, L mid back, R shoulder - scarsno recurrence Fingertip eczema 5965350 08 L30.9 controlled stable not flaring Actinic keratosis 257066 007 L57.0 Education, then cryo destructio n with liquid nitrogen (LN) R jawline x2, R cheek x1, L preauricul ar cheek x1, L neck x1 Dermatofibroma 420165146 D23.9 Benign Reassuranc e right knee Inflamed s eborrheic keratosis 902265826 L82.0 Education, then cryo destructio n with liquid nitrogen (LN) L upper back x1, R chest x1 Skin tag 601903576 L91.8 Scissored off x1 at pt request pt tolerated well Skin sensa tion disturbance 79384689 R20.9 ISK, skin tag [id number] ALESSANDRO CLARKE DO [facility] [address] [place] [address] 11/01/2020 13:51:04 11/01/2020 14:25:00 Solar lentiginosis 621407488 L81.4 Benign Reassuranc e Discussed sun precaution s; SPF 30+ Raised terry orrheic keratosis 3777650547 08620 L82.1 Benign Appearance Senile angioma 9072966 I 78.1 Benign Reassuranc e History of malignant basal cell neoplasm of skin 216293510 Z85.828 R upper chest, L mid back, R shoulder - scarsno recurrence Fingertip eczema 2683335 08 L30.9 mild flaring betamethas one cream is not as helpful pt would like to try clobetasol , had used in past discussed if flares more, could also do Kenalog IM or even dupixent intermediate Actinic keratosis L57.0 Education, then cryo destructio n with liquid nitrogen (LN) x 3 Dermatofibroma 056612623 D23.9 Benign Reassuranc e right knee Inflamed s eborrheic keratosis 038278511 L82.0 Education, then cryo destructio n with liquid nitrogen (LN) x 1 Skin sensa tion disturbance 25933628 R20.9 ISK Neoplasm o f uncertain behavior of skin 75847045 D48.5 right lower back r/o atypia left shoulder r/o BCC left lower chest r/o BCC shave biopsy see procedure note wound care instructio ns provided patient consents for procedure and photo monitoring Plantar wa rt of left foot 0301629147 7085645 B07.0 left ball of the foot discussed treatment options pare and cryo x3 freeze thaw cycles treat any residual with OTC Compound W or return for further LN Pain of skin 966467421 R 52 plantar wart [id number] ALESSANDRO CLARKE DO [facility] [address] [place] [address] 11/04/2020 11:05:24 11/04/2020 12:19:09 Basal cell carcinoma of truncal skin 785763924 C44.519 L lower chest Discussed diagnosis BCC [...] pain. Basal cell carcinoma of upper extremity 267893596 C44.619 L shoulder Discussed diagnosis BCC recommend [...] any increase in redness, drainage, or pain. [id number] DO [facility]OKASTA [facility]O [facility] [address] [place] [address] 05/25/2021 07:32:56 05/25/2021 09:02:02 Solar lentiginosis 892950440 L81.4 Benign Reassuranc e Raised terry orrheic keratosis 7414351065 95866 L82.1 Benign Reassuranc e Senile angioma 6109055 I 78.1 Benign Reassuranc e History of malignant basal cell neoplasm of skin 603605419 Z85.828 R upper chest, L mid back, R shoulder - scarsno recurrence Fingertip eczema 6611851 08 L30.9 stablecont inue clobetasol ointment as needed for flare ups Actinic keratosis 007 L57.0 Education then treated with LN; L vertex scalp x1, R cheek x1pt tolerated welladvise d pt what to expect with freezing Dermatofibroma 725626320 D23.9 Benign Reassuranc e Plantar wa rt of left foot 0001358216 4154974 B07.0 left ball of the footresidu alcontinue OTC Compound W Inflamed s eborrheic keratosis 643378270 L82.[address] per patients request: R upper chest x1, L upper back x1pt tolerated welladvise d pt what to expect with freezing Skin sensa tion disturbance 65077529 R20.9 ISK [id number] ALESSANDRO CLARKE DO [facility] [place] [address] [place] [address] 03/27/2022 14:52:09 03/27/2022 15:43:41 Solar lentiginosis 058127252 L81.4 Benign Reassuranc e Raised terry orrheic keratosis 8503882965 91617 L82.1 Benign Reassuranc e Senile angioma 2240818 I 78.1 Benign Reassuranc e History of malignant basal cell neoplasm of skin 480863729 Z85.828 R upper chest, L mid back, R shoulder - scarsno recurrence Fingertip eczema 1267279 08 L30.9 stablechro nicclear today continue clobetasol ointment as needed for flare ups Actinic keratosis 007 L57.0 Education then treated with LN; right helix x1, right lower forehead x1, right hand x1pt tolerated welladvise d pt what to expect with freezing Dermatofibroma 519019652 D23.9 Benign Reassuranc e Neoplasm o f uncertain behavior of skin 71341707 D48.5 left lateral mid backr/o bcc left chest r/o BCC left lambert r/o BCC shave biopsy see procedure note wound care instructio daria provided patient consents for procedure and photo monitoring [id number] ALESSANDRO CLARKE DO [facility] [address] [place] [address] 10/01/2022 09:15:48 10/01/2022 10:24:54 Solar lentiginosis 551784283 L81.4 Benign Reassuranc e Raised terry orrheic keratosis 6087861379 50081 L82.1 Benign Reassuranc e Senile angioma 0539582 I 78.1 Benign Reassuranc e History of malignant basal cell neoplasm of skin 067873893 Z85.828 R upper chest, L mid back, R shoulder - scarsno recurrence Fingertip eczema 2112125 08 L30.9 palms and fingersmod erate flare todayd/c clobetasol ointment - pt doesnt feel like its as effective start protopic ointment as directedIf this is not helpful could consider opzelura or dupixentf/ u in 6m Actinic keratosis 043293 007 L57.0 Education then treated with LN; R forehead x1 , L forehead x1 , mid upper back x1, R lower cheek x1pt tolerated welladvise d pt what to expect with freezing Dermatofibroma 490353954 D23.9 Benign Reassuranc e Neoplasm o f uncertain behavior of skin 84994504 D48.5 R cheekshave biopsysent for pathr/o SCCWound care discussed with patient. Leave the bandage on for 24 hrs. Clean the area daily with warm soapy water, and apply polysporin ointment and a bandaid once daily until healed. Call the office if any increase in redness, drainage, or pain. 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 Herpes zoster 0121806 B0 2.9 left midline abdomen extending around to backwill have him start valtrex 1 gm tid, 7 days- as directedca ll if not resolved [id number] DO [facility] [address] [place] [address] 04/09/2023 14:35:13 04/09/2023 15:15:20 History of malignant basal cell neoplasm of skin 749530143 Z85.828 R upper chest, L mid back, R shoulder - scarsno recurrence Solar lentiginosis 17669 2006 L81.4 Benign Reassuranc e Raised terry orrheic keratosis [id number] 85906 L82.1 Benign Reassuranc eLN x2 right forehead per pt request Senile angioma 1463604 I 78.1 Benign Reassuranc e Multiple b enign melanocytic nevi 802224957 D22.9 Benign Reassuranc e Fingertip eczema 0802727 08 L30.9 palms todayminim al continue clobetasol ointment nightly for up to 2 weeks, for flare ups f/u in 6m Dermatofibroma 360472863 D23.9 Benign Reassuranc e History of squamous cell carcinoma of skin 119934330 Z85.828 right cheek - no recurrence Inflamed s eborrheic keratosis 644441006 L82.[address] per patients request: right cheek x2, left upper back x1, left upper chest x2, right upper chest x1pt tolerated welladvise d pt what to expect with freezing Tenderness of skin 18166 9000 R20.8 ISks, itch, scratched/ traumatize d today Porokeratosis 593830184 Q82.8 monitormea sured [id number] ALESSANDRO CLARKE, DO [facility] [address] [place] [address] 10/29/2023 14:13:37 10/29/2023 15:43:51 History of malignant basal cell neoplasm of skin 343124855 Z85.828 R upper chest, L mid back, R shoulder - scarsno recurrence Solar lentiginosis 79862 2006 L81.4 Benign Reassuranc erecommend ed sun protective clothing and a mineral based sunscreen 30 SPF or higher lotion OTC daily Senile angioma 1408782 I 78.1 Benign Reassuranc e Multiple b enign melanocytic nevi 319449625 D22.9 Benign Reassuranc e Fingertip eczema 0766366 08 L30.9 palms today- mildfinger tips skin splitting- exacerbati on, probably due to cold weather continue clobetasol ointment as directedI gave him samples of Eucrisa to use dailypt requested refill todayIf continues to be an issue, consider dupixent f/u in 6m Porokeratosis 083071744 Q82.8 monitormea suredno change Dermatofibroma 589884733 D23.9 Benign Reassuranc e History of squamous cell carcinoma of skin 961696379 Z85.828 right cheek - no recurrence Neoplasm o f uncertain behavior of skin 30673983 D48.5 a) right upper backr/o bcc shave [...] path see procedure note wound care instructio daria [...] in redness, drainage, or pain. Herpes zoster 5194123 B0 2.9 reviewed patient photosL facecould have been zoster?If recurs again, could try Valtrex again.sent rx to take only if flares up again. [id number] DO [facility] [address] [place] [address] 11/12/2023 07:41:12 11/12/2023 08:26:24 Basal cell carcinoma of back 723443426 C44.519 1) bcc on right upper back2) [...] any increase in redness, drainage, or pain. [id number] DO [facility]OFIA [facility] [address] [place] [address] 05/06/2024 14:40:03 05/06/2024 16:25:22 History of malignant basal cell neoplasm of skin 780589417 Z85.828 R upper chest, L mid back, R shoulder, right upper back, midline upper back, lower back -no recurrence History of squamous cell carcinoma of skin 473794233 Z85.828 right cheek - no recurrence Solar lentiginosis 22957 2006 L81.4 Benign Reassuranc erecommend ed sun protective clothing and a mineral based sunscreen 30 SPF or higher lotion OTC daily Senile angioma 9800490 I 78.1 Benign Reassuranc e Multiple b enign melanocytic nevi 062017409 D22.9 Benign Reassuranc e Fingertip eczema 3039377 08 L30.9 chronicsom e exacerbati on todayeucri [...] Triamcinol one, Eucrisa f/u in 6m Porokeratosis 638584604 Q82.8 monitormea suredno change Actinic keratosis 213255 007 L57.0 Education then treated with LN; right forehead x 2, left jawline x 1, left forehead x 1pt tolerated welladvise d pt what to expect with freezing Neoplasm o f uncertain behavior of skin 88468180 D48.5 a. right anterior shoulderr/ o BCCb. left lower shinr/o BCC shave biopsy performed x 2ED&C performed today x2 sent for path see procedure note wound care instructio ns provided patient consents for procedure and photo monitoring Basal cell carcinoma of upper extremity 975742332 C44.619 R anterior shoulder Discussed diagnosis BCCshave [...] pain. Basal cell carcinoma of lower extremity 754271319 C44.846 Discussed diagnosis BCCL shinclinic al BCCshave biopsyreco mmend treatment with ED&Cno further treatment should be needed r/a/b of procedure discussed with patient informed consent signed see procedure note f/u -4 months for FSE [id number] ALESSANDRO CLARKE DO [facility] [address] [place] [address] 08/27/2024 14:37:12 08/27/2024 15:48:19 History of malignant basal cell neoplasm of skin 439621166 Z85.828 R upper chest, L mid back, R shoulder, right upper back, midline upper back, lower back -no recurrence History of squamous cell carcinoma of skin 142525758 Z85.828 right cheek - no recurrence Solar lentiginosis 63975 2006 L81.4 Benign Reassuranc erecommend ed sun protective clothing and a mineral based sunscreen 30 SPF or higher lotion OTC daily Senile angioma 0308760 I 78.1 Benign Reassuranc e Multiple b enign melanocytic nevi 854862937 D22.9 Benign Reassuranc e Fingertip eczema 7369086 08 L30.9 chronicexa cerbation topicals have not been very helpfulpal ms, fingers, handsaffec ting patient cyndycharity [facility] ent [facility] and failed Clobetasol , [...] ent was educated on pen injections Porokeratosis 985116934 Q82.8 monitormea suredrevie wed - no change Actinic keratosis 661738 007 L57.0 Education then treated with LN; right postauricu lar X1, right anterior scalp X1pt tolerated welladvise d pt what to expect with freezing [id number] ALESSANDRO CLARKE, DO [facility] [address] [place] [address] 03/18/2025 11:13:02 03/18/2025 12:35:04 History of malignant basal cell neoplasm of skin 108367216 Z85.828 R upper chest, L mid back, R shoulder, right upper back, midline upper back, lower back -no recurrence History of squamous cell carcinoma of skin 473927546 Z85.828 right cheek - no recurrence Solar lentiginosis 89880 2006 L81.4 Benign Reassuranc erecommend ed sun protective clothing and a mineral based sunscreen 30 SPF or higher lotion OTC daily Senile angioma 6461683 I 78.1 Benign Reassuranc e Multiple b enign melanocytic nevi 606476047 D22.9 Benign Reassuranc e Fingertip eczema 4838671 08 L30.9 chronicimp rovingmild today on palms, fingersPat ient happy with treatmentC ontinue dupixent injectionw ill need PAwill send in script for dupixent 300mg sub pen injectorse nt to [employer] for PAinject one pen every two weekspatie nt would like to self inject Porokeratosis 641166244 Q82.8 monitormea suredrevie wed - no change Actinic keratosis 007 L57.0 Education then treated with LN; right helix x1, left upper lateral forehead x1, left dorsal hand x1pt tolerated welladvise d pt what to expect with freezing Neoplasm o f uncertain behavior of skin 90060980 D48.5 A. right anterior scalp r/o BCCB. [...] any increase in redness, drainage, or pain. [id number] ALESSANDRO CLARKE DO [facility] [address] [place] [address] 03/22/2025 13:00:35 03/22/2025 14:41:56 Intraepidermal squamous carcinoma of scalp 126968784 D04.4 right anterior scalpDiscu ssed diagnosis SCC [...] pain. Basal cell carcinoma of lower extremity 968067886 C44.719 left mid shinDiscus sed diagnosis superficia [...] Marques Member ID Guarantor Name 03/25/2025 1 [facility] [id number] Arun Granados [id number] Arun Granados 03/15/2025 1 [place] (O) [id number] Arun Granados [id number] Arun Granados 10/28/2019 1 [facility] [id number] Arun Roaing [id number] Arun Granados Notes Date Note Type Note Provider Name and Address Organization Details Recorded Time 11/12/2023 text/html Established [facility] ent Patient presents today for an ed&c of a bcc on right upper back, midline upper back, and lower back no new, changing, bleeding, or symptomatic lesions to report ALESSANDRO CLARKE DO [address] [place], [address], [facility] 11/12/2023 12:04:49 05/06/2024 text/html Established [facility] Waist up check Presents for a 6m [...] malignant melanoma. ALESSANDRO CLARKE DO [address] [place], [address], [facility] 05/11/2024 19:36:36 08/27/2024 text/html Established [facility] Waist up check Presents for a 6m full skin exam. place on forehead, +1 month check spots/moles over body h/o BCC, SCC Denies any other new or changing lesions. Feels well today. Denies family history of malignant melanoma. ALESSANDRO CLARKE DO [address] [place], [address], [facility] 08/27/2024 17:14:20 03/18/2025 text/html Established [facility] [...] malignant melanoma. ALESSANDRO CLARKE DO [address] [place], [address], [facility] 03/18/2025 16:55:26 03/22/2025 text/html Established PatientPatient presents today for an ed&c of a SCCis on right anterior scalp and an ED&C of a BCC on left mid lambert.no new, changing, bleeding, or symptomatic lesions to report ALESSANDRO CLARKE DO [address] [place], [address], [facility] 03/22/2025 17:46:24
--- OUTSIDE RECORDS SUMMARY | 2025-04-27 07:35 | XMS_ITS | Data Portability ---
Author Organization [facility] Address [address] [place] [address] Assessment No assessment recorded. Plan of Treatment Reminders Order Date Submit Date Provider Last Modified By Organization Details Last Modified Time Details Appointments None recorded. Lab None recorded. Referral None recorded. Procedures allergen immunothera py; multiple injections (PROC) 2016 017 [email or web address] Not available 7 10:43:24 Surgeries None recorded. Imaging None recorded. Medication Orders Allergy serum (from splitter operator) 2016 017 [email or web address] Not available 7 17:48:32 Allergy serum (from splitter operator) 2016 017 [email or web address] Not available 7 17:02:15 Allergy serum (from splitter operator) 2016 017 [email or web address] Not available 7 08:03:46 Allergy serum (from splitter operator) 2016 017 [email or web address] Not available 7 19:41:32 Patient TargetsNo targets recorded. Patient Instructions Encounter Date Encounter Id Patient Instructions Last Modified By Organization Details Last Modified Time 06/13/2017 [id number] for allergy shot , [place] Not available 06/17/2017 12:50:40 07/11/2017 [id number] monitor injectio n site Not available 07/11/2017 17:11:26 08/13/2017 [id number] monitor injectio n site Not available 08/13/2017 17:03:43 09/10/2017 [id number] A healthy lifestyle: care instructions Not available 09/10/2017 17:48:32 Reason for Referral None Reported. Results Created Date Observation Date Name Description Value Unit Range Abnormal Flag Note LastModifiedBy Organization Detail LastModifiedTime 09/22/20 20 09/22/2020 rapid SARS CoV + SARS CoV 2 Ag, QL IA, respi rator y speci men SARS CoV antigen Negati ve Not Available [address] , [place], [address], 09/22/2020 11:17:52 Result Notes None recorded. Problems No Known Problems Medical Equipment None Reported. Allergies Allergen ID Allergen Name Allergen Category Reaction Reaction Severity Criticality Documentation Date Start Date Code Code System Note Provider Name and Address Organization Details Recorded Time 51646 latex environme nt,medica tion Not available Not available Not available 08/24/20162011 66351 91 RxNorm Not Available [facility] 6 08:07:33 Medications Name Sig Start Date Stop Date Status Note LastModified by Organization Details LastModified Time Allergy serum (from splitter operator ) injectio n 2016 active Not Available Not Available Not Avai lable Allergy serum (from splitter operator ) injectio n 2016 active Not Available Not Available Not Avai lable Allergy serum (from splitter operator ) injectio n 2015 active Not Available Not Available Not Avai lable Allergy serum (from splitter operator ) injectio n 2016 active Not Available Not Available Not Avai lable Allergy serum (from splitter operator ) 1-4weeks 2016 active Not Available Not Available Not Avai lable Allergy serum (from splitter operator ) injectio n 2015 active right and left arm 3 injectio ns Not Available Not Available Not Available Allergy serum (from splitter operator ) injectio n 2015 active Not Available Not Available Not Avai lable Allergy serum (from splitter operator ) 1-4weeks 2016 active Not Available Not Available Not Avai lable Allergy serum (from splitter operator ) injectio n 2016 active Not Available Not Available Not Avai lable Allergy serum (from splitter operator ) injectio n 2016 active Not Available Not Available Not Avai lable Allergy serum (from splitter operator ) injectio n 2016 active Not Available Not Available Not Avai lable Allergy serum (from splitter operator ) injectio n 2016 active 0.4 given today Not Available Not Available Not Available Allergy serum (from splitter operator ) 2015 active Not Available Not Available Not Avai lable Allergy serum (from splitter operator ) injectio n 2015 active Not Available Not Available Not Avai lable Allergy serum (from splitter operator ) injectio n 2016 active Not Available Not Available Not Avai lable Allergy serum (from splitter operator ) injectio n 2016 active Not Available Not Available Not Avai lable Allergy serum (from splitter operator ) injectio n 2016 active Not Available Not Available Not Avai lable Allergy serum (from splitter operator ) injectio n 2016 active Not Available Not Available Not Avai lable promethaz ine-DM 6.25 mg-15 mg/5 mL oral syrup active Not Available Not Available Not Available potassium chloride ER 10 mEq capsule,e xtended release active Not Available Not Available Not Available enalapril maleate 10 mg tablet active Not Available Not Available Not Available azithromy jhony 250 mg tablet 04/17 completed Not Available Not Available Not Available ibuprofen 800 mg tablet active Not Available Not Available Not Available benzonata te 200 mg capsule 04/17 completed Not Available Not Available Not Available sumatript an 25 mg tablet take 1 tablet (25 mg) by oral route once with fluids as early as possible after the onset of a migraine attack;m ay repeat after 2 hours if headache returns, not to exceed 200mg in 24hrs active Not Available Not Available No t Available Viagra 50 mg tablet active Not Available Not Available No t Available ciproflox acin 500 mg tablet 04/17 completed Not Available Not Available Not Available triamtere ne 37.5 mg-hydroc hlorothia zide 25 mg capsule take 1 capsule by oral route once daily 2010 active triamter josep-hydr ochlorot hiazid 37.5-25 mg oral capsule; Recorded Status: Recorded on: 12/29/19 11 4:35PM;U ser: vesth;In dication : Hyperten roxana - () Not Available Not Available Not Available Mobic 15 mg tablet take 1 tablet (15 mg) by oral route once daily with food 05/22 completed Mobic 15 mg oral tablet;R ecorded Status: Recorded on: 03/23/20 11 8:10AM;U ser: [email or web address]; Est. Completi on: 05/22/20 11;Print ed: 03/23/20 11 Not Available Not Available Not Available losartan 100 mg-hydroc hlorothia zide 25 mg tablet active Not Available Not Available No t Available prednisol one acetate 1 % eye drops,lisa pension 05/15 completed Not Available Not Available Not Available oxycodone -acetamin ophen 10 mg-325 mg tablet active Not Available Not Available Not Available flunisoli de 25 mcg (0.025 %) nasal spray active Not Available Not Available Not Available hydrocodo ne 7.5 mg-acetam inophen 325 mg tablet 05/15 completed Not Available Not Available Not Available cephalexi n 500 mg capsule 02/19 completed Not Available Not Available Not Available paroxetin e 20 mg tablet active Not Available Not Available Not Available dexametha sone 4 mg tablet 04/17 completed Not Available Not Available Not Available triamtere ne 37.5 mg-hydroc hlorothia zide 25 mg tablet active Not Available Not Available No t Available mont[address] st 10 mg tablet take 1 tablet (10 mg) by oral route once daily in the evening active Not Available Not Available No t Available hydroxyzi ne HCl 25 mg tablet active Not Available Not Available No t Available ranitidin e 150 mg capsule take 1 capsule (150 mg) by oral route 2 times per day 2010 active ranitidi ne HCl 150 mg oral capsule; Recorded Status: Recorded on: 12/29/19 11 4:35PM;U ser: vesth Not Available Not Available Not Available clobetaso l 0.05 % topical ointment 05/15 completed Not Available Not Available Not Available azelastin e 137 mcg (0.1 %) nasal spray spray 2 sprays in each nostril by intranas al route 2 times per day active Not Available Not Available No t Available Viagra 100 mg tablet active Not Available Not Available Not Available paroxetin e 40 mg tablet active Not Available Not Available Not Available cefdinir 300 mg capsule active Not Available Not Available Not Available Amy Aspirin 325 mg tablet 2010 active Amy Aspirin 325 mg oral tablet;R ecorded Status: Recorded on: 12/29/19 11 4:35PM;U ser: vesth Not Available Not Available Not Available fluticaso ne propionat e 50 mcg/actua tion nasal spray,lisa pension 05/15 completed Not Available Not Available Not Available amoxicill in 875 mg-potass ium clavulana te 125 mg tablet 04/17 completed Not Available Not Available Not Available cyclobenz aprine 5 mg tablet active Not Available Not Available No t Available Ciprodex 0.3 %-0.1 % ear drops,[facility] active Not Available Not Available Not Available Tricor 145 mg tablet take 1 tablet (145 mg) by oral route once daily 2010 active Tricor 145 mg oral tablet;R ecorded Status: Recorded on: 12/29/19 11 4:35PM;U ser: vesth Not Available Not Available Not Available ProAir HFA 90 mcg/actua tion aerosol inhaler inhale 2 puffs by inhalati on route at least 15 minutes before exertion 2010 active ProAir HFA 90 mcg/actu ation inhalati on HFA aerosol inhaler; Recorded Status: Recorded on: 12/29/19 11 4:35PM;U ser: vesth Not Available Not Available Not Available MoviPrep 100 gram-7.5 gram-2.69 1 gram oral powder packet 05/15 completed Not Available Not Available Not Available levocetir izine 5 mg tablet active Not Available Not Available No t Available fluticaso ne propionat e (bulk) 100 % powder use as directed 2010 active fluticas one propiona te (bulk) 100 % miscella neous powder;R ecorded Status: Recorded on: 12/29/19 11 4:35PM;U ser: vesth Not Available Not Available Not Available Dulera 200 mcg-5 mcg/actua tion HFA aerosol inhaler inhale 2 puffs by inhalati on route 2 times per day in the morning and evening 2010 active Dulera 200-5 mcg/actu ation inhalati on HFA aerosol inhaler; Recorded Status: Recorded on: 12/29/19 11 4:35PM;U ser: vesth Not Available Not Available Not Available Vitals Date Recorded Body height Provider Name an d Address Organization Details Last Updated DateTime 05/15/2017 175.26 cm Janey Gomez [place] - [facility] 04/19 16:47:30 Date Recorded Body height Provider Name an d Address Organization Details Last Updated DateTime 06/13/2017 175.26 cm Lucinda Mkcee [place] - [facility] 17:12:26 Date Recorded Body height Provider Name an d Address Organization Details Last Updated DateTime 07/11/2017 175.26 cm Janey Gomez [place] - [facility] 06/19 16:44:18 Date Recorded Body height Body mass index (BMI) Body weight Body temperature Heart rate Oxygen saturation Oxygen saturation in Arterial blood by Pulse oximetry Provider Name and Address Organization Details Last Updated DateTime 7 175.26 cm 39.3 kg/m2 687960. 57 g 98.3 [degF] 82 /min 97 % 97 % Esperanza Sharp [place] - [facility] 7 16:48:57 Date Recorded Body height Body mass index (BMI) Body weight Oxygen saturation Oxygen saturation in Arterial blood by Pulse oximetry Heart rate Systolic blood pressure Diastolic blood pressure Provider Name and Address Organization Details Last Updated DateTime 7 175.26 cm 39.3 kg/m2 486772. 57 g 98 % 98 % 78 /min 138 mm[Hg] 80 mm[Hg] Janey Gomez [place] - [facility] 7 16:53:31 Social History Question Answer Notes LastModified by [employer] Details LastModified Time Tobacco Smoking Status Never Smoker Janey mustafa, [place] - [facility] 09/10/2017 16:54:11 What Type Of Diet Are You Following? REGULAR Information not available 09/10/2017 What Was The Date Of Your Most Recent Tobacco Screening? 09/10/2017 Information not available 06/10/2019 What Is Your Relationship Status? Information not available 09/10/2017 Sex: Unknown Functional Status Question Answer Note LastModified by [employer] Details LastModified Time Are you currently employed? Yes Information not available 09/10/2017 Are you able to care for yourself? 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 Family History Relationship Description Onset Age of this Age Resolved Age Notes LastModified by Organization Details LastModified Time Father No current problems or disability Not available 02/19 13:39:58 Mother No current problems or disability Not available 02/19 13:39:58 Medical History No medical history recorded. Past Encounters Encounter ID Performer Location Encounter Start Date Encounter Closed Date Diagnosis/Indication Diagnosis SNOMED-CT Code Diagnosis ICD10 Code Diagnosis Note [id number] Melony Talamantes MD [facility] [address] [place], [place] [address] [place] [address] 09/18/2016 16:33:48 09/18/2016 16:42:22 Allergic rhinitis 94190471 J30.9 [id number] Melony Talamantes MD [address] [place] [address] 10/16/2016 16:38:01 10/17/2016 10:11:01 Allergic rhinitis 27597077 J30.9 [id number] Melony Talamantes MD [address] [place] [address] 11/13/2016 14:14:57 11/13/2016 16:57:03 Allergic rhinitis 19716415 J30.9 [id number] Raquel Solis [address] [place] [address] 12/11/2016 16:22:04 12/11/2016 16:51:32 Allergic rhinitis 30427500 J30.9 [id number] Raquel Solis [address] [place] [address] 01/08/2017 16:24:01 01/08/2017 17:01:01 Allergic rhinitis 79940032 J30.9 [id number] Estuardo Interiano MD [facility] [address] [place], [place] [address] [place] [address] 02/12/2017 14:16:53 02/12/2017 15:23:54 Allergic rhinitis 68420012 J30.9 [id number] Biancabruce Lopes [address] [place] [address] 02/19/2017 13:18:53 02/19/2017 14:03:09 Allergic rhinitis 42934000 J30.9 [id number] Bianca Moses [address] [place] [address] 02/27/2017 11:05:11 02/27/2017 11:52:09 Allergic rhinitis 92019839 J30.9 [id number] Bianca Moses [address] [place] [address] 03/06/2017 16:11:47 03/06/2017 16:54:18 Allergic rhinitis 33170335 J30.9 [id number] Bianca Moses [address] [place] [address] 04/17/2017 16:32:20 04/17/2017 16:55:45 Allergic rhinitis 21094379 J30.9 [id number] Joe Valle MD [address] [place] [address] 05/15/2017 16:31:47 05/15/2017 16:49:01 Allergic rhinitis 03647799 J30.9 [id number] Estuardo Interiano MD [address] [place] [address] 06/13/2017 16:34:48 06/17/2017 09:41:13 Environmental allergy 135929717 T78.49XA T78.49XD [id number] Biancabruce Lopes [address] [place] [address] 07/11/2017 16:33:06 07/11/2017 17:14:49 Allergic rhinitis 78791185 J30.9 [id number] Biancabruce Lopes [address] [place] [address] 08/13/2017 16:35:55 08/14/2017 13:28:13 Allergic rhinitis 01503861 J30.9 [id number] Raquel Solis APRN [facility] [address] [place] [place] [address] 09/10/2017 16:37:40 09/10/2017 17:07:29 Allergic rhinitis 80766756 J30.9 Body mass index 30+ - obesity 135851541 Z68.39 Health Concerns Section Related Observation LastModified by Organization Detai ls LastModified Time None Recorded Concern Status LastModified by Organization Details LastModified Time None Recorded Advance Directives Directive None Recorded Payers Insurance Date Sequence Insurance Name Policy Number Policy Marques Covered Member ID Marques Member ID Guarantor Name 12/30/2020 1 [facility] [id number] Arun Granados [id number] Arun Granados Notes Date Note Type Note Provider Name and Address Organization Details Recorded Time 05/15/2017 text/html Allergy injection Joe napier null, [place] - [facility] 05/22/2017 11:40:29 07/11/2017 text/html Allergy injection Bianca hanley null, [place] - [facility] 07/11/2017 17:11:44 08/13/2017 text/html allergy injections Bianca Lopes null, [place] - [facility] 08/13/2017 17:04:08 09/10/2017 text/html allergy injections Raquel Solis null, [place] - [facility] 09/10/2017 17:05:03
--- OUTSIDE RECORDS SUMMARY | 2025-04-27 07:36 | XMS_ITS | Patient Health Record ---
Author Organization [facility] Address [address] [place] [address] Care Team Providers Care Automotive Artist Name Role Phone Unknown, PCP Primary Care Provider Unavailabl e Reason For Referral No Information Immunizations Vaccine Route Administration Date Status Comme nts Pfizer Covid19 (12yr & up) Gila (0.3mL) IM Intramuscular 12/27/2023 Administered Shingles Shingrix SDV MultiPack IM Intramuscular 12/27/2023 Administered Shingles Shingrix SDV MultiPack IM Intramuscular 03/27/2024 Administered Problems Problem Type SNOMED Code ICD Code Onset Dates Problem Status W/U Status Risk Notes Problem Vaccination given (560373898) Encounter for immunization (Z23) Active confirmed Plan Of Treatment No Information Insurance Providers Payer Name Payer Address Payer Phone Subscriber Number Group Number Insured Name Patient Relationship to Insured Coverage Start Date Coverage End Date [facility] [address] [place] [address] [id number] Arun Granados Self - patient is the insured
--- OUTSIDE RECORDS SUMMARY | 2025-04-27 07:36 | XMS_ITS | Clinical Summary ---
Author Organization Healthcare Address [address] [place] [address] Care Team Providers Care Extruder Operator Multiple Name Role Phone Justin Marcum MD Primary Care Provider + [phone] Family History Medical History Relation Name Comments Cardiac disorder Father Colon cancer Son Relation Name Status Comments Father Son Social History Tobacco Use Types Packs/Day Years Used Date Smoking Tobacco: Never Assessed Sex and Gender Information Value Date Recorded Sex Assigned at Not on file Legal Sex Male 7:56 PM EDT Gender Identity Not on file Sexual Orientation Not on file Last Filed Vital Signs Vital Sign Reading Time Taken Comments Blood Pressure - - Pulse - - Temperature - - Respiratory Rate - - Oxygen Saturation - - Inhaled Oxygen Concentration - - Weight 113 kg (250 lb) 01/05/2016 1:54 PM EST Height 154.9 cm (5' 1 ) 01/05/2016 1:54 PM EST Body Mass Index 47.24 01/05/2016 1:54 PM EST Plan of Treatment Not on file Care Teams Extruder Operator Multiple Relationship Specialty Start Date End Date Justin Marcum MD [facility] [place] [address] PCP - General 03/31/21
[2025-04-27 07:40] VITALS: BMI 39.2
[2025-04-27 07:47] VITALS: BP 153/75; PULSE 71; RESP 16; O2SAT 95
[2025-04-27 08:08] VITALS: BP 186/81; PULSE 78; RESP 16; O2SAT 95
[2025-04-27 08:11] VITALS: BP 168/93; PULSE 74; RESP 16; O2SAT 94
[2025-04-27] MEDS: NITROGLYCERIN 0.4MG SL TABLET SL (08:11)
[2025-04-27 08:16] VITALS: BP 157/77; PULSE 62; RESP 16; O2SAT 95
[2025-04-27 08:20] VITALS: BP 149/70; PULSE 65; RESP 16; O2SAT 95
[2025-04-27] MEDS: IOPAMIDOL-370 (76%);100ML BOTTLE 85 ML IV (08:27)
[2025-04-27] MEDS: SODIUM CHLORIDE 0.9% 10ML SYR (RAD ONLY) 10 ML IV (08:27)
[2025-04-27] MEDS: 0.9 % SODIUM CHLORIDE 50 ML VIAL IV (08:27)
--- NOTE | 2025-04-27 08:30 | CT_ITS ---
APPROVED REPORT Hedis Specialist: CLINICAL INDICATION Chest Pain TECHNIQUE Image Acquisition: A 128 slice MDCT scanner ([employer] View) was used for data acquisition. A noncontrast coronary calcium scan was performed. A CT attenuation threshold of 130 Hounsfield units (HU) was used for the detection of calcium in contiguous voxels of 1 sq mm in area to be counted as individual lesions. Bolus tracking in the ascending aorta with a threshold of 180 HU was performed. Immediately afterwards, ECG synchronized cardiac CT was then performed from the cardiac base to apex using retrospective gating with ECG tube current modulation. A total of 85 mL of Isovue 370 mg/mL contrast medium was administered at 5 mL/sec followed by a saline flush using a biphasic injection protocol. A tube voltage of 120 KVp was used. The patient received the following medications prior to the cardiac CT. 5 mg of intravenous metoprolol 0.8 mg of sublingual nitroglycerin The average heart rate at the time of acquisition was 62 bpm and regular. Image Reconstruction Transaxial images were reconstructed at 0.67 mm slide thickness. Data was reviewed interactively on an advanced workstation capable of 2 and 3-dimensional displays in all conventional reconstruction formats, including multiplanar reformations, maximum intensity projections, curved multiplanar reformations, and volume rendered reconstructions. When applicable, selected routine images describing the relevant coronary anatomy and pathology were saved and sent to PACS. Complications None Technical Quality Overall image quality was good. Coronary artery opacification was adequate. Total DLP (Dose-Length Product) is 2319.1 mGy-cm. The reported value represents the total of one or more individual components during the CT acquisition of this date and at this time, and as such, the same value may appear in more than one CT report depending on the interpreting/reporting physicians. COMPARISON None FINDINGS CT Coronary Calcium Scoring LMA (Left Main Artery) = 0 LAD (Left Anterior Descending) = 0 LCX (Left Coronary Circumflex) = 0 RCA (Right Coronary Artery) = 0 Total Calcium Score = 0 using the AJ-130 method. The interpretation of the calcium heart score is based on the following continuum*: 0 = no calcified plaque detected (risk of coronary artery disease is very low ??? less than 5%) 1-10 = calcium detected in extremely minimal levels (risk of coronary diseases is still low ??? less than 10%) 11-100 = mild levels of plaque detected with certainty (mild or minimal narrowing of heart arteries is likely) 101-400 = definite,at least moderate levels of plaque detected (relatively high risk of a heart attack within 3-5 years) >401-999 = extensive levels of plaque detected (high risk of heart attack, high levels of vascular disease are present, high likelihood of at least one significant coronary narrowing) *The calcium heart score quantifies the burden of coronary calcification/plaque in the coronary arteries. The calcium heart score is not able to evaluate the presence or burden of non-calcified (i.e. soft) plaque. There is no mild calcification of the aortic valve. Coronary CT Angiography The coronary arterial system is right dominant. Quantitative Stenosis Grading: Left Main (LM): The left main originates normally from the left sinus of Valsalva. The LM bifurcates into the left anterior descending artery and left circumflex artery. The LM is patent with no evidence of atherosclerosis. Left Anterior Descending (LAD) and Diagonal Branches: The LAD gives off 2 diagonal branch(es). The LAD and its branches are patent with no evidence of atherosclerosis. There is no evidence of LAD-myocardial bridge. Left Circumflex (LCX) and Obtuse Marginals (OM): The LCX gives off 1 Obtuse Marginal (OM) branch(es). The LCX and its branches are patent with no evidence of atherosclerosis. Right Coronary Artery (RCA): The RCA originates normally from the right sinus of Valsalva. The RCA gives off a posterior descending artery (PDA) and posterolateral (PL) branches. The RCA and its branches are patent with no evidence of atherosclerosis. Non-Coronary Cardiac Findings: Analysis of the left ventricular (LV) structure and function was performed after 3-D reconstruction of the LV from axial images, with user-corrected automatic contouring for assessment of LV volumes and user-defined reconstruction from oblique planes for measurement of 3-D cardiac structure and function. -The left ventricle systolic function is normal. -There is no left atrial appendage filling defect. Two right pulmonary veins and two left pulmonary veins drain normally into the left atrium. -No pericardial thickening or calcification. -Central and branch pulmonary arteries in the [id number] are unremarkable. -Thoracic aorta within the visualized thoracic aortic-branches in the [id number] is unremarkable. -Mild calcification of the aortic valve. Extracardiac Structures No significant extra-cardiac findings. Note, however, that this study is focused on the cardiac findings. IMPRESSION -Absence of coronary calcification with an Agatston score = 0 using the AJ-130 method. -No evidence of significant flow-limiting atherosclerosis of the coronary arteries. -CAD-RADS 0. Management recommendations per ACC/AHA guidelines*, as clinically appropriate. *Recommendations: CAD RADS 0: Reassurance. Consider non-atherosclerotic causes of chest pain. CAD RADS 1: Consider non-atherosclerotic causes of chest pain. Consider preventive therapy and risk factor modification. CAD RADS 2: Consider non-atherosclerotic causes of chest pain. Consider preventive therapy and risk factor modification, particularly for patients with nonobstructive plaque in multiple segments. CAD RADS 3: Consider further functional testing. Consider symptom-guided anti-ischemic and preventive pharmacotherapy as well as risk factor modification per published guideline statements. CAD RADS 4A: Consider further functional testing or invasive coronary angiography with revascularization per published guideline statements. Consider symptom-guided anti-ischemic and preventive pharmacotherapy as well as risk factor modification per published guideline statements. CAD RADS 4B: Invasive coronary angiography recommended with revascularization per published guideline statements. Consider symptom-guided anti-ischemic and preventive pharmacotherapy as well as risk factor modification per published guideline statements. CAD RADS 5: Consider invasive angiography and/or viability assessment with revascularization per published guideline statements. Consider symptom-guided anti-ischemic and preventive pharmacotherapy as well as risk factor modification per published guideline statements. CRITICAL RESULT None COMMUNICATION Per this written report The coronary and cardiac findings of this CCTA were reviewed, reported, and signed by Abdoulaye Gauthier MD (Dehydrator) Conclusion Electronically signed by : Cindy Gauthier MD 04/27/2025 13:56:21
== END 2025-04-27 23:59 | disposition home or self-care (01) ==
PROVIDERS: PCP Family Medicine; Visit Provider Internal Medicine
DX: R94.39 Abnormal result of other cardiovascular function study (principal); R79.89 Other specified abnormal findings of blood chemistry; R07.9 Chest pain, unspecified
CPT/HCPCS: 75574; Q9967

== ENCOUNTER 2025-08-02 07:04 | Day surgery (SDC) | payer OTHER, SELFPAY ==
--- NOTE | 2025-07-28 08:02 | EXP.HP ---
History of Present Illness *Admission Date: 08/02/25 *Reason for visit:: Personal history of adenomatous colon polyps *History of present illness: Mr. Granados is a 74-year-old gentleman who is here for screening/surveillance colonoscopy secondary to a personal history of adenomatous colon polyps. The patient did have a colonoscopy in September 2020 (Kt Simons MD) at which time 12 polyps were removed (tubular adenomas x 2, small serrated adenoma x 1 and hyperplastic polyps x 9). The patient's last colonoscopy by aJvi Farris M.D. in December 2022 revealed a single polyp (tubular adenoma) which was removed. The examination is deemed medically necessary for screening colonoscopy. The patient has been seen, interviewed and examined prior to the procedure by both myself and the anesthesia provider. [facility] Disclaimer: The information contained in this section may have been updated after the patient was seen, as this information can be updated by other users. Medical History (Updated 08/02/25 @ 08:17 by David Iverson II, MD) Abnormal electrocardiogram [ECG] [EKG] Morbid obesity with body mass index (BMI) of 40.0 to 49.9 Allergic rhinitis Lumbar herniated disc Migraine headache Sleep apnea Arthritis of coccyx Arthritis of right knee Diabetes mellitus type 2, controlled Skin cancer, basal cell Rheumatic fever History of colon polyps HTN (hypertension) Surgical History History of colonoscopy History of lumbar discectomy History of myringotomy History of appendectomy History of tonsillectomy Family History Other Colon cancer Family history of cardiomyopathy Social History Smoking Status: Former smoker alcohol intake: never substance use type: other current occupational status: employed Travel in the last 8 weeks?: None household members: spouse housing: house caffeine: No Have you lived/traveled outside [place] in past 30 days?: No Contact w/someone who lives/traveled outside US past 30 days?: No Exposure to someone with infectious disease in past 14 days?: No Do you have a fever (greater than 100.4 F or 38 C)?: No Have you tested positive for COVID-19?: No Exposed to someone with COVID-19 in past 14 days?: No Do you have a sore throat?: No Do you have a cough?: No Do you have any weakness?: No Do you have any diarrhea?: No Are you experiencing any unusual bleeding?: No Do you have any muscle aches/pain?: No Do you have any abdominal pain?: No Are you experiencing loss of taste or smell?: No Other Medical History Have you received the Flu Vaccine for this season: No Have you received the Pneumonia Vaccine: Yes Review of Systems Review of Systems Review of systems (narrative): Negative *Cardiovascular Comments: Negative *Gastrointestinal Comments: Negative *Genitourinary Comments: Negative *Musculoskeletal Comments: Negative *Neurologic Comments: Negative Meds Home Medications and Allergies Home Medications ?Medication ?Instructions ?Recorded ?Confirmed ?Type amlodipine 5 mg tablet 5 mg PO DAILY High blood pressure 03/30/19 08/02/25 History potassium chloride 10 mEq 10 meq PO DAILY supplemt 08/29/20 08/02/25 History capsule,extended release diclofenac sodium 1 % topical gel 1 ea topical NEEDED PRN right 10/21/23 08/02/25 History nee pain irbesartan 300 1 tab PO DAILY 10/21/23 08/02/25 History mg-hydrochlorothiazide 12.5 mg tablet multivitamin 1 tab PO DAILY 10/21/23 08/02/25 History timolol maleate 0.5 % eye drops 1 drp ophthalmic (eye) BID 10/21/23 08/02/25 History dupilumab 300 mg/2 mL subcutaneous 300 mg SQ WEEKLY 03/06/25 08/02/25 History pen injector (Dupixent) metformin 500 mg tablet,extended 500 mg PO BID 03/06/25 08/02/25 History release 24 hr ketoconazole 2 % topical cream 1 applic topical BID fungal 04/15/25 08/02/25 Rx infection 30 days #30 grams New Prescriptions to Start Prescriptions: Allergies Allergy/AdvReac Type Severity Reaction Status Date / Time latex Allergy Rash Verified 08/02/25 07:35 Exam *Routine HEENT Exam Head: Present normocephalic Eye: Present EOMI and PERRL ENT: Present mucous membranes moist *Routine Neck Exam Neck: Present supple *Routine Respiratory Exam Respiratory: Present CTA bilaterally *Routine Cardiovascular Exam Cardiovascular: Present RRR *Routine Abdominal Exam Abdominal: Present soft and normoactive bowel sounds; Absent tenderness *Routine Rectal Exam Rectal:: deferred *Routine Genitalia Exam Genitalia:: deferred *Routine Extremities Exam Extremities: Absent cyanosis, clubbing or edema *Routine Skin Exam Skin: Present warm; Absent rash *Routine Neurological Exam Neurological: Present alert and oriented X3 Assessment and Plan *Assessment and plan (1) Personal history of adenomatous and serrated colon polyps: Status: Acute Category: Medical Code(s): Z86.0101 - Personal history of adenomatous and serrated colon polyps (2) Screening for colon cancer: Status: Acute Category: Medical Code(s): Z12.11 - Encounter for screening for malignant neoplasm of colon (3) Family history of colon cancer in mother: Status: Acute Category: Medical Code(s): Z80.0 - Family history of malignant neoplasm of digestive organs Plan A/P: 1. Personal history of adenomatous colon polyps is the preprocedural diagnosis. The patient's mother had colon cancer in her 70s. The patient will be anesthetized/sedated using MAC sedation. The patient has been seen and examined. Cardiac and lung assessment prior to the examination is stable. Proceed with planned screening colonoscopy.
[2025-08-02 07:33] VITALS: BMI 39.0
[2025-08-02 07:39] VITALS: BP 154/62; PULSE 68; RESP 16; TEMP 36.5; O2SAT 97
[2025-08-02] MEDS: LACTATED RINGERS 1000ML 1,000 ML 50 ML IV (07:48)
--- NOTE | 2025-08-02 07:57 | EXP.ANES.CKL ---
[facility] Disclaimer: The information contained in this section may have been updated after the patient was seen, as this information can be updated by other users. Medical History Abnormal electrocardiogram [ECG] [EKG] Morbid obesity with body mass index (BMI) of 40.0 to 49.9 Allergic rhinitis Lumbar herniated disc Migraine headache Sleep apnea Arthritis of coccyx Arthritis of right knee Diabetes mellitus type 2, controlled Skin cancer, basal cell Rheumatic fever History of colon polyps HTN (hypertension) Surgical History History of colonoscopy History of lumbar discectomy History of myringotomy History of appendectomy History of tonsillectomy Family History Other Colon cancer Family history of cardiomyopathy Social History Smoking Status: Former smoker alcohol intake: never substance use type: other current occupational status: employed Travel in the last 8 weeks?: None household members: spouse housing: house caffeine: No Have you lived/traveled outside [place] in past 30 days?: No Contact w/someone who lives/traveled outside [place] past 30 days?: No Exposure to someone with infectious disease in past 14 days?: No Do you have a fever (greater than 100.4 F or 38 C)?: No Have you tested positive for COVID-19?: No Exposed to someone with COVID-19 in past 14 days?: No Do you have a sore throat?: No Do you have a cough?: No Do you have any weakness?: No Do you have any diarrhea?: No Are you experiencing any unusual bleeding?: No Do you have any muscle aches/pain?: No Do you have any abdominal pain?: No Are you experiencing loss of taste or smell?: No [facility] Anesthesia Checklist Patient Identification Patient Identification: Arm Band and Verbal (Name & ) Structural Data Admitted From: Home Planned Operative Procedure/s: colonoscopy Verified Documents: Surgical Consent NPO Status Verified Time NPO: 00:00 Additional verifications Anesthesia Reactions: No Hx Blood Transfusions: No Blood Transfusion Reaction: No Airway Assessment Mallampati Score:: Class III C-Spine Mobility Assessed: Yes TMJ Mobility Assessed: Yes Dentition: Good Dentition Neurological Assessment Level of Consciousness: Awake, Alert and Appropriate Hx Seizures: No Numbness or tingling in extremities: No Anesthesia Plan Anesthesia Risk discussed: Yes Anesthesia Plan: Verified ASA Class: II Anesthesia Type: MAC
--- NOTE | 2025-08-02 08:17 | HMH.PROCNOTE ---
[facility] Procedure Note Date: 08/02/25 Time: 08:36 Procedure Note:: Colonoscopy Procedure Report: Colonoscopy with cold snare polypectomy Endoscopist: David Iverson II, MD Referring physician: Justin Marcum MD Date of Procedure: August 02, 2025 Equipment: Olympus [id number] adult colonoscope Sedation: MAC sedation Indication: Mr. Granados is a 74-year-old gentleman who is here for screening/surveillance colonoscopy secondary to a personal history of adenomatous colon polyps. The patient did have a colonoscopy in September 2020 (Kt Simons MD) at which time 12 polyps were removed (tubular adenomas x 2, small serrated adenoma x 1 and hyperplastic polyps x 9). The patient's last colonoscopy by Javi Farris M.D. in December 2022 revealed a single polyp (tubular adenoma) which was removed. The patient does state that his mother had colon cancer in her 70s. The patient reports no abdominal pain, weight loss, change in his bowel habits or rectal bleeding. The examination is deemed medically necessary for screening colonoscopy. Procedure: Prior to the procedure, a history and physical exam was performed, and patient's medications and allergies were reviewed. The risks, benefits and alternatives of the sedation and procedure were discussed with the patient. All questions were answered and informed consent was obtained. The patient was brought to the procedure room. Patient identification and proposed procedure were verified by the physician and the nurse. The patient was placed in a left lateral decubitus position and the scope was passed under direct vision. Throughout the procedure, the patient's blood pressure, pulse, and oxygen saturations were monitored continuously. The colonoscopy was accomplished without difficulty. The patient tolerated the procedure well. Findings: On digital rectal examination there was normal rectal tone. There were no external hemorrhoids. The prostate was 2-3+ with moderate firmness along the lower margin. The colonoscope was introduced through the anal canal to the rectum and advanced to the cecum. The ileocecal valve and appendiceal orifice were identified. The scope was advanced a short distance into the ileum which appeared grossly normal. The scope was then withdrawn into the colon. There were 4 colon polyps (transverse x 3 (3, 3 and 4 mm) and rectum x 1 (3 mm)). These were all removed via cold snare polypectomy. The cecum, ascending, transverse, descending, sigmoid and rectum were grossly normal. There were no mucosal abnormalities identified. Upon retroflexion within the rectum there were grade 1-2 internal hemorrhoids. The preparation was excellent throughout with [place] Preparation Score of 9. The cecal time was 12 minutes. Impression: 1. Diminutive colonic polyps x 4 2. Firmness lower prostate margin 3. Grade 1-2 internal hemorrhoids Plan: I will follow-up the polyp histology and recommend repeat screening/surveillance colonoscopy again in 5 years. I will obtain PSA level if it has not been obtained recently.
[2025-08-02 08:39] VITALS: BP 100/56; PULSE 61; RESP 18; TEMP 36.1; O2SAT 93
[2025-08-02 08:49] VITALS: BP 112/53; PULSE 59; RESP 93; O2SAT 93
[2025-08-02 08:59] VITALS: BP 148/70; PULSE 65; O2SAT 95
[2025-08-02 09:09] VITALS: BP 142/69; PULSE 63; RESP 18; O2SAT 95
[2025-08-02 09:55] LABS: Prostate Specific Ag, Diagnost 1.17 ng/ml (0.0-4.0)
[2025-08-02 19:36] LABS: POC Glucose,Bedside 123 gm/dL (70-110)
== END 2025-08-02 09:09 | disposition home or self-care (01) ==
PROVIDERS: PCP Family Medicine; Visit Provider Internal Medicine Gastroenterology
PROC: 0DJD8ZZ Inspection of Lower Intestinal Tract, Via Natural or Artificial Opening Endoscopic (ICD-10-PCS; CPT 45378; principal; 2025-08-02 08:30)
DX: Z12.11 Encounter for screening for malignant neoplasm of colon (principal); Z86.0101 Personal history of adenomatous and serrated colon polyps; Z80.0 Family history of malignant neoplasm of digestive organs; K63.5 Polyp of colon; K62.1 Rectal polyp; K64.1 Second degree hemorrhoids; M17.11 Unilateral primary osteoarthritis, right knee; E11.9 Type 2 diabetes mellitus without complications; I10 Essential (primary) hypertension; E66.01 Morbid (severe) obesity due to excess calories; Z85.828 Personal history of other malignant neoplasm of skin; G47.30 Sleep apnea, unspecified; Z87.891 Personal history of nicotine dependence; Z91.040 Latex allergy status; Z79.84 Long term (current) use of oral hypoglycemic drugs; Z79.899 Other long term (current) drug therapy
CPT/HCPCS: 45385; 36415; 82962; 84153; J2003; J2704; J7120